=== PATIENT | female | born 1950 | race Caucasian/White ===

== ENCOUNTER 2020-06-13 13:20 | Observation (INO) | payer MEDICARE, SELFPAY ==
[2020-06-13] VITALS (7 sets, daily range): BP systolic 147–181; BP diastolic 61–82; PULSE 85–109; RESP 16–20; TEMP 36.7–37.5; O2SAT 94–98; BMI 29.5
--- NOTE | ~2020-06-13 | US_ITS ---
US right upper quadrant DATE: 06/14/2020 15:29 INDICATION: Cirrhosis TECHNIQUE: Real-time imaging of liver, pancreas and gallbladder fossa area COMPARISON: 09/13/2019 right upper quadrant ultrasound examination FINDINGS: The pancreatic tail is obscured by bowel gas. The pancreas otherwise appears unremarkable. No pancreatic duct dilatation. There is normal hepatopedal portal venous flow direction. There is hepatic surface nodularity and isabelle e coarsened echotexture of liver consistent with clinical diagnosis of cirrhosis. The gallbladder is reportedly surgically absent. The common bile duct measures 4.7 mm diameter, withi n normal limits. IMPRESSION: Cirrhosis; normal hepatopedal portal venous flow direction Pancreatic tail is obscured; otherwise unremarkable pancreas Status post cholecystectomy Reviewed, dictated and finalized at [facility]. Reviewed, dictated and finalized at [facility].
--- NOTE | ~2020-06-13 | XR_ITS ---
EXAMINATION: XR chest 2V DATE: 06/13/2020 14:11 INDICATION: Weakness. TECHNIQUE: Frontal and lateral views of the chest were obtained. COMPARISON: Chest 2 views 12/27/2011, chest CT 09/01/2009 FINDINGS: The chest demonstrates clear lungs without pneumonia, pleural effusion, or pneumothorax. Th e heart size is normal. Surgical clips in the right upper quadrant are likely from cholecystectomy. IMPRESSION: 1. No acute cardiopulmonary disease. Reviewed, dictated and finalized at location [facility].
--- NOTE | 2020-06-13 13:42 | ECG_ITS ---
Measurements Intervals [place] Rate: 97 P: 35 OK: 144 QRS: 20 QRSD: 78 T: -3 QT: 376 QTc: 478 Interpretive Statements SINUS RHYTHM POSSIBLE LEFT ATRIAL ENLARGEMENT VOLTAGE CRITERIA FOR LVH CANNOT RULE OUT SEPTAL INFARCT, AGE INDETERMINATE BORDERLINE ST-T WAVE ABNORMALITY- ANTEROLAT/INF LEADS ABNORMAL ECG Electronically Signed On 06-13-2020 14:26:45 CDT by Diomedes Goldman D.O.
[2020-06-13 14:00] LABS: Basophils Percent Auto 0.5 % (0.2-1.2); Eosinophils Percent Auto 0.8 % (0-4.4); Hematocrit 33.9 % (37.0-47.0); Hemoglobin 10.4 g/dL (12.0-15.0); Immature Granulocyte Absolute 0.02 K/mm3 (0.00-0.031); Immature Granulocyte Percent A 0.5 % (0-0.5); Immature Platelet Fraction Pct 4.8 % (0.9-11.2); Lymphocytes Absolute Auto 1.18 K/mm3 (0.9-3.2); Lymphocytes Percent Auto 32.2 % (18.3-44.2); Mean Corpuscular HGB Conc 30.7 g/dl (32-36); Mean Corpuscular Hemoglobin 25.3 pg (26-34); Mean Corpuscular Volume 82.5 fl (80-100); Mean Platelet Volume 12.1 fl (7.4-10.4); Monocytes Absolute Auto 0.4 K/mm3 (0.1-0.6); Monocytes Percent Auto 11.5 % (2.6-8.5); Neutrophils Percent Auto 54.5 % (45.5-73.1); Platelet Count Result 91 k/mm3 (150-375); Red Blood Count 4.11 M/mm3 (4.2-5.4); Red Cell Distribution Width 18.4 % (11.5-14.5); White Blood Count 3.7 K/mm3 (4.5-10.0)
[2020-06-13 14:12] LABS: Alanine Aminotransferase 29 U/L (4-35); Albumin Level 3.6 g/dL (3.5-5.1); Alkaline Phosphatase 113 U/L (38-126); Anion Gap 9 mmol/L (8-16); Aspartate Amino Transferase 61 U/L (14-36); Bilirubin,Total 2.4 mg/dL (0.2-1.3); Blood Urea Nitrogen 11 mg/dL (7-17); Calcium 8.7 mg/dL (8.4-10.2); Carbon Dioxide 22 mmol/L (22-30); Chloride 110 mmol/L (98-107); Estimated CRCL calculation 146 ml/min; Estimated Glomerular Filt Rate > 60; Glucose 163 mg/dL (65-105); Potassium 3.6 mmol/L (3.4-5.0); Sodium 141 mmol/L (137-145)
[2020-06-13 15:55] LABS: Add Urine Microscopic? YES; Appearance Urine Clear (Clear); Bacteria Urine Trace /hpf; Bilirubin Urine Negative (Negative); Blood Urine Negative (Negative); Color Urine Yellow (Yellow); Glucose Urine UA Negative (Negative); Ketones Urine Negative (Negative); Leukocyte Esterase Ur Negative LEU/UL (Negative); Mucus Urine Rare /lpf; Nitrate Urine Negative (Negative); Protein Urine 1+ mg/dL (Negative); RBC Urine 0-2 /hpf (0-2); Squamous Epithelial Cell Urine Moderate /hpf (Few); WBC Urine 0-3 /hpf
[2020-06-13 16:13] LABS: Ammonia 83 umol/L (9-30)
--- NOTE | 2020-06-13 16:35 | ED.GENADULT ---
HPI - General Adult General Chief complaint: Weakness Stated complaint: Dizzy, Needs Blood Work from PCP Time Seen by Provider: 06/13/20 15:34 History of Present Illness HPI narrative: Patient is a 70-year-old female who presents the ER with feeling slightly disoriented and dizzy. Reports been going on for 2 to 4 days. She had a COVID test yesterday which was negative. Now she is concerned she may be encephalopathic related to her cirrhosis. She reports compliance with rifaximin. No fevers or chills or sweats. No new abdominal pain. Related Data Home Medications Medication Instructions Recorded Confirmed lactulose [Generlac] 30 ml PO PRN PRN 09/12/19 06/13/20 Adult Low Dose Aspirin 81 mg PO DAILY 06/13/20 06/13/20 pantoprazole 40 mg PO DAILY 06/13/20 06/13/20 Allergies Allergy/AdvReac Type Severity Reaction Status Date / Time acetaminophen [From Vicodin] Allergy Unknown Unknown Verified 06/12/20 11:01 hydrocodone [From Vicodin] Allergy Unknown Unknown Verified 06/12/20 11:01 Review of Systems Review of Systems: All systems reviewed & are unremarkable except as noted in HPI and below Constitutional: Constitutional: Denies chills, Denies fever(s) and Denies weakness ENT: Denies nasal congestion and Denies sore throat Cardiovascular: Cardiovascular: Denies chest pain and Denies rapid heart rate Respiratory: Respiratory: Denies cough, Denies dyspnea and Denies wheezing Gastrointestinal: Gastrointestinal: Denies abdominal pain, Denies nausea and Denies vomiting Neurologic: Reports dizziness, Denies focal weakness, Denies numbness and Reports weakness PMFSH Social History Social History (Reviewed 06/12/20 @ 11:02 by Laurel Valenzuela [facility]) Smoking packs per day: 1 Smoking cigarettes per day: 20.0 Years smoked: 10 Smoking pack-years: 10.00 Smoking status: Former smoker Tobacco type: cigarettes Second hand tobacco smoke exposure: Yes Alcohol intake: never Substance use: never Substance use type: does not use Gender identity (if verbalized by the patient): Female Spiritual care concerns: No Agree to blood products: Yes Exam Narrative: Exam Narrative: GENERAL: Well-appearing, well-nourished, and in no acute distress. HEAD: Normocephalic, atraumatic. ENT: Mucous membranes moist. CHEST: Clear to auscultation. No respiratory distress. HEART: Regular rate and rhythm. Normal peripheral pulses. ABDOMEN: Soft, nontender, nondistended. EXTREMITIES: Normal range of motion. No edema. SKIN: Warm, dry, no rash. NEURO: No focal deficits. Alert and oriented x3 but with a foggy memory. Course Course Emergency Course: Patient informed of results. We will give lactulose. Observe. Vital Signs Vital signs: Vital Signs Temperature 99.5 F 06/13/20 13:44 Pulse Rate 107 H 06/13/20 13:44 Respiratory Rate 18 06/13/20 13:44 Blood Pressure 174/73 H 06/13/20 13:44 Pulse Oximetry 96 06/13/20 13:44 Temperature 98.3 F 06/13/20 22:00 Pulse Rate 85 06/13/20 22:00 Respiratory Rate 20 06/13/20 22:00 Blood Pressure 149/61 H 06/13/20 22:00 Pulse Oximetry 98 06/13/20 22:00 Medical Decision Making Vital Signs Vital Signs: Vital Signs Temperature 99.5 F 06/13/20 13:44 Pulse Rate 107 H 06/13/20 13:44 Respiratory Rate 18 06/13/20 13:44 Blood Pressure 174/73 H 06/13/20 13:44 Pulse Oximetry 96 06/13/20 13:44 Temperature 98.3 F 06/13/20 22:00 Pulse Rate 85 06/13/20 22:00 Respiratory Rate 20 06/13/20 22:00 Blood Pressure 149/61 H 06/13/20 22:00 Pulse Oximetry 98 06/13/20 22:00 Lab Data Result diagrams: 06/13/20 13:48 06/13/20 13:48 Labs: Lab Results 06/13/20 06/13/20 06/13/20 Range/Units 13:48 13:48 15:43 WBC 3.7 L (4.5-10.0) K/mm3 RBC 4.11 L (4.2-5.4) M/mm3 Hgb 10.4 L (12.0-15.0) g/dL Hct 33.9 L (37.0-47.0) % MCV 82.5 (80-100) fl MCH 25.3 L (26-34) pg MCHC 30.
[2020-06-13] MEDS: LACTULOSE 20 GM/30 ML UDC PO (18:43)
[2020-06-13] MEDS: ACETAMINOPHEN 325 MG TABLET 650 MG PO (21:08)
[2020-06-13] MEDS: rifAXIMin 550 MG TABLET PO (23:24)
[2020-06-14 02:00] VITALS: BP 132/53; PULSE 81; RESP 20; TEMP 36.1; O2SAT 98
[2020-06-14 06:00] VITALS: BP 128/55; PULSE 82; RESP 18; TEMP 36.2; O2SAT 96
[2020-06-14] MEDS: ASPIRIN 81 MG CHEWABLE TABLET PO (08:10)
[2020-06-14] MEDS: PANTOPRAZOLE 40 MG TABLET PO (08:10)
[2020-06-14] MEDS: rifAXIMin 550 MG TABLET PO ×2 (08:11→21:21)
[2020-06-14] MEDS: LOSARTAN POTASSIUM 100 MG TABLET PO (08:11)
[2020-06-14] MEDS: LACTULOSE 20 GM/30 ML UDC 10 GM PO (08:16)
[2020-06-14 09:24] LABS: Glucose Point of Care 163 (65-105)
[2020-06-14 10:00] VITALS: BP 136/81; PULSE 84; RESP 18; TEMP 36.6; O2SAT 97
[2020-06-14 10:54] LABS: Basophils Percent Auto 0.6 % (0.2-1.2); Eosinophils Absolute Auto 0.1 K/mm3 (0-0.3); Eosinophils Percent Auto 1.6 % (0-4.4); Hematocrit 31.5 % (37.0-47.0); Hemoglobin 9.7 g/dL (12.0-15.0); Immature Granulocyte Absolute 0.01 K/mm3 (0.00-0.031); Immature Granulocyte Percent A 0.3 % (0-0.5); Lymphocytes Absolute Auto 1.24 K/mm3 (0.9-3.2); Lymphocytes Percent Auto 39.1 % (18.3-44.2); Mean Corpuscular HGB Conc 30.8 g/dl (32-36); Mean Corpuscular Hemoglobin 25.4 pg (26-34); Mean Corpuscular Volume 82.5 fl (80-100); Mean Platelet Volume 11.5 fl (7.4-10.4); Monocytes Absolute Auto 0.4 K/mm3 (0.1-0.6); Monocytes Percent Auto 12.6 % (2.6-8.5); Neutrophils Absolute Auto 1.5 K/mm3 (1.3-6.7); Neutrophils Percent Auto 45.8 % (45.5-73.1); Platelet Count Result 87 k/mm3 (150-375); Red Blood Count 3.82 M/mm3 (4.2-5.4); Red Cell Distribution Width 18.3 % (11.5-14.5); White Blood Count 3.2 K/mm3 (4.5-10.0)
[2020-06-14 11:04] LABS: Ammonia 114 umol/L (9-30)
[2020-06-14 11:06] LABS: INR 1.6; Prothrombin Time 18.3 Seconds (11.1-14.7)
[2020-06-14 11:08] LABS: Alanine Aminotransferase 25 U/L (4-35); Albumin Level 3.1 g/dL (3.5-5.1); Alkaline Phosphatase 91 U/L (38-126); Anion Gap 7 mmol/L (8-16); Aspartate Amino Transferase 50 U/L (14-36); Bilirubin,Total 2.3 mg/dL (0.2-1.3); Blood Urea Nitrogen 13 mg/dL (7-17); Calcium 8.4 mg/dL (8.4-10.2); Carbon Dioxide 21 mmol/L (22-30); Chloride 110 mmol/L (98-107); Estimated CRCL calculation 151 ml/min; Estimated Glomerular Filt Rate > 60; Glucose 252 mg/dL (65-105); Potassium 3.8 mmol/L (3.4-5.0); Sodium 138 mmol/L (137-145)
--- NOTE | 2020-06-14 12:26 | PM.IMHP ---
H&P: HPI History of Present Illness Date/Time: 06/14/20 12:26 Chief complaint: hepatic encephalopathy Narrative: Date of admission: 06/13/2020 Date of service: 06/14/2020 Negar Berg is a 70 year old female with a history of hepatitis C, non-insulin dependent type 2 DM, HTN, and cirrhosis who presented to the emergency department on 06/13/2020 with complaints of feeling confused. She began having symptoms of feeling weird 2 days ago. When asked to elaborate on her symptoms, she said she had a dry cough and could not think of anything else. She called her PCP and went in for an appointment that day. She was then tested for COVID-19 and found to be negative. The next day, she felt more disoriented and confused. She said she was not able to recall the date. Her daughter then called her PCP on her behalf and apparently PCP told the patient's daughter that she was supposed to get blood work and that she may benefit from evaluation in the emergency department. The patient said her daughter insisted she be evaluated even though she did not really want to go. She tells me that she has had one similar episode to this back in August 2019, and she was hospitalized at that time. She has been established with Dr. Mena for about 1 year for cirrhosis and has been on Rifaximin since then. Her last appointment with Dr. Mena was about 2 months ago during which she was started on lactulose. She was instructed to take it 3-4 times per day but she says she only takes it once per day because she cannot tolerate having multiple bowel movements while she is at work. At this time, she denies any confusion. She is alert and oriented x4. She feels in her usual state of health. She had one formed bowel movement this morning. Her appetite has been good. She has been monitoring her blood sugars. She had a mild headache yesterday evening that has resolved. She does not have asterixis. Review of Systems Review of Systems: Narrative: A 12 point review of systems was reviewed with pertinent positives and negatives as per HPI. [facility] Past Medical History Medical History (Updated 06/14/20 @ 17:49 by Nela Ellison PA-C) Anemia Anxiety Diabetes mellitus Hepatitis C HTN (hypertension) Rectal bleed Transaminitis Surgical History Surgical History (Updated 06/14/20 @ 14:21 by Nela Ellison PA-C) H/O colonoscopy (~2008) History of tubal ligation Hx of cholecystectomy Hx of tonsillectomy Family History Family History Grandparent Acute myocardial infarction Hypertension Diabetes mellitus Family history of coronary artery disease Cerebrovascular accident Mother Diabetes mellitus Social History Social History (Updated 06/14/20 @ 14:25 by Nela Ellison PA-C) Social History: Ms. Berg lives alone in an apartment. 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 She has two adult children. She would like to designate her daughter, Maite, as her surrogate decision maker and would like to be a full code. Smoking packs per day: 1 Smoking cigarettes per day: 20.0 Years smoked: 10 Smoking pack-years: 10.00 Smoking status: Former smoker Tobacco type: cigarettes Second hand tobacco smoke exposure: Yes Alcohol intake: never Substance use: never Substance use type: does not use Living arrangements: alone Occupation/Education: occupation Gender identity (if verbalized by the patient): Female Spiritual care concerns: No Agree to blood products: Yes Meds Home Medications and Allergies Home Medications Medication Instructions Recorded Confirmed Type lactulose [Generlac] 30 ml PO PRN PRN 09/12/19 06/13/20 History rifaximin [Xifaxan] 550 mg PO Q12HR 30 Days #60 tablet 09/13/19 06/13/20 Rx losartan 100 mg tablet 100 mg PO DAILY #30 tablet 02/20/20 06/13/20 Rx metformin 1,000 mg tablet 1,000 mg PO BID #180 tablet 05/14/20 06/13/20 Rx Adult Low Dose Aspirin 81 mg PO DA
[2020-06-14] MEDS: INSULIN ASPART (*BKC) 100 UNITS/ML SUB-Q ×2 (12:48→16:45)
[2020-06-14 14:00] VITALS: BP 122/56; PULSE 85; RESP 16; TEMP 36.8; O2SAT 98
[2020-06-14 16:26] LABS: Glucose Point of Care 245 (65-105)
[2020-06-14 16:38] LABS: Glucose Point of Care 224 (65-105)
[2020-06-14 18:00] VITALS: BP 128/56; PULSE 80; RESP 18; TEMP 36.6; O2SAT 97
[2020-06-14] MEDS: metFORMIN HCL 500 MG TABLET 1000 MG PO (21:21)
[2020-06-14 21:35] LABS: Glucose Point of Care 170 (65-105)
[2020-06-14 22:00] VITALS: BP 139/55; PULSE 77; RESP 20; TEMP 36.8; O2SAT 98
[2020-06-15 02:00] VITALS: BP 122/55; PULSE 79; RESP 20; TEMP 36.8; O2SAT 98
[2020-06-15 05:47] LABS: Basophils Percent Auto 0.6 % (0.2-1.2); Eosinophils Absolute Auto 0.1 K/mm3 (0-0.3); Eosinophils Percent Auto 2.8 % (0-4.4); Hemoglobin 9.5 g/dL (12.0-15.0); Immature Granulocyte Absolute 0.01 K/mm3 (0.00-0.031); Immature Granulocyte Percent A 0.3 % (0-0.5); Immature Platelet Fraction Pct 6.1 % (0.9-11.2); Lymphocytes Absolute Auto 1.52 K/mm3 (0.9-3.2); Mean Corpuscular HGB Conc 30.6 g/dl (32-36); Mean Corpuscular Hemoglobin 25.6 pg (26-34); Mean Corpuscular Volume 83.6 fl (80-100); Mean Platelet Volume 11.4 fl (7.4-10.4); Monocytes Absolute Auto 0.5 K/mm3 (0.1-0.6); Monocytes Percent Auto 13.5 % (2.6-8.5); Neutrophils Absolute Auto 1.5 K/mm3 (1.3-6.7); Neutrophils Percent Auto 40.8 % (45.5-73.1); Platelet Count Result 89 k/mm3 (150-375); Red Blood Count 3.71 M/mm3 (4.2-5.4); Red Cell Distribution Width 18.3 % (11.5-14.5); White Blood Count 3.6 K/mm3 (4.5-10.0)
[2020-06-15 05:51] LABS: INR 1.5; Prothrombin Time 17.9 Seconds (11.1-14.7)
[2020-06-15 05:57] LABS: Alanine Aminotransferase 23 U/L (4-35); Albumin Level 2.9 g/dL (3.5-5.1); Alkaline Phosphatase 87 U/L (38-126); Anion Gap 5 mmol/L (8-16); Aspartate Amino Transferase 44 U/L (14-36); Bilirubin,Total 1.2 mg/dL (0.2-1.3); Blood Urea Nitrogen 14 mg/dL (7-17); Calcium 8.6 mg/dL (8.4-10.2); Carbon Dioxide 23 mmol/L (22-30); Chloride 111 mmol/L (98-107); Estimated CRCL calculation 151 ml/min; Estimated Glomerular Filt Rate > 60; Glucose 136 mg/dL (65-105); Potassium 3.8 mmol/L (3.4-5.0); Sodium 139 mmol/L (137-145)
[2020-06-15 06:00] VITALS: BP 126/50; PULSE 85; RESP 20; TEMP 36.4; O2SAT 98
[2020-06-15 07:06] LABS: Hemoglobin A1C 8.1 % (<5.7)
[2020-06-15] MEDS: metFORMIN HCL 500 MG TABLET 1000 MG PO (08:32)
[2020-06-15] MEDS: rifAXIMin 550 MG TABLET PO (08:32)
[2020-06-15] MEDS: ASPIRIN 81 MG CHEWABLE TABLET PO (08:33)
[2020-06-15] MEDS: LACTULOSE 20 GM/30 ML UDC 10 GM PO (08:33)
[2020-06-15] MEDS: PANTOPRAZOLE 40 MG TABLET PO (08:33)
[2020-06-15] MEDS: LOSARTAN POTASSIUM 100 MG TABLET PO (08:33)
[2020-06-15 08:46] LABS: Glucose Point of Care 142 (65-105)
[2020-06-15 10:00] VITALS: BP 131/66; PULSE 88; RESP 16; TEMP 37.1; O2SAT 98
--- NOTE | 2020-06-15 11:09 | PM.DS ---
DS: Admitting Diagnosis Admitting Diagnosis Admitting Diagnosis: hepatic encephalopathy DS: Discharge Diagnosis Discharge Diagnosis (1) Hepatic encephalopathy: Code(s): K72.90 - Hepatic failure, unspecified without coma Status: Acute Assessment and Plan: She was mildly confused prior to presentation (stating she could not recall the day of the week) but remained A&O x4 throughout admission. She did not have asterixis. Ammonia levels were mildly elevated. She reported she was only taking her lactulose at 1 time per day because she was worried about having diarrhea while at work. I recommended that she continue lactulose 3 times per day with a goal of having 2-3 bowel movements per day. She had been consistent with her rifaximin which she should continue. I spoke with Dr. Mena regarding her case as she is established with him. He recommends office follow-up in several weeks. (2) Cirrhosis: Qualifiers: Hepatic cirrhosis type: unspecified hepatic cirrhosis Ascites presence: without ascites Qualified Code(s): K74.60 - Unspecified cirrhosis of liver Code(s): K74.60 - Unspecified cirrhosis of liver Status: Acute Assessment and Plan: She has been established with Dr. Mena. AST was very mildly elevated and total bili was 2.3. She had mild thrombocytopenia. No ascites. She reports she recently had an EGD and did not have any evidence of esophageal varice Right upper quadrant ultrasound was performed which showed nodularity of hepatic surface consistent with cirrhosis. Previous ultrasound in August 2019 showed a normal liver surface so there is evidence of progression. Follow-up with Dr. Mena as above. Continue rifaximin and lactulose. 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 She did have an elevated fasting glucose of 252 but additional readings were reasonable. A1c was 8.1 (06/15/2020). Continue metformin. I recommended she monitor blood sugars at home and record. (4) Hypertension: Qualifiers: Hypertension type: unspecified Qualified Code(s): I10 - Essential (primary) hypertension Code(s): I10 - Essential (primary) hypertension Status: Chronic Assessment and Plan: Blood pressures were reviewed daily. Initially somewhat elevated at presentation improved to low-normal range. Continue losartan. (5) Anemia: Qualifiers: Anemia type: unspecified type Qualified Code(s): D64.9 - Anemia, unspecified Code(s): D64.9 - Anemia, unspecified Status: Acute Assessment and Plan: Normocytic. H&H remained stable, vitals were stable, with no evidence of bleeding. DS: Summary Hospital Course Reason for hospitalization: Confusion Hospital Course: Date of admission: 06/13/2020 Date of discharge: 06/15/2020 Negar Berg is a 70 year old female with a history of hepatitis C, non-insulin dependent type 2 DM, HTN, and cirrhosis who presented to the emergency department on 06/13/2020 with complaints of feeling confused. She began having symptoms of feeling weird 2 days prior to presentation. She called her PCP and was tested for COVID-19 and found to be negative. The next day, she felt more disoriented and confused. She said she was not able to recall the date and her PCP recommended evaluation in the emergency department. She is established with Dr. Mena and saw him for an appointment about 2 months ago. At presentation, she did not have confusion, vitals were stable with mild tachycardia, WBC 3.7, H&H
--- NOTE | 2020-06-15 14:08 | PC.NURSE ---
Pt called to request work release note from provider for one week. Nela called & asked to clarify work release for one week. Nela stated she would write a work release for one day, one week off work is not warranted. Explained to patient that she could come to the hospital to pick-up the work release today or tomorrow, but that if she will need additional time off & a work release for those days, she will need to speak with her PCP, Dr Barroso. Pt stated understanding.
== END 2020-06-15 12:10 | disposition home or self-care (01) ==
LOC: ANHED 18:44 → ANH2MED 18:46
PROVIDERS: Admitting Provider Family Medicine; Emergency Provider Emergency Medicine; PCP Family Medicine; Visit Provider Physician Assistant
DX: K72.90 Hepatic failure, unspecified without coma (principal); K74.60 Unspecified cirrhosis of liver; D69.6 Thrombocytopenia, unspecified; E11.9 Type 2 diabetes mellitus without complications; I10 Essential (primary) hypertension; D64.9 Anemia, unspecified; Z79.82 Long term (current) use of aspirin; Z79.899 Other long term (current) drug therapy; Z86.19 Personal history of other infectious and parasitic diseases; Z87.891 Personal history of nicotine dependence
CPT/HCPCS: 36415; 71046; 76705; 80053; 81001; 82140; 83036; 85025; 85055; 85610; 93005; 99285; A9270; G0378; J1815

== ENCOUNTER 2020-10-29 06:54 | Outpatient (NON) | payer MEDICARE, SELFPAY ==
[2020-10-29 22:09] LABS: SARS-CoV-2 RNA PCR Negative
== END 2020-10-29 06:55 ==
LOC: ANHCOVIDDT 07:07
PROVIDERS: PCP Family Medicine; Visit Provider Physician Assistant
DX: R05 Cough (principal); Z20.828 Contact with and (suspected) exposure to other viral communicable diseases
CPT/HCPCS: 87635; C9803; U0003

== ENCOUNTER 2020-11-07 10:54 | Outpatient (CLI) | payer MEDICARE, SELFPAY ==
[2020-11-07 12:08] LABS: Hematocrit 32.3 % (37.0-47.0); Hemoglobin 9.1 g/dL (12.0-15.0); Immature Platelet Fraction Pct 6.6 % (0.9-11.2); Mean Corpuscular HGB Conc 28.2 g/dl (32-36); Mean Corpuscular Hemoglobin 22.5 pg (26-34); Mean Corpuscular Volume 79.8 fl (80-100); Mean Platelet Volume 11.5 fl (7.4-10.4); Platelet Count Result 114 k/mm3 (150-375); Red Blood Count 4.05 M/mm3 (4.2-5.4); Red Cell Distribution Width 17.9 % (11.5-14.5); White Blood Count 3.1 K/mm3 (4.5-10.0)
[2020-11-07 12:21] LABS: Alanine Aminotransferase 32 U/L (4-35); Albumin Level 3.6 g/dL (3.5-5.1); Alkaline Phosphatase 75 U/L (38-126); Anion Gap 5 mmol/L (8-16); Aspartate Amino Transferase 57 U/L (14-36); Bilirubin,Total 1.4 mg/dL (0.2-1.3); Blood Urea Nitrogen 15 mg/dL (7-17); Calcium 9.2 mg/dL (8.4-10.2); Carbon Dioxide 30 mmol/L (22-30); Chloride 109 mmol/L (98-107); Estimated Glomerular Filt Rate > 60; Glucose 122 mg/dL (65-105); Lactic Acid 2.3 mmol/L (0.7-2.1); Potassium 3.6 mmol/L (3.4-5.0); Sodium 144 mmol/L (137-145)
[2020-11-07 12:27] LABS: Hemoglobin A1C 6.5 % (<5.7)
[2020-11-07 12:42] LABS: Iron 25 ug/dL (37-170)
[2020-11-07 12:51] LABS: Percent Iron Saturation 5 % (20-50)
[2020-11-07 13:14] LABS: Thyroid Stimulating Hormone Reflex 0.957 uIU/mL (0.465-4.68)
== END 2020-11-07 10:55 | disposition home or self-care (01) ==
PROVIDERS: PCP Family Medicine; Visit Provider Family Medicine
DX: R53.83 Other fatigue (principal); E11.9 Type 2 diabetes mellitus without complications; K74.60 Unspecified cirrhosis of liver; T38.3X5A Adverse effect of insulin and oral hypoglycemic [antidiabetic] drugs, initial encounter; E03.9 Hypothyroidism, unspecified
CPT/HCPCS: 36415; 80053; 83036; 83540; 83550; 83605; 84443; 85027; 85055

== ENCOUNTER → 2021-11-04 01:54 | Outpatient (CLI) | payer MEDICARE, SELFPAY ==
[2021-11-04 15:25] LABS: Influenza Control Positive
[2021-11-05 20:55] LABS: SARS-CoV-2 RNA PCR Negative
== END ==
PROVIDERS: PCP Family Medicine; Visit Provider Physician Assistant
DX: R50.9 Fever, unspecified (principal); Z20.822 Contact with and (suspected) exposure to COVID-19
CPT/HCPCS: 87804; C9803; U0003; U0005

== ENCOUNTER 2023-06-14 11:46 | Observation (INO) | payer MEDICARE, SELFPAY ==
[2023-06-14] VITALS (24 sets, daily range): BP systolic 128–163; BP diastolic 60–73; PULSE 84–96; RESP 10–18; TEMP 36.2–36.4; O2SAT 98–100; BMI 27.5
--- NOTE | ~2023-06-14 | CT_ITS ---
EXAMINATION: CT brain wo con DATE: 06/14/2023 13:15 INDICATION: Altered mental status. Confusion. TECHNIQUE: Computed tomography (CT) of the head was performed without intravenous contrast. The mA wa s adjusted according to patient size. Iterative reconstruction technique was employed. The dose-lengt h product was 681.00 mGy-cm. COMPARISON: Head CT 09/12/2019 FINDINGS: There is no intracranial hemorrhage, acute infarction, or abnormal intracranial mass lesion . The ventricles are normal in size. There are likely changes of ocular lens replacement surgeries. 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 There is mild mucosal thickening in the ethmoid sinuses. The m astoid air cells are normal. IMPRESSION: 1. Normal brain. Reviewed, dictated and finalized at location [facility]. IMPRESSION: 1. Normal brain.
--- NOTE | ~2023-06-14 | XR_ITS ---
EXAMINATION: XR chest 1V portable DATE: 06/14/2023 13:06 INDICATION: Altered mental status. TECHNIQUE: A single frontal view of the chest was obtained. COMPARISON: Chest 2 views 06/13/2020 FINDINGS: There is no pneumonia, pleural effusion, or pneumothorax. The heart size is normal. IMPRESSION: 1. No acute cardiopulmonary disease. Reviewed, dictated and finalized at location A.
--- NOTE | 2023-06-14 12:10 | ED.AMS ---
HPI - Altered Mental Status General Chief Complaint: Altered Mental Status Stated Complaint: I feel weird Time Seen by Provider: 06/14/23 12:07 History of Present Illness HPI narrative: Patient is a 73-year-old female with a history of diabetes, cirrhosis, GERD presenting with confusion. Patient's daughter is at bedside and assists with the history. States that her mother has been increasingly confused over the last several days. Patient states that she feels weird . Daughter states that the patient called her last night to ask for her own phone number and kept arguing that it sounded incorrect. Patient's daughter states that this sometimes happens when the patient does not take her medications appropriately. Patient does report medication compliance. She denies any pain. No headache, numbness or weakness, chest pain, shortness of breath, cough, abdominal pain, vomiting, diarrhea, dysuria, leg swelling. Related Data Home Medications Medication Instructions Recorded Confirmed aspirin 81 mg tablet,delayed 81 mg PO DAILY 04/26/22 06/14/23 release (Adult Aspirin Regimen) lactulose 10 gram/15 mL oral 30 ml PO QID 07/21/22 06/14/23 solution (Generlac) rifaximin 550 mg tablet (Xifaxan) 550 mg PO BID 11/11/22 06/14/23 Allergies Allergy/AdvReac Type Severity Reaction Status Date / Time acetaminophen [From Vicodin] Allergy Severe Redness of Verified 06/14/23 12:10 Skin hydrocodone [From Vicodin] Allergy Severe Redness of Verified 06/14/23 12:10 Skin Review of Systems Review of Systems: All systems reviewed & are unremarkable except as noted in HPI and below PMFSH Past Medical History Medical History (Updated 06/14/23 @ 22:35 by Indira Crawley MD) Anemia Anxiety Hepatitis C Hypertension Mitral regurgitation Noted on echocardiogram in April 2022. Pancytopenia Type 2 diabetes mellitus Surgical History Surgical History (Updated 06/14/23 @ 15:36 by Trudi Galvan PA-C) History of bilateral cataract extraction History of cholecystectomy History of colonoscopy History of tonsillectomy History of tubal ligation Family History Family History Grandparent Acute myocardial infarction Hypertension Diabetes mellitus Family history of coronary artery disease Cerebrovascular accident Mother Diabetes mellitus Social History Social History (Updated 06/14/23 @ 15:37 by MEENU Manjarrez Social History: Surrogate medical decision maker: Maite Berg, daughter. Code status: Full code. Smoking packs per day: 1 Smoking cigarettes per day: 20.0 Years smoked: 10 Smoking pack-years: 10.00 Smoking status: Former smoker Second hand tobacco smoke exposure: Yes Alcohol intake: unknown Substance use: never Substance use type: does not use Lack of Transportation: No Lack of Food: Never True Current Housing: I Have Housing Concerned About Future Housing: No Difficulty Paying Gas/Electric Bills: No Difficulty Paying for Meds: No Currently Unemployed: No Education: High School Diploma/GED Difficulty w/ Childcare or Family Care: No Living arrangements: alone Additional living arrangements comments: Lives alone. She has 2 children. Occupation/Education: occupation Additional occupation/education comments: Works part-time at [employer]. Spiritual care concerns: No Agree to blood products: Yes Exam Narrative: GENERAL: Well-appearing, well-nourished, and in no acute distress. HEAD: Normocephalic, atraumatic. EYES: PERRLA and EOMI. ENT: Nares clear, no rhinorrhea or epistaxis. Mucous membranes moist. NECK: Supple. CHEST: Clear to auscultation. No respiratory distress. HEART: Regular rate and rhythm. No murmur heard. Normal peripheral pulses. ABDOMEN: Soft, nontender, nondistended EXTREMITIES: Normal range of motion. No edema. SKIN: Warm, dry, no rash. NEURO: No focal deficits.
--- NOTE | 2023-06-14 12:24 | PC.NURSE ---
records requested from [facility] from yesterdays er visit
[2023-06-14 13:16] LABS: Basophils Percent Auto 0.7 % (0.2-1.2); Eosinophils Percent Auto 0.3 % (0-4.4); Hematocrit 34.6 % (37.0-47.0); Hemoglobin 10.6 g/dL (12.0-15.0); Immature Granulocyte Absolute 0.01 K/mm3 (0.00-0.031); Immature Granulocyte Percent A 0.3 % (0-0.5); Immature Platelet Fraction Pct 5.5 % (0.9-11.2); Lymphocytes Percent Auto 24.1 % (18.3-44.2); Mean Corpuscular HGB Conc 30.6 g/dl (32-36); Mean Corpuscular Volume 91.3 fl (80-100); Mean Platelet Volume 11.7 fl (7.4-10.4); Monocytes Absolute Auto 0.5 K/mm3 (0.1-0.6); Monocytes Percent Auto 17.9 % (2.6-8.5); Neutrophils Absolute Auto 1.7 K/mm3 (1.3-6.7); Neutrophils Percent Auto 56.7 % (45.5-73.1); Platelet Count Result 103 k/mm3 (150-375); Red Blood Count 3.79 M/mm3 (4.2-5.4); Red Cell Distribution Width 15.7 % (11.5-14.5); White Blood Count 2.9 K/mm3 (4.5-10.0)
[2023-06-14 13:18] LABS: Appearance Urine Clear (Clear); Bacteria Urine None Seen /hpf; Bilirubin Urine Negative (Negative); Blood Urine 1+ (Negative); Color Urine Yellow (Yellow); Glucose Urine UA Negative (Negative); Ketones Urine Trace mg/dL (Negative); Leukocyte Esterase Ur Trace LEU/UL (Negative); Nitrate Urine Negative (Negative); Protein Urine Negative (Negative); RBC Urine 0-2 /hpf (0-2); Specific Grav Ur 1.017 (1.001-1.035); Squamous Epithelial Cell Urine Few /hpf (Few); Urobilinogen Urine 0.2 mg/dL (<2.0); WBC Urine 0-5 /hpf
[2023-06-14 13:19] LABS: Ammonia 60 umol/L (9-30); Ethanol < 10 mg/dL (<10)
[2023-06-14 13:21] LABS: Albumin Level 3.7 g/dL (3.5-5.1); Alkaline Phosphatase 116 U/L (38-126); Anion Gap 7 mmol/L (8-16); Aspartate Amino Transferase 53 U/L (14-36); Bilirubin,Total 2.6 mg/dL (0.2-1.3); Blood Urea Nitrogen 14 mg/dL (7-17); Calcium 9.1 mg/dL (8.4-10.2); Carbon Dioxide 21 mmol/L (22-30); Chloride 107 mmol/L (98-107); Estimated CRCL calculation 94 ml/min; Estimated Glomerular Filt Rate > 60; Glucose 144 mg/dL (65-110); Magnesium 1.7 mg/dL (1.6-2.3); Potassium 3.8 mmol/L (3.4-5.0); Sodium 135 mmol/L (137-145)
[2023-06-14 13:25] LABS: Add Urine Microscopic? YES
[2023-06-14 13:26] LABS: Alanine Aminotransferase 48 U/L (6-35)
[2023-06-14] MEDS: SODIUM CHLORIDE 0.9% IV 1,000 ML 999 ML IV CONT (13:30)
[2023-06-14 13:33] LABS: Amphetamine Screen Urine Negative (Negative); Barbiturate Screen Urine Negative (Negative); Benzodiazepines Screen Urine Negative (Negative); Cannabinoid Screen Urine Negative (Negative); Cocaine Screen Urine Negative (Negative); Methadone Screen Urine Negative (Negative); Opiate Screen Urine Negative (Negative); Phencyclidine Screen Urine Negative (Negative)
--- NOTE | 2023-06-14 15:08 | PM.IMHP ---
H&P: HPI History of Present Illness Date/Time: 06/14/23 15:10 Chief Complaint: Confusion. Narrative: This is a 73-year-old female with history of hepatitis-C, cirrhosis, type 2 diabetes mellitus, and hypertension who presented to the emergency department via private vehicle from home for evaluation of confusion. The patient provides some of the following history however she has difficulties providing a coherent story. Her daughter gives additional information with the patient's permission. She has been confused the last several days, for example she called her daughter numerous times overnight to ask for her own phone number and kept arguing that it sounded incorrect. The patient herself reports that she feels ?weird? but she cannot provide any specifics. Daughter is concerned that she may not be taking her lactulose as prescribed, especially on days that she works to avoid going to the bathroom. She was previously evaluated for these symptoms yesterday at [facility] and had a workup that reportedly came back normal. 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 She denies fall, vertigo, headache, focal weakness, paresthesias, facial droop, difficulty speaking and swallowing, chest pain, shortness a breath, abdominal pain, bloating, weight changes, nausea, vomiting, diarrhea, and dysuria. She was afebrile on arrival to the emergency department with stable vital signs. Her labs were significant for a stable and chronic pancytopenia, sodium 135, carbon dioxide 21, BUN 14, creatinine 0.40, total bilirubin 2.6, AST 53, ALT 48, alkaline phosphatase 116, ammonia 60. Urine drug screen was negative in ethyl alcohol level was undetectable. Brain CT showed a normal brain. She was given a dose of lactulose 30 g p.o. x1 and she is being admitted in this setting for presumed hepatic encephalopathy. At the time my evaluation she has no active complaints. Review of Systems Review of Systems: Twelve systems were reviewed and are negative except for as per HPI. [facility] Past Medical History Medical History (Updated 06/14/23 @ 15:46 by Trudi Galvan PA-C) Anemia Anxiety Hepatitis C Hypertension Mitral regurgitation Noted on echocardiogram in April 2022. Pancytopenia Type 2 diabetes mellitus Surgical History Surgical History (Updated 06/14/23 @ 15:36 by Trudi Galvan PA-C) History of bilateral cataract extraction History of cholecystectomy History of colonoscopy History of tonsillectomy History of tubal ligation Family History Family History Grandparent Acute myocardial infarction Hypertension Diabetes mellitus Family history of coronary artery disease Cerebrovascular accident Mother Diabetes mellitus Social History Social History (Updated 06/14/23 @ 15:37 by Trudi Galvan PA-C) Social History: Surrogate medical decision maker: Maite Berg, daughter. Code status: Full code. Smoking packs per day: 1 Smoking cigarettes per day: 20.0 Years smoked: 10 Smoking pack-years: 10.00 Smoking status: Former smoker Tobacco type: cigarettes Second hand tobacco smoke exposure: Yes Alcohol intake: never Substance use: never Substance use type: does not use Lack of Transportation: No Lack of Food: Never True Current Housing: I Have Housing Concerned About Future Housing: No Difficulty Paying Gas/Electric Bills: No Difficulty Paying for Meds: No Currently Unemployed: No Education: High School Diploma/GED Difficulty w/ Childcare or Family Care: No Living arrangements: alone Additional living arrangements comments: Lives alone. She has 2 children. Occupation/Education: occupation Additional occupation/education comments: Works part-time at [employer]. Spiritual care concerns: No Agree to blood products: Yes Meds Home Medications and Allergies Home Medications M
[2023-06-14] MEDS: LACTULOSE 20 GM/30 ML UDC 30 GM PO ×2 (15:58→21:48)
--- NOTE | 2023-06-14 16:27 | ADMGEN ---
This patient, Negar Berg, was admitted to Medical Room 349-01. Patient/family oriented to hospital policies and general routines including ID bracelet, bed and alarms, visiting hours, pain management, procedures, bathroom and other care routines, personal items, smoking policy, room service/diet, and visiting hours. Information on how to activate the Rapid Response Team has been discussed. Patient/Family are encouraged to report perceived risks to care and to ask questions if they do not understand what they are told or what they should do.
[2023-06-14 17:22] LABS: Glucose Point of Care 128 mg/dl (65-105)
[2023-06-14 21:10] LABS: Glucose Point of Care 151 mg/dl (65-105)
[2023-06-14] MEDS: rifAXIMin 550 MG TABLET PO (21:49)
[2023-06-15 05:52] VITALS: BP 125/51; PULSE 80; RESP 16; TEMP 36.2; O2SAT 96
[2023-06-15 06:40] LABS: Basophils Percent Auto 0.4 % (0.2-1.2); Eosinophils Absolute Auto 0.1 K/mm3 (0-0.3); Eosinophils Percent Auto 2.2 % (0-4.4); Hematocrit 29.1 % (37.0-47.0); Immature Platelet Fraction Pct 4.7 % (0.9-11.2); Lymphocytes Absolute Auto 1.24 K/mm3 (0.9-3.2); Lymphocytes Percent Auto 46.3 % (18.3-44.2); Mean Corpuscular HGB Conc 30.9 g/dl (32-36); Mean Corpuscular Hemoglobin 27.8 pg (26-34); Mean Corpuscular Volume 89.8 fl (80-100); Mean Platelet Volume 11.2 fl (7.4-10.4); Monocytes Absolute Auto 0.6 K/mm3 (0.1-0.6); Monocytes Percent Auto 21.6 % (2.6-8.5); Neutrophils Absolute Auto 0.8 K/mm3 (1.3-6.7); Neutrophils Percent Auto 29.5 % (45.5-73.1); Platelet Count Result 82 k/mm3 (150-375); Red Blood Count 3.24 M/mm3 (4.2-5.4); Red Cell Distribution Width 15.8 % (11.5-14.5); White Blood Count 2.7 K/mm3 (4.5-10.0)
[2023-06-15 06:49] LABS: INR 1.5; Prothrombin Time 18.8 Seconds (11.1-14.7)
[2023-06-15 06:50] LABS: Partial Thromboplastin Time 35.7 SECONDS (22.3-36.8)
[2023-06-15 06:51] LABS: Alanine Aminotransferase 28 U/L (6-35); Albumin Level 2.8 g/dL (3.5-5.1); Alkaline Phosphatase 83 U/L (38-126); Anion Gap 2 mmol/L (8-16); Aspartate Amino Transferase 46 U/L (14-36); Bilirubin,Total 2.1 mg/dL (0.2-1.3); Blood Urea Nitrogen 12 mg/dL (7-17); Calcium 8.5 mg/dL (8.4-10.2); Carbon Dioxide 21 mmol/L (22-30); Chloride 112 mmol/L (98-107); Estimated CRCL calculation 111 ml/min; Estimated Glomerular Filt Rate > 60; Glucose 111 mg/dL (65-110); Magnesium 1.5 mg/dL (1.6-2.3); Potassium 3.6 mmol/L (3.4-5.0); Sodium 135 mmol/L (137-145)
[2023-06-15 06:54] LABS: Ammonia 56 umol/L (9-30)
[2023-06-15 07:59] LABS: Hemoglobin A1C 5.9 % (<5.7)
[2023-06-15 08:23] LABS: Glucose Point of Care 128 mg/dl (65-105)
[2023-06-15] MEDS: PANTOPRAZOLE 40 MG TABLET PO (09:39)
[2023-06-15] MEDS: ASPIRIN 81 MG ENTERIC TABLET PO (09:39)
[2023-06-15] MEDS: MAGNESIUM OXIDE 400 MG TABLET 800 MG PO ×3 (09:39→17:33)
[2023-06-15] MEDS: SPIRONOLACTONE 25 MG TABLET PO (09:39)
[2023-06-15] MEDS: LOSARTAN POTASSIUM 50 MG TABLET PO (09:39)
[2023-06-15] MEDS: LACTULOSE 20 GM/30 ML UDC 30 GM PO ×4 (09:40→20:40)
[2023-06-15] MEDS: MAGNESIUM SULFATE 3GM/D5W100ML 3 GM/100 ML BAG IVPB (09:47)
[2023-06-15] MEDS: rifAXIMin 550 MG TABLET PO ×2 (09:47→17:33)
[2023-06-15 09:50] VITALS: PULSE 80; RESP 16; O2SAT 96
[2023-06-15 11:52] LABS: Glucose Point of Care 185 mg/dl (65-105)
--- NOTE | 2023-06-15 13:10 | PM.IMPN ---
Progress Note: A&P Assessment and Plan (1) Hepatic encephalopathy: Code(s): K76.82 - Hepatic encephalopathy Status: Resolved Assessment and Plan: Her confusion is likely due to hepatic encephalopathy with an elevated ammonia level of 60. She has not had any recent falls or head trauma, she gives no history to suggest underlying infection and no physical findings concerning for stroke., Electrolytes are unremarkable, her renal function is normal, and urine drug screen is negative. Start lactulose q.i.d. until she is having 3 to 4 soft bowel movements a day. Continue rifaximin. Repeat ammonia level in the morning. B12 and TSH within normal limits. Continue neurologic checks q.4 hours. Ammonia level today 56, patient's encephalopathy resolved Patient has yet to have bowel movement. Suspect she will be able to discharge tomorrow once she is having regular bowel movements. (2) Pancytopenia: Code(s): D61.818 - Other pancytopenia Status: Chronic Assessment and Plan: Chronic pancytopenia is stable compared to previous labs and is likely due to her chronic liver disease. No evidence to suggest acutely decompensated liver failure. (3) Elevated LFTs: Code(s): R79.89 - Other specified abnormal findings of blood chemistry Status: Chronic Assessment and Plan: Total bilirubin, AST, and ALT are all slightly elevated but are near her baseline. (4) Cirrhosis: Qualifiers: Hepatic cirrhosis type: unspecified hepatic cirrhosis Ascites presence: without ascites Qualified Code(s): K74.60 - Unspecified cirrhosis of liver Code(s): K74.60 - Unspecified cirrhosis of liver Status: Chronic Assessment and Plan: secondary to hepatitis-C (5) Type 2 diabetes mellitus: Code(s): E11.9 - Type 2 diabetes mellitus without complications Status: Chronic Assessment and Plan: Initiate sliding scale insulin, Accu-Cheks, and hypoglycemic protocol. Hemoglobin A1c 5.9 (6) Hypertension: Code(s): I10 - Essential (primary) hypertension Status: Acute Assessment and Plan: Blood pressures were reviewed and they are stable. Continue antihypertensives. Subjective Date/time seen: 06/15/23 13:10 Interval history: Patient doing well today and is alert oriented x4 with daughter at bedside. Patient states that she has not had bowel movement since she has been admitted. Advised patient that we best for her to start have regular bowel movements prior to discharge. I suspect that she will be able to discharge tomorrow if able to bowel movement. Her symptoms have much improved. Patient states that she has been taking her medications as prescribed although she could have possibly missed a dose of her lactulose yesterday. Her daughter states that she does not believe her mom has been taking any of her medications as prescribed. Patient denies any dizziness, lightheadedness, visual changes, nausea, vomiting and abdominal pain. Continue with lactulose q.i.d. and will add MiraLax if patient cannot have BM. Exam Narrative: GENERAL: Comfortable, no acute distress HENMT: moist mucous membranes EYES: EOM intact b/l NECK: no lymphadenopathy RESPIRATORY: clear to auscultation CARDIO: RRR GI: Distended, soft, nontender, bowel sounds present SKIN: no rashes EXTREMITIES: no edema, redness or tenderness Objective Data Vital Signs Vital Signs: Vital Signs - 24 hr 06/14/23 13:17 06/14/23 13:18 06/14/23 13:30 Temperature Pulse Rate 89 90 93 Respiratory Rate 17 16 17 Blood Pressure 144/70 H Pulse Oximetry 100 100 98 06/14/23 13:31 06/14/23 13:50 06/14/23 14:00 Temperature Pulse Rate 87 84 87 Respiratory Rate 17 16 13 Blood Pressure 142/69 H Pulse Oximetry 99 99 100 06/14/23 14:01 06/14/23 14:30 06/14/23 14:45 Temperature Pulse Rate 90 85 87 Respirator
[2023-06-15 15:22] VITALS: BP 126/50; PULSE 92; RESP 18; TEMP 36.9; O2SAT 99
[2023-06-15 17:10] LABS: Glucose Point of Care 163 mg/dl (65-105)
[2023-06-15 19:31] VITALS: BP 115/56; PULSE 83; RESP 16; TEMP 36.9; O2SAT 98
[2023-06-15 20:00] VITALS: PULSE 83; RESP 16; O2SAT 98
[2023-06-15 20:41] LABS: Glucose Point of Care 157 mg/dl (65-105)
[2023-06-15 22:31] VITALS: O2SAT 98
[2023-06-16 05:23] VITALS: BP 110/56; PULSE 75; RESP 16; TEMP 36.6; O2SAT 97
[2023-06-16 06:03] LABS: Basophils Percent Auto 0.5 % (0.2-1.2); Eosinophils Absolute Auto 0.1 K/mm3 (0-0.3); Eosinophils Percent Auto 1.9 % (0-4.4); Hematocrit 30.1 % (37.0-47.0); Hemoglobin 9.4 g/dL (12.0-15.0); Immature Granulocyte Absolute 0.01 K/mm3 (0.00-0.031); Immature Granulocyte Percent A 0.3 % (0-0.5); Immature Platelet Fraction Pct 5.8 % (0.9-11.2); Lymphocytes Absolute Auto 1.51 K/mm3 (0.9-3.2); Lymphocytes Percent Auto 39.9 % (18.3-44.2); Mean Corpuscular HGB Conc 31.2 g/dl (32-36); Mean Corpuscular Hemoglobin 28.1 pg (26-34); Mean Corpuscular Volume 89.9 fl (80-100); Monocytes Absolute Auto 0.7 K/mm3 (0.1-0.6); Monocytes Percent Auto 19.3 % (2.6-8.5); Neutrophils Absolute Auto 1.4 K/mm3 (1.3-6.7); Neutrophils Percent Auto 38.1 % (45.5-73.1); Platelet Count Result 88 k/mm3 (150-375); Red Blood Count 3.35 M/mm3 (4.2-5.4); Red Cell Distribution Width 15.6 % (11.5-14.5); White Blood Count 3.8 K/mm3 (4.5-10.0)
[2023-06-16 06:10] LABS: Alanine Aminotransferase 32 U/L (6-35); Alkaline Phosphatase 124 U/L (38-126); Anion Gap 6 mmol/L (8-16); Aspartate Amino Transferase 55 U/L (14-36); Bilirubin,Total 1.5 mg/dL (0.2-1.3); Blood Urea Nitrogen 14 mg/dL (7-17); Calcium 8.8 mg/dL (8.4-10.2); Carbon Dioxide 24 mmol/L (22-30); Chloride 105 mmol/L (98-107); Estimated CRCL calculation 92 ml/min; Estimated Glomerular Filt Rate > 60; Glucose 144 mg/dL (65-110); Magnesium 1.6 mg/dL (1.6-2.3); Potassium 3.5 mmol/L (3.4-5.0); Sodium 135 mmol/L (137-145)
[2023-06-16 06:11] LABS: Ammonia 39 umol/L (9-30)
[2023-06-16 08:25] LABS: Glucose Point of Care 158 mg/dl (65-105)
[2023-06-16] MEDS: ASPIRIN 81 MG ENTERIC TABLET PO (09:27)
[2023-06-16] MEDS: rifAXIMin 550 MG TABLET PO (09:28)
[2023-06-16] MEDS: LOSARTAN POTASSIUM 50 MG TABLET PO (09:28)
[2023-06-16] MEDS: MAGNESIUM OXIDE 400 MG TABLET 800 MG PO (09:28)
[2023-06-16] MEDS: SPIRONOLACTONE 25 MG TABLET PO (09:28)
[2023-06-16] MEDS: LACTULOSE 20 GM/30 ML UDC 30 GM PO (09:28)
[2023-06-16] MEDS: PANTOPRAZOLE 40 MG TABLET PO (09:37)
--- NOTE | 2023-06-16 11:27 | PM.DS ---
DS: Admitting Diagnosis Discharge Date 06/16/23 Admitting Diagnosis Hepatic encephalopathy DS: Discharge Diagnosis Discharge Diagnosis (1) Hepatic encephalopathy: Code(s): K76.82 - Hepatic encephalopathy Status: Resolved (2) Pancytopenia: Code(s): D61.818 - Other pancytopenia Status: Chronic (3) Elevated LFTs: Code(s): R79.89 - Other specified abnormal findings of blood chemistry Status: Chronic (4) Cirrhosis: Qualifiers: Ascites presence: without ascites Hepatic cirrhosis type: unspecified hepatic cirrhosis Qualified Code(s): K74.60 - Unspecified cirrhosis of liver Code(s): K74.60 - Unspecified cirrhosis of liver Status: Chronic (5) Type 2 diabetes mellitus: Code(s): E11.9 - Type 2 diabetes mellitus without complications Status: Chronic (6) Hypertension: Code(s): I10 - Essential (primary) hypertension Status: Acute DS: Summary Hospital Course Hospital Course: This is a 73-year-old female with history of hepatitis-C, cirrhosis, type 2 diabetes, and hypertension that presented to the emergency department due to confusion. Patient's daughter was with her and explained that she believes patient had been missing some of her cirrhosis medications. Patient was calling her daughter numerous times asking the same questions. Patient has mold maker helper at [facility] in [place]. She was 1st taken to [facility] and they did a workup that came back normal and she was discharged home. Soon after they came home the decided to come to [facility] because patient was still not acting herself. She was found to have an ammonia level of 60, total bilirubin 2.6, AST 53, ALT 48 and alk-phos 116. Patient was given 1 dose of lactulose in the ED and admitted to the medical floor. Patient was given lactulose q.i.d. which is her home dose of lactulose. She has also restarted on her rifaximin. Patient did have bowel movement on the day of admission and her symptoms improved. The next day her ammonia level was 56 and she had not yet had bowel movement. Day of discharge patient's ammonia level was 39 and she is alert oriented x4 and feeling back to herself. Is advised with the patient that she discussed with her mold maker helper her medication regimen. Patient stated that she does not always have bowel movements daily and I stated that she needs to discuss this with her specialist and medications may need to be increased and or added to her daily regimen. Advised her to continue taking her medications as prescribed. I answered all of her questions to the some my ability. Labs and vital signs are stable and she is medically clear for discharge at this time. Time Spent with Patient Time attestation: Total time spent providing and/or coordinating discharge services: Exam Narrative: GENERAL: Comfortable, no acute distress HENMT: moist mucous membranes EYES: EOM intact b/l NECK: no lymphadenopathy RESPIRATORY: clear to auscultation CARDIO: RRR GI: Distended, soft, nontender, bowel sounds present SKIN: no rashes EXTREMITIES: no edema, redness or tenderness DS: Data Data Completed and Pending Labs on day of discharge: Labs from last 24 hours 06/16/23 06/16/23 06/15/23 08:22 05:49 19:35 WBC 3.8 L RBC 3.35 L Hgb 9.4 L Hct 30.1 L MCV 89.9 MCH 28.1 MCHC 31.2 L RDW 15.6 H Plt Count 88 L MPV 12.0 H Immature Gran % (Auto) 0.3 Neut % (Auto) 38.1 L Lymph % (Auto) 39.9 [place] % (Auto) 19.3 H Eos % (Auto) 1.9 Baso % (Auto) 0.5 Lymph # (Auto) 1.51 [place] # (Auto) 0.7 H Eos # (Auto) 0.1 Baso # (Auto) 0.0 Abs Immat Gran (auto) 0.01 Absolute Neuts (auto) 1.4 Absolute Nucleated RBC 0.0 Nucleated RBC % 0.0 % Immature Plt Fraction 5.8 Sodium 135 L Potassium 3.5 Chloride 105 Carbon Dioxide 24 Anion Gap 6 L BUN 14 Creatinine 0.50 L Estim Creat Edward
== END 2023-06-16 12:12 | disposition home or self-care (01) ==
LOC: ANHED 16:13 → ANH3MED 17:48
PROVIDERS: Internal Medicine Critical Care Medicine; Physician Assistant; Admitting Provider Student in an Organized Health Care Education/Training Program; Emergency Provider Emergency Medicine; PCP Family Medicine; Visit Provider Hospitalist
DX: K76.82 Hepatic encephalopathy (principal); D61.818 Other pancytopenia; R79.89 Other specified abnormal findings of blood chemistry; K74.60 Unspecified cirrhosis of liver; E11.65 Type 2 diabetes mellitus with hyperglycemia; I10 Essential (primary) hypertension; R41.0 Disorientation, unspecified; K21.9 Gastro-esophageal reflux disease without esophagitis; D64.9 Anemia, unspecified; F41.9 Anxiety disorder, unspecified; E87.1 Hypo-osmolality and hyponatremia; E87.8 Other disorders of electrolyte and fluid balance, not elsewhere classified; R79.81 Abnormal blood-gas level; E83.42 Hypomagnesemia; R74.01 Elevation of levels of liver transaminase levels; E80.7 Disorder of bilirubin metabolism, unspecified; Z86.19 Personal history of other infectious and parasitic diseases; Z87.891 Personal history of nicotine dependence; Z79.82 Long term (current) use of aspirin; Z79.84 Long term (current) use of oral hypoglycemic drugs; Z79.899 Other long term (current) drug therapy; Z82.49 Family history of ischemic heart disease and other diseases of the circulatory system; Z83.3 Family history of diabetes mellitus
CPT/HCPCS: 36415; 70450; 71045; 80053; 80307; 81001; 82140; 82607; 82948; 83036; 83735; 84443; 85025; 85055; 85610; 85730; 96361; 96374; 99285; A9270; G0378; J3475; J7030

== ENCOUNTER 2023-08-29 18:34 | Emergency (ER) | payer MEDICARE, SELFPAY ==
--- NOTE | ~2023-08-29 | CT_ITS ---
EXAMINATION: CT brain wo con DATE: 08/29/2023 19:39 INDICATION: Dizziness. Weakness. TECHNIQUE: Computed tomography (CT) of the head was performed without intravenous contrast. The dose- length product was 605.33 mGy-cm. Automated exposure control and iterative reconstruction technique w ere employed. COMPARISON: CT dated 06/14/2023 FINDINGS: Mild generalized atrophy. There are scattered mild periventricular and subcortical white ma tter changes, most likely related to small vessel ischemic disease (microangiopathy). No ventriculome asad or midline shift. Basilar cisterns are patent. There is intracranial atherosclerosis. Paranasal sinuses and mastoids are pneumatized. No depressed skull fractures. IMPRESSION: 1. No acute intracranial abnormality. Reviewed, dictated and finalized at location A.
--- NOTE | ~2023-08-29 | XR_ITS ---
XR chest 1V portable 08/29/2023 20:31 Indication: Nausea and lightheadedness Procedure: AP portable chest Comparison: Comparison to multiple prior studies sequentially, with oldest reviewed study dated 12/14. Findings: Heart size is normal. No focal air space disease, pulmonary edema, pleural effusion or susp ected pneumothorax. No acute osseous abnormality. No acute osseous abnormality. Impression: 1: No acute cardiopulmonary disease. Reviewed, dictated and finalized at location A. Impression: 1: No acute cardiopulmonary disease.
[2023-08-29 18:40] VITALS: BP 104/45; PULSE 92; RESP 20; TEMP 36.1; O2SAT 100
--- NOTE | 2023-08-29 18:46 | ECG_ITS ---
Measurements Intervals [place] Rate: 94 P: 42 IN: 160 QRS: 18 QRSD: 77 T: 12 QT: 383 QTc: 480 Interpretive Statements SINUS RHYTHM NONSPECIFIC T-WAVE ABNORMALITY COMPARED TO ECG 06/13/2020 13:48:27 NO SIGNIFICANT CHANGES Electronically Signed On 08-30-2023 11:25:21 CDT by Michoacano Bridges M.D.
--- NOTE | 2023-08-29 18:48 | ED.GENADULT ---
HPI - General Adult General Chief complaint: Dizziness Stated complaint: lightheaded, n/v, muscle cramps Time Seen by Provider: 08/29/23 19:49 History of Present Illness HPI narrative: Negar Berg is a 73 y/o female with reported hx of DM/ liver disease/ chronic muscle spasms related to low magnesium who presents today wtih reports of having muscle spasms in her upper arms and hands earlier today around 1630 while at work, she then felt light headed and went to the bathroom and had an episode of emesis and felt shivers. She now reports of feeling a little light headed/ not dizzy and starting to feel a little bit better. Denies any recent illnesses/ fever/ abdominal pain. Alert and oriented X 4 Related Data Home Medications Medication Instructions Recorded Confirmed aspirin 81 mg tablet,delayed 81 mg PO DAILY 04/26/22 06/14/23 release (Adult Aspirin Regimen) lactulose 10 gram/15 mL oral 30 ml PO QID 07/21/22 06/14/23 solution (Generlac) rifaximin 550 mg tablet (Xifaxan) 550 mg PO BID 11/11/22 06/14/23 Allergies Allergy/AdvReac Type Severity Reaction Status Date / Time acetaminophen [From Vicodin] Allergy Severe Redness of Verified 06/14/23 12:10 Skin hydrocodone [From Vicodin] Allergy Severe Redness of Verified 06/14/23 12:10 Skin PMFSH Past Medical History Medical History Anemia Anxiety Hepatitis C Hypertension Mitral regurgitation Noted on echocardiogram in April 2022. Pancytopenia Type 2 diabetes mellitus Surgical History Surgical History History of bilateral cataract extraction History of cholecystectomy History of colonoscopy History of tonsillectomy History of tubal ligation Family History Family History Grandparent Acute myocardial infarction Hypertension Diabetes mellitus Family history of coronary artery disease Cerebrovascular accident Mother Diabetes mellitus Social History Social History Social History: Surrogate medical decision maker: Maite Berg, daughter. Code status: Full code. Smoking packs per day: 1 Smoking cigarettes per day: 20.0 Years smoked: 10 Smoking pack-years: 10.00 Smoking status: Former smoker Second hand tobacco smoke exposure: Yes Alcohol intake: unknown Substance use: never Substance use type: does not use Lack of Transportation: No Lack of Food: Never True Current Housing: I Have Housing Concerned About Future Housing: No Difficulty Paying Gas/Electric Bills: No Difficulty Paying for Meds: No Currently Unemployed: No Education: High School Diploma/GED Difficulty w/ Childcare or Family Care: No Living arrangements: alone Additional living arrangements comments: Lives alone. She has 2 children. Occupation/Education: occupation Additional occupation/education comments: Works part-time at [employer]. Spiritual care concerns: No Agree to blood products: Yes Course Vital Signs Vital signs: Vital Signs Temperature 36.1 C L 08/29/23 18:40 Pulse Rate 92 08/29/23 18:40 Respiratory Rate 20 08/29/23 18:40 Blood Pressure 104/45 L 08/29/23 18:40 Pulse Oximetry 100 08/29/23 18:40 Oxygen Delivery Room Air 08/29/23 18:40 Temperature 36.1 C L 08/29/23 18:40 Pulse Rate 99 08/29/23 23:18 Respiratory Rate 16 08/29/23 23:18 Blood Pressure 122/89 08/29/23 23:18 Pulse Oximetry 98 08/29/23 23:18 Oxygen Delivery Room Air 08/29/23 18:40 Medical Decision Making Vital Signs Vital Signs: Vital Signs Temperature 36.1 C L 08/29/23 18:40 Pulse Rate 92 08/29/23 18:40 Respiratory Rate 20 08/29/23 18:40 Blood Pressure 104/45 L 08/29/23 18:40 Pulse Oximetry 100 08/29/23 18:40 Oxygen Delivery Room Air 08/29/23 18:40 Temperat
[2023-08-29 19:04] LABS: Hematocrit 31.1 % (37.0-47.0); Hemoglobin 8.6 g/dL (12.0-15.0); Mean Corpuscular HGB Conc 27.7 g/dl (32-36); Mean Corpuscular Hemoglobin 24.1 pg (26-34); Mean Corpuscular Volume 87.1 fl (80-100); Mean Platelet Volume 12.1 fl (7.4-10.4); Platelet Count Result 101 k/mm3 (150-375); Red Blood Count 3.57 M/mm3 (4.2-5.4); Red Cell Distribution Width 15.9 % (11.5-14.5); White Blood Count 4.2 K/mm3 (4.5-10.0)
[2023-08-29 19:16] LABS: Alanine Aminotransferase 23 U/L (6-35); Albumin Level 3.6 g/dL (3.5-5.1); Alkaline Phosphatase 92 U/L (38-126); Anion Gap 12 mmol/L (8-16); Aspartate Amino Transferase 47 U/L (14-36); Bilirubin,Total 1.9 mg/dL (0.2-1.3); Blood Urea Nitrogen 12 mg/dL (7-17); Calcium 9.4 mg/dL (8.4-10.2); Carbon Dioxide 20 mmol/L (22-30); Chloride 107 mmol/L (98-107); Estimated CRCL calculation 79 ml/min; Estimated Glomerular Filt Rate > 60; Glucose 139 mg/dL (65-110); Magnesium 1.8 mg/dL (1.6-2.3); Potassium 3.9 mmol/L (3.4-5.0); Sodium 139 mmol/L (137-145)
[2023-08-29 19:18] LABS: Lactic Acid Reflex 5.7 mmol/L (0.7-2.0)
[2023-08-29 19:27] LABS: Troponin I < 0.012 ng/mL (0.000-0.034)
[2023-08-29 19:33] LABS: Band Neutrophils Percent 3 % (0-6); Lymphocytes Absolute Manual 0.88 K/mm3 (1.1-4.5); Monocytes Absolute Manual 0.37 K/mm3 (0.1-0.90); Monocytes Percent Manual 9 % (3-9); Neutrophils Absolute Manual 2.94 K/mm3 (1.7-7.2); Neutrophils Percent Manual 67 % (46-73); Nucleated Red Blood Cells 1 %; Platelet Estimate Decreased (Adequate); Total Cells Counted 100
[2023-08-29 19:34] LABS: Anisocytosis 2+ (NORMAL); Hypochromasia 1+ (NORMAL); Schistocytes None Seen (NORMAL)
[2023-08-29 20:04] LABS: Glucose Point of Care 153 mg/dl (65-105)
--- NOTE | 2023-08-29 20:27 | ED.GENADULT ---
HPI - General Adult General Chief complaint: Dizziness Stated complaint: lightheaded, n/v, muscle cramps Time Seen by Provider: 08/29/23 19:49 History of Present Illness HPI narrative: this is a 73-year-old female with history of liver disease presenting ED for muscle cramps. Patient says she was at work when she started to get cramping of her shoulders and hands. She has had that symptoms like that in the past. She then started to get lightheaded and had an episode of vomiting. Her boss said that she looked pale and she called her daughter who brought her to the emergency room. This time the patient says that she feels significantly better. She will still has some nausea but denies fevers chest pain difficulty breathing abdominal pain or urinary symptoms. Patient notes that she does have multiple loose stools because she is on lactulose for her liver disease. Related Data Home Medications Medication Instructions Recorded Confirmed aspirin 81 mg tablet,delayed 81 mg PO DAILY 04/26/22 06/14/23 release (Adult Aspirin Regimen) lactulose 10 gram/15 mL oral 30 ml PO QID 07/21/22 06/14/23 solution (Generlac) rifaximin 550 mg tablet (Xifaxan) 550 mg PO BID 11/11/22 06/14/23 Allergies Allergy/AdvReac Type Severity Reaction Status Date / Time acetaminophen [From Vicodin] Allergy Severe Redness of Verified 06/14/23 12:10 Skin hydrocodone [From Vicodin] Allergy Severe Redness of Verified 06/14/23 12:10 Skin PMFSH Past Medical History Medical History Anemia Anxiety Hepatitis C Hypertension Mitral regurgitation Noted on echocardiogram in April 2022. Pancytopenia Type 2 diabetes mellitus Surgical History Surgical History History of bilateral cataract extraction History of cholecystectomy History of colonoscopy History of tonsillectomy History of tubal ligation Family History Family History Grandparent Acute myocardial infarction Hypertension Diabetes mellitus Family history of coronary artery disease Cerebrovascular accident Mother Diabetes mellitus Social History Social History Social History: Surrogate medical decision maker: Maite Berg, daughter. Code status: Full code. Smoking packs per day: 1 Smoking cigarettes per day: 20.0 Years smoked: 10 Smoking pack-years: 10.00 Smoking status: Former smoker Second hand tobacco smoke exposure: Yes Alcohol intake: unknown Substance use: never Substance use type: does not use Lack of Transportation: No Lack of Food: Never True Current Housing: I Have Housing Concerned About Future Housing: No Difficulty Paying Gas/Electric Bills: No Difficulty Paying for Meds: No Currently Unemployed: No Education: High School Diploma/GED Difficulty w/ Childcare or Family Care: No Living arrangements: alone Additional living arrangements comments: Lives alone. She has 2 children. Occupation/Education: occupation Additional occupation/education comments: Works part-time at [employer]. Spiritual care concerns: No Agree to blood products: Yes Exam Narrative: APPEARANCE: No apparent distress. Head: atraumatic. EYES: EOMI, NOSE: Atraumatic NECK: Trachea midline RESPIRATORY: No increased rate of breathing Clear to auscultation 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: RRR, no peripheral it ABDOMINAL: Non-distended, soft nontender no guarding or rebound, no CVA tenderness MUSCULOSKELETAl: No obvious deformities NEURO: Alert. Moving 4/4 extremities SKIN:: Warm, dry. Normal color PSYCHIATRIC: Normal affect Course Vital Signs Vital signs: Vital Signs Temperature 97 F L 08/29/23 18:40 Pulse Rate 92 08/29/23 18:40 Respiratory Rate 20 08/29/23 18:40 Blood Pressure 104/45 L 08/29/23 18:40 Pulse
[2023-08-29] MEDS: SODIUM CHLORIDE 0.9% IV 2,000 ML 999 ML IV CONT (20:53)
[2023-08-29 21:00] VITALS: BP 110/54; PULSE 94; RESP 18; O2SAT 97
[2023-08-29 21:53] LABS: Influenza A QL RT-PCR Negative (Negative); Influenza B QL RT-PCR Negative (Negative); RSV RNA, RT-PCR Negative (Negative); SARS-CoV-2 RNA PCR Negative (Negative)
[2023-08-29 22:01] LABS: Reflex Lactic Acid Yes or No Add Lactic
[2023-08-29 22:52] LABS: Lactic Acid 3.3 mmol/L (0.7-2.0)
[2023-08-29 23:08] LABS: Appearance Urine Clear (Clear); Bacteria Urine None Seen /hpf; Bilirubin Urine Negative (Negative); Blood Urine Negative (Negative); Color Urine Yellow (Yellow); Glucose Urine UA Negative (Negative); Ketones Urine Negative (Negative); Leukocyte Esterase Ur Trace LEU/UL (Negative); Nitrate Urine Negative (Negative); Non Pathogenic Casts 0-2; Protein Urine Negative (Negative); Specific Grav Ur 1.003 (1.001-1.035); Squamous Epithelial Cell Urine Occasional /hpf (Few); Urobilinogen Urine 0.2 mg/dL (<2.0); pH Urine 6.5 (5.0-9.0)
[2023-08-29 23:12] LABS: Add Urine Microscopic? YES
[2023-08-29 23:18] VITALS: BP 122/89; PULSE 99; RESP 16; O2SAT 98
== END 2023-08-29 23:45 | disposition home or self-care (01) ==
PROVIDERS: Nurse Practitioner Family; Emergency Provider Emergency Medicine; PCP Family Medicine
DX: E86.0 Dehydration (principal); K76.9 Liver disease, unspecified; E11.9 Type 2 diabetes mellitus without complications; I10 Essential (primary) hypertension; Z87.891 Personal history of nicotine dependence; Z20.822 Contact with and (suspected) exposure to COVID-19; Z79.899 Other long term (current) drug therapy
CPT/HCPCS: 36415; 70450; 71045; 80053; 81001; 82948; 83605; 83735; 84484; 85025; 87086; 87088; 87637; 93005; 96360; 96361; 99284; J7030

== ENCOUNTER 2023-09-30 16:02 | Emergency (ER) | payer MEDICARE, SELFPAY ==
[2023-09-30 16:09] VITALS: BP 113/50; PULSE 90; RESP 20; TEMP 37.1; O2SAT 98
--- NOTE | 2023-09-30 16:41 | ED.SKABFB ---
HPI - Skin/Abscess/Foreign Bdy General Chief complaint: Skin/Abscess/Foreign Body Stated complaint: Left Leg Skin Sore Time Seen by Provider: 09/30/23 16:15 Source: patient Mode of arrival: ambulatory Limitations: no limitations History of Present Illness HPI narrative: Negar is a 73-year-old female patient presenting to clinic today with complaints of a wound to the left inner thigh that she has had for approximately 1 year. She reports over the last few days there was a scab developed and become more sore and red. The scab is a yellowish green color. She reports that there was a sharp pain over the wound. She denies any fever chills. Patient reports his oozing yellow discharge. Related Data Home Medications Medication Instructions Recorded Confirmed aspirin 81 mg tablet,delayed 81 mg PO DAILY 04/26/22 09/30/23 release (Adult Aspirin Regimen) lactulose 10 gram/15 mL oral 30 ml PO QID 07/21/22 09/30/23 solution (Generlac) Allergies Allergy/AdvReac Type Severity Reaction Status Date / Time acetaminophen [From Vicodin] Allergy Severe Redness of Verified 09/30/23 16:23 Skin hydrocodone [From Vicodin] Allergy Severe Redness of Verified 09/30/23 16:23 Skin Review of Systems Review of Systems: Pertinent positives per HPI. Patient denies any fever, chills, rash, headache, visual changes, dizziness, cough, runny nose, sore throat, shortness of breath, chest pain, palpitations, nausea, vomiting, diarrhea, constipation, abdominal pain, or any urinary issues. [facility] Past Medical History Medical History Anemia Anxiety Hepatitis C Hypertension Mitral regurgitation Noted on echocardiogram in April 2022. Pancytopenia Type 2 diabetes mellitus Surgical History Surgical History History of bilateral cataract extraction History of cholecystectomy History of colonoscopy History of tonsillectomy History of tubal ligation Family History Family History Grandparent Acute myocardial infarction Hypertension Diabetes mellitus Family history of coronary artery disease Cerebrovascular accident Mother Diabetes mellitus Social History Social History (Reviewed 09/30/23 @ 17:55 by TIMI Babcock Social History: Surrogate medical decision maker: Maite Berg, daughter. Code status: Full code. Smoking packs per day: 1 Smoking cigarettes per day: 20.0 Years smoked: 10 Smoking pack-years: 10.00 Smoking status: Former smoker Second hand tobacco smoke exposure: Yes Alcohol intake: unknown Substance use: never Substance use type: does not use Lack of Transportation: No Lack of Food: Never True Current Housing: I Have Housing Concerned About Future Housing: No Difficulty Paying Gas/Electric Bills: No Difficulty Paying for Meds: No Currently Unemployed: No Education: High School Diploma/GED Difficulty w/ Childcare or Family Care: No Living arrangements: alone Additional living arrangements comments: Lives alone. She has 2 children. Occupation/Education: occupation Additional occupation/education comments: Works part-time at [employer]. Spiritual care concerns: No Agree to blood products: Yes Comments At the time of my signature, I reviewed and agree with the nursing past medical, surgical, social, and family history. There is no relevant family history pertinent to the patient complaint. Exam Narrative: General: Well-developed, well nourished, in no apparent distress Head: Normocephalic, atraumatic. Cardio: Regular rate and rhythm, s1 and s2 normal, no murmur appreciated. Resp: Clear to auscultation bilaterally, no rhonchi, rales, wheezing or rubs. Integumentary: [place], warm, and dry, quarter-size scabbed to the left inner thigh that is yellow and green in col
== END 2023-09-30 16:59 | disposition home or self-care (01) ==
PROVIDERS: Emergency Provider Nurse Practitioner Family; PCP Family Medicine
DX: S71.102A Unspecified open wound, left thigh, initial encounter (principal); L08.9 Local infection of the skin and subcutaneous tissue, unspecified; X58.XXXA Exposure to other specified factors, initial encounter; Z87.891 Personal history of nicotine dependence; I10 Essential (primary) hypertension; E11.9 Type 2 diabetes mellitus without complications; Z79.84 Long term (current) use of oral hypoglycemic drugs; Z86.19 Personal history of other infectious and parasitic diseases; Z98.42 Cataract extraction status, left eye; Z98.41 Cataract extraction status, right eye
CPT/HCPCS: 99213; G0463

== ENCOUNTER 2023-10-05 13:19 | Inpatient (IN) | payer MEDICARE, SELFPAY ==
[2023-10-05] VITALS (29 sets, daily range): BP systolic 100–151; BP diastolic 36–70; PULSE 73–98; RESP 11–20; TEMP 36.3–37; O2SAT 96–100; BMI 29.3
--- NOTE | 2023-10-05 13:32 | ECG_ITS ---
Measurements Intervals [place] Rate: 83 P: 47 MT: 157 QRS: 18 QRSD: 76 T: 8 QT: 398 QTc: 469 Interpretive Statements SINUS RHYTHM POSSIBLE LEFT ATRIAL ENLARGEMENT [-0.1mV P WAVE IN V1/V2] NONSPECIFIC T-WAVE ABNORMALITY COMPARED TO ECG 08/29/2023 19:55:52 NO SIGNIFICANT CHANGES Electronically Signed On 10-05-2023 15:07:52 [employer] by Michoacano Bridges M.D.
[2023-10-05 13:49] LABS: Basophils Percent Auto 0.7 % (0.2-1.2); Eosinophils Percent Auto 0.7 % (0-4.4); Hematocrit 25.5 % (37.0-47.0); Lymphocytes Absolute Auto 0.56 K/mm3 (0.9-3.2); Lymphocytes Percent Auto 20.1 % (18.3-44.2); Mean Corpuscular HGB Conc 27.5 g/dl (32-36); Mean Corpuscular Hemoglobin 22.4 pg (26-34); Mean Corpuscular Volume 81.7 fl (80-100); Mean Platelet Volume 12.8 fl (7.4-10.4); Monocytes Absolute Auto 0.5 K/mm3 (0.1-0.6); Monocytes Percent Auto 19.4 % (2.6-8.5); Neutrophils Absolute Auto 1.6 K/mm3 (1.3-6.7); Neutrophils Percent Auto 59.1 % (45.5-73.1); Platelet Count Result 63 k/mm3 (150-375); Red Blood Count 3.12 M/mm3 (4.2-5.4); Red Cell Distribution Width 17.3 % (11.5-14.5); White Blood Count 2.8 K/mm3 (4.5-10.0)
[2023-10-05 13:59] LABS: Alanine Aminotransferase 21 U/L (6-35); Albumin Level 3.2 g/dL (3.5-5.1); Alkaline Phosphatase 122 U/L (38-126); Anion Gap 11 mmol/L (8-16); Aspartate Amino Transferase 33 U/L (14-36); Bilirubin,Total 1.5 mg/dL (0.2-1.3); Blood Urea Nitrogen 16 mg/dL (7-17); Calcium 8.9 mg/dL (8.4-10.2); Carbon Dioxide 18 mmol/L (22-30); Chloride 104 mmol/L (98-107); Estimated CRCL calculation 77 ml/min; Estimated Glomerular Filt Rate > 60; Glucose 254 mg/dL (65-110); Potassium 4.5 mmol/L (3.4-5.0); Sodium 133 mmol/L (137-145)
[2023-10-05 14:18] LABS: Hypochromasia 1+ (NORMAL); Platelet Estimate Decreased (Adequate); Schistocytes None Seen (NORMAL)
[2023-10-05 14:19] LABS: Anisocytosis 2+ (NORMAL)
--- NOTE | 2023-10-05 16:23 | ED.DIZZY ---
HPI - Dizziness General Chief Complaint: Dizziness Stated Complaint: cramping to arms and hands Time Seen by Provider: 10/05/23 16:22 Source: patient Mode of arrival: ambulatory Limitations: no limitations History of Present Illness HPI Narrative: 73 year old white female brought herself to the emergency room complaining of lightheadedness, cramps of the arm and hands, starting a early today. Patient reported having similar symptoms in the past past and usually secondary to dehydration. History of liver cirrhosis secondary to hep C, currently on lactulose which causing diarrhea up to 4 episodes a day which sometimes causing her to be dehydrated. , she denies any fever, chills, nausea, vomiting, diarrhea, constipation or abdominal pain History of diabetes, hypertension, liver cirrhosis secondary to hepatitis C. was managed by Dr. bello, scheduled to see a train engineer at [facility] at the end of October 2023 Related Data Home Medications Medication Instructions Recorded Confirmed aspirin 81 mg tablet,delayed 81 mg PO DAILY 04/26/22 09/30/23 release (Adult Aspirin Regimen) lactulose 10 gram/15 mL oral 30 ml PO QID 07/21/22 09/30/23 solution (Generlac) Allergies Allergy/AdvReac Type Severity Reaction Status Date / Time acetaminophen [From Vicodin] Allergy Severe Redness of Verified 09/30/23 16:23 Skin hydrocodone [From Vicodin] Allergy Severe Redness of Verified 09/30/23 16:23 Skin Review of Systems Review of Systems: All systems reviewed & are unremarkable except as noted in HPI and below PMFSH Past Medical History Medical History Anemia Anxiety Hepatitis C Hypertension Mitral regurgitation Noted on echocardiogram in April 2022. Pancytopenia Type 2 diabetes mellitus Surgical History Surgical History History of bilateral cataract extraction History of cholecystectomy History of colonoscopy History of tonsillectomy History of tubal ligation Family History Family History Grandparent Acute myocardial infarction Hypertension Diabetes mellitus Family history of coronary artery disease Cerebrovascular accident Mother Diabetes mellitus Social History Social History Social History: Surrogate medical decision maker: Maite Berg, daughter. Code status: Full code. Smoking packs per day: 1 Smoking cigarettes per day: 20.0 Years smoked: 10 Smoking pack-years: 10.00 Smoking status: Former smoker Second hand tobacco smoke exposure: Yes Alcohol intake: unknown Substance use: never Substance use type: does not use Lack of Transportation: No Lack of Food: Never True Current Housing: I Have Housing Concerned About Future Housing: No Difficulty Paying Gas/Electric Bills: No Difficulty Paying for Meds: No Currently Unemployed: No Education: High School Diploma/GED Difficulty w/ Childcare or Family Care: No Living arrangements: alone Additional living arrangements comments: Lives alone. She has 2 children. Occupation/Education: occupation Additional occupation/education comments: Works part-time at [employer]. Spiritual care concerns: No Agree to blood products: Yes Exam Narrative: General appearance: Well-developed, well-nourished Skin: Normal color Head: Normocephalic, nontraumatic Eyes: Clear conjunctiva ENT: Oropharynx normal, ears normal, nose normal Neck: Supple, nontender Chest and respiratory: Airway patent, no respiratory distress, no accessory muscle use Heart: Regular rate/rhythm Abdomen: Soft, nontender, no organomegaly, quiet bowel sounds rectal exam showed yellow stool, guaiac positive Vascular: Normal peripheral pulses, normal capillary refill. Musculoskeletal: Normal range of motion, nontender sukumar
[2023-10-05] MEDS: SODIUM CHLORIDE 0.9% IV 1,000 ML 999 ML IV CONT (17:05)
[2023-10-05] MEDS: PANTOPRAZOLE SODIUM IV 40 MG VIAL IV PUSH (17:05)
[2023-10-05] MEDS: SODIUM CHLORIDE 0.9% IV 250 ML 30 ML IV CONT (18:22)
[2023-10-05] MEDS: TUBING, BLOOD SET 1 EACH XX (18:22)
--- NOTE | 2023-10-05 20:26 | ADMGEN ---
This patient, Negar Berg, was admitted to [facility] Surg Room 303-01. Patient/family oriented to hospital policies and general routines including ID bracelet, bed and alarms, visiting hours, pain management, procedures, bathroom and other care routines, personal items, smoking policy, room service/diet, and visiting hours. Information on how to activate the Rapid Response Team has been discussed. Patient/Family are encouraged to report perceived risks to care and to ask questions if they do not understand what they are told or what they should do.
--- NOTE | 2023-10-05 20:41 | PM.IMHP ---
H&P: HPI History of Present Illness Date/Time: 10/05/23 20:41 Chief Complaint: pre syncope Narrative: This is a 73-year-old female with past medical history significant for chronic hepatitis-C, hepatic cirrhosis, chronic anemia. Today patient presented to the emergency room after having presyncopal episode patient fell to lightheaded. Upon presentation to the emergency room she was found to have a hemoglobin of 6 also has chronic diarrhea. Review of Systems Review of Systems: Lightheadedness Constitutional: Constitutional: Denies chills, Denies fever(s), Denies night sweats and Denies weakness Eyes: Eyes: Denies change in vision ENT: Denies dysphagia, Reports dizziness and Denies odynophagia Cardiovascular: Cardiovascular: Denies chest pain, Reports lightheadedness, Denies radiating jaw, neck or arm pain and Denies palpitations Respiratory: Respiratory: Denies chest congestion, Denies cough and Denies dyspnea Gastrointestinal: Gastrointestinal: Denies abdominal pain, Denies dyspepsia, Denies heartburn, Reports diarrhea, Denies nausea and Denies vomiting Genitourinary: Genitourinary: Denies dysuria Musculoskeletal: Musculoskeletal: Denies back pain and Denies muscle weakness Integumentary/Breasts: Skin/Breast: Denies rash Neurologic: Denies focal weakness and Denies Sensory deficit (Neuro) Psychiatric: Psychiatric: Reports no additional psychiatric complaints and Reports as per HPI Endocrine: Endocrine: Denies cold intolerance, Denies flushing, Denies heat intolerance, Denies polyphagia, Denies polydipsia and Denies palpitations Hematologic/Lymphatic: Hematologic/Lymphatic: Reports no additional hematologic/lymphatic complaints and Reports as per HPI Allergic/Immunologic: Allergic/Immunologic: Reports no additional allergic/immunologic complaints and Reports as per HPI PMF Past Medical History Medical History Anemia Anxiety Hepatitis C Hypertension Mitral regurgitation Noted on echocardiogram in April 2022. Pancytopenia Type 2 diabetes mellitus Surgical History Surgical History History of bilateral cataract extraction History of cholecystectomy History of colonoscopy History of tonsillectomy History of tubal ligation Family History Family History Grandparent Acute myocardial infarction Hypertension Diabetes mellitus Family history of coronary artery disease Cerebrovascular accident Mother Diabetes mellitus Social History Social History Social History: Surrogate medical decision maker: Maite Berg, daughter. Code status: Full code. Smoking packs per day: 1 Smoking cigarettes per day: 20.0 Years smoked: 10 Smoking pack-years: 10.00 Smoking status: Never smoker Second hand tobacco smoke exposure: No Alcohol intake: never Substance use: never Substance use type: does not use Lack of Transportation: No Lack of Food: Never True Current Housing: I Have Housing Concerned About Future Housing: No Difficulty Paying Gas/Electric Bills: No Difficulty Paying for Meds: No Currently Unemployed: No Education: Trade/Vocational Certificate Difficulty w/ Childcare or Family Care: No Living arrangements: alone Additional living arrangements comments: Lives alone. She has 2 children. Occupation/Education: occupation Additional occupation/education comments: Works part-time at [employer]. Spiritual care concerns: No Agree to blood products: Yes Meds Home Medications and Allergies Home Medications Medication Instructions Recorded Confirmed Type aspirin 81 mg tablet,delayed 81 mg PO DAILY 04/26/22 10/05/23 History release (Adult Aspirin Regimen) lactulose 10 gram/15 mL oral 30 ml PO QID 07/21/22 10/05/23 History solution (Generlac
[2023-10-05 21:42] LABS: Hematocrit 24.8 % (37.0-47.0); Hemoglobin 7.2 g/dL (12.0-15.0)
[2023-10-05] MEDS: SODIUM CHLORIDE 0.9% IV 1,000 ML 125 ML IV CONT (22:41)
[2023-10-06] MEDS: ACETAMINOPHEN 500 MG TABLET 1000 MG PO (05:50)
[2023-10-06 06:00] VITALS: BP 121/52; PULSE 88; RESP 16; TEMP 37; O2SAT 99
[2023-10-06 07:17] LABS: Hematocrit 24.3 % (37.0-47.0); Hemoglobin 7.1 g/dL (12.0-15.0); Immature Platelet Fraction Pct 10.1 % (0.9-11.2); Mean Corpuscular HGB Conc 29.2 g/dl (32-36); Mean Corpuscular Hemoglobin 23.2 pg (26-34); Mean Corpuscular Volume 79.4 fl (80-100); Platelet Count Result 46 k/mm3 (150-375); Red Blood Count 3.06 M/mm3 (4.2-5.4); Red Cell Distribution Width 17.1 % (11.5-14.5)
--- NOTE | 2023-10-06 07:26 | WPDGICN ---
Assessment and Plan Assessment and plan (1) Anemia: Code(s): D64.9 - Anemia, unspecified Status: Acute Assessment and Plan: her hemoglobin has been gradually dropping. In May was 9. Now it is down to 7.0. She did receive 1 unit of blood last night. She denies seeing blood her stools. She had had an EGD 4 years ago. Last colonoscopy was about 6 years ago and apparently was unremarkable. (2) Hepatic encephalopathy: Code(s): K76.82 - Hepatic encephalopathy Status: Resolved Assessment and Plan: She has been taking lactulose for several years. She had been followed by a foster parent in [facility] and had last been seen there in May of this year. She is looking for a specialist in [place]. She takes lactulose syrup and also is on rifaximin. (3) Cirrhosis: Code(s): K74.60 - Unspecified cirrhosis of liver Status: Chronic Assessment and Plan: Her cirrhosis due to hepatitis C which in turn was apparently due to a needlestick. As far as I can tell she has never had esophageal varices. It seems her last EGD was about 4 years ago. (4) Pancytopenia: Code(s): D61.818 - Other pancytopenia Status: Acute Assessment and Plan: Her platelet count is only 46,000 today. Her white blood count is 3000. Apparently, reviewing records from other hospitals, she has had pancytopenia for a while. Plan Will schedule EGD and colonoscopy to be done tomorrow morning unless the platelet count has dropped more. It was 6 the 3000 on admission. GI Consult Note Consult date/time: 10/06/23 07:26 HPI: Negar Berg is a 73 year old female Who presented to emergency room yesterday with weakness and feeling lightheaded. She thought she might be dehydrated. She has a history of cirrhosis diagnosed several years ago. The etiology was hepatitis C. She has a history of hepatic encephalopathy for which she takes lactulose daily. Was noted however that she has a very low hemoglobin and in retrospect this has been dropping for while. Stool Hemoccult in the emergency room was positive. She has not seen blood her stools and denies black or tarry stools. She has never had hematemesis. She had an EGD a few years ago , 2019, and no varices were mentioned on that report. she recently has been followed by a foster parent in [place] but has referral to see a miniature train driver next month in [place]. Review of Systems Review of Systems: All systems reviewed & are unremarkable except as noted in HPI and below PMFSH Past Medical History Medical History Anemia Anxiety Hepatitis C Hypertension Mitral regurgitation Noted on echocardiogram in April 2022. Pancytopenia Type 2 diabetes mellitus Surgical History Surgical History History of bilateral cataract extraction History of cholecystectomy History of colonoscopy History of tonsillectomy History of tubal ligation Family History Family History Grandparent Acute myocardial infarction Hypertension Diabetes mellitus Family history of coronary artery disease Cerebrovascular accident Mother Diabetes mellitus Social History Social History Social History: Surrogate medical decision maker: Maite Berg, daughter. Code status: Full code. Smoking packs per day: 1 Smoking cigarettes per day: 20.0 Years smoked: 10 Smoking pack-years: 10.00 Smoking status: Never smoker Second hand tobacco smoke exposure: No Alcohol intake: never Substance use: never Substance use type: does not use Lack of Transportation: No Lack of Food: Never True Current Housing: I Have Housing Concerned About Future Housing: No Difficulty Paying Gas/Electric Bills: No Difficulty P
[2023-10-06] MEDS: PANTOPRAZOLE SODIUM IV 40 MG VIAL IV PUSH (09:49)
[2023-10-06] MEDS: SPIRONOLACTONE 25 MG TABLET PO (10:57)
[2023-10-06] MEDS: PANTOPRAZOLE 40 MG TABLET PO (10:57)
[2023-10-06] MEDS: LOSARTAN POTASSIUM 50 MG TABLET PO (10:57)
[2023-10-06] MEDS: ASPIRIN 81 MG ENTERIC TABLET PO (10:57)
[2023-10-06] MEDS: CLINDAMYCIN HCL 150 MG CAP 300 MG PO ×3 (11:04→21:45)
[2023-10-06] MEDS: rifAXIMin 550 MG TABLET PO ×2 (11:04→16:38)
[2023-10-06] MEDS: MAGNESIUM OXIDE 400 MG TABLET 800 MG PO ×2 (13:03→16:38)
[2023-10-06 14:00] VITALS: BP 97/48; PULSE 70; RESP 20; TEMP 36.8; O2SAT 98
[2023-10-06] MEDS: BISACODYL 5 MG TABLET EC 10 MG PO ×2 (14:25→21:45)
[2023-10-06] MEDS: MUPIROCIN 2% OINT 22 GM TUBE 1 APPLIC TOPICAL (16:38)
[2023-10-06] MEDS: polyethylene glycoL 3350 238 GM BOTTLE PO (16:42)
--- NOTE | 2023-10-06 17:23 | PM.IMPN ---
Progress Note: A&P Assessment and Plan (1) Pre-syncope: Code(s): R55 - Syncope and collapse Status: Acute (2) Orthostatic hypotension: Code(s): I95.1 - Orthostatic hypotension Status: Acute (3) Pancytopenia: Code(s): D61.818 - Other pancytopenia Status: Acute (4) Elevated LFTs: Code(s): R79.89 - Other specified abnormal findings of blood chemistry Status: Chronic (5) Hepatic encephalopathy: Code(s): K76.82 - Hepatic encephalopathy Status: Resolved (6) Type 2 diabetes mellitus: Code(s): E11.9 - Type 2 diabetes mellitus without complications Status: Chronic (7) Hypertension: Code(s): I10 - Essential (primary) hypertension Status: Acute (8) Cirrhosis: Code(s): K74.60 - Unspecified cirrhosis of liver Status: Chronic (9) Hepatitis C: Code(s): B19.20 - Unspecified viral hepatitis C without hepatic coma Status: Chronic (10) Hypertension: Qualifiers: Hypertension type: unspecified Qualified Code(s): I10 - Essential (primary) hypertension Code(s): I10 - Essential (primary) hypertension Status: Chronic (11) GI bleeding: Code(s): K92.2 - Gastrointestinal hemorrhage, unspecified Status: Acute Plan Patient received 1 unit packed RBCs overnight Her hemoglobin is still borderline at to 7.1 Monitor hemoglobin closely Transfuse another unit she has already been typed and crossed if the hemoglobin level is 6.9 or lower Keep patient NPO after midnight GI evaluated the patient and plan to take her for EGD/colonoscopy in a.m. Monitor hepatic functions closely Lactic acid level improved from 5.7-3.3 today Hold off on aspirin Patient has left lower leg erythema with ulceration for which she is on oral clindamycin which we continue on the floor ? Patient seen and examined at bedside during my morning rounds ? Collaborated with patient's nurse at the bedside in detail and addressed all concerns ? Labs, electrolytes, radiology, investigations and test results reviewed ? Consult/Nursing/Ancilliary notes on the chart reviewed and appreciated ? Spoke with patient/family at the bedside and answered all the questions that they had Repeat labs in a.m. Electrolyte replacement as per protocol. Patient will be monitored very closely on the floor. Further recommendations as per the hospital course. Subjective Date/time seen: 10/06/23 17:23 Interval history: Patient seen and evaluated at the bedside. She looks very tired and fatigued. She was seen by GI going to take her for EGD/colonoscopy in a.m. Review of Systems Review of Systems: Denies any chest pain, palpitations, fever rigor chills, loss of consciousness or falls All systems reviewed & are unremarkable except as noted in HPI and below Exam Narrative: PHYSICAL EXAMINATION: Vital signs: Please see the chart General physical exam: Patient lying in bed, appears to be tired and fatigued, alert awake oriented x3 Head/eyes: Atraumatic, EOMI, PERRLA ENT: Moist mucous membranes, nasal passages clear Neck: Supple, full range of motion, trachea midline CVS: S1 + S2, regular rate and rhythm, no murmurs Respiratory: Bilaterally fair air entry in both lung miramontes, mild B/L crackles, symmetric chest expansion, no distress Abdomen: Soft, non-tender, bowel sounds +ve, no organomegaly Extremities: No clubbing, no cyanosis, no edema, no calf tenderness Musculoskeletal: Moves all, adequate range of motion, no muscle spasms Skin: Warm, dry, no jaundice, no cyanosis, + skin erythema/ulcer over left lower leg Neurological: Awake, alert, oriented x 3, cranial nerves II-XII intact, no focal neurological deficits Psychiatric: Normal mood, non suicidal Objective Data Vital Signs Vital Signs: Vital Signs - 24 hr 10/05/23 18:26 10/05/23 18:43 10/05/23 17:30 Temperature 36.7 C 36.8 C Pulse Rate 89 97 89 Respiratory Rate 16 17 13 B
[2023-10-06 21:05] LABS: Glucose Point of Care 114 mg/dl (65-105)
[2023-10-06 21:47] VITALS: BP 115/45; PULSE 77; RESP 16; TEMP 36.8; O2SAT 98
[2023-10-06] MEDS: MAGNESIUM CITRATE 300 ML BTL 180 ML PO (22:23)
[2023-10-07] VITALS (7 sets, daily range): BP systolic 99–151; BP diastolic 42–60; PULSE 82–94; RESP 14–20; TEMP 36.5–36.9; O2SAT 95–100
[2023-10-07] MEDS: ACETAMINOPHEN 500 MG TABLET 1000 MG PO (00:09)
[2023-10-07] MEDS: CLINDAMYCIN HCL 150 MG CAP 300 MG PO ×2 (06:25→14:58)
[2023-10-07 06:45] LABS: Lactic Acid Reflex 1.6 mmol/L (0.7-2.0)
[2023-10-07 06:47] LABS: Alanine Aminotransferase 22 U/L (6-35); Albumin Level 3.2 g/dL (3.5-5.1); Alkaline Phosphatase 88 U/L (38-126); Anion Gap 7 mmol/L (8-16); Aspartate Amino Transferase 55 U/L (14-36); Bilirubin,Total 2.4 mg/dL (0.2-1.3); Blood Urea Nitrogen 8 mg/dL (7-17); Calcium 8.9 mg/dL (8.4-10.2); Carbon Dioxide 20 mmol/L (22-30); Chloride 109 mmol/L (98-107); Estimated CRCL calculation 113 ml/min; Estimated Glomerular Filt Rate > 60; Glucose 111 mg/dL (65-110); Magnesium 1.5 mg/dL (1.6-2.3); Phosphorus 5.3 mg/dL (2.5-4.5); Potassium 4.4 mmol/L (3.4-5.0); Sodium 136 mmol/L (137-145)
[2023-10-07 07:49] LABS: Glucose Point of Care 141 mg/dl (65-105)
[2023-10-07 08:34] LABS: Basophils Percent Auto 0.8 % (0.2-1.2); Eosinophils Absolute Auto 0.1 K/mm3 (0-0.3); Eosinophils Percent Auto 2.8 % (0-4.4); Hematocrit 27.1 % (37.0-47.0); Hemoglobin 7.7 g/dL (12.0-15.0); Immature Granulocyte Absolute 0.01 K/mm3 (0.00-0.031); Immature Granulocyte Percent A 0.4 % (0-0.5); Immature Platelet Fraction Pct 12.2 % (0.9-11.2); Lymphocytes Absolute Auto 0.85 K/mm3 (0.9-3.2); Lymphocytes Percent Auto 33.5 % (18.3-44.2); Mean Corpuscular HGB Conc 28.4 g/dl (32-36); Mean Corpuscular Hemoglobin 22.9 pg (26-34); Mean Corpuscular Volume 80.7 fl (80-100); Monocytes Absolute Auto 0.5 K/mm3 (0.1-0.6); Monocytes Percent Auto 17.7 % (2.6-8.5); Neutrophils Absolute Auto 1.1 K/mm3 (1.3-6.7); Neutrophils Percent Auto 44.8 % (45.5-73.1); Platelet Count Result 49 k/mm3 (150-375); Red Blood Count 3.36 M/mm3 (4.2-5.4); Red Cell Distribution Width 17.2 % (11.5-14.5); White Blood Count 2.5 K/mm3 (4.5-10.0)
[2023-10-07] MEDS: PANTOPRAZOLE SODIUM IV 40 MG VIAL IV PUSH (09:27)
[2023-10-07] MEDS: PANTOPRAZOLE 40 MG TABLET PO (09:27)
[2023-10-07] MEDS: SPIRONOLACTONE 25 MG TABLET PO (09:28)
[2023-10-07] MEDS: rifAXIMin 550 MG TABLET PO ×2 (09:28→17:17)
[2023-10-07] MEDS: LOSARTAN POTASSIUM 50 MG TABLET PO (09:28)
[2023-10-07] MEDS: MAGNESIUM OXIDE 400 MG TABLET 800 MG PO ×2 (09:28→17:17)
[2023-10-07] MEDS: MUPIROCIN 2% OINT 22 GM TUBE 1 APPLIC TOPICAL ×2 (09:29→17:17)
[2023-10-07] MEDS: SODIUM CHLORIDE 0.9% IV 1,000 ML 125 ML IV CONT (09:31)
[2023-10-07 09:51] LABS: Anisocytosis 1+ (NORMAL); Ovalocytes 1+ (NORMAL); Platelet Estimate Decreased (Adequate); Poikilocytosis 1+ (NORMAL); Schistocytes None Seen (NORMAL)
[2023-10-07 11:55] LABS: Glucose Point of Care 133 mg/dl (65-105)
--- NOTE | 2023-10-07 12:56 | PC.NURSE ---
To GI Lab per [stretcher], IV [locked ].
[2023-10-07] MEDS: LACTATED RINGERS 1,000 ML 150 ML IV CONT (13:17)
--- NOTE | 2023-10-07 13:20 | WPDANESEPPF ---
Anes - Initial Pre Proc Eval Procedure: Operation Date: 10/07/23 15:00 Proposed Procedures p Esophagogastroduodenoscopy & Colonoscopy - Chino Burnette MD Date/Time: 10/07/23 13:20 Surgeon: Andreas Smalls MD Pre Op Diagnosis: GI Bleed, Anemia, Pancytopenia, History of Liver C Patient Data Age: 73 Gender: F Height: 1.68 m Weight: 82.5 kg Last Vital Signs Temp 97.7 F 10/07/23 13:13 Pulse 85 10/07/23 13:13 Resp 18 10/07/23 13:13 BP 121/57 L 10/07/23 13:13 Pulse Ox 97 10/07/23 13:13 O2 Del Method Room Air 10/07/23 13:13 Allergies Allergy/AdvReac Type Severity Reaction Status Date / Time hydrocodone [From Vicodin] Allergy Severe Redness of Verified 10/07/23 13:11 Skin Home Medications Medication Instructions Recorded Confirmed Type aspirin 81 mg tablet,delayed 81 mg PO DAILY 04/26/22 10/05/23 History release (Adult Aspirin Regimen) lactulose 10 gram/15 mL oral 30 ml PO QID 07/21/22 10/05/23 History solution (Generlac) losartan 50 mg tablet 50 mg PO DAILY #90 tabs 05/09/23 10/05/23 Rx metformin 1,000 mg tablet 1,000 mg PO BID #60 tabs 05/09/23 10/05/23 Rx magnesium oxide 800 mg PO TID 30 days #180 tabs 06/15/23 10/05/23 Rx spironolactone 25 mg tablet 25 mg PO DAILY #30 tabs 08/12/23 10/05/23 Rx pantoprazole 40 mg tablet,delayed 40 mg PO DAILY #90 tabs 08/29/23 10/05/23 Rx release clindamycin HCl 300 mg capsule 300 mg PO Q8H 7 days #21 caps 09/30/23 10/05/23 Rx mupirocin 2 % topical ointment 1 applic topical BID 7 days #22 09/30/23 10/05/23 Rx grams rifaximin 550 mg tablet (Xifaxan) 550 mg PO BID 10/05/23 10/05/23 History Laboratory Tests 10/06/23 10/07/23 10/07/23 21:02 06:05 07:42 WBC RBC Hgb Hct MCV MCH MCHC RDW Plt Count MPV Immature Gran % (Auto) Neut % (Auto) Lymph % (Auto) Mckinley % (Auto) Eos % (Auto) Baso % (Auto) Lymph # (Auto) Mckinley # (Auto) Eos # (Auto) Baso # (Auto) Abs Immat Gran (auto) Absolute Neuts (auto) Absolute Nucleated RBC Nucleated RBC % Platelet Estimate % Immature Plt Fraction Poikilocytosis Anisocytosis Ovalocytes Schistocytes Sodium 136 L mmol/L (137-145) Potassium 4.4 mmol/L (3.4-5.0) Chloride 109 H mmol/L (98-107) Carbon Dioxide 20 L mmol/L (22-30) Anion Gap 7 L mmol/L (8-16) BUN 8 D mg/dL (7-17) Creatinine 0.40 L mg/dL (0.7-1.0) Estim Creat Clear Calc 113 ml/min Estimated GFR > 60 (59 - ) Glucose 111 H mg/dL (65-110) POC Capillary Glucose 114 H mg/dl 141 H mg/dl (65-105) (65-105) Lactic Acid 1.6 mmol/L (0.7-2.0) Calcium 8.9 mg/dL (8.4-10.2) Phosphorus 5.3 H mg/dL (2.5-4.5) Magnesium 1.5 L mg/dL (1.6-2.3) Total Bilirubin 2.4 H mg/dL (0.2-1.3) AST 55 H U/L (14-36) ALT 22 U/L (6-35) Alkaline Phosphatase 88 U/L (38-126) Total Protein 6.0 L g/dL (6.3-8.2) Albumin 3.2 L g/dL (3.5-5.1) 10/07/23 10/07/23 08:19 11:47 WBC 2.5 L K/mm3 (4.5-10.0) RBC 3.36 L M/mm3 (4.2-5.4) Hgb 7.7 L g/dL (12.0-15.0) Hct 27.1 L % (37.0-47.0) MCV 80.7 fl (80-100) MCH 22.9 L pg (26-34) MCHC 28.4 L g/dl (32-36) RDW 17.2 H % (11.5-14.5) Plt Count 49 L k/mm3 (150-375) MPV TNP Immature Gran % (Auto) 0.4 % (0-0.5) Neut % (Auto) 44.8 L % (45.5-73.1) Lymph % (Auto) 33.5 % (18.3-44.2) Mckinley % (Auto) 17.7 H % (2.6-8.5) Eos % (A
[2023-10-07 13:25] LABS: Glucose Point of Care 118 mg/dl (65-105)
[2023-10-07] MEDS: BENZOCAINE (*SP) 60 ML SPRAY CAN (HURRICAINE) 1 SPRAY MUCOUS MEM (13:32)
[2023-10-07] MEDS: SIMETHICONE ORAL SUSPENSION 20 MG/0.3 ML 30 ML BOTTLE 0.6 ML PO (13:34)
--- NOTE | 2023-10-07 14:02 | SUR.OPER ---
EGD START 1333, END 1341 COLONOSCOPY START 1348, END 1402
[2023-10-07] MEDS: ONDANSETRON INJ 4 MG/2 ML VIAL IV PUSH (14:58)
[2023-10-07] MEDS: MAGNESIUM SULF 1 GM/D5W 100 ML 1 GM/100 ML BAG IVPB (15:05)
--- NOTE | 2023-10-07 16:57 | PM.IMPN ---
Progress Note: A&P Assessment and Plan (1) GAVE (gastric antral vascular ectasia): Code(s): K31.819 - Angiodysplasia of stomach and duodenum without bleeding Status: Acute Plan EGD complete s/p APC for GAVE syndrome. recheck hb in am. continue diet and monitor for complications. home in the morning if stable. Subjective Date/time seen: 10/07/23 16:57 Interval history: pt laying in bed w/o complaints. she is ready for dinner. Review of Systems Review of Systems: All systems reviewed & are unremarkable except as noted in HPI and below Exam Const: General: comfortable and no acute distress Eyes: Pupils: Equal, round and reactive pupils present Resp: Effort & Inspection: normal respiratory effort Auscultation: clear to auscultation bilaterally Cardio: Rate: regular rate Rhythm: regular rhythm Heart sounds: Murmur heart sound present (systolic) GI: GI Palp: Yes Soft to palpation Extrem: General: no edema Objective Data Vital Signs Vital Signs: Vital Signs - 24 hr 10/06/23 21:47 10/07/23 06:00 10/07/23 09:30 Temperature 98.2 F 98.3 F Pulse Rate 77 82 Respiratory Rate 16 14 Blood Pressure 115/45 L 111/42 L Pulse Oximetry 98 95 Oxygen Delivery Room Air 10/07/23 13:13 10/07/23 14:05 10/07/23 14:15 Temperature 97.7 F Pulse Rate 85 89 89 Respiratory Rate 18 20 20 Blood Pressure 121/57 L 99/52 L 109/55 L Pulse Oximetry 97 96 99 Oxygen Delivery Room Air Room Air Room Air 10/07/23 14:25 10/07/23 15:11 Temperature 98.2 F Pulse Rate 92 94 Respiratory Rate 16 18 Blood Pressure 124/60 151/58 H Pulse Oximetry 100 98 Oxygen Delivery Room Air Intake/Output Intake/Output: Intake & Output 10/04/23 10/05/23 10/06/23 10/07/23 23:59 23:59 23:59 23:59 Intake Total 1350 1930 240 Balance 1350 1930 240 Meds/Results Medications: Active Medications Generic Name Dose Route Start Last Admin Trade Name Freq PRN Reason Stop Dose Admin Acetaminophen 1,000 mg 10/06/23 05:21 10/07/23 00:09 Acetaminophen 500 Mg Tablet PO 1,000 mg Q6H PRN Administration Mild Pain (1-3) or Fever Dextrose 12.5 gm 10/06/23 09:43 Dextrose 50% 25 Gm/50 Ml Syringe IV PUSH PRN PRN Hypoglycemia Protocol Glucagon 1 mg 10/06/23 09:43 Glucagon For Inj 1 Mg Vial IM PRN PRN Hypoglycemia Protocol Glucose 15 gm 10/06/23 09:43 Glucose Oral Gel 15 Gm Of Glucse In 37.5 Gm Tube PO PRN PRN Hypoglycemia Protocol Sodium Chloride 1,000 mls @ 125 mls/hr 10/05/23 17:10 10/07/23 09:31 Normal Saline Iv IV CONT 0 mls/hr .Q8H ZORAN Infusion Dextrose 1,000 mls @ 100 mls/hr 10/06/23 09:43 Dextrose 5% 1,000 Ml IVPB PRN PRN Hypoglycemia Protocol Insulin Aspart 2 - 5 units 10/06/23 12:00 10/07/23 11:59 Insulin Aspart (*Bkc) 100 Units/Ml SUB-Q Not Given TIDWM ZORAN Protocol Lactulose 20 gm 10/07/23 09:00 10/07/23 11:39 Lactulose 20 Gm/30 Ml Udc PO Not Given QID ZORAN Losartan Potassium 50 mg 10/06/23 10:00 10/07/23 09:28 Losartan Potassium 50 Mg Tablet PO 50 mg DAILY ZORAN Administration Magnesium Oxide 800 mg 10/06/23 13:00 10/07/23 11:39 Magnesium Oxide 400 Mg Tablet PO Not Given TID ZORAN Mupirocin 1 applic 10/06/23 17:00 10/07/23 09:29 Mupirocin 2% Oint 22 Gm Tube TOPICAL 1 applic BID ZORAN Administration Ondansetron HCl 4 mg 10/05/23 17:08 10/07/23 14:58 Ondansetron Inj 4 Mg/2 Ml Vial IV PUSH 4 mg Q4H PRN Administration Nausea Pantoprazole Sodium 40 mg 10/06/23 09:00 10/07/23 09:27 Pantoprazole Sodium Iv 40 Mg Vial IV PUSH 40 mg QAM ZORAN Administration Pantoprazole Sodium 40 mg 10/06/23 10:00 10/07/23 09:27 Pantoprazole 40 Mg Tablet PO 40 mg DAILY ZORAN Administration Rifaximin 550 mg 10/06/23 10:00 10/07/23 09:28 Rifaximin 550 Mg Tablet PO 550 mg BID ZORAN Administration Simethicone 0.6 ml 10/07/23 1
[2023-10-07] MEDS: LACTULOSE 20 GM/30 ML UDC PO ×2 (17:17→21:24)
[2023-10-07 17:18] LABS: Glucose Point of Care 160 mg/dl (65-105)
[2023-10-07 21:24] LABS: Glucose Point of Care 228 mg/dl (65-105)
[2023-10-08 06:00] VITALS: BP 143/61; PULSE 90; RESP 18; TEMP 36.7; O2SAT 99
[2023-10-08 07:41] LABS: Basophils Percent Auto 0.3 % (0.2-1.2); Eosinophils Absolute Auto 0.1 K/mm3 (0-0.3); Eosinophils Percent Auto 1.7 % (0-4.4); Hemoglobin 7.1 g/dL (12.0-15.0); Immature Granulocyte Absolute 0.01 K/mm3 (0.00-0.031); Immature Granulocyte Percent A 0.3 % (0-0.5); Lymphocytes Absolute Auto 0.96 K/mm3 (0.9-3.2); Mean Corpuscular HGB Conc 28.4 g/dl (32-36); Mean Corpuscular Hemoglobin 23.4 pg (26-34); Mean Corpuscular Volume 82.5 fl (80-100); Monocytes Absolute Auto 0.5 K/mm3 (0.1-0.6); Monocytes Percent Auto 17.7 % (2.6-8.5); Neutrophils Absolute Auto 1.4 K/mm3 (1.3-6.7); Platelet Count Result 43 k/mm3 (150-375); Red Blood Count 3.03 M/mm3 (4.2-5.4); Red Cell Distribution Width 17.4 % (11.5-14.5)
--- NOTE | 2023-10-08 07:50 | PM.DS ---
DS: Admitting Diagnosis Discharge Date 10/08/23 Admitting Diagnosis lightheadedness DS: Discharge Diagnosis Discharge Diagnosis (1) GAVE (gastric antral vascular ectasia): Code(s): K31.819 - Angiodysplasia of stomach and duodenum without bleeding Status: Acute (2) GI bleeding: Code(s): K92.2 - Gastrointestinal hemorrhage, unspecified Status: Acute (3) Pre-syncope: Code(s): R55 - Syncope and collapse Status: Acute DS: Summary Hospital Course Hospital Course: 73F w/ PMH hepatitis C, cirrhosis, chronic pancytopenia, NIDDM, HTN, mitral regurgitation, anxiety presents with an episode of lightheadedness. On arrival to [place] [facility] she was found to have HB of 7. She was admitted and EGD/colonoscopy were performed. EGD - mild gastritis, mild portal hypertensive change, multiple AVM consistent with GAVE syndrome w/ APC ablation and biopsy taken. colonoscopy - diverticulosis without bleeding, internal and external hemorrhoids She received 1 unit of PRBC, did not have any more lightheadedness. On day of discharge she is tolerating full diet and feeling back to her normal self, therefore dc'ed home in stable condition. HB came up to 7.7. She will follow up with her PCP on her chronic pancytopenia, resume her daily protonix, and aspirin was held as she has no indication for that. F/u in [address] Burnette for biopsy results. Pt was in understanding and agreement with this plan. She knows to return to ER if she has return or new constellation of symptoms. She was full code during her stay. More than 30 minutes spent on discharge planning and documentation. Time Spent with Patient Time attestation: Total time spent providing and/or coordinating discharge services: Exam Const: General: cooperative and no acute distress Resp: Effort & Inspection: normal respiratory effort Auscultation: clear to auscultation bilaterally Cardio: Rate: regular rate Rhythm: regular rhythm Heart sounds: S1 normal heart sound present and S2 normal heart sound present GI: GI Palp: No abdominal tenderness Auscultation: normal bowel sounds DS: Data Data Completed and Pending Labs on day of discharge: Labs from last 24 hours 10/08/23 10/07/23 10/07/23 06:03 21:03 17:11 WBC Pending RBC Pending Hgb Pending Hct Pending MCV Pending MCH Pending MCHC Pending RDW Pending Plt Count Pending MPV Pending Immature Gran % (Auto) Pending Neut % (Auto) Pending Lymph % (Auto) Pending [place] % (Auto) Pending Eos % (Auto) Pending Baso % (Auto) Pending Lymph # (Auto) Pending [place] # (Auto) Pending Eos # (Auto) Pending Baso # (Auto) Pending Abs Immat Gran (auto) Pending Absolute Neuts (auto) Pending Absolute Nucleated RBC Pending Nucleated RBC % Pending Platelet Estimate % Immature Plt Fraction Poikilocytosis Anisocytosis Ovalocytes Schistocytes Sodium Pending Potassium Pending Chloride Pending Carbon Dioxide Pending Anion Gap Pending BUN Pending Creatinine Pending Estim Creat Clear Calc Pending Estimated GFR Pending Glucose Pending POC Capillary Glucose 228 H 160 H Calcium Pending Total Bilirubin Pending AST Pending ALT Pending Alkaline Phosphatase Pending Total Protein Pending Albumin Pending 10/07/23 10/07/23 10/07/23 13:22 11:47 08:19 WBC 2.5 L RBC 3.36 L Hgb 7.7 L Hct 27.1 L MCV 80.7 MCH 22.9 L MCHC 28.4 L RDW 17.2 H Plt Count 49 L MPV TNP Immature Gran % (Auto) 0.4 Neut % (Auto) 44.8 L Lymph % (Auto) 33.5 [place] % (Auto) 17.7 H Eos % (Auto) 2.8 Baso % (Auto) 0.8 Lymph # (Auto) 0.85 L [place] # (Auto) 0.5 Eos # (Auto) 0.1 Baso # (Auto) 0.0 Abs Immat Gran (auto) 0.01 Absolute Neuts (auto) 1.1 L Absolute Nucleated RBC 0.0 Nucleated RBC % 0.0 Platelet Estimate Decreased % Imm
[2023-10-08 08:01] LABS: Alanine Aminotransferase 19 U/L (6-35); Albumin Level 2.7 g/dL (3.5-5.1); Alkaline Phosphatase 93 U/L (38-126); Anion Gap 5 mmol/L (8-16); Aspartate Amino Transferase 35 U/L (14-36); Bilirubin,Total 1.4 mg/dL (0.2-1.3); Blood Urea Nitrogen 10 mg/dL (7-17); Calcium 8.6 mg/dL (8.4-10.2); Carbon Dioxide 22 mmol/L (22-30); Chloride 110 mmol/L (98-107); Estimated CRCL calculation 113 ml/min; Estimated Glomerular Filt Rate > 60; Glucose 125 mg/dL (65-110); Potassium 3.8 mmol/L (3.4-5.0); Sodium 137 mmol/L (137-145)
[2023-10-08 08:03] LABS: Glucose Point of Care 119 mg/dl (65-105)
[2023-10-08 08:08] LABS: Hypochromasia 2+ (NORMAL); Platelet Estimate Decreased (Adequate); Schistocytes None Seen (NORMAL); Tear Drop Cells 1+ (NORMAL)
[2023-10-08 08:10] VITALS: O2SAT 96
[2023-10-08] MEDS: PANTOPRAZOLE 40 MG TABLET PO (08:41)
[2023-10-08] MEDS: rifAXIMin 550 MG TABLET PO (08:41)
[2023-10-08] MEDS: LACTULOSE 20 GM/30 ML UDC PO (08:41)
[2023-10-08] MEDS: MAGNESIUM OXIDE 400 MG TABLET 800 MG PO (08:41)
[2023-10-08] MEDS: PANTOPRAZOLE SODIUM IV 40 MG VIAL IV PUSH (08:41)
[2023-10-08] MEDS: SPIRONOLACTONE 25 MG TABLET PO (08:41)
[2023-10-08] MEDS: LOSARTAN POTASSIUM 50 MG TABLET PO (08:41)
--- NOTE | 2023-10-08 09:59 | PC.NURSE ---
Spoke with Dr. Burnette re pt discharging today. He said that she was fine to go home. Discharge processed.
== END 2023-10-08 11:38 | disposition home or self-care (01) | DRG 378 ==
LOC: ANHED 17:20 → ANH3MEDSUR 18:27
PROVIDERS: Family Medicine; Internal Medicine Gastroenterology; Student in an Organized Health Care Education/Training Program; Admitting Provider Internal Medicine; Emergency Provider Emergency Medicine; PCP Family Medicine; Visit Provider General Practice
PROC: 0DJ08ZZ Inspection of Upper Intestinal Tract, Via Natural or Artificial Opening Endoscopic (ICD-10-PCS; CPT 43235; principal; 2023-10-07 15:00)
DX: K31.811 Angiodysplasia of stomach and duodenum with bleeding (principal); D61.818 Other pancytopenia; K76.6 Portal hypertension; L97.929 Non-pressure chronic ulcer of unspecified part of left lower leg with unspecified severity; K74.69 Other cirrhosis of liver; B19.20 Unspecified viral hepatitis C without hepatic coma; W46.0XXS Contact with hypodermic needle, sequela; I95.1 Orthostatic hypotension; D50.0 Iron deficiency anemia secondary to blood loss (chronic); K57.30 Diverticulosis of large intestine without perforation or abscess without bleeding; K64.8 Other hemorrhoids; K64.4 Residual hemorrhoidal skin tags; K29.70 Gastritis, unspecified, without bleeding; K76.82 Hepatic encephalopathy; F41.9 Anxiety disorder, unspecified; I34.0 Nonrheumatic mitral (valve) insufficiency; E86.0 Dehydration; E11.9 Type 2 diabetes mellitus without complications; Z86.19 Personal history of other infectious and parasitic diseases; Z90.49 Acquired absence of other specified parts of digestive tract; Z98.42 Cataract extraction status, left eye; Z98.41 Cataract extraction status, right eye; Z87.891 Personal history of nicotine dependence; Z79.82 Long term (current) use of aspirin
CPT/HCPCS: 36415; 36430; 80053; 82948; 83605; 83735; 84100; 85014; 85018; 85025; 85027; 85055; 86850; 86900; 86901; 86920; 87081; 93005; 96374; 99285; A9270; C9113; J2001; J2405; J2704; J3475; J7030; J7050; J7120; P9016

== ENCOUNTER 2023-10-30 15:42 | Emergency (ER) | payer MEDICARE, SELFPAY ==
[2023-10-30 15:50] VITALS: BP 133/50; PULSE 88; RESP 18; TEMP 37.3; O2SAT 99
--- NOTE | 2023-10-30 15:53 | ED.GENADULT ---
HPI - General Adult General Chief complaint: Upper Respiratory Infection Stated complaint: throat/cough Source: patient, RN notes reviewed and old records reviewed Mode of arrival: ambulatory Limitations: no limitations History of Present Illness HPI narrative: 73-year-old female presents to [facility] with complaint of cough, congestion, low-grade fever, myalgia, fatigue, sore throat this started 2 days ago. Patient is not taking any medications for symptoms. Patient denies weakness, dizziness, chest pain, shortness of breath MD complaint: cough, congestion Onset (ago): day(s) (2) Related Data Home Medications Medication Instructions Recorded Confirmed aspirin 81 mg tablet,delayed 81 mg PO DAILY 04/26/22 10/30/23 release (Adult Aspirin Regimen) rifaximin 550 mg tablet (Xifaxan) 550 mg PO BID 10/05/23 10/30/23 Allergies Allergy/AdvReac Type Severity Reaction Status Date / Time hydrocodone [From Vicodin] Allergy Severe Redness of Verified 10/30/23 15:54 Skin Review of Systems Constitutional: Constitutional: Reports no additional constitutional complaints, Denies body ache(s), Denies chills, Denies fatigue, Denies fever(s) and Denies headache(s) Eyes: Eyes: Reports no additional eye complaints and Denies blurry vision ENT: Reports system reviewed and no additional complaints, except as documented, Denies vertigo, Denies dizziness, Denies ear discharge, Denies otalgia, Denies facial pain, Denies headache(s), Reports nasal congestion, Reports nasal discharge, Denies sinus pain, Denies sinus pressure and Reports sore throat Cardiovascular: Cardiovascular: Reports no additional cardiovascular complaints, Denies chest pain, Denies chest pain at rest, Denies rapid heart rate and Denies dyspnea Respiratory: Respiratory: Reports no additional respiratory complaints, Reports chest congestion, Reports cough, Denies pain on inspiration, Denies pain with cough and Denies dyspnea Gastrointestinal: Gastrointestinal: Denies abdominal pain, Denies diarrhea, Denies nausea and Denies vomiting Integumentary/Breasts: Skin/Breast: Denies rash Neurologic: Reports system reviewed and no additional complaints, except as documented, Denies vertigo, Denies dizziness and Denies headache(s) Endocrine: Endocrine: Denies fatigue PMFSH Past Medical History Medical History Anemia Anxiety GAVE (gastric antral vascular ectasia) Hepatitis C Hypertension Mitral regurgitation Noted on echocardiogram in April 2022. Pancytopenia Type 2 diabetes mellitus Surgical History Surgical History History of bilateral cataract extraction History of cholecystectomy History of colonoscopy History of tonsillectomy History of tubal ligation Family History Family History Grandparent Acute myocardial infarction Hypertension Diabetes mellitus Family history of coronary artery disease Cerebrovascular accident Mother Diabetes mellitus Social History Social History Social History: Surrogate medical decision maker: Maite Berg, daughter. Code status: Full code. Smoking packs per day: 1 Smoking cigarettes per day: 20.0 Years smoked: 10 Smoking pack-years: 10.00 Smoking status: Never smoker Second hand tobacco smoke exposure: No Alcohol intake: never Substance use: never Substance use type: does not use Do You Feel Safe in your Home?: Yes Lack of Transportation: No Lack of Food: Never True Current Housing: I Have Housing Concerned About Future Housing: No Difficulty Paying Gas/Electric Bills: No Difficulty Paying for Meds: No Currently Unemployed: No Education: Trade/Vocational Certificate Difficulty w/ Childcare or Family Care: No Living arrangements: alone Additional
== END 2023-10-30 16:25 | disposition home or self-care (01) ==
PROVIDERS: Emergency Provider Registered Nurse; PCP Family Medicine
DX: B34.9 Viral infection, unspecified (principal); I10 Essential (primary) hypertension; E11.9 Type 2 diabetes mellitus without complications; Z79.82 Long term (current) use of aspirin; Z20.822 Contact with and (suspected) exposure to COVID-19
CPT/HCPCS: 87081; 87426; 87804; 87880; 99213; C9803; G0463

== ENCOUNTER 2024-06-05 07:11 | Outpatient (RCR) | payer MEDICARE, SELFPAY ==
[2024-03-08 13:06] VITALS: BMI 27.3
== END 2024-06-06 23:59 | disposition home or self-care (01) ==
LOC: ANHWOC 07:11
PROVIDERS: PCP Family Medicine; Visit Provider Dermatology
DX: L97.829 Non-pressure chronic ulcer of other part of left lower leg with unspecified severity (principal)
CPT/HCPCS: 99213; 99214; A9270; G0463

== ENCOUNTER 2024-06-26 13:25 | Outpatient (RCR) | payer MEDICARE, SELFPAY ==
[2024-06-07 00:03] VITALS: BMI 27.3
== END 2024-08-13 14:49 | disposition home or self-care (01) ==
LOC: ANHWOC 13:25
PROVIDERS: PCP Family Medicine; Visit Provider Dermatology
DX: L97.829 Non-pressure chronic ulcer of other part of left lower leg with unspecified severity (principal)
CPT/HCPCS: 99212; G0463

== ENCOUNTER 2025-03-20 12:32 | Emergency (ER) | payer MEDICARE, SELFPAY ==
[2025-03-20] VITALS (32 sets, daily range): BP systolic 116–170; BP diastolic 55–68; PULSE 70–96; RESP 13–21; TEMP 36.8–37.3; O2SAT 97–100
--- NOTE | ~2025-03-20 | XR_ITS ---
XR chest 2V Ordering provider: Fletcher Byrd MD History: 75 years Female with . SOB . Comparison: August 12, 2023 FINDINGS: MEDIASTINUM: The cardiac silhouette is slightly enlarged. Congestive polo. LUNGS: No effusions or pneumothorax. Prominent markings in the lower lobes which may indicate early a telectasis versus pneumonia. OTHER: No free air under the diaphragm. IMPRESSION: Prominent markings in the lower lobes more on the right side which may indicate atelectasis pneumonia . Reviewed, dictated and finalized at location A. IMPRESSION: Prominent markings in the lower lobes more on the right side which may indicate atelectasis pneumonia.
--- OUTSIDE RECORDS SUMMARY | 2025-03-20 12:36 | XMS_ITS | Encounter Summary ---
Author Organization [facility] Address [address] [place] [address] Phone Care Team Providers Care Replenishment Specialist Name Role Phone Olive Lozano MD Primary Care Provider [phone] Svitlana De La Torre APRN, DRY CHAIN OFFBEARER Unavailable Swapnil Jhaveri MD Unavailable [phone] Reason for Visit * Reason Comments Medication Refill Encounter Details Date Type Department Care Team (Late st Contact Info) Description 11/10/2021 Refill [facility] - Gastroenterology - [place] [address] [place] [id number] Estella Epperson Ester, PAC [address] [place] [address] Medication Refill Social History Tobacco Use Types Packs/Day Years Used Date Smoking Tobacco: Former Cigarettes 1 15 0 06/26/1964 - 06/26/1979 Smokeless Tobacco: Never Alcohol Use Standard Drinks/Week Comments Not Currently 0 (1 standard drink = 0.6 oz pur e alcohol) AUDIT-C Answer Date Recorded Frequency of Alcohol Consumption Never 04/19/2019 Average Number of Drinks Not on file 019 Frequency of Binge Drinking Not on file 04/01 Sexually Active Control Partners Comments Not Currently Comments No Sex and Gender Information Value Date Recorded Sex Assigned at Female 06/13/2023 6:05 PM CDT Legal Sex Female 9:14 PM CDT Gender Identity Female 06/13/2023 6:05 PM CDT Sexual Orientation Straight 11/08/2023 4: 58 PM 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 No / Unsure 11/11/2021 7:58 AM FURNACE MECHANIC HELPER documented as of this encounter Miscellaneous Notes * Telephone Encounter - Laurel Krause RN - 11/11/2021 9:46 AM FURNACE MECHANIC HELPER Medication [facility] and [facility] standing order for pediatric and adult patients. ACE MECHANIC HELPER documented in this encounter Plan of Treatment Not on file documented as of this encounter Visit Diagnoses Diagnosis Hepatic encephalopathy (HCC) Hepatic encephalopathy documented in this encounter Care Teams Replenishment Specialist Relationship Specialty Start Date End Date Olive Lozano MD [address] [place] [address] PCP - General Family Medicine 04/19/19 Svitlana De La Torre APRN, DRY CHAIN OFFBEARER [address] [place] [address] Nurse Practitioner Advanced Practice Nurse 06/24/23 Swapnil Jhaveri MD [address] [place] [address] Consulting Physician Gastroenterology 02/10/23 documented as of this encounter
--- OUTSIDE RECORDS SUMMARY | 2025-03-20 12:36 | XMS_ITS | Encounter Summary ---
Author Organization [facility] Address [address] [place] [address] Care Team Providers Care Marketing Communications Manager Name Role Phone Olive Lozano MD Primary Care Provider [phone] Reason for Visit * Reason Onset Date Comments Critical Lab Results 03/19/2025 Encounter Details Date Type Department Care Team (Late st Contact Info) Description 03/19/2025 Telephone [facility] - [address] [phone] Edita Nino RN Critical Lab Results Social History Tobacco Use Types Packs/Day Years Used Date Smoking Tobacco: Former Cigarettes Alcohol Use Standard Drinks/Week Comments Not Currently 0 (1 standard drink = 0.6 oz pure alcohol) Hasn't had alcohol in 10+ years Comments No Sex and Gender Information Value Date Recorded Sex Assigned at Not on file Legal Sex Female 6:39 PM ELECTROLYSIST Gender Identity Not on file Sexual Orientation Not on file documented as of this encounter Functional Status * Is person deaf or have serious hearing difficulty? Answer Date of Assessment Author No 06/28/2024 2:20 PM ARIEST Saskia Abdi RN * Is person blind or have serious difficulty seeing? Answer Date of Assessment Author No 06/28/2024 2:20 PM Saskia Macedo RN * Does person have serious difficulty walking/climbing stairs? Answer Date of Assessment Author No 06/28/2024 2:20 PM Saskia Macedo RN * Does person have difficulty dressing/bathing? Answer Date of Assessment Author No 06/28/2024 2:20 PM CDT Saskia Abdi RN * Does person have difficulty doing errands alone? Answer Date of Assessment Author No 06/28/2024 2:20 PM CDT Saskia Abdi RN documented as of this encounter Mental Status * Does person have difficulty concentrating/remembering/making decisions? Answer Entry Date Author No 06/28/2024 2:20 PM CDT Saskia Abdi RN documented in this encounter Miscellaneous Notes * Telephone Encounter - David Reyes RN - 03/20/2025 8:40 AM CDT Calls triage to inform she will be going to [facility] for eval and treatment. * Telephone Encounter - Hien Villareal RN - 03/19/2025 10:31 AM CDT Patient has no symptoms of GI bleed, chest pain or dizziness She reports chronic, unchanged fatigue and new shortness of breath Patient advised ED per Dr Fong- she does not have transportation today She will try to call family to see if they can bring her here, at minimum she may go to [facility] She will call to updated us * Telephone Encounter - Edita Nino RN - 03/19/2025 10:13 AM CDT Leroy from [facility] lab calls with critical hgb level 7.0 drawn this morning. Results to faxed and in care everywhere. Will discuss result with Dr. Fong. Of note, previous hgb level 7.2 from 01/25/25 call back to lab if needed. documented in this encounter Plan of Treatment Upcoming Encounters Date Type Department Care Team (Latest Contact Info) Description 04/18/2025 2:30 PM CDT Hospital Encounter [facility] ENDOSCOPY [address] [place] [address] Ismael Fong MD [address] [place] [address] [address] [place] [address] Surgery General 04/18/2025 2:30 PM CDT - 04/18/2025 3:15 PM CDT Surgery [facility] [place] [address] Ismael Fong MD [address] [place] [address] [address] [place] [address] EGD 10/15/2025 12:30 PM ELECTROLYSIST Appointment [facility] [place] [address] Ismael Fong MD [address] [place] [address] [address] [place] [address] 10/15/2025 1:30 PM ELECTROLYSIST Office Visit [facility] - GI [address] [place] [address], [facility] [place] [phone] Ismael Fong MD [address] [place] [address] [address] [place] [address] Scheduled Procedures Name Priority Associated Diagnoses Date/Ti ks ESOPHAGOGASTRODUODENOSCOPY ( EGD) DIAGNOSTIC Chronic blood loss anemia Hepatic cirrhosis, unspecified hepatic cirrhosis type, unspecified whether ascites present (HCC) Hepatic encephalopathy (HCC) 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 Author Medication Management General On track( 025 11:45 AM CDT) David Barr, RN Note: Expected end date: Interventions: Take all medications as prescribed Let your doctor know right away about any changes in your medications Make sure to request a refill of your medication at least one week prior to your last dose documented as of this encounter Visit Diagnoses Not on filedocumented in this encounter Care Teams Marketing Communications Manager Relationship Specialty Start Date End Date Olive Lozano MD [address] [place] [address] PCP - General 07/10/13 documented as of this encounter
--- OUTSIDE RECORDS SUMMARY | 2025-03-20 12:36 | XMS_ITS | Encounter Summary ---
Author Organization [facility] Address [address] [place] [address] Phone Care Team Providers Care Destination Specialist Name Role Phone Olive Lozano MD Primary Care Provider [phone] Svitlana De La Torre APRN, FLAVOR MAKER Unavailable Swapnil Jhaveri MD Unavailable [phone] Reason for Visit * Reason Comments Medication Refill Encounter Details Date Type Department Care Team (Late st Contact Info) Description 03/18/2023 Refill [facility] - Gastroenterology - [place] [address] [place] [phone] Estella Epperson Ester, PAC [address] [place] [address] Medication Refill Social History Tobacco Use Types [...] Sexual Orientation Straight 11/08/2023 4: 58 PM VISUALLY 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 No / Unsure 02/23/2023 12:40 PM CDT documented as of this encounter Miscellaneous Notes * Telephone Encounter - Laurel Krause RN - 03/18/2023 12:46 PM CDT Medication passed protocol. Routing to provider for approval due to previous provider is no longer with office. Lactulose prescription pended, please review. documented in this encounter Plan of Treatment Not on file documented as of this encounter Visit Diagnoses Diagnosis Hepatic encephalopathy (HCC) Hepatic encephalopathy documented in this encounter Care Teams Destination Specialist Relationship Specialty Start Date End Date Olive Lozano MD [address] [place] [address] PCP - General Family Medicine 04/19/19 Svitlana De La Torre APRN, FLAVOR MAKER [address] [place] [address] Nurse Practitioner Advanced Practice Nurse 06/24/23 Swapnil Jhaveri MD [address] [place] [address] Consulting Physician Gastroenterology 02/10/23 documented as of this encounter
--- OUTSIDE RECORDS SUMMARY | 2025-03-20 12:36 | XMS_ITS | Encounter Summary ---
Author Organization [facility] Address [address] [place] [address] Phone Care Team Providers Care Steam Hand Name Role Phone Olive Lozano MD Primary Care Provider [phone] [facility] APRN, RECREATION PROGRAMMER Unavailable Swapnil Jhaveri MD Unavailable [phone] Encounter Details Date Type Department Care Team (Latest Contact Info) Description 01/22/2025 Transcribe Orders [facility] [address] [place] [address] Olive Lozano MD [address] [place] [address] Dry mouth (Primary Dx); Type 2 diabetes mellitus without complication, unspecified whether senior living insulin use (HCC); Mixed hyperlipidemia; Other fatigue; Vitamin D deficiency; Liver failure without hepatic coma, unspecified chronicity (HCC) Social History Tobacco Use Types Packs/Day Years [...] Sexual Orientation Straight 11/08/2023 4: 58 PM ETHANOL 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 Consider Clinical Correlation. CREATININE URINE 123.5 mg/dL 01/26/20 9:33 AM CDT [facility] Comment:No reference range h as been established. Consider Clinical Correlation. ALB/CREAT RATIO 14 0 - 30 mg/g CRE 01/25/2025 9:33 AM CDT [facility] Urine Non-Phlebotomy Collection / Unknown 01/25/2025 8:43 AM CDT 01/25/2025 9:01 AM CDT us Olive Lozano MD URINE ORDERABLES Final Result [facility] [address] [place] [address] * ERYTHROCYTE SEDIMENTATION RATE (ESR) (01/25/2025 8:43 AM CDT) Pathologist [facility] ESR (SED RATE, ERYTHROCYTE SEDIMENTATION RATE) 1 <30 mm/h 01/25/2025 9:10 AM CDT [facility] Comment: Patients presenting with increased level of fibrinogen, gamma globulins, or abnormally shaped RBCs could affect the results for the erythrocyte sedimentation rate (ESR). Results should be clinically correlated. Blood Venipuncture / Unknown 01/25/2025 8:43 AM CDT 01/25/2025 9:02 AM CDT us Olive Lozano MD HEMATOLOGY ORDERABLES Final Resu lt Performing Organization Address City/[facility]/ZIP Co de Phone Number [facility] [address] [place] [address] * VITAMIN B12 (01/25/2025 8:43 AM CDT) VITAMIN B12 421 213 - 816 pg/mL 01/25/2025 9:53 AM CDT [facility] Blood Venipuncture / Unknown 01/25/2025 8:43 AM CDT 01/25/2025 9:02 AM CDT us Olive Lozano MD CHEMISTRY ORDERABLES Final Resul t Performing Organization Address [facility] Co de Phone Number [facility] [address] [place] [address] * AMMONIA (01/25/2025 8:43 AM CDT) AMMONIA 68 18 - 72 umol/L 01/25/2025 9:19 AM CDT [facility] Blood Venipuncture / Unknown 01/25/2025 8:43 AM CDT 01/25/2025 9:01 AM CDT us Olive Lozano MD CHEMISTRY ORDERABLES Final Resul t Performing Organization Address City/[facility] Co de Phone Number [facility] [address] [place] [address] * VITAMIN D, 25 HYDROXY TOTAL (01/25/2025 8:43 AM CDT) VITAMIN D, 25 HYDROX 23.1 ng/mL 01/25/2025 9:53 AM CDT [facility] Blood Venipuncture / Unknown 01/25/2025 8:43 AM CDT 01/25/2025 9:02 AM CDT Narrative [facility] - 01/25/2025 9:53 AM CDT Published reference ranges for Vitamin D vary depending on time and place and method of testing, and on patient's age, sex, ethnicity and levels of other measured analytes such as parathormone, calcium and phosphorus. The result should be evaluated in conjunction with clinical findings and suspicions. [employer] and [employer] Clinical Practice Guidelines: Status Vitamin D levels (ng/mL) Deficient <=20 At risk of inadequacy 21-29 Sufficient 30-100 Centers of Disease Control and Prevention Guidelines: Status Vitamin D levels (ng/mL) Deficient <13 At risk of inadequacy 13-19 Sufficient 20-50 Possibly harmful >50 References: [employer], 2010 Dietary reference intakes for calcium and vitamin D. [place]: The National Academies Press. Adrian M, Todd N, Chuy BURNS, et al., Evaluation, treatment, and prevention of Vitamin D deficiency: an Endocrinology Clinical Practice Guideline. JCEM 2011 96: 7 5707-2499. Chace A, Anrdea C, Ronel D, et al., Vitamin D Status: [place], 0220-3260, COUNTS INCLUDE 234 BEDS AT THE [facility] data brief, no. 59, MD [place]: National Center for Health Statistics. 2011. us Olive Lozano MD CHEMISTRY ORDERABLES Final Resul t [facility] [address] [place] [address] * (ABNORMAL) COMPLETE BLOOD COUNT (CBC) WITHOUT DIFF (01/25/2025 8:43 AM CDT) WBC 2.20(L) 4.00 - 12.00 10(3)/mcL 01/25/2025 9:13 AM CDT [facility] RBC 3.72(L) 3.80 - 5.30 10(6)/mcL 01/25/2025 9:13 AM CDT [facility] HEMOGLOBIN (HGB) 7.2(L) 12.0 - 15.8 g/dL 01/25/2025 9:13 AM CDT [facility] HEMATOCRIT (HCT) 27.6(L) 36.0 - 47.0 % 01/25/2025 9:13 AM CDT [facility] MCV 74.2(L) 82.0 - 96.0 fL 01/25/2025 9:13 AM CDT [facility] MCH 19.4(L) 26.0 - 34.0 pg 01/25/2025 9:13 AM CDT [facility] MCHC 26.1(L) 31.0 - 36.0 g/dL 01/25/2025 9:13 AM CDT [facility] PLATELET COUNT 92(L) 140 - 440 10(3)/mcL 01/25/2025 9:13 AM CDT [facility] RDW 19.6(H) 11.8 - 15.5 % 01/25/2025 9:13 AM CDT [facility] MPV 01/25/2025 9:13 AM CDT [facility] Blood Venipuncture / Unknown 01/25/2025 8:43 AM CDT 01/25/2025 9:02 AM CDT us Olive Lozano MD HEMATOLOGY ORDERABLES Final Resu lt [facility] [address] [place] [address] * (ABNORMAL) LIPID PANEL (01/25/2025 8:43 AM CDT) CHOLESTEROL 102 <200 mg/dL 01/25/2025 9:32 AM CDT [facility] TRIGLYCERIDES 62 <150 mg/dL 01/25/2025 9:32 AM CDT [facility] HDL CHOLESTEROL 36(L) >40 mg/dL 9:32 AM CDT [facility] LDL 54 <130 mg/dL 01/25/2025 9:32 AM CDT [facility] VLDL 12 10 - 50 mg/dL 01/25/2025 9:32 AM CDT [facility] CHOL/HDL RATIO 2.8 0.0 - 4.4 01/25/2025 9:32 AM CDT [facility] NON-HDL CHOLESTEROL 66 <130 mg/dL 01/25/2025 9:32 AM CDT [facility] IS THE PATIENT REQUIRED TO BE FASTING? Yes 01/25/2025 9:32 AM CDT [facility] HAS THE PATIENT BEEN FASTING? Yes 01/25/2025 9:32 AM CDT [facility] Blood Venipuncture / Unknown 01/25/2025 8:43 AM CDT 01/25/2025 9:02 AM CDT us Olive Lozano MD CHEMISTRY ORDERABLES Final Resul t [facility] [address] [place] [address] * (ABNORMAL) CMP (COMPREHENSIVE METABOLIC PANEL) (01/25/2025 8:43 AM CDT) SODIUM 141 136 - 145 mmol/L 01/25/2025 9:32 AM CDT [facility] POTASSIUM 4.2 3.5 - 5.1 mmol/L 01/25/2025 9:32 AM CDT [facility] CHLORIDE 112(H) 98 - 107 mmol/L 01/25/2025 9:32 AM CDT [facility] CO2, VENOUS 23 22 - 30 mmol/L 01/25/2025 9:32 AM CDT [facility] ANION GAP 10.2 <18.0 mmol/L 01/25/2025 9:32 AM CDT [facility] GLUCOSE 139(H) 70 - 99 mg/dL 01/25/2025 9:32 AM [facility] BUN 11 10 - 20 mg/dL 01/25/2025 9:32 AM [facility] CREATININE, BLOOD 0.55(L) 0.60 - 1.00 mg/dL 01/25/2025 9:32 AM [facility] BUN/CREATININE RATIO 20 12 - 20 ratio 01/25/2025 9:32 AM [facility] TOTAL PROTEIN 6.5 6.0 - 8.0 g/dL 01/25/2025 9:32 AM [facility] ALBUMIN 3.3(L) 3.5 - 5.0 g/dL 01/25/2025 9:32 AM [facility] A/G RATIO 1.0 1.0 - 2.2 01/25/2025 9:32 AM [facility] CALCIUM 9.1 8.7 - 10.5 mg/dL 01/25/2025 9:32 AM [facility] T BILI 2.0(H) 0.2 - 1.2 mg/dL 01/25/2025 9:32 AM [facility] SGOT (AST) 31 <43 U/L 01/25/2025 9:32 AM [facility] SGPT (ALT) 18 <56 U/L 01/25/2025 9:32 AM [facility] ALKALINE PHOSPHATASE 112 40 - 150 U/L 01/25/2025 9:32 AM [facility] IS THE PATIENT REQUIRED TO BE FASTING? No 01/25/2025 9:32 AM [facility] GFR, ESTIMATED >60 >=60 01/25/2025 9:32 AM [facility] Comment: Creatinine Clearance is the preferred criteria for selecting drug dose adjustments in renally impaired patients. The GFR is provided as additional pertinent clinical information. GFR is reported in mL/min/1.73 sq m. Calculation based on the Chronic Kidney Disease Epidemiology Collaboration (CKD- EPI) equation refit without adjustment for race. GFR, EST. >60 >=60 025 9:32 AM CDT [facility] GFR, EST. NONAFRICAN >60 >=60 01/25/2025 9:32 AM CDT [facility] Blood Venipuncture / Unknown 01/25/2025 8:43 AM CDT 01/25/2025 9:02 AM CDT Olive Lozano MD CHEMISTRY ORDERABLES Final Resul t Performing Organization Address City/[facility]/ZIP Co de Phone Number [facility] [address] [place] [address] * (ABNORMAL) HEMOGLOBIN A1C W/ ESTIMATED GLUCOSE (01/25/2025 8:43 AM CDT) HGB-A1C 6.6(H) 4.0 - 6.0 % 01/25/2025 9:25 AM CDT [facility] Est Average Glucose 142.7 mg/dL 01/25/2025 9:25 AM CDT [facility] Blood Venipuncture / Unknown 01/25/2025 8:43 AM CDT 01/25/2025 9:02 AM CDT Narrative [facility] - 01/25/2025 9:25 AM CDT HEMOGLOBIN A1C: DIABETIC PATIENTS: WELL-CONTROLLED: 6.2 - 7.0 INTERMEDIATE WELL-CONTROLLED: 7.0 - 9.0 POORLY-CONTROLLED: >9.0 Specimens containing greater than 5% of Hemoglobin F may result in lower than expected % HbA1C results. Olive Lozano MD CHEMISTRY ORDERABLES Final Resul t Performing Organization Address City/[facility]/ZIP Co de Phone Number [facility] [address] [place] [address] documented in this encounter Visit Diagnoses Diagnosis Dry mouth- Primary Disturbance of salivary secretion Type 2 diabetes mellitus without complication, unspecified whether intermediate teacher insulin use Mixed hyperlipidemia Other fatigue Vitamin D deficiency Unspecified vitamin D deficiency Liver failure without hepatic coma, unspecified chronicity (HCC) documented in this encounter Care Teams Steam Hand Relationship Specialty Start Date End Date Olive Lozano MD [address] [place] [address] PCP - General Family Medicine 04/19/19 Svitlana De La Torre APRN, RECREATION PROGRAMMER [address] [place] [address] Nurse Practitioner Advanced Practice Nurse 06/24/23 Swapnil Jhaveri MD [address] [place] [address] Consulting Physician Gastroenterology 02/10/23 documented as of this encounter
--- OUTSIDE RECORDS SUMMARY | 2025-03-20 12:36 | XMS_ITS | Clinical Summary ---
Author Organization [facility] Address [address] [facility] [address], [address] [address] Phone Care Team Providers Care Infrastructure Developer Name Role Phone Olive Lozano MD Primary Care Provider Svitlana De La Torre APRN, MASTER CONTROL SUPERVISOR Unavailable Swapnil Jhaveri MD Unavailable [phone] Allergies Active Allergy Reactions Criticality Noted Date Comments Codeine Nausea Low 09/19/2013 Hydrocodone-Acetamin ophen Other (see Comments) 06/08/2019 Patient states turned red all over. Denied any itching. Medications losartan (COZAAR) 100 MG Tablet Take 100 mg by mouth every evening. Active Aspirin 81 MG Tablet Take 81 mg by mouth every morning. Active furosemide (LASIX) 20 MG Tablet Take 20 mg by mouth daily as needed. Active Probiotic Product (PROBIOTIC PO) Take by mouth every morning. Active pantoprazole (PROTONIX) 40 MG Tablet Delayed Response Take 40 mg by mouth daily as needed. Active OneTouch Ultra Strip USE TO TEST BLOOD SUGAR ONCE DAILY 0 Active OneTouch Delica Lancets 33G Misc USE TO TEST BLOOD SUGAR ONCE DAILY 0 Active Ascorbic Acid (Vitamin C) 250 MG Tablet Take 500 mg by mouth daily. Active Magnesium 400 MG TabletIndications: Magnesium deficiency Take 400 mg by mouth 4 times daily. 120 Tablet 3 1 Active Cholecalciferol (VITAMIN D3 PO) Take by mouth. Active BIOTIN FORTE PO Take by mouth. Active Ozempic, 0.25 or 0.5 MG/DOSE, 2 MG/1.5ML Solution Pen-injector 1 Active spironolactone (ALDACTONE) 25 MG Tablet 1 Active metFORMIN (GLUCOPHAGE) 1000 MG Tablet Take 1,000 mg by mouth 2 times daily. 2 Active magnesium oxide (MAG-OX) 400 (240 Mg) MG TabletIndications: Hypomagnesemia TAKE 1 TABLET BY MOUTH FOUR TIMES A DAY 120 Tablet 3 2 Active predniSONE (DELTASONE) 10 MG Tablet PLEASE SEE ATTACHED FOR DETAILED DIRECTIONS 3 Active lactulose (CHRONULAC) 10 GM/15ML SolutionIndication s:Hepatic encephalopathy (HCC) TAKE 15 ML BY MOUTH 4 TIMES DAILY. 3784 mL 2 3 Active rifAXIMin (XIFAXAN) 550 MG TabletIndications: Hyperammonemia (HCC),Hepatic encephalopathy (HCC),Hepatic cirrhosis, unspecified hepatic cirrhosis type, unspecified whether ascites present (HCC) Take 1 Tablet by mouth 2 times daily. 180 Tablet 3 4 Active Active Problems Problem Noted Date Diagnosed Date Hyperammonemia 02/10/2023 Hx of hepatitis C 08/20/2021 Hypomagnesemia 08/20/2021 Hepatic encephalopathy 04/25/2020 Abnormal levels of other serum enzymes 0 Cirrhosis of liver without ascites 04/25/2020 Encounters Date Type Department Care Team Description 03/19/2025 Travel 03/14/2025 Transcribe Orders [facility] [address] [place] [address] Ismael Fong MD Chronic blood loss anemia (Primary Dx); Hepatic cirrhosis, unspecified hepatic cirrhosis type, unspecified whether ascites present (HCC); Hepatic encephalopathy (HCC); GAVE (gastric antral vascular ectasia); 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); Portal hypertension (HCC) 01/25/2025 Travel 01/22/2025 Transcribe Orders [facility] [address] [place] [address] Olive Lozano MD Dry mouth (Primary Dx); Type 2 diabetes mellitus without complication, unspecified whether care home insulin use (HCC); Mixed hyperlipidemia; Other fatigue; Vitamin D deficiency; Liver failure without hepatic coma, unspecified chronicity (HCC) from Last 3 Months Immunizations Immunization Administration Dates Next Due Covid-19 Vaccine, Vector-nr, [id number], Pf, 0.5 Ml (ESTEFANÍA/J&J) 01/06/2021 Covid-19, Mrna, Lnp-s, Pf, 30 Mcg/0.3 Ml Dose (Donna bright) 10/01/2021 Hepatitis A Vaccine, Pediatr ic/adolescent, 2 Dose Schedule 08/14/2020 Influenza, Injectable, Mdck, quadrivalent,with Preservative 08/14/2019 Influenza, Quadrivalent, Adjuvanted 09/07/2021 Influenza, high-dose, trivalent, PF 07/30/2020 Zoster Vaccine, live 09/29/2012 Family History Medical History Relation Name Comments Cancer Father throat? 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 Not on file Not on file No t on file Last Filed Vital Signs Vital Sign Reading Time Taken Comments Blood Pressure 112/58 06/24/2023 10:17 AM CDT Pulse 82 06/24/2023 10:17 AM CDT Temperature 36.6 C (97.8 F) 06/24/2023 10:17 AM CDT Respiratory Rate 14 06/24/2023 10:1 7 AM CDT Oxygen Saturation 98% 06/24/2023 10: 17 AM CDT Inhaled Oxygen Concentration - - Weight 78.8 kg (173 lb 12.8 oz) 023 10:17 AM CDT Height 165.1 cm (5' 5 ) 06/24/2023 10:1 7 AM CDT Body Mass Index 28.92 06/24/2023 10:17 AM CDT Plan of Treatment Health Maintenance Due Date Last Done Comments DEXA Bone Density 1952 Mammogram 1950 TdaP Immunization 1952 Cologuard 2002 Immunochemical Fecal Occult Blood 2002 Hepatitis B Immunization (1 of 3 - Risk 3-dose series) 2012 Respiratory Syncytial Virus (RSV) Immunization (Adult) (1 - Risk 60-74 years 1-dose series) 2012 Zoster Immunization (2 of 3) 11/24/2012 09/29/2012 SARS-COV-2 Immunization (3 - season) 2024 10/01/2021, 01/06/2021 Colonoscopy 06/26/2027 06/26/2019 Colorectal Cancer Screening 06/26/2027 06/26/2019 Influenza Immunization Completed , 09/12/2023, 09/07/2021, Additional history exists Pneumococcal Immunization (50+ years) Completed 09/18/2024 Pneumococcal Immunization Combined Discontinued 09/18/2024 Human Papillomavirus (HPV) Immunization Aged Out No longer eligible based on patient's age to complete this topic Meningococcal Immunization (ACWY) Aged Out No longer eligible based on patient's age to complete this topic Rotavirus Immunization Aged Out No lo nger eligible based on patient's age to complete this topic Procedures Procedure Name Priority Date/Time Associated Diagnosis Comments CBC WITH AUTO DIFFERENTIAL Routine 03/19/2025 9:09 AM CDT Chronic blood loss anemia Hepatic cirrhosis, unspecified hepatic cirrhosis type, unspecified whether ascites present (HCC) Hepatic encephalopathy (HCC) 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) Portal hypertension (HCC) COMPLETE BLOOD COUNT (CBC) WITH DIFF Routine 03/19/2025 9:09 AM CDT Chronic blood loss anemia Hepatic cirrhosis, unspecified hepatic cirrhosis type, unspecified whether ascites present (HCC) Hepatic encephalopathy (HCC) 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) Portal hypertension (HCC) CMP (COMPREHENSIVE METABOLIC PANEL) Routine 03/19/2025 9:09 AM CDT Chronic blood loss anemia Hepatic cirrhosis, unspecified hepatic cirrhosis type, unspecified whether ascites present (HCC) Hepatic encephalopathy (HCC) 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) Portal hypertension (HCC) ALPHA FETOPROTEIN, TUMOR MARKER Routine 03/19/2025 9:09 AM CDT Chronic blood loss anemia Hepatic cirrhosis, unspecified hepatic cirrhosis type, unspecified whether ascites present (HCC) Hepatic encephalopathy (HCC) 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) Portal hypertension (HCC) THYROID SCREEN WITH REFLEX Routine 01/25/2025 8:43 AM CDT Dry mouth Type 2 diabetes mellitus without complication, unspecified whether dispatcher maintenance insulin use (HCC) Mixed hyperlipidemia Other fatigue Vitamin D deficiency Liver failure without hepatic coma, unspecified chronicity (HCC) UR MICROALBUMIN/CREATINI NE RATIO RANDOM Routine 01/25/2025 8:43 AM CDT Dry mouth Type 2 diabetes mellitus without complication, unspecified whether care home insulin use (HCC) Mixed hyperlipidemia Other fatigue Vitamin D deficiency Liver failure without hepatic coma, unspecified chronicity (HCC) ERYTHROCYTE SEDIMENTATION RATE (ESR) Routine 01/25/2025 8:43 AM CDT Dry mouth Type 2 diabetes mellitus without complication, unspecified whether care home insulin use (HCC) Mixed hyperlipidemia Other fatigue Vitamin D deficiency Liver failure without hepatic coma, unspecified chronicity (HCC) THYROID SCREEN WITH REFLEX Routine 01/25/2025 8:43 AM CDT Dry mouth Type 2 diabetes mellitus without complication, unspecified whether care home insulin use (HCC) Mixed hyperlipidemia Other fatigue Vitamin D deficiency Liver failure without hepatic coma, unspecified chronicity (HCC) VITAMIN B12 Routine 01/25/2025 8:43 AM CDT Dry mouth Type 2 diabetes mellitus without complication, unspecified whether care home insulin use (HCC) Mixed hyperlipidemia Other fatigue Vitamin D deficiency Liver failure without hepatic coma, unspecified chronicity (HCC) AMMONIA Routine 01/25/2025 8:43 AM CDT Dry mouth Type 2 diabetes mellitus without complication, unspecified whether care home insulin use (HCC) Mixed hyperlipidemia Other fatigue Vitamin D deficiency Liver failure without hepatic coma, unspecified chronicity (HCC) VITAMIN D, 25 HYDROXY TOTAL Routine 01/25/2025 8:43 AM CDT Dry mouth Type 2 diabetes mellitus without complication, unspecified whether care home insulin use (HCC) Mixed hyperlipidemia Other fatigue Vitamin D deficiency Liver failure without hepatic coma, unspecified chronicity (HCC) COMPLETE BLOOD COUNT (CBC) WITHOUT DIFF Routine 01/25/2025 8:43 AM CDT Dry mouth Type 2 diabetes mellitus without complication, unspecified whether care home insulin use (HCC) Mixed hyperlipidemia Other fatigue Vitamin D deficiency Liver failure without hepatic coma, unspecified chronicity (HCC) LIPID PANEL Routine 01/25/2025 8:43 AM CDT Dry mouth Type 2 diabetes mellitus without complication, unspecified whether care home insulin use (HCC) Mixed hyperlipidemia Other fatigue Vitamin D deficiency Liver failure without hepatic coma, unspecified chronicity (HCC) CMP (COMPREHENSIVE METABOLIC PANEL) Routine 01/25/2025 8:43 AM CDT Dry mouth Type 2 diabetes mellitus without complication, unspecified whether dispatcher maintenance insulin use (HCC) Mixed hyperlipidemia Other fatigue Vitamin D deficiency Liver failure without hepatic coma, unspecified chronicity (HCC) HEMOGLOBIN A1C W/ ESTIMATED GLUCOSE Routine 01/25/2025 8:43 AM CDT Dry mouth Type 2 diabetes mellitus without complication, unspecified whether care home insulin use (HCC) Mixed hyperlipidemia Other fatigue Vitamin D deficiency Liver failure without hepatic coma, unspecified chronicity (HCC) from Last 3 Months Results * (ABNORMAL) CBC WITH AUTO DIFFERENTIAL (03/19/2025 9:09 AM CDT) WBC 2.58(L) 4.00 - 12.00 10(3)/mcL 03/19/2025 10:54 AM CDT [facility] RBC 3.52(L) 3.80 - 5.30 10(6)/mcL 03/19/2025 10:54 AM CDT [facility] HEMOGLOBIN (HGB) 7.0(LL) 12.0 - 15.8 g/dL 03/19/2025 10:54 AM CDT [facility] HEMATOCRIT (HCT) 26.5(L) 36.0 - 47.0 % 03/19/2025 10:54 AM CDT [facility] MCV 75.3(L) 82.0 - 96.0 fL 03/19/2025 10:54 AM CDT [facility] MCH 19.9(L) 26.0 - 34.0 pg 03/19/2025 10:54 AM CDT [facility] MCHC 26.4(L) 31.0 - 36.0 g/dL 03/19/2025 10:54 AM CDT [facility] PLATELET COUNT 83(L) 140 - 440 10(3)/mcL 03/19/2025 10:[address] [facility] RDW 19.6(H) 11.8 - 15.5 % 03/19/2025 10:54 AM CDT [facility] MPV 03/19/2025 10:[address] [facility] NEUTROPHILS 43.4(L) 47.0 - 73.0 % 03/19/2025 10:[address] [facility] LYMPHOCYTES 34.9 18.0 - 42.0 % 03/19/2025 10:[address] [facility] MONOCYTES 18.6(H) 4.0 - 12.0 % 03/19/2025 10:[address] [facility] EOSINOPHILS 2.3 0.0 - 5.0 % 03/19/2025 10:54 AM CDT [facility] BASOPHILS 0.8 0.0 - 1.0 % 03/19/2025 10:[address] [facility] ABSOLUTE NEUTROPHILS 1.12(L) 1.60 - 7.70 10(3)/[facility] 03/19/2025 10:[address] [facility] ABSOLUTE LYMPHOCYTES 0.90(L) 1.30 - 3.20 10(3)/[facility] 03/19/2025 10:[address] [facility] ABSOLUTE MONOCYTES 0.48 0.20 - 1.00 10(3)/[facility] 03/19/2025 10:[address] [facility] ABSOLUTE EOSINOPHIL 0.06 0.00 - 0.40 10(3)/[facility] 03/19/2025 10:[address] [facility] ABSOLUTE BASOPHILS 0.02 0.00 - 0.10 10(3)/[facility] 03/19/2025 10:[address] [facility] NRBC PER 100 WBC 0 03/19/20 10:[address] [facility] RESULTS ARE CONSISTENT WITH PERIPHERAL SMEAR REVIEW Yes 03/19/2025 10:[address] [facility] RBC MORPHOLOGY CONSISTENT WITH INDICES Yes 03/19/2025 10:54 AM [facility] Blood Venipuncture / Unknown 03/19/2025 9:09 AM CDT 03/19/2025 9:[address] [facility] - 03/19/2025 10:54 AM CDT Anisocytosis Hypochromia Ismael Fong MD HEMATOLOGY ORDERABLES Final Result [facility] [address] [place] [address] * (ABNORMAL) CMP (COMPREHENSIVE METABOLIC PANEL) (03/19/2025 9:09 AM CDT) Only the most recent of2 resultswithin the time period is included. SODIUM 139 136 - 145 mmol/L 03/19/2025 10:[address] [facility] POTASSIUM 4.4 3.5 - 5.1 mmol/L 03/19/2025 10:[address] [facility] CHLORIDE 108(H) 98 - 107 mmol/L 03/19/2025 10:[address] [facility] CO2, VENOUS 23 22 - 30 mmol/L 03/19/2025 10:[address] [facility] ANION GAP 12.4 <18.0 mmol/L 03/19/2025 10:[address] [facility] GLUCOSE 147(H) 70 - 99 mg/dL 03/19/2025 10:[address] [facility] BUN 12 10 - 20 mg/dL 03/19/2025 10:[address] [facility] CREATININE, BLOOD 0.51(L) 0.60 - 1.00 mg/dL 03/19/2025 10:[address] [facility] BUN/CREATININE RATIO 24(H) 12 - 20 ratio 03/19/2025 10:[address] [facility] TOTAL PROTEIN 6.4 6.0 - 8.0 g/dL 03/19/2025 10:[address] [facility] ALBUMIN 3.4(L) 3.5 - 5.0 g/dL 03/19/2025 10:[address] [facility] A/G RATIO 1.1 1.0 - 2.2 03/19/2025 10:[address] [facility] CALCIUM 8.9 8.7 - 10.5 mg/dL 03/19/2025 10:21 AM CDT [facility] T BILI 2.2(H) 0.2 - 1.2 mg/dL 03/19/2025 10:21 AM CDT [facility] SGOT (AST) 25 <43 U/L 03/19/2025 10:21 AM CDT [facility] SGPT (ALT) 14 <56 U/L 03/19/2025 10:21 AM CDT [facility] ALKALINE PHOSPHATASE 140 40 - 150 U/L 03/19/2025 10:[address] [facility] IS THE PATIENT REQUIRED TO BE FASTING? No 03/19/2025 10:[address] [facility] GFR, ESTIMATED >60 >=60 03/19/2025 10:[address] [facility] Comment: Creatinine Clearance is the preferred criteria for selecting drug dose adjustments in renally impaired patients. The GFR is provided as additional pertinent clinical information. GFR is reported in mL/min/1.73 sq m. Calculation based on the Chronic Kidney Disease Epidemiology Collaboration (CKD- EPI) equation refit without adjustment for race. GFR, EST. >60 >=60 025 10:[address] [facility] GFR, EST. NONAFRICAN >60 >=60 03/19/2025 10:[address] [facility] Blood Venipuncture / Unknown 03/19/2025 9:09 AM CDT 03/19/2025 10:08 AM CDT us Ismael Fong MD CHEMISTRY ORDERABLES F inal Result [facility] [address] [place] [address] * ALPHA FETOPROTEIN, TUMOR MARKER (03/19/2025 9:09 AM CDT) ALPHA FETOPROTEIN 3.8 0.0 - 8.8 ng/mL 03/19/2025 2:38 PM CDT [facility] Blood Venipuncture / Unknown 03/19/2025 9:09 AM CDT 03/19/2025 9:39 AM CDT Ismael Fong MD CHEMISTRY ORDERABLES F inal Result [facility] [address] [place] [address], * VITAMIN D, 25 HYDROXY TOTAL (01/25/2025 8:43 AM CDT) VITAMIN D, 25 HYDROX 23.1 ng/mL 01/25/2025 9:[address] [facility] Blood Venipuncture / Unknown 01/25/2025 8:43 AM CDT 01/25/2025 9:[address] [facility] - 01/25/2025 9:53 AM CDT Published reference ranges for Vitamin D vary depending on time and place and method of testing, and on patient's age, sex, ethnicity and levels of other measured analytes such as parathormone, calcium and phosphorus. The result should be evaluated in conjunction with clinical findings and suspicions. [employer] and Endocrine Clinical Practice Guidelines: Status Vitamin D levels (ng/mL) Deficient <=20 At risk of inadequacy 21-29 Sufficient 30-100 Centers of Disease Control and Prevention Guidelines: Status Vitamin D levels (ng/mL) Deficient <13 At risk of inadequacy 13-19 Sufficient 20-50 Possibly harmful >50 References: [employer], 2010 Dietary reference intakes for calcium and vitamin D. [place]: The National Academies Press. Adrian M, Todd N, Chuy BURNS, et al., Evaluation, treatment, and prevention of Vitamin D deficiency: an Endocrinology Clinical Practice Guideline. JCEM 2011 96: 7 3222-2531. Chace A, Andrea C, Ronel D, et al., Vitamin D Status: [place], , [facility] data brief, no. 59, [place], MD: [facility] Statistics. 2011. us Olive Lozano MD CHEMISTRY ORDERABLES Final Resul t Performing Organization Address City/[facility] Co de Phone Number [facility] [address] [place] [address] * THYROID SCREEN WITH REFLEX (01/25/2025 8:43 AM CDT) TSH 1.788 0.300 - 5.000 mIU/L 01/25/2025 9:47 AM CDT [facility] Blood Venipuncture / Unknown 01/25/2025 8:43 AM CDT 01/25/2025 9:02 AM CDT us Olive Lozano MD CHEMISTRY ORDERABLES Final Resul t Performing Organization Address [facility] Co de Phone Number [facility] [address] [place] [address] * (ABNORMAL) HEMOGLOBIN A1C W/ ESTIMATED GLUCOSE (01/25/2025 8:43 AM CDT) HGB-A1C 6.6(H) 4.0 - 6.0 % 01/25/2025 9:25 AM CDT [facility] Est Average Glucose 142.7 mg/dL 01/25/2025 9:25 AM CDT [facility] Blood Venipuncture / Unknown 01/25/2025 8:43 AM CDT 01/25/2025 9:02 AM CDT Narrative [facility] - 01/25/2025 9:25 AM CDT HEMOGLOBIN A1C: DIABETIC PATIENTS: WELL-CONTROLLED: 6.2 - 7.0 INTERMEDIATE WELL-CONTROLLED: 7.0 - 9.0 POORLY-CONTROLLED: >9.0 Specimens containing greater than 5% of Hemoglobin F may result in lower than expected % HbA1C results. us Olive Lozano MD CHEMISTRY ORDERABLES Final Resul t Performing Organization Address City/[facility]/ZIP Co de Phone Number [facility] [address] [place] [address] * VITAMIN B12 (01/25/2025 8:43 AM CDT) VITAMIN B12 421 213 - 816 pg/mL 01/25/2025 9:53 AM CDT [facility] Blood Venipuncture / Unknown 01/25/2025 8:43 AM CDT 01/25/2025 9:02 AM CDT us Olive Lozano MD CHEMISTRY ORDERABLES Final Resul t Performing Organization Address [facility] Co de Phone Number [facility] [address] [place] [address] * UR MICROALBUMIN/CREATININE RATIO RANDOM (01/25/2025 8:43 AM CDT) RAN UR MICROALBUMIN 1.77 mg/dL 01/25/2025 9:33 AM CDT [facility] Comment:No reference range h as been established. Consider Clinical Correlation. CREATININE URINE 123.5 mg/dL 01/26/20 9:33 AM CDT [facility] Comment:No reference range h as been established. Consider Clinical Correlation. ALB/CREAT RATIO 14 0 - 30 mg/g CRE 01/25/2025 9:33 AM CDT [facility] Urine Non-Phlebotomy Collection / Unknown 01/25/2025 8:43 AM CDT 01/25/2025 9:01 AM CDT us Olive Lozano MD URINE ORDERABLES Final Result Performing Organization Address [facility] Co de Phone Number [facility] [address] [place] [address] * ERYTHROCYTE SEDIMENTATION RATE (ESR) (01/25/2025 8:43 AM CDT) ESR (SED RATE, ERYTHROCYTE SEDIMENTATION RATE) 1 <30 mm/h 01/25/2025 9:[address] [facility] Comment: Patients presenting with increased level of fibrinogen, gamma globulins, or abnormally shaped RBCs could affect the results for the erythrocyte sedimentation rate (ESR). Results should be clinically correlated. Blood Venipuncture / Unknown 01/25/2025 8:43 AM CDT 01/25/2025 9:02 AM CDT us Olive Lozano MD HEMATOLOGY ORDERABLES Final Resu lt [facility] [address] [place] [address] * (ABNORMAL) LIPID PANEL (01/25/2025 8:43 AM CDT) CHOLESTEROL 102 <200 mg/dL 01/25/2025 9:[address] [facility] TRIGLYCERIDES 62 <150 mg/dL 01/25/2025 9:[address] [facility] HDL CHOLESTEROL 36(L) >40 mg/dL 9:[address] [facility] LDL 54 <130 mg/dL 01/25/2025 9:[address] [facility] VLDL 12 10 - 50 mg/dL 01/25/2025 9:[address] [facility] CHOL/HDL RATIO 2.8 0.0 - 4.4 01/25/2025 9:[address] [facility] NON-HDL CHOLESTEROL 66 <130 mg/dL 01/25/2025 9:[address] [facility] IS THE PATIENT REQUIRED TO BE FASTING? Yes 01/25/2025 9:[address] [facility] HAS THE PATIENT BEEN FASTING? Yes 01/25/2025 9:[address] [facility] Blood Venipuncture / Unknown 01/25/2025 8:43 AM CDT 01/25/2025 9:02 AM CDT us Olive Lozano MD CHEMISTRY ORDERABLES Final Resul t [facility] [address] [place] [address] * (ABNORMAL) COMPLETE BLOOD COUNT (CBC) WITHOUT DIFF (01/25/2025 8:43 AM CDT) WBC 2.20(L) 4.00 - 12.00 10(3)/mcL 01/25/2025 9:13 AM CDT [facility] RBC 3.72(L) 3.80 - 5.30 10(6)/mcL 01/25/2025 9:13 AM CDT [facility] HEMOGLOBIN (HGB) 7.2(L) 12.0 - 15.8 g/dL 01/25/2025 9:13 AM CDT [facility] HEMATOCRIT (HCT) 27.6(L) 36.0 - 47.0 % 01/25/2025 9:13 AM CDT [facility] MCV 74.2(L) 82.0 - 96.0 fL 01/25/2025 9:13 AM CDT [facility] MCH 19.4(L) 26.0 - 34.0 pg 01/25/2025 9:[address] [facility] MCHC 26.1(L) 31.0 - 36.0 g/dL 01/25/2025 9:13 AM CDT [facility] PLATELET COUNT 92(L) 140 - 440 10(3)/mcL 01/25/2025 9:[address] [facility] RDW 19.6(H) 11.8 - 15.5 % 01/25/2025 9:[address] [facility] MPV 01/25/2025 9:[address] [facility] Blood Venipuncture / Unknown 01/25/2025 8:43 AM CDT 01/25/2025 9:02 AM CDT us Olive Lozano MD HEMATOLOGY ORDERABLES Final Resu lt [facility] [address] [place] [address] * AMMONIA (01/25/2025 8:43 AM CDT) AMMONIA 68 18 - 72 umol/L 01/25/2025 9:19 AM CDT [facility] Blood Venipuncture / Unknown 01/25/2025 8:43 AM CDT 01/25/2025 9:01 AM CDT us Olive Lozano MD CHEMISTRY ORDERABLES Final Resul t Performing Organization Address City/[facility]/ZIP Co de Phone Number [facility] [address] [place] [address] from Last 3 Months Insurance MEDICARE C [employer] Care Teams Infrastructure Developer Relationship Specialty Start Date End Date Olive Lozano MD [address] [place] [address] PCP - General Family Medicine 04/19/19 Svitlana De La Torre APRN, MASTER CONTROL SUPERVISOR [address] [place] [address] Nurse Practitioner Advanced Practice Nurse 06/24/23 Swapnil Jhaveri MD [address] [place] [address] Consulting Physician Gastroenterology 02/10/23
--- OUTSIDE RECORDS SUMMARY | 2025-03-20 12:36 | XMS_ITS | Encounter Summary ---
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
--- OUTSIDE RECORDS SUMMARY | 2025-03-20 12:36 | XMS_ITS | Encounter Summary ---
Author Organization [facility] Address [address] [facility] [place] [address] Phone Care Team Providers Care Knotter Hand Name Role Phone Olive Lozano MD Primary Care Provider [phone] Svitlana De La Torre APRN, WOOD FLOORING SPECIALIST Unavailable Swapnil Jhaveri MD Unavailable [phone] Reason for Visit * Reason Comments Medication Refill Encounter Details Date Type Department Care Team (Late st Contact Info) Description 05/06/2022 Refill [facility] - [place] [address] [place] [id number] Estella Epperson Ester, PAC [address] [place] [address] Medication Refill Social History Tobacco Use Types [...] Sexual Orientation Straight 11/08/2023 4: 58 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 No / Unsure 04/28/2022 9:13 AM CDT documented as of this encounter Miscellaneous Notes * Telephone Encounter - Laurel Krause RN - 05/10/2022 11:21 AM CDT Patient requesting refill too soon. Medication refused. documented in this encounter Plan of Treatment Not on file documented as of this encounter Visit Diagnoses Not on filedocumented in this encounter Care Teams Knotter Hand Relationship Specialty Start Date End Date Olive Lozano MD [address] [place] [address] PCP - General Family Medicine 04/19/19 Svitlana De La Torre APRN, WOOD FLOORING SPECIALIST [address] [place] [address] Nurse Practitioner Advanced Practice Nurse 06/24/23 Swapnil Jhaveri MD [address] [place] [address] Consulting Physician Gastroenterology 02/10/23 documented as of this encounter
--- OUTSIDE RECORDS SUMMARY | 2025-03-20 12:36 | XMS_ITS | Clinical Summary ---
Author Organization [facility] Facility Address [address] [place] [address] Care Team Providers Care Bed Rubber Name Role Phone Olive Lozano MD Primary Care Provider [phone] Allergies Active Allergy Reactions Criticality Noted Date Comments Codeine Nausea Low 09/19/2013 Hydrocodone-Acetamin ophen Other (see comments) Low 09/19/2013 Turns very red Patient states turned red all over. Denied any itching. Medications Semaglutide,0.2 5 or 0.5MG/DOS, (Ozempic, 0.25 or 0.5 MG/DOSE,) 2 MG/1.5ML solution pen-injector 08/19/2021 Active spironolactone (ALDACTONE) 25 MG tablet 1 tablet 1 (one) time each day 07/31/2021 Active metFORMIN (GLUCOPHAGE) 1000 MG tablet Take 1,000 mg by mouth in the morning and 1,000 mg in the evening. 06/17/2022 Active lactulose (CHRONULAC) 10 GM/15ML solution Take 15 g by mouth in the morning and 15 g at noon and 15 g in the evening and 15 g before bedtime. 09/03/2022 Active magnesium oxide (MAG-OX) 400 MG tablet Take 2 tablets by mouth in the morning and 2 tablets at noon and 2 tablets in the evening. 09/20/2022 Active pantoprazole (PROTONIX) 40 MG EC tablet Take 40 mg by mouth 1 (one) time each day Active rifAXIMin (XIFAXAN) 550 MG tablet Take 550 mg by mouth in the morning and 550 mg in the evening. 12/03/2022 Active aspirin (ST DIANA) 81 MG EC tablet Take 81 mg by mouth every morning Active losartan (COZAAR) 100 MG tablet Take 100 mg by mouth 1 (one) time each day in the evening Active Active Problems Problem Noted Date Diagnosed Date Hyperammonemia 02/10/2023 History of hepatitis C 08/20/2021 Hypomagnesemia 08/20/2021 Cirrhosis of liver 04/25/2020 Enzyme level - finding 04/25/2020 Hepatic encephalopathy 04/25/2020 Family History Medical History Relation Comments Cancer Father Diabetes Maternal Grandmother Stroke Maternal Grandmother Diabetes Mother Relation Status Comments Father Maternal Grandmother Mother Social History Tobacco Use Types Packs/Day Years Used Date Smoking Tobacco: Former Cigarettes 0 06/26/1964 - 06/26/1979 Tobacco Cessation:Counseling Given: Not Answered Alcohol Use Standard Drinks/Week Comments Not Currently 0 (1 standard drink = 0.6 oz pur e alcohol) Comments Unknown Sex and Gender Information Value Date Recorded Sex Assigned at Not on file Legal Sex Female 10:44 AM EDT Gender Identity Not on file Sexual Orientation Not on file Last Filed Vital Signs Vital Sign Reading Time Taken Comments Blood Pressure 110/58 03/23/2023 2:08 PM CDT Pulse 81 03/23/2023 2:08 PM CDT Temperature - - Respiratory Rate - - Oxygen Saturation 96% 03/23/2023 2:08 PM CDT Inhaled Oxygen Concentration - - Weight 80.3 kg (177 lb) 03/23/2023 2:08 PM CDT Height 167.6 cm (5' 6 ) 03/23/2023 2:08 PM CDT Body Mass Index 28.57 03/23/2023 2:08 PM CDT Plan of Treatment Health Maintenance Due Date Last Done Comments Breast Cancer Screening 1950 Pneumococcal Vaccine: 50+ Years (1 of 2 - PCV) 1971 Colorectal Cancer Screening: Annual FOBT 2001 Colorectal Cancer Screening: Colonoscopy 2001 Colorectal Cancer Screening: Sigmoidoscopy 2001 Influenza Vaccine (Season Ended) 2025 09/07/2021, 07/30/2020, 08/14/2019 Hepatitis B Vaccine Aged Out No longe r eligible based on patient's age to complete this topic Insurance [employer] [id number] Care Teams Bed Rubber Relationship Specialty Start Date End Date Olive Lozano MD [address] [place] [address] PCP - General Family Medicine 03/23/23
--- OUTSIDE RECORDS SUMMARY | 2025-03-20 12:36 | XMS_ITS | Encounter Summary ---
Author Organization [facility] Address [address] [facility] [place] [address] Phone Care Team Providers Care Relationship Manager Name Role Phone Olive Loznao MD Primary Care Provider [phone] Svitlana De La Torre APRN, ELEMENTARY MATH TUTOR Unavailable Swapnil Jhaveri MD Unavailable [phone] Reason for Visit * Reason Comments Medication Refill Encounter Details Date Type Department Care Team (Late st Contact Info) Description 06/03/2022 Refill [facility] - [place] [address] [place] [id number] Estella Epperson Ester, PAC [address] [place] [address] Medication Refill Social History Tobacco Use Types [...] Sexual Orientation Straight 11/08/2023 4: 58 PM 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 No / Unsure 05/26/2022 8:25 AM CDT documented as of this encounter Miscellaneous Notes * Telephone Encounter - Laurel Krause RN - 06/04/2022 10:15 AM CDT Patient requesting refill too soon. Medication refused. * Telephone Encounter - Laurel Krause RN - 06/04/2022 9:57 AM CDT Patient called. Reviewed message below. Patient states that she [facility] [place] [facility] [facility]ha with [facility]. Per Subha, patient has 90 tablets with 3 refills on file with [facility]. Patient can re-enroll as soon as August 31, 2022. Reviewed information with patient. Patient is awareand verbalizes understanding. Per Richard Mascorro does use [facility] pharmacy. * Telephone Encounter - Laurel Krause RN - 06/04/2022 8:59 AM CDT Refill request for xifaxan. Last refill noted to be 12/17/2021 for 60 tabs and 11 refills. Refill request noted to be for [facility] in [place], [place]. Called patient to verify requested pharmacy. Left message for patient to call back. documented in this encounter Plan of Treatment Not on file documented as of this encounter Visit Diagnoses Not on filedocumented in this encounter Care Teams Relationship Manager Relationship Specialty Start Date End Date Olive Lozano MD [address] [place] [address] PCP - General Family Medicine 04/19/19 Svitlana De La Torre APRN, ELEMENTARY MATH TUTOR [address] [place] [address] Nurse Practitioner Advanced Practice Nurse 06/24/23 Swapnil Jhaveri MD [address] [place] [address] Consulting Physician Gastroenterology 02/10/23 documented as of this encounter
--- OUTSIDE RECORDS SUMMARY | 2025-03-20 12:36 | XMS_ITS | Encounter Summary ---
Author Organization [facility] Address [address] [facility] [place] [address] Phone Care Team Providers Care Office Assistant Receptionist Name Role Phone Olive Lozano MD Primary Care Provider [phone] Svitlana De La Torre APRN, SUBSTATION DESIGN DRAFTSPERSON Unavailable Swapnil Jhaveri MD Unavailable [phone] Encounter Details Date Type Department Care Team (Latest Contact Info) Description 03/14/2025 Transcribe Orders [facility] [address] [place] [address] Ismael Fong MD [address] [place] [address] Chronic blood loss anemia (Primary Dx); Hepatic cirrhosis, unspecified hepatic cirrhosis type, unspecified whether ascites present (HCC); Hepatic encephalopathy (HCC); GAVE (gastric antral vascular ectasia); 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); Portal hypertension (HCC) Social History Tobacco Use Types Packs/Day [...] Sexual Orientation Straight 11/08/2023 4: 58 PM 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 Not on file Not on file No t on file documented as of this encounter Plan of Treatment Scheduled Orders Name Type Priority Associated Diagnoses Orde r Schedule PROTIME (PT) (PROTHROMBIN TIME) Lab Routine Chronic blood loss anemia Hepatic cirrhosis, unspecified hepatic cirrhosis type, unspecified whether ascites present (HCC) Hepatic encephalopathy (HCC) 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) Portal hypertension (HCC) Expected: 03/14/2025, Expires: 03/14/2026 documented as of this encounter Results * (ABNORMAL) CMP (COMPREHENSIVE METABOLIC PANEL) (03/19/2025 9:09 AM CDT) SODIUM 139 136 - 145 mmol/L 03/19/2025 10:21 AM CDT [facility] POTASSIUM 4.4 3.5 - 5.1 mmol/L 03/19/2025 10:21 AM CDT [facility] CHLORIDE 108(H) 98 - 107 mmol/L 03/19/2025 10:21 AM CDT [facility] CO2, VENOUS 23 22 - 30 mmol/L 03/19/2025 10:21 AM CDT [facility] ANION GAP 12.4 <18.0 mmol/L 03/19/2025 10:21 AM CDT [facility] GLUCOSE 147(H) 70 - 99 mg/dL 03/19/2025 10:21 AM CDT [facility] BUN 12 10 - 20 mg/dL 03/19/2025 10:21 AM [facility] CREATININE, BLOOD 0.51(L) 0.60 - 1.00 mg/dL 03/19/2025 10:21 AM [facility] BUN/CREATININE RATIO 24(H) 12 - 20 ratio 03/19/2025 10:21 AM [facility] TOTAL PROTEIN 6.4 6.0 - 8.0 g/dL 03/19/2025 10:21 AM [facility] ALBUMIN 3.4(L) 3.5 - 5.0 g/dL 03/19/2025 10:21 AM [facility] A/G RATIO 1.1 1.0 - 2.2 03/19/2025 10:21 AM [facility] CALCIUM 8.9 8.7 - 10.5 mg/dL 03/19/2025 10:21 AM [facility] T BILI 2.2(H) 0.2 - 1.2 mg/dL 03/19/2025 10:21 AM [facility] SGOT (AST) 25 <43 U/L 03/19/2025 10:21 AM [facility] SGPT (ALT) 14 <56 U/L 03/19/2025 10:21 AM [facility] ALKALINE PHOSPHATASE 140 40 - 150 U/L 03/19/2025 10:21 AM [facility] IS THE PATIENT REQUIRED TO BE FASTING? No 03/19/2025 10:21 AM [facility] GFR, ESTIMATED >60 >=60 03/19/2025 10:21 AM [facility] Comment: Creatinine Clearance is the preferred criteria for selecting drug dose adjustments in renally impaired patients. The GFR is provided as additional pertinent clinical information. GFR is reported in mL/min/1.73 sq m. Calculation based on the Chronic Kidney Disease Epidemiology Collaboration (CKD- EPI) equation refit without adjustment for race. GFR, EST. >60 >=60 025 10:21 AM [facility] GFR, EST. NONAFRICAN >60 >=60 03/19/2025 10:21 AM CDT [facility] Blood Venipuncture / Unknown 03/19/2025 9:09 AM CDT 03/19/2025 10:08 AM CDT us Ismael Fong MD CHEMISTRY ORDERABLES F inal Result Performing Organization Address City/[facility]/ZIP Co de Phone Number [facility] [address] [place] [address] * ALPHA FETOPROTEIN, TUMOR MARKER (03/19/2025 9:09 AM CDT) ALPHA FETOPROTEIN 3.8 0.0 - 8.8 ng/mL 03/19/2025 2:38 PM CDT [facility] Blood Venipuncture / Unknown 03/19/2025 9:09 AM CDT 03/19/2025 9:39 AM CDT us Ismael Fong MD CHEMISTRY ORDERABLES F inal Result Performing Organization Address City/[facility] Co de Phone Number [facility] [address] [place] [address], documented in this encounter Visit Diagnoses Diagnosis 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) Hepatic cirrhosis, unspecified hepatic cirrhosis type, unspecified whether ascites present (HCC) Hepatic encephalopathy (HCC) Hepatic encephalopathy 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
--- OUTSIDE RECORDS SUMMARY | 2025-03-20 12:36 | XMS_ITS | Encounter Summary ---
Author Organization [facility] Address [address] [facility] [address] Phone Care Team Providers Care Matrix Plater Name Role Phone Olive Lozano MD Primary Care Provider [phone] Svitlana De La Torre APRN, APICULTURIST Unavailable Swapnil Jhaveri MD Unavailable [phone] Encounter Details Date Type Department Care Team (Latest Contact Info) Description 06/12/2024 Transcribe Orders [facility] [address] [place] [address] Ismael Fong MD [address] [place] [address] Hepatic cirrhosis, unspecified hepatic cirrhosis type (HCC) (Primary Dx); Hepatic encephalopathy (HCC); GAVE (gastric antral vascular [...] Sexual Orientation Straight 11/08/2023 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 on file Not on file No t on file documented as of this encounter Plan of Treatment Not on file documented as of this encounter Results * (ABNORMAL) CMP (COMPREHENSIVE METABOLIC PANEL) (06/14/2024 11:54 AM CDT) SODIUM 142 136 - 145 mmol/L 06/14/2024 12:39 PM CDT [facility] POTASSIUM 3.8 3.5 - 5.1 mmol/L 06/14/2024 12:39 PM CDT [facility] CHLORIDE 110(H) 98 - 107 mmol/L 06/14/2024 12:39 PM CDT [facility] CO2, VENOUS 23 22 - 30 mmol/L 06/14/2024 12:39 PM CDT [facility] ANION GAP 12.8 <18.0 mmol/L 06/14/2024 12:39 PM CDT [facility] GLUCOSE 119(H) 70 - 99 mg/dL 06/14/2024 12:39 PM CDT [facility] BUN 18 10 - 20 mg/dL 06/14/2024 12:39 PM CDT [facility] CREATININE, BLOOD 0.55(L) 0.60 - 1.00 mg/dL 06/14/2024 12:39 PM CDT [facility] BUN/CREATININE RATIO 33(H) 12 - 20 ratio 06/14/2024 12:39 PM CDT [facility] TOTAL PROTEIN 6.3 6.3 - 8.2 g/dL 06/14/2024 12:39 PM CDT [facility] ALBUMIN 3.4(L) 3.5 - 5.0 g/dL 06/14/2024 12:39 PM CDT [facility] A/G RATIO 1.2 1.0 - 2.2 06/14/2024 12:39 PM CDT [facility] CALCIUM 9.4 8.7 - 10.5 mg/dL 06/14/2024 12:39 PM CDT [facility] T BILI 2.0(H) 0.2 - 1.2 mg/dL 06/14/2024 12:39 PM CDT [facility] SGOT (AST) 25 5 - 34 U/L 06/14/2024 12:39 PM T [facility] SGPT (ALT) 18 0 - 55 U/L 06/14/2024 12:39 PM T [facility] ALKALINE PHOSPHATASE 87 40 - 150 U/L 06/14/2024 12:39 PM CDT [facility] IS THE PATIENT REQUIRED TO BE FASTING? No 06/14/2024 12:39 PM CDT [facility] GFR, ESTIMATED >60 >=60 06/14/2024 12:39 PM CDT [facility] Comment: Creatinine Clearance is the preferred criteria for selecting drug dose adjustments in renally impaired patients. The GFR is provided as additional pertinent clinical information. GFR is reported in mL/min/1.73 sq m. Calculation based on the Chronic Kidney Disease Epidemiology Collaboration (CKD- EPI) equation refit without adjustment for race. GFR, EST. >60 >=60 024 12:39 PM CDT [facility] GFR, EST. NONAFRICAN >60 >=60 06/14/2024 12:39 PM [facility] Blood Venipuncture / Unknown 06/14/2024 11:54 AM CDT 06/14/2024 12:10 PM CDT Ismael Fong MD CHEMISTRY ORDERABLES F inal Result [facility] [address] [place] [address] * (ABNORMAL) PROTIME (PT) (PROTHROMBIN TIME) (06/14/2024 11:54 AM CDT) PROTIME-PATIENT 17.3(H) 11.6 - 14.8 sec 06/14/2024 12:33 PM CDT [facility] INR 1.4(H) 0.9 - 1.2 06/14/2024 12:33 PM CDT [facility] Comment: Therapeutic Ranges INR = 2.0-3.0: Venous thromb, atrial fib, pul embolism, tissue heart valve, ami. INR = 2.5-3.5: Mechanical heart valve Critical value for INR is >/= 4.5 Blood Venipuncture / Unknown 06/14/2024 11:54 AM CDT 06/14/2024 12:15 PM CDT us Ismael Fong MD HEMATOLOGY ORDERABLES Final Result Performing Organization Address [facility] Co de Phone Number [facility] [address] [place] [address] * ALPHA FETOPROTEIN, TUMOR MARKER (06/14/2024 11:54 AM CDT) ALPHA FETOPROTEIN 4.6 0.0 - 8.8 ng/mL 06/14/2024 10:14 PM CDT [facility] Blood Venipuncture / Unknown 06/14/2024 11:54 AM CDT 06/14/2024 12:10 PM CDT us Ismael Fong MD CHEMISTRY ORDERABLES F inal Result [facility] [address] [place] [address], [place] documented in this encounter Visit Diagnoses Diagnosis Hepatic cirrhosis, unspecified hepatic cirrhosis type (HCC)- Primary Hepatic encephalopathy (HCC) Hepatic encephalopathy 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
--- OUTSIDE RECORDS SUMMARY | 2025-03-20 12:36 | XMS_ITS | Encounter Summary ---
Author Organization [facility] Address [address] [facility] [place] [address] Phone Care Team Providers Care Locomotive Engineer Name Role Phone Olive Lozano MD Primary Care Provider [phone] Svitlana De La Torre APRN, TRIM CARPENTER Unavailable Swapnil Jhaveri MD Unavailable [phone] Reason for Visit * Reason Comments Medication Refill Encounter Details Date Type Department Care Team (Late st Contact Info) Description 08/23/2023 Refill [facility] - [place] [address] [place] [address] Svitlana De La Torre APRN, TRIM CARPENTER [address] [place] [address] Medication Refill Social History Tobacco Use Types [...] Sexual Orientation Straight 11/08/2023 4: 58 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 Medication refused. documented in this encounter Plan of Treatment Not on file documented as of this encounter Visit Diagnoses Diagnosis Hepatic encephalopathy (HCC) Hepatic encephalopathy documented in this encounter Care Teams Locomotive Engineer Relationship Specialty Start Date End Date Olive Lozano MD [address] [place] [address] PCP - General Family Medicine 04/19/19 Svitlana De La Torre APRN, TRIM CARPENTER [address] [place] [address] Nurse Practitioner Advanced Practice Nurse 06/24/23 Swapnil Jhaveri MD [address] [place] [address] Consulting Physician Gastroenterology 02/10/23 documented as of this encounter
--- OUTSIDE RECORDS SUMMARY | 2025-03-20 12:36 | XMS_ITS | Encounter Summary ---
Author Organization [facility] Address [address] [facility] [address] Phone Care Team Providers Care Operations Welder Name Role Phone Olive Lozano MD Primary Care Provider [phone] Svitlana De La Torre APRN, REHABILITATION WORKER Unavailable Swapnil Jhaveri MD Unavailable [phone] Reason for Visit * Reason Comments Medication Refill Encounter Details Date Type Department Care Team (Late st Contact Info) Description 08/29/2023 Refill [facility] - [place] [address] [place] [address] Svitlana De La Torre APRN, REHABILITATION WORKER [address] [place] [address] Medication Refill Social History Tobacco Use Types [...] Sexual Orientation Straight 11/08/2023 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 Medication refused. documented in this encounter Plan of Treatment Not on file documented as of this encounter Visit Diagnoses Diagnosis Hepatic encephalopathy (HCC) Hepatic encephalopathy documented in this encounter Care Teams Operations Welder Relationship Specialty Start Date End Date Olive Lozano MD [address] [place] [address] PCP - General Family Medicine 04/19/19 Svitlana De La Torre APRN, REHABILITATION WORKER [address] [place] [address] Nurse Practitioner Advanced Practice Nurse 06/24/23 Swapnil Jhaveri MD [address] [place] [address] Consulting Physician Gastroenterology 02/10/23 documented as of this encounter
--- OUTSIDE RECORDS SUMMARY | 2025-03-20 12:36 | XMS_ITS | Clinical Summary ---
Author Organization [facility] Address [address] [place] [address] Care Team Providers Care Bench Shear Operator Name Role Phone Olive Lozano MD Primary Care Provider [phone] Source Comments [facility],non-owned Affiliates and Associated Physician Practices is amultiple site organization consisting of ambulatory clinics and hospital sitesin [place], [place], [place] and [place]. This disclosure is being madepursuant to the Care Everywhere program and may not contain all information available regarding this patient. Last updated 18.[facility] Allergies Active Allergy Reactions Criticality Noted Date Comments Codeine Nausea Low 09/19/2013 Hydrocodone-Acetaminophen Other Low 09/19/2013 Turns very red Medications * Be aware that medications may not be up to date on this document. Alwaysverify current medications with the patient. metFORMIN (Glucophage) 1000 MG tablet Take 1 (one) tablet by mouth 2 times daily 3 Active pantoprazole EC (Protonix) 40 MG tablet Take 1 (one) tablet by mouth once daily 3 Active Semaglutide(0.2 5 or 0.5MG/DOS) 2 MG/1.5ML Solution Pen-injector INJECT 0.5MG UNDER THE SKIN ONCE WEEKLY Active ONE TOUCH ULTRASOFT LANCETS MISC USE DIRECTED TO CHECK GLUCOSE DAILY 3 Active lactulose (Chronulac) 10 GM/15ML solution Take 30 mL by mouth 2 times daily 5400 mL 3 4 Active hydrOXYzine HCl (Atarax) 10 MG tabletIndicatio ns:Pruritus TAKE 1 (ONE) TABLET BY MOUTH ONCE DAILY NEEDED FOR ITCHING REASONS: ITCHING 90 tablet 1 4 Active furosemide (Lasix) 40 MG tabletIndicatio ns:Edema TAKE 1 (ONE) TABLET BY MOUTH DAILY BEFORE BREAKFAST REASONS: EDEMA 90 tablet 3 5 Active spironolactone (Aldactone) 100 MG tabletIndicatio ns:Hepatic Cirrhosis TAKE 1 (ONE) TABLET BY MOUTH ONCE DAILY REASONS: HARDENING OF THE LIVER 90 tablet 3 5 Active rifAXIMin (Xifaxan) 550 MG tablet Take 1 (one) tablet by mouth 2 times daily for 30 days 60 tablet 5 Active Active Problems Problem Noted Date Diagnosed Date Liver disease 06/28/2024 Chronic hepatitis C virus infection 06/28/2024 Basal cell carcinoma 11/08/2023 Hyperammonemia 02/10/2023 11/08/2023 History of hepatitis C virus infection 11/08/2023 Hypomagnesemia 08/20/2021 11/08/2023 Encounters Date Type Department Care Team Description 03/19/2025 Telephone [facility] - [address] [phone] Edita Nino RN Critical Lab Results 03/13/2025 Orders Only [facility] - [address] [phone] Chasidy Ryder RN Liver disease ; Hepatic cirrhosis, unspecified hepatic cirrhosis type, unspecified whether ascites present (HCC) 03/12/2025 11:30 AM CDT Office Visit [facility] - [address] [phone] Ismael Fong MD Chronic blood loss anemia (Primary Dx); Hepatic cirrhosis, unspecified hepatic cirrhosis type, unspecified whether ascites present (HCC); Hepatic encephalopathy (HCC); GAVE (gastric antral vascular ectasia); 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); Portal hypertension (HCC); Acute on chronic blood loss anemia 03/12/2025 10:15 AM CDT - 03/12/2025 11:59 PM CDT Hospital Encounter [facility] US [address] [place] [phone] Ismael Fong MD Discharge Disposition: Home or Self Care 03/12/2025 Patient Outreach [facility] [address] [place] [phone] Alejandra Alex RN 03/12/2025 Travel 01/31/2025 Telephone [facility] - Nephrology [address] [facility] [place] [phone] Tisha Gregory, OLU Appointment from Last 3 Months Immunizations Immunization Administration Dates Next Due Covid Matcha primary monovalent 12+ yr 0.3mL Pur ple cap 10/01/2021 HEP A PEDS 2 DOSE 08/14/2020 INFLUENZA VACCINE, ADJUVANTE D, QUADR. (FLUAD QUADRIVALENT; 65Y+) (AIIV4) 09/07/2021 INFLUENZA VACCINE, CELL CULT URE, QUADR. (FLUCELVAX QUADRIVALENT; 6MO+), 0.5 ML (CCIIV4) 08/14/2019 INFLUENZA VACCINE, HIGH-DOSE , QUADR. (FLUZONE HIGH-DOSE QUADRIVALENT; 65Y+), 0.7 ML (HD-IIV4) 07/30/2020 ZOSTER VACCINE, LIVE 09/29/2012 Family History Medical History Relation Name Comments Allergy (Severe) Neg Hx CVA Neg Hx Cancer Neg Hx Cancer - Breast Neg Hx Cancer - Skin, Melanoma Neg Hx Cancer - Skin, Non Melanoma Neg Hx Eczema Neg Hx Hemophilia Neg Hx Psoriasis Neg Hx Rashes/Skin Problems Neg Hx Social History Tobacco Use Types Packs/Day Years Used Date Smoking Tobacco: Former Cigarettes Tobacco Cessation:Counseling Given: Not Answered Alcohol Use Standard Drinks/Week Comments Not Currently 0 (1 standard drink = 0.6 oz pure alcohol) Hasn't had alcohol in 10+ years Comments No Sex and Gender Information Value Date Recorded Sex Assigned at Not on file Legal Sex 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 Gender Identity Not on file Sexual Orientation Not on file Last Filed Vital Signs Vital Sign Reading Time Taken Comments Blood Pressure 140/62 03/12/2025 11:39 AM CDT Pulse 89 03/12/2025 11:39 AM CDT Temperature 36.5 C (97.7 F) 03/12/2025 11:39 AM CDT Respiratory Rate 14 03/12/2025 11:39 AM CDT Oxygen Saturation 100% 03/12/2025 11:39 AM CDT Inhaled Oxygen Concentration - - Weight 79.4 kg (175 lb) 03/12/2025 11:39 AM CDT Height 167.6 cm (5' 5.98 ) 03/12/2025 11:39 AM C DT Body Mass Index 28.26 03/12/2025 11:39 AM CDT Plan of Treatment Upcoming Encounters Date Type Department Care Team (Latest Contact Info) Description 04/18/2025 2:30 PM CDT Hospital Encounter [facility] [address] [place] [phone] Ismael Fong MD [address] [place] [address] [address] [place] [address] Surgery General 04/18/2025 2:30 PM CDT - 04/18/2025 3:15 PM CDT Surgery [facility] [address] [place] [phone] Ismael Fong MD [address] [place] [address] [address] [place] [address] EGD 10/15/2025 12:30 PM OIL WELL CABLE TOOL OPERATOR Appointment [facility] US [address] [place] [phone] Ismael Fong MD [address] [place] [address] [address] [place] [address] 10/15/2025 1:30 PM OIL WELL CABLE TOOL OPERATOR [facility] GI [address] [place] [address], [facility] [place] [phone] Ismael Fong MD [address] [place] [address] [address] [place] [address] Scheduled Procedures Name Priority Associated Diagnoses Date/Ti me ESOPHAGOGASTRODUODENOSCOPY ( EGD) DIAGNOSTIC Chronic blood loss [...] Portal hypertension (HCC) 04/18/2025 2:30 PM CDT Health Maintenance Due Date Last Done Comments BONE DENSITY TESTING 1950 COLOGUARD (AGES 45-75) - COLON CA SCREENING 1952 COLON MONITORING 1952 COLONOSCOPY - COLON CA SCREENING 1952 CT COLONOGRAPHY - COLON CA SCREENING 1950 Colorectal Cancer Screening 1950 FIT - COLON CA SCREENING 1952 FLEX SIG - COLON CA SCREENING 1950 MAMMOGRAM 1952 DTAP/TDAP/TD VACCINES (1 - Tdap) 1971 PNEUMOCOCCAL VACCINE 50+ (1 of 2 - PCV) 1971 HEPATITIS B VACCINE (1 of 3 - Risk 3-dose series) 2012 Respiratory Syncytial Virus (RSV) Vaccine Pt: or over 60 yrs (1 - Risk 60-74 years 1-dose series) 2012 ZOSTER VACCINE (2 of 3) 11/24/2012 09/29/2012 COVID-19 VACCINE (3 - season) 2024 10/01/2021, 01/06/2021 DEPRESSION SCREENING 10/31/2024 MEDICARE AWV CALENDAR YEAR 2024 INFLUENZA VACCINE (Season Ended) 2025 09/07/2021, 07/30/2020, 08/14/2019 LIPID TESTING 01/25/2030 01/25/2025, 06/07/2024 HEPATITIS C SCREENING Completed 06/28/2024 , 11/08/2023, 11/08/2023, Additional history exists HIB VACCINE Aged Out No longer eligi ble based on patient's age to complete this topic HPV VACCINE Aged Out No longer eligi ble based on patient's age to complete this topic MENINGOCOCCAL (Group B) VACCINE SHARED DECISION-MAKING Aged Out No longer eligible based on patient's age to complete this topic MENINGOCOCCAL GROUPS A/C/Y/W VACCINE Aged Out No longer eligible based on patient's age to complete this topic Goals Goal Patient Goal Type Associated Problems Recent Progress Patient-Stated? 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) Portal hypertension (HCC) HEPATITIS C RNA QUANTITATIVE Routine 11/08/2023 10:24 AM OIL WELL CABLE TOOL OPERATOR Hepatic cirrhosis, unspecified hepatic cirrhosis type, unspecified whether ascites present Hepatic encephalopathy 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 US-1 Negative. Repeat surveillance US in 6 months. 1.Cirrhotic liver morphology without discrete hepatic observation Report drafted by Aubrie Rivas MD (resident). I, Jose Guadalupe Faulkner MD have personally reviewed and interpreted this examination/study. 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 Liver Observations: None. Main Portal Vein: Color Doppler evaluation demonstrates patency of the main portal vein. Hepatic Veins: Color Doppler evaluation demonstrates patency of the hepatic veins. Bile Ducts: The common bile duct is nondilated, measuring 3.2 mm. No intrahepatic or extrahepatic biliary dilation. Gallbladder: The gallbladder is absent. . Sonographic Blanchard's sign is negative. Ascites: No ascites is present. Spleen: The spleen measures 10.4 cm in length. Pancreas: The visible pancreas is normal in echogenicity. Right Kidney: The right kidney measures 12.6 x 5.4 x 5.5 cm in length, right renal volume 197.4 mL. Limited views of the right kidney reveal no evidence of nephrolithiasis or hydronephrosis. No discrete mass identified. 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 Liver Observations: None. Main Portal Vein: Color Doppler evaluation demonstrates patency of the main portal vein. Hepatic Veins: Color Doppler evaluation demonstrates patency of the hepatic veins. Bile Ducts: The common bile duct is nondilated, measuring 3.2 mm. No intrahepatic or extrahepatic biliary dilation. Gallbladder: The gallbladder is absent. . Sonographic Blanchard's sign is negative. Ascites: No ascites is present. Spleen: The spleen measures 10.4 cm in length. Pancreas: The visible pancreas is normal in echogenicity. Right Kidney: The right kidney measures 12.6 x 5.4 x 5.5 cm in length, right renalvolume 197.4 mL. Limited views of the right kidney reveal no evidence of nephrolithiasis or hydronephrosis. No discrete mass identified. Impression: Liver Visualization Score B: Moderate limitations. US-1 Negative. Repeat surveillance US in 6 months. 1.Cirrhotic liver morphology without discrete hepatic observation Report drafted by Aubrie Rivas MD (resident). I, Jose Guadalupe Faulkner MD have personally reviewed and interpreted this examination/study. > Interpreting Provider: Jose Guadalupe Faulkner MD on 52:12 PM Ismael Fong MD ORDERABLES Final Result * HEPATITIS C RNA QUANTITATIVE (11/08/2023 10:24 AM OIL WELL CABLE TOOL OPERATOR) Hepatitis C RNA PCR, Interp Not detected Not detected 11/10/2023 9:18 AM [facility]CRO[facility]OLOG[facility] Blood BLOOD SPECIMEN / Unknown Lab Venipuncture / Unknown 11/08/2023 10:24 AM OIL WELL CABLE TOOL OPERATOR 11/08/2023 10:42 AM OIL WELL CABLE TOOL OPERATOR Narrative [facility]CRO[facility] - 11/10/2023 9:18 AM OIL WELL CABLE TOOL OPERATOR The Hepatitis C viral (HCV) RNA analysis utilized a serum sample, real-time reverse time motion analyst PCR, and is reported as Not Detected, Detected (<12 IU/mL), Quantity (IU/mL) or >30,000,000 IU/mL. The limit of quantitation of the assay is 12 IU/mL (100% of samples with this HCV RNA level were detected). The linear range is from 12 IU/mL to 30,000,000 IU/mL. Values less than 12 IU/mL are reported as Detected (<12 IU/mL). Values greater than 30,000,000 IU/mL are reported as >30,000,000 IU/mL. The detection/quantitation of HCV RNA in serum is based on the isolation of HCV RNA with reverse time motion analyst of genomic HCV RNA followed by real-time PCR in the presence of an unrelated RNA internal control. The internal control ensures that RNA is isolated, and that no general significant inhibitors of the RT-PCR process are present. The analysis was performed using a U.S. FDA approved test methodology. Ismael Fong MD LAB - CHEMISTRY ORDERA BLES Final Result [facility] [address] [place], [place] [address], [facility] [phone] from Last 3 Months or Most Recently Relevant to Health Maintenance [place] [address] [place] [address] [employer] MEDICARE ADV Care Teams Bench Shear Operator Relationship Specialty Start Date End Date Olive Lozano MD [address] [place] [address] PCP - General 07/10/13
--- NOTE | 2025-03-20 13:18 | ECG_ITS ---
Test Date: 2025-03-20 13:42:13 Measurements Intervals Chandler Rate: 74 P: 32 RI: 146 QRS: 16 QRSD: 72 T: 1 QT: 427 QTc: 474 Interpretive Statements SINUS RHYTHM NONSPECIFICST AND T-WAVE ABNORMALITY ABNORMAL ECG No previous ECG available for comparison Electronically Signed On 03-20-2025 15:15:01 CDT by Carmine Mccallum M.D.
[2025-03-20 13:28] LABS: Basophils Percent Auto 0.7 % (0.2-1.2); Eosinophils Absolute Auto 0.1 K/mm3 (0-0.3); Eosinophils Percent Auto 1.7 % (0-4.4); Hematocrit 27.4 % (37.0-47.0); Immature Granulocyte Absolute 0.01 K/mm3 (0.00-0.031); Immature Granulocyte Percent A 0.3 % (0-0.5); Lymphocytes Absolute Auto 1.21 K/mm3 (0.9-3.2); Lymphocytes Percent Auto 41.4 % (18.3-44.2); Mean Corpuscular HGB Conc 24.8 g/dl (32-36); Mean Corpuscular Hemoglobin 19.5 pg (26-34); Mean Corpuscular Volume 78.7 fl (80-100); Mean Platelet Volume 11.4 fl (7.4-10.4); Monocytes Absolute Auto 0.6 K/mm3 (0.1-0.6); Monocytes Percent Auto 19.2 % (2.6-8.5); Neutrophils Absolute Auto 1.1 K/mm3 (1.3-6.7); Neutrophils Percent Auto 36.7 % (45.5-73.1); Platelet Count Result 84 k/mm3 (150-375); Red Blood Count 3.48 M/mm3 (4.2-5.4); Red Cell Distribution Width 20.1 % (11.5-14.5); White Blood Count 2.9 K/mm3 (4.5-10.0)
[2025-03-20 13:42] LABS: Alanine Aminotransferase 22 U/L (6-35); Albumin Level 3.5 g/dL (3.5-5.1); Alkaline Phosphatase 128 U/L (38-126); Anion Gap 8 mmol/L (4-12); Aspartate Amino Transferase 30 U/L (14-36); Bilirubin,Total 2.4 mg/dL (0.2-1.3); Blood Urea Nitrogen 11 mg/dL (7-17); Calcium 9.1 mg/dL (8.4-10.2); Carbon Dioxide 22 mmol/L (22-30); Chloride 109 mmol/L (98-107); Estimated CRCL calculation 113 ml/min; Estimated Glomerular Filt Rate > 60; Glucose 229 mg/dL (65-110); Potassium 3.9 mmol/L (3.4-5.0); Sodium 139 mmol/L (137-145)
[2025-03-20 13:48] LABS: Hemoglobin 6.8 g/dL (12.0-15.0)
[2025-03-20 13:50] LABS: Anisocytosis 2+; Hypochromasia 1+; Platelet Estimate Decreased (Adequate)
--- NOTE | 2025-03-20 13:50 | ED.GENADULT ---
HPI - General Adult General Chief complaint: Recheck/Abnormal Lab/Rx Stated complaint: LOW BLOOD COUNT Time Seen by Provider: 03/20/25 13:31 History of Present Illness HPI narrative: Patient is a 75-year-old female with history of cirrhosis and hepatitis C who presents ER for blood transfusion. Her GI specialist at [facility] told her that she required 1 because outpatient blood work was abnormal. Patient has known pancytopenia in her history. She also has history of gastritis as well as gastric AVM in the past. She has not been having dark black stools. She does not take iron supplementation because it might constipated her which she does take lactulose daily. No syncope. Related Data Home Medications ?Medication ?Instructions ?Recorded ?Confirmed ?Last Taken ?Type aspirin 81 mg tablet,delayed 81 mg PO DAILY 04/26/22 12/04/24 10/05/23 08:00 History release (Adult Aspirin Regimen) rifaximin 550 mg tablet (Xifaxan) 550 mg PO BID 10/05/23 12/04/24 10/05/23 08:00 History Allergies Allergy/AdvReac Type Severity Reaction Status Date / Time hydrocodone (From Vicodin) Allergy Severe Redness of Verified 03/20/25 12:34 Skin Review of Systems Review of Systems: All systems reviewed & are unremarkable except as noted in HPI and below Constitutional: Constitutional: Reports no additional constitutional complaints Cardiovascular: Cardiovascular: Reports no additional cardiovascular complaints Respiratory: Respiratory: Reports no additional respiratory complaints Gastrointestinal: Gastrointestinal: Reports no additional gastrointestinal complaints Musculoskeletal: Musculoskeletal: Reports no additional musculoskeletal complaints [facility] Past Medical History Medical History Anemia Anxiety GAVE (gastric antral vascular ectasia) Hepatitis C Hypertension Mitral regurgitation Noted on echocardiogram in April 2022. Pancytopenia Type 2 diabetes mellitus Surgical History Surgical History History of bilateral cataract extraction History of cholecystectomy History of colonoscopy History of tonsillectomy History of tubal ligation Family History Family History Grandparent Acute myocardial infarction Hypertension Diabetes mellitus Family history of coronary artery disease Cerebrovascular accident Mother Diabetes mellitus Social History Social History Social History: Surrogate medical decision maker: Maite Berg, daughter. Code status: Full code. Smoking packs per day: 1 Smoking cigarettes per day: 20.0 Years smoked: 10 Smoking pack-years: 10.00 Smoking status: Never smoker Second hand tobacco smoke exposure: No Alcohol intake: never Substance use: never Substance use type: does not use Do You Feel Safe in your Home?: Yes Lack of Transportation: No Lack of Food: Never True Current Housing: I Have Housing Concerned About Future Housing: No Difficulty Paying Gas/Electric Bills: No Difficulty Paying for Meds: No Currently Unemployed: No Education: Trade/Vocational Certificate Difficulty w/ Childcare or Family Care: No Living arrangements: alone Additional living arrangements comments: Lives alone. She has 2 children. Occupation/Education: occupation Additional occupation/education comments: Works part-time at [employer]. Spiritual care concerns: No Agree to blood products: Yes Exam Narrative: GENERAL: Well-appearing, well-nourished, and in no acute distress. HEAD: Normocephalic, atraumatic. EYES: PERRL and EOMI. ENT: Mucous membranes moist. CHEST: Clear to auscultation. No respiratory distress. HEART: Regular rate and rhythm. Normal peripheral pulses. ABDOMEN: Soft, nontender, nondistended. It is non thrombosed hemorrhoids circumferentially around the rectum, yellow stool that is guaiac negative. EXTREMITIES: Normal range of motion. No edema. SKIN: Warm, dry, no rash. NEURO: Alert and oriented x3. PSYCH: Normal mood and affect. Course Course Emergency Course: Patient received 2 units of blood. Anemia panel sent. Recommend she follow-up with her specialist. No evidence of bleeding. Vital Signs Vital signs: Vital Signs Temperature 98.2 F 03/20/25 12:39 Pulse Rate 96 03/20/25 12:39 Respiratory Rate 17 03/20/25 12:39 Blood Pressure 170/62 H 03/20/25 12:39 Pulse Oximetry 97 03/20/25 12:39 Oxygen Delivery Room Air 03/20/25 12:39 Temperature 99 F 03/20/25 16:02 Pulse Rate 78 03/20/25 16:02 Respiratory Rate 18 03/20/25 16:02 Blood Pressure 122/59 L 03/20/25 16:02 Pulse Oximetry 100 03/20/25 16:02 Oxygen Delivery Room Air 03/20/25 12:39 Medical Decision Making Vital Signs Vital Signs: Vital Signs Temperature 98.2 F 03/20/25 12:39 Pulse Rate 96 03/20/25 12:39 Respiratory Rate 17 03/20/25 12:39 Blood Pressure 170/62 H 03/20/25 12:39 Pulse Oximetry 97 03/20/25 12:39 Oxygen Delivery Room Air 03/20/25 12:39 Temperature 99 F 03/20/25 16:02 Pulse Rate 78 03/20/25 16:02 Respiratory Rate 18 03/20/25 16:02 Blood Pressure 122/59 L 03/20/25 16:02 Pulse Oximetry 100 03/20/25 16:02 Oxygen Delivery Room Air 03/20/25 12:39 Lab Data 03/20/25 13:20 03/20/25 13:20 Labs: Lab Results 03/20/25 Range/Units 13:20 WBC 2.9 L (4.5-10.0) K/mm3 RBC 3.48 L (4.2-5.4) M/mm3 Hgb 6.8 L* (12.0-15.0) g/dL Hct 27.4 L (37.0-47.0) % MCV 78.7 L (80-100) fl MCH 19.5 L (26-34) pg MCHC 24.8 L (32-36) g/dl RDW 20.1 H (11.5-14.5) % Plt Count 84 L D (150-375) k/mm3 MPV 11.4 H (7.4-10.4) fl Immature Gran % (Auto) 0.3 (0-0.5) % Neut % (Auto) 36.7 L (45.5-73.1) % Lymph % (Auto) 41.4 (18.3-44.2) % Custer % (Auto) 19.2 H (2.6-8.5) % Eos % (Auto) 1.7 (0-4.4) % Baso % (Auto) 0.7 (0.2-1.2) % Lymph # (Auto) 1.21 (0.9-3.2) K/mm3 Custer # (Auto) 0.6 (0.1-0.6) K/mm3 Eos # (Auto) 0.1 (0-0.3) K/mm3 Baso # (Auto) 0.0 (0.0-0.1) K/mm3 Abs Immat Gran (auto) 0.01 (0.00-0.031) K/mm3 Absolute Neuts (auto) 1.1 L (1.3-6.7) K/mm3 Absolute Nucleated RBC 0.000 (0.0-0.012) K/mm3 Band Neutrophils % Not Reportable Nucleated RBC % 0.0 (0.0-0.2) % Platelet Estimate Decreased (Adequate) % Immature Plt Fraction 9.0 (0.9-11.2) % Hypochromasia 1+ Poikilocytosis 1+ Anisocytosis 2+ Schistocytes Not Reportable Absolute Retic 0.07 (0.02-0.10) 10^6/uL Percent Retic 2.04 (0.7-4.3) % Immature Retic Fraction 19.6 H (3.0-15.9) % Retic Hgb Content 16.9 L (28.2-36.6) pg Sodium 139 (137-145) mmol/L Potassium 3.9 (3.4-5.0) mmol/L Chloride 109 H (98-107) mmol/L Carbon Dioxide 22 (22-30) mmol/L Anion Gap 8 (4-12) mmol/L BUN 11 (7-17) mg/dL Creatinine 0.38 L (0.7-1.0) mg/dL Estim Creat Clear Calc 113 ml/min Estimated GFR > 60 (59 - ) Glucose 229 H (65-110) mg/dL Calcium 9.1 (8.4-10.2) mg/dL Iron 30 L (37-170) ug/dL TIBC 492 H (261-462) ug/dL % Saturation Pending Ferritin Pending Total Bilirubin 2.4 H (0.2-1.3) mg/dL AST 30 (14-36) U/L ALT 22 (6-35) U/L Alkaline Phosphatase 128 H (38-126) U/L Total Protein 7.0 (6.3-8.2) g/dL Albumin 3.5 (3.5-5.1) g/dL Vitamin B12 Pending Folate Pending Blood Type AB Positive Antibody Screen Negative Crossmatch See Detail Discharge Plan Discharge Clinical Impression: Anemia, Pancytopenia Patient Disposition: Home Condition: Stable Instructions: Anemia (ED) Additional Instructions: Follow-up with your GI doctor for further treatment evaluation. You received 2 units of blood in the ER. It is recommended you speak with your doctor about getting an iron infusion. Patient Language: Cook Islander Prescriptions: No Action aspirin [Adult Aspirin Regimen] 81 mg tablet,delayed release (DR/EC) 81 mg PO DAILY (DME) blood-glucose meter [Blood Glucose Monitoring] Kit See Rx Instructions .Route Qty: 1 0RF Rx Instructions: As directed daily (DME) Blood Glucose Test Strip See Rx Instructions .Route Qty: 50 12RF Rx Instructions: As directed daily (DME) lancing device [lancing device with lancets] Misc See Rx Instructions .Route Qty: 1 0RF Rx Instructions: As directed daily (DME) lancets 32 gauge misc See Rx Instructions .Route Qty: 100 12RF Rx Instructions: As directed daily Ozempic 0.25 mg or 0.5 mg(2 mg/1.5 mL) pen injector 0.5 mg subcut WEEKLY Qty: 1.5 3RF Rx Instructions: Tuesday Xifaxan 550 mg Tablet 550 mg PO BID lactulose 20 gram/30 mL Solution 20 g PO QID Qty: 180 2RF spironolactone 25 mg tablet 25 mg PO DAILY Qty: 30 4RF magnesium oxide 400 mg magnesium tablet 800 mg PO TID 30 Days Qty: 180 3RF trazodone 50 mg tablet 25 mg PO QHS PRN (Reason: insomnia) Qty: 30 3RF metformin 1,000 mg tablet 1,000 mg PO BID Qty: 180 3RF pantoprazole 40 mg tablet,delayed release (DR/EC) 40 mg PO DAILY Qty: 90 3RF Follow-up/Referrals: Olive Lozano MD [Primary Care Provider] - 1 Week
[2025-03-20 13:52] LABS: Poikilocytosis 1+
--- OUTSIDE RECORDS SUMMARY | 2025-03-20 14:07 | XMS_ITS | Encounter Summary ---
Author Organization [facility] Address [address] [facility] [place] [address] Care Team Providers Care Consulting Technical Manager Name Role Phone Olive Lozano MD Primary Care Provider [phone] Reason for Visit * Reason Onset Date Comments Critical Lab Results 03/19/2025 Encounter Details Date Type Department Care Team (Late st Contact Info) Description 03/19/2025 Telephone [facility] - [address] [phone] Edita Nino RN Critical Lab Results Social History Tobacco Use Types Packs/Day Years Used Date Smoking Tobacco: Former Cigarettes Alcohol Use Standard Drinks/Week Comments Not Currently 0 (1 standard drink = 0.6 oz pure alcohol) Hasn't had alcohol in 10+ years Comments No Sex and Gender Information Value Date Recorded Sex Assigned at Not on file Legal Sex Female 6:39 PM EXTENSION SERVICE SPECIALIST IN 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 * [...] here, at minimum she may go to [facility] She will call to updated us * Telephone Encounter - Edita Nino RN - 03/19/2025 10:13 AM CDT Leroy from [place] lab calls with critical hgb level 7.0 drawn this morning. Results to faxed and in care everywhere. Will discuss result with Dr. Fong. Of note, previous hgb level 7.2 from 01/25/25 call back to lab if needed. documented in this encounter Plan of Treatment Upcoming Encounters Date Type Department Care Team (Latest Contact Info) Description 04/18/2025 2:30 PM CDT Hospital Encounter [facility] ENDOSCOPY [address] [place] [address] Ismael Fong MD [address] [place] [address] [address] [place] [address] Surgery General 04/18/2025 2:30 PM CDT - 04/18/2025 3:15 PM CDT Surgery [facility] ENDOSCOPY [facility] [place] [address] Ismael Fong MD [address] [place] [address] [address] [place] [address] EGD 10/15/2025 12:30 PM EXTENSION SERVICE SPECIALIST IN CHARGE Appointment [facility] [place] [address] Ismael Fong MD [address] [place] [address] [address] [place] [address] 10/15/2025 1:30 PM EXTENSION SERVICE SPECIALIST IN CHARGE Office Visit [facility] - GI [address] [place] [address], [facility] [place] [phone] Ismael Fong MD [address] [place] [address] [address] [place] [address] Scheduled Procedures Name Priority Associated Diagnoses Date/Ti hi ESOPHAGOGASTRODUODENOSCOPY ( EGD) DIAGNOSTIC Chronic blood loss [...] on filedocumented in this encounter Care Teams Consulting Technical Manager Relationship Specialty Start Date End Date Olive Lozano MD [address] [place] [address] PCP - General 07/10/13 documented as of this encounter
--- OUTSIDE RECORDS SUMMARY | 2025-03-20 14:07 | XMS_ITS | Clinical Summary ---
Author Organization [facility] [employer] Address [address] [place] [address] Care Team Providers Care Machine Biller Name Role Phone Olive Lozano MD Primary Care Provider [phone] Source Comments [facility] [employer],non-owned Affiliates and Associated Physician Practices is amultiple site organization consisting of ambulatory clinics and hospital sitesin [place], [place], [place] and [place]. This disclosure is being madepursuant to the Care Everywhere program and may not contain all information available regarding this patient. Last updated [email or web address] Allergies Active Allergy Reactions Criticality Noted Date [...] Type Department Care Team Description 03/19/2025 Telephone [facility] - [address] [phone] Edita Nino RN Critical Lab Results 03/13/2025 Orders Only [facility] Physician [facility] - [address] [phone] Chasidy Ryder RN Liver disease ; Hepatic cirrhosis, unspecified hepatic cirrhosis type, unspecified whether ascites present (HCC) 03/12/2025 11:30 AM CDT Office Visit [facility] - [address] [phone] Ismael Fong MD Chronic blood loss anemia (Primary Dx); Hepatic cirrhosis, unspecified hepatic cirrhosis type, unspecified whether ascites present (HCC); Hepatic encephalopathy (HCC); GAVE (gastric antral vascular ectasia); 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); Portal hypertension (HCC); Acute on chronic blood loss anemia 03/12/2025 10:15 AM CDT - 03/12/2025 11:59 PM CDT Hospital Encounter [facility] [address] [place] [phone] Ismael Fong MD Discharge Disposition: Home or Self Care 03/12/2025 Patient Outreach [facility] ENDOSCOPY [address] [place] [phone] Alejandra Alex RN 03/12/2025 Travel 01/31/2025 Telephone [facility] - Nephrology [address] [facility], [place] [phone] Tisha Gregory, OLU Appointment from Last 3 Months Immunizations Immunization Administration Dates Next Due Covid Project Fixup primary monovalent 12+ yr 0.3mL Pur ple [...] on file Legal Sex Female 6:39 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 Gender Identity Not on file Sexual Orientation [...] Description 04/18/2025 2:30 PM CDT Hospital Encounter [facility] ENDOSCOPY [address] [place] [phone] Ismael Fong MD [address] [place] [address] [address] [place] [address] Surgery General 04/18/2025 2:30 PM CDT - 04/18/2025 3:15 PM CDT Surgery [facility] ENDOSCOPY [address] [place] [phone] Ismael Fong MD [address] [place] [address] [address] [place] [address] EGD 10/15/2025 12:30 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 Appointment [facility] [address] [place] [phone] Ismael Fong MD [address] [place] [address] [address] [place] [address] 10/15/2025 1:30 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 Office [facility] - GI [address] [place] [address], [facility] [place] [address] Ismael Fong MD [address] [place] [address] [address] [place] [address] Scheduled Procedures Name Priority Associated Diagnoses Date/Ti [...] C RNA QUANTITATIVE Routine 11/08/2023 10:24 AM 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 Hepatic cirrhosis, unspecified hepatic cirrhosis type, unspecified [...] DATE/TIME OF EXAM: 03/12/2025 11:04 AM, LOCATION [facility] INDICATION: K74.60: Hepatic cirrhosis, unspecified hepatic cirrhosis [...] DATE/TIME OF EXAM: 03/12/2025 11:04 AM, LOCATION [facility] INDICATION: K74.60: Hepatic cirrhosis, unspecified hepatic cirrhosis [...] HEPATITIS C RNA QUANTITATIVE (11/08/2023 10:24 AM 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) Hepatitis C RNA PCR, Interp Not detected Not detected 11/10/2023 9:18 AM [facility] Blood BLOOD SPECIMEN / Unknown Lab Venipuncture / Unknown 11/08/2023 10:24 AM 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 11/08/2023 10:42 AM 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 Narrative [facility]CRO[facility] - 11/10/2023 9:18 AM 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 The Hepatitis C viral (HCV) RNA analysis utilized a serum sample, real-time reverse precision lens polisher PCR, and is reported as Not Detected, [...] the isolation of HCV RNA with reverse precision lens polisher of genomic HCV RNA followed by real-time PCR in the presence of an unrelated RNA internal control. The internal control ensures that RNA is isolated, and that no general significant inhibitors of the RT-PCR process are present. The analysis was performed using a U.S. FDA approved test methodology. Ismael Fong MD LAB - CHEMISTRY ORDERA BLES Final Result [facility] [address] [place], [place] [address], [facility] [phone] from Last 3 Months or Most Recently Relevant to Health Maintenance [place] [address] [place] [address] A[employer] MEDICARE ADV Care Teams Machine Biller Relationship Specialty Start Date End Date Olive Lozano MD [address] [place] [address] PCP - General 07/10/13
--- OUTSIDE RECORDS SUMMARY | 2025-03-20 14:07 | XMS_ITS | Clinical Summary ---
Author Organization [facility] Address [address] [place] [address] Care Team Providers Care Group Exercise Instructor Name Role Phone Olive Lozano MD Primary Care Provider [phone] Allergies Active Allergy Reactions Criticality Noted Date [...] to complete this topic Insurance [employer] [id number] Care Teams Group Exercise Instructor Relationship Specialty Start Date End Date Olive Lozano MD [address] [place] [address] PCP - General Family Medicine 03/23/23
--- NOTE | 2025-03-20 14:20 | PC.NURSE ---
Lab called to add on new lab orders
[2025-03-20 14:30] LABS: Immature Reticulocyte Fraction 19.6 % (3.0-15.9); Reticulocyte Hemoglobin Conten 16.9 pg (28.2-36.6); Reticulocyte Percent 2.04 % (0.7-4.3); Reticulocytes Absolute 0.07 10^6/uL (0.02-0.10)
[2025-03-20] MEDS: SODIUM CHLORIDE 0.9% IV 250 ML 30 ML IV CONT (14:45)
[2025-03-20] MEDS: TUBING, BLOOD PLUM PUMP TUBING 1 EACH XX (14:45)
[2025-03-20 15:51] LABS: Iron 30 ug/dL (37-170)
[2025-03-20 16:00] LABS: Percent Iron Saturation 6 % (20-50)
[2025-03-20 16:58] LABS: Folic Acid 17.1 ng/mL (2.76->20)
== END 2025-03-20 18:30 | disposition home or self-care (01) ==
PROVIDERS: Emergency Medicine; Emergency Provider Emergency Medicine; PCP Family Medicine
DX: D64.9 Anemia, unspecified (principal); D61.818 Other pancytopenia; K74.60 Unspecified cirrhosis of liver; I10 Essential (primary) hypertension; E11.9 Type 2 diabetes mellitus without complications; F41.9 Anxiety disorder, unspecified; Z86.19 Personal history of other infectious and parasitic diseases; Z98.42 Cataract extraction status, left eye; Z98.41 Cataract extraction status, right eye; Z90.49 Acquired absence of other specified parts of digestive tract; Z79.82 Long term (current) use of aspirin; Z79.85 Long-term (current) use of injectable non-insulin antidiabetic drugs; Z79.84 Long term (current) use of oral hypoglycemic drugs; Z79.899 Other long term (current) drug therapy; R94.31 Abnormal electrocardiogram [ECG] [EKG]; R91.8 Other nonspecific abnormal finding of lung field
CPT/HCPCS: 36415; 36430; 71046; 80053; 82607; 82728; 82746; 83540; 83550; 85025; 85046; 85055; 86850; 86900; 86901; 86923; 93005; 96360; 96361; 99285; J7050; P9016

== ENCOUNTER 2025-07-20 22:54 | Emergency (ER) | payer MEDICARE, SELFPAY ==
--- NOTE | ~2025-07-20 | XR_ITS ---
Examination: XR chest 1V Clinical History: dizziness Comparison: 03/20/2025 Technique: Portable AP Findings: Heart size normal. Lungs clear. No acute bony abnormality. IMPRESSION: 1. No acute cardiopulmonary findings given portable technique. Reviewed, dictated and finalized at location R.
--- OUTSIDE RECORDS SUMMARY | 2025-07-20 22:57 | XMS_ITS | Encounter Summary ---
Author Organization [facility] Address [address] [facility] [address] [place] [address] Phone Care Team Providers Care Ecdis N Navigation Operator Name Role Phone Olive Lozano MD Primary Care Provider [phone] Svitlana De La Torre APRN, JEWEL INSPECTOR Unavailable Swapnil Jhaveri MD Unavailable [phone] Reason for Visit * Reason Comments Medication Refill Encounter Details Date Type Department Care Team (Late st Contact Info) Description 08/29/2023 Refill [facility] - G[facility]enterology - [place] [address] [place] [address] Svitlana De La Torre APRN, JEWEL INSPECTOR [address] [place] [address] Medication Refill Social History Tobacco Use Types [...] Sexual Orientation Straight 11/08/2023 4: 58 PM DISTILLING DEPARTMENT 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
--- OUTSIDE RECORDS SUMMARY | 2025-07-20 22:57 | XMS_ITS | Encounter Summary ---
Author Organization [facility] Address [address] [facility] [place] [address] Phone Care Team Providers Care Economic Development Specialist Name Role Phone Olive Lozano MD Primary Care Provider [phone] Svitlana De La Torre APRN, EXPERIMENTAL WELDER Unavailable Swapnil Jhaveri MD Unavailable [phone] Reason for Visit * Reason Comments Medication Refill Encounter Details Date Type Department Care Team (Late st Contact Info) Description 11/10/2021 Refill [facility] - [facility]ology - [place] [address] [place] [phone] Estella Epperson Ester, PAC [address] [place] [address] Medication Refill Social History Tobacco Use Types [...] Sexual Orientation Straight 11/08/2023 4: 58 PM 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 No / Unsure 11/11/2021 7:58 AM TAPE CUTTING MACHINE OPERATOR documented as of this encounter Miscellaneous Notes * Telephone Encounter - Laurel Krause RN - 11/11/2021 9:46 AM TAPE CUTTING MACHINE OPERATOR Medication refilled and signed per [facility] chronic medication standing order for pediatric and adult patients. CUTTING MACHINE OPERATOR documented in this encounter Plan of Treatment Not on file documented as of this encounter Visit Diagnoses Diagnosis Hepatic encephalopathy documented in this encounter Care Teams Economic Development Specialist Relationship Specialty Start Date End Date Olive Lozano MD [address] [place] [address] PCP - General Family Medicine 04/19/19 Svitlana De La Torre APRN, EXPERIMENTAL WELDER [address] [place] [address] Nurse Practitioner Advanced Practice Nurse 06/24/23 Swapnil Jhaveri MD [address] [place] [address] Consulting Physician Gastroenterology 02/10/23 documented as of this encounter
--- OUTSIDE RECORDS SUMMARY | 2025-07-20 22:57 | XMS_ITS | Encounter Summary ---
Author Organization [facility] Address [address] [facility] [place] [address] Phone Care Team Providers Care Aviation Safety Officer Name Role Phone Olive Lozano MD Primary Care Provider [phone] Svitlana De La Torre APRN, BEHAVIORAL HEALTH RN Unavailable Swapnil Jhaveri MD Unavailable [phone] Encounter Details Date Type Department Care Team (Latest Contact Info) Description 03/14/2025 Transcribe Orders [facility] Services [address] [place] [address] Ismael Fong MD [address] [place] [address] Chronic blood loss anemia (Primary Dx); Hepatic [...] Sexual Orientation Straight 11/08/2023 4: 58 PM SLIP BRIDGE OPERATOR Occupation Industry Job Start Date Job [...] - 145 mmol/L 03/19/2025 10:21 AM CDT [facility] POTASSIUM 4.4 3.5 - 5.1 mmol/L 03/19/2025 10:21 AM CDT [facility] CHLORIDE 108(H) 98 - 107 mmol/L 03/19/2025 10:21 AM CDT [facility] CO2, VENOUS 23 22 - 30 mmol/L 03/19/2025 10:21 AM CDT [facility] ANION GAP 12.4 <18.0 mmol/L 03/19/2025 10:21 AM CDT [facility] GLUCOSE 147(H) 70 - 99 mg/dL 03/19/2025 10:21 AM CDT [facility] BUN 12 10 - 20 mg/dL 03/19/2025 10:21 AM [facility] CREATININE, BLOOD 0.51(L) 0.60 - 1.00 mg/dL 03/19/2025 10:21 AM [facility] BUN/CREATININE RATIO 24(H) 12 - 20 ratio 03/19/2025 10:21 AM [facility] TOTAL PROTEIN 6.4 6.0 - 8.0 g/dL 03/19/2025 10:21 AM [facility] ALBUMIN 3.4(L) 3.5 - 5.0 g/dL 03/19/2025 10:21 AM [facility] A/G RATIO 1.1 1.0 - 2.2 03/19/2025 10:21 AM [facility] CALCIUM 8.9 8.7 - 10.5 mg/dL 03/19/2025 10:21 AM [facility] T BILI 2.2(H) 0.2 - 1.2 mg/dL 03/19/2025 10:21 AM [facility] SGOT (AST) 25 <43 U/L 03/19/2025 10:21 AM [facility] SGPT (ALT) 14 <56 U/L 03/19/2025 10:21 AM [facility] ALKALINE PHOSPHATASE 140 40 - 150 U/L 03/19/2025 10:21 AM [facility] IS THE PATIENT REQUIRED TO BE FASTING? No 03/19/2025 10:21 AM [facility] GFR, ESTIMATED >60 >=60 03/19/2025 10:21 AM [facility] Comment: Creatinine Clearance is the preferred criteria for selecting drug dose adjustments in renally impaired patients. The GFR is provided as additional pertinent clinical information. GFR is reported in mL/min/1.73 sq m. Calculation based on the Chronic Kidney Disease Epidemiology Collaboration (CKD- EPI) equation refit without adjustment for race. GFR, EST. >60 >=60 025 10:21 AM [facility] GFR, EST. NONAFRICAN >60 >=60 03/19/2025 10:21 AM CDT [facility] Blood Venipuncture / Unknown 03/19/2025 9:09 AM CDT 03/19/2025 10:08 AM CDT us Ismael Fong MD CHEMISTRY ORDERABLES F inal Result Performing Organization Address City/[facility]/ZIP Co de Phone Number [facility] [address] [place] [address] * ALPHA FETOPROTEIN, TUMOR MARKER (03/19/2025 9:09 AM CDT) ALPHA FETOPROTEIN 3.8 0.0 - 8.8 ng/mL 03/19/2025 2:38 PM CDT [facility] Blood Venipuncture / Unknown 03/19/2025 9:09 AM CDT 03/19/2025 9:39 AM CDT us Ismael Fong MD CHEMISTRY ORDERABLES F inal Result Performing Organization Address City/[facility] Co de Phone Number [facility] [address] [place] [address], documented in this encounter Visit Diagnoses Diagnosis 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) Hepatic cirrhosis, unspecified hepatic cirrhosis type, unspecified whether ascites present Hepatic encephalopathy 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
--- OUTSIDE RECORDS SUMMARY | 2025-07-20 22:57 | XMS_ITS | Clinical Summary ---
Author Organization [facility] Cross Current Address [address] [place] [address] Care Team Providers Care Contract Manager Name Role Phone Olive Lozano MD Primary Care Provider [phone] Source Comments [facility],non-owned Affiliates and Associated Physician Practices is amultiple site organization consisting of ambulatory clinics and hospital sitesin [place], [place], [place] and [place]. This disclosure is being madepursuant to the Care Everywhere program and may not contain all information available regarding this patient. Last updated 18.[facility] Allergies Active Allergy Reactions Criticality Noted Date Comments Codeine Nausea Low 09/19/2013 Hydrocodone-Acetaminophen Other Low 09/19/2013 Turns very red Medications * Be aware that medications may not be up to date on this document. Alwaysverify current medications with the patient. metFORMIN (Glucophage) 1000 MG tablet Take 1 (one) tablet by mouth 2 times daily 10/16/20 23 Active pantoprazole EC (Protonix) 40 MG tablet Take 1 (one) tablet by mouth once daily 08/22/20 23 Active Semaglutide(0. 25 or 0.5MG/DOS) 2 MG/1.5ML Solution Pen-injector INJECT 0.5MG UNDER THE SKIN ONCE WEEKLY Active ONE TOUCH ULTRASOFT LANCETS MISC USE DIRECTED TO CHECK GLUCOSE DAILY 08/24/20 23 Active hydrOXYzine HCl (Atarax) 10 MG tabletIndicati ons:Pruritus TAKE 1 (ONE) TABLET BY MOUTH ONCE DAILY NEEDED FOR ITCHING REASONS: ITCHING 90 tablet 1 10/12/20 24 Active furosemide (Lasix) 40 MG tabletIndicati ons:Edema TAKE 1 (ONE) TABLET BY MOUTH DAILY BEFORE BREAKFAST REASONS: EDEMA 90 tablet 3 11/06/19 25 Active spironolactone (Aldactone) 100 MG tabletIndicati ons:Hepatic Cirrhosis TAKE 1 (ONE) TABLET BY MOUTH ONCE DAILY REASONS: HARDENING OF THE LIVER 90 tablet 3 11/06/19 25 Active rifAXIMin (Xifaxan) 550 MG tablet Take 1 (one) tablet by mouth 2 times daily for 30 days 60 tablet 12/13/19 25 Active polyethylene glycol (Gavilyte-C) 240 g solution Drink half of prep solution at 5pm the night before colonoscopy. Finish the prep at 4am the day of test. 4000 mL 04/01/20 25 Active lactulose (Chronulac) 10 GM/15ML solution TAKE 30 ML BY MOUTH 2 TIMES DAILY 5400 mL 3 07/05/20 25 Active lactulose (Chronulac) 10 GM/15ML solution Take 30 mL by mouth 2 times daily 5400 mL 3 03/28/20 24 025 Discontinued Active Problems Problem Noted Date Diagnosed Date Liver disease 06/28/2024 Chronic hepatitis C virus infection 06/28/2024 Basal cell carcinoma 11/08/2023 Hyperammonemia 02/10/2023 11/08/2023 History of hepatitis C virus infection 11/08/2023 Hypomagnesemia 08/20/2021 11/08/2023 Encounters Date Type Department Care Team Description 07/04/2025 Refill [facility] [address] [facility] [place] [id number] Ismael Fong MD Refill Request from Last 3 Months Immunizations Immunization Administration Dates Next Due [employer] primary monovalent 12+ yr 0.3mL Pur ple [...] on file Legal Sex Female 6:39 PM ENVIRONMENTAL PROGRAM MANAGER Gender Identity Not on file Sexual Orientation Not on file Last Filed Vital Signs Vital Sign Reading Time Taken Comments Blood Pressure 126/52 04/18/2025 4:15 PM CDT Pulse 78 04/18/2025 4:15 PM CDT Temperature 36.4 C (97.6 F) 04/18/2025 3:57 PM CDT Respiratory Rate 16 04/18/2025 4:15 PM CDT Oxygen Saturation 100% 04/18/2025 4:15 PM CDT Inhaled Oxygen Concentration - - Weight 77.9 kg (171 lb 12.8 oz) 04/18/2025 1:54 PM CDT Height 167.6 cm (5' 6) 04/18/2025 1:54 PM CDT Body Mass Index 27.73 04/18/2025 1:54 PM CDT Plan of Treatment Upcoming Encounters Date Type Department Care Team (Late st Contact Info) Description 10/15/2025 12:30 PM ENVIRONMENTAL PROGRAM MANAGER Appointment [facility] [address] [place] [phone] Ismael Fong MD [address] [place] [address] [place] [address] 10/15/2025 1:30 PM ENVIRONMENTAL PROGRAM MANAGER Office Visit [facility] - GI [address] [place] [address], [place] [address] Ismael Fong MD [address] [place] [address] Health Maintenance Due Date Last Done Comments BONE DENSITY TESTING 1950 COLOGUARD (AGES 45-75) - COLON CA SCREENING 1950 CT COLONOGRAPHY - COLON CA SCREENING 1950 FIT - COLON CA SCREENING 1950 [...] ZOSTER VACCINE (2 of 3) 11/24/2012 09/29/2012 DEPRESSION SCREENING 10/31/2024 MEDICARE AWV CALENDAR YEAR 2024 COVID-19 VACCINE (3 - season) 2025 10/01/2021, 01/06/2021 INFLUENZA VACCINE (#1) 2025 , 07/30/2020, 08/14/2019 LIPID TESTING 01/25/2030 01/25/2025, 06/07/2024 COLON MONITORING 04/18/2035 04/18/2025, 04/18/2025 COLONOSCOPY - COLON CA SCREENING 04/18/2035 04/18/2025, 04/18/2025 Colorectal Cancer Screening 04/18/2035 HEPATITIS C SCREENING Completed 06/28/2024 , 11/08/2023, [...] Procedure Name Priority Date/Time Associated Diagnosis Comments ENDOSCOPY, COLON, SCREENING Routine 04/18/2025 2:59 PM CDT HEPATITIS C RNA QUANTITATIVE Routine 11/08/2023 10:24 AM ENVIRONMENTAL PROGRAM MANAGER Hepatic cirrhosis, unspecified hepatic cirrhosis type, unspecified whether ascites present Hepatic encephalopathy 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 Throughout the procedure, the patient's blood pressure, pulse, and oxygen saturations were monitored continuously. The Endoscope was introduced through the mouth, and advanced to the second part of duodenum. The upper GI endoscopy was accomplished without difficulty. The patient tolerated the procedure well. Findings: The Z-line was regular and was found 37 cm from the incisors. Mild portal hypertensive gastropathy was found in the gastric body. Mild gastric antral vascular ectasia without bleeding was present in the gastric antrum. The examined duodenum was normal. Estimated Blood Loss: Estimated blood loss: none. Complications: No immediate complications. Impression: - Z-line regular, 37 cm from the incisors. - Portal hypertensive gastropathy. - Gastric antral vascular ectasia without bleeding. - Normal examined duodenum. - No specimens collected. Recommendation: - Repeat upper endoscopy in 2 years for surveillance. Attending Participation: I personally performed the entire procedure. Procedure Code(s): --- Professional --- 38617, Esophagogastroduod enoscopy, flexible, transoral; diagnostic, including collection of specimen(s) by brushing or washing, when performed (separate procedure) Diagnosis Code(s): --- Professional --- K76.6, Portal hypertension K31.89, Other diseases of stomach and duodenum K31.819, Angiodysplasia of stomach and duodenum without bleeding K74.60, Unspecified cirrhosis of liver CPT copyright 2021 [employer]. All rights reserved. The codes documented in this report are preliminary and upon needle loom operator review may be revised to meet current compliance requirements. Ismael Fong, 04/18/2025 3:55:43 PM Note Initiated On: 04/18/2025 2:59 PM Number of Addenda: [address] [id number] [facility] 04/18/2025 2:59 PM CDT us Ismael Fong MD GI PROCEDURE ORDERABLE S Edited Result - Final LON CARLOS * HEPATITIS C RNA QUANTITATIVE (11/08/2023 10:24 AM ENVIRONMENTAL PROGRAM MANAGER) Hepatitis C RNA PCR, Interp Not detected Not detected 11/10/2023 9:18 AM ENVIRONMENTAL PROGRAM MANAGER [facility] Blood BLOOD SPECIMEN / Unknown Lab Venipuncture / Unknown 11/08/2023 10:24 AM ENVIRONMENTAL PROGRAM MANAGER 11/08/2023 10:42 AM ENVIRONMENTAL PROGRAM MANAGER Narrative [facility] - 11/10/2023 9:18 AM ENVIRONMENTAL PROGRAM MANAGER The Hepatitis C viral (HCV) RNA analysis utilized a serum sample, real-time reverse torch operator PCR, and is reported as Not Detected, [...] the isolation of HCV RNA with reverse torch operator of genomic HCV RNA followed by real-time PCR in the presence of an unrelated RNA internal control. The internal control ensures that RNA is isolated, and that no general significant inhibitors of the RT-PCR process are present. The analysis was performed using a U.S. FDA approved test methodology. Ismael Fong MD LAB - CHEMISTRY ORDERA BLES Final Result [facility] [address] [place], [place] [address], [facility] [phone] from Last 3 Months or Most Recently Relevant to Health Maintenance [place] [address] [address] [place] [id number] A[employer] MEDICARE ADV Care Teams Contract Manager Relationship Specialty Start Date End Date Olive Lozano MD [address] [place] [address] PCP - General 07/10/13
--- OUTSIDE RECORDS SUMMARY | 2025-07-20 22:57 | XMS_ITS | Encounter Summary ---
Author Organization [facility] Address [address] [place] [address] Phone Care Team Providers Care Proposal Engineer Name Role Phone Olive Lozano MD Primary Care Provider [phone] [facility] APRN, STUDENT RECORDS SPECIALIST Unavailable Swapnil Jhaveri MD Unavailable [phone] Encounter Details Date Type Department Care Team (Latest Contact Info) Description 01/22/2025 Transcribe Orders [facility] [address] [place] [address] Olive Lozano MD [address] [place] [address] Dry mouth (Primary Dx); Type 2 diabetes mellitus without complication, unspecified whether terminal computer operator insulin use (HCC); Mixed hyperlipidemia; Other fatigue; [...] Sexual Orientation Straight 11/08/2023 4: 58 PM OPERATING SYSTEMS SPECIALIST 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 Consider Clinical Correlation. CREATININE URINE 123.5 mg/dL 01/26/20 9:33 AM CDT [facility] Comment:No reference range h as been established. Consider Clinical Correlation. ALB/CREAT RATIO 14 0 - 30 mg/g CRE 01/25/2025 9:33 AM CDT [facility] Urine Non-Phlebotomy Collection / Unknown 01/25/2025 8:43 AM CDT 01/25/2025 9:01 AM CDT us Olive Lozano MD URINE ORDERABLES Final Result [facility] [address] [place] [address] * ERYTHROCYTE SEDIMENTATION RATE (ESR) (01/25/2025 8:43 AM CDT) Pathologist [facility] ESR (SED RATE, ERYTHROCYTE SEDIMENTATION RATE) 1 <30 mm/h 01/25/2025 9:10 AM CDT [facility] Comment: Patients presenting with increased level of fibrinogen, gamma globulins, or abnormally shaped RBCs could affect the results for the erythrocyte sedimentation rate (ESR). Results should be clinically correlated. Blood Venipuncture / Unknown 01/25/2025 8:43 AM CDT 01/25/2025 9:02 AM CDT us Olive Lozano MD HEMATOLOGY ORDERABLES Final Resu lt Performing Organization Address City/[facility]/ZIP Co de Phone Number [facility] [address] [place] [address] * VITAMIN B12 (01/25/2025 8:43 AM CDT) VITAMIN B12 421 213 - 816 pg/mL 01/25/2025 9:53 AM CDT [facility] Blood Venipuncture / Unknown 01/25/2025 8:43 AM CDT 01/25/2025 9:02 AM CDT us Olive Lozano MD CHEMISTRY ORDERABLES Final Resul t Performing Organization Address [facility] Co de Phone Number [facility] [address] [place] [address] * AMMONIA (01/25/2025 8:43 AM CDT) AMMONIA 68 18 - 72 umol/L 01/25/2025 9:19 AM CDT [facility] Blood Venipuncture / Unknown 01/25/2025 8:43 AM CDT 01/25/2025 9:01 AM CDT us Olive Lozano MD CHEMISTRY ORDERABLES Final Resul t Performing Organization Address City/[facility] Co de Phone Number [facility] [address] [place] [address] * VITAMIN D, 25 HYDROXY TOTAL (01/25/2025 8:43 AM CDT) VITAMIN D, 25 HYDROX 23.1 ng/mL 01/25/2025 9:53 AM CDT [facility] Blood Venipuncture / Unknown 01/25/2025 8:43 AM CDT 01/25/2025 9:02 AM CDT Narrative [facility] - 01/25/2025 9:53 AM CDT Published reference ranges for Vitamin D vary depending on time and place and method of testing, and on patient's age, sex, ethnicity and levels of other measured analytes such as parathormone, calcium and phosphorus. The result should be evaluated in conjunction with clinical findings and suspicions. [place] [facility] Clinical Practice Guidelines: Status Vitamin D levels (ng/mL) Deficient <=20 At risk of inadequacy 21-29 Sufficient 30-100 Centers of Disease Control and Prevention Guidelines: Status Vitamin D levels (ng/mL) Deficient <13 At risk of inadequacy 13-19 Sufficient 20-50 Possibly harmful >50 References: [place] [facility], 2010 Dietary reference intakes for calcium and vitamin D. [place]: The National Academies Press. Adrian M, Todd N, Chuy BURNS, et al., Evaluation, treatment, and prevention of Vitamin D deficiency: an Endocrinology Clinical Practice Guideline. JCEM 2011 96: 7 9628-5191. Chace A, Andrea C, Ronel D, et al., Vitamin D Status: [place], 0566-5996, [facility] data brief, no. 59, MD Ian: National Center for Health Statistics. 2011. us Olive Lozano MD CHEMISTRY ORDERABLES Final Resul t [facility] [address] [place] [address] * (ABNORMAL) COMPLETE BLOOD COUNT (CBC) WITHOUT DIFF (01/25/2025 8:43 AM CDT) WBC 2.20(L) 4.00 - 12.00 10(3)/mcL 01/25/2025 9:13 AM CDT [facility] RBC 3.72(L) 3.80 - 5.30 10(6)/mcL 01/25/2025 9:13 AM CDT [facility] HEMOGLOBIN (HGB) 7.2(L) 12.0 - 15.8 g/dL 01/25/2025 9:13 AM CDT [facility] HEMATOCRIT (HCT) 27.6(L) 36.0 - 47.0 % 01/25/2025 9:13 AM CDT [facility] MCV 74.2(L) 82.0 - 96.0 fL 01/25/2025 9:13 AM CDT [facility] MCH 19.4(L) 26.0 - 34.0 pg 01/25/2025 9:13 AM CDT [facility] MCHC 26.1(L) 31.0 - 36.0 g/dL 01/25/2025 9:13 AM CDT [facility] PLATELET COUNT 92(L) 140 - 440 10(3)/mcL 01/25/2025 9:13 AM CDT [facility] RDW 19.6(H) 11.8 - 15.5 % 01/25/2025 9:13 AM CDT [facility] MPV 01/25/2025 9:13 AM CDT [facility] Blood Venipuncture / Unknown 01/25/2025 8:43 AM CDT 01/25/2025 9:02 AM CDT us Olive Lozano MD HEMATOLOGY ORDERABLES Final Resu lt [facility] [address] [place] [address] * (ABNORMAL) LIPID PANEL (01/25/2025 8:43 AM CDT) CHOLESTEROL 102 <200 mg/dL 01/25/2025 9:32 AM CDT [facility] TRIGLYCERIDES 62 <150 mg/dL 01/25/2025 9:32 AM CDT [facility] HDL CHOLESTEROL 36(L) >40 mg/dL 9:32 AM CDT [facility] LDL 54 <130 mg/dL 01/25/2025 9:32 AM CDT [facility] VLDL 12 10 - 50 mg/dL 01/25/2025 9:32 AM CDT [facility] CHOL/HDL RATIO 2.8 0.0 - 4.4 01/25/2025 9:32 AM CDT [facility] NON-HDL CHOLESTEROL 66 <130 mg/dL 01/25/2025 9:32 AM CDT [facility] IS THE PATIENT REQUIRED TO BE FASTING? Yes 01/25/2025 9:32 AM CDT [facility] HAS THE PATIENT BEEN FASTING? Yes 01/25/2025 9:32 AM CDT [facility] Blood Venipuncture / Unknown 01/25/2025 8:43 AM CDT 01/25/2025 9:02 AM CDT us Olive Lozano MD CHEMISTRY ORDERABLES Final Resul t [facility] [address] [place] [address] * (ABNORMAL) CMP (COMPREHENSIVE METABOLIC PANEL) (01/25/2025 8:43 AM CDT) SODIUM 141 136 - 145 mmol/L 01/25/2025 9:32 AM CDT [facility] POTASSIUM 4.2 3.5 - 5.1 mmol/L 01/25/2025 9:32 AM CDT [facility] CHLORIDE 112(H) 98 - 107 mmol/L 01/25/2025 9:32 AM CDT [facility] CO2, VENOUS 23 22 - 30 mmol/L 01/25/2025 9:32 AM CDT [facility] ANION GAP 10.2 <18.0 mmol/L 01/25/2025 9:32 AM CDT [facility] GLUCOSE 139(H) 70 - 99 mg/dL 01/25/2025 9:32 AM [facility] BUN 11 10 - 20 mg/dL 01/25/2025 9:32 AM [facility] CREATININE, BLOOD 0.55(L) 0.60 - 1.00 mg/dL 01/25/2025 9:32 AM [facility] BUN/CREATININE RATIO 20 12 - 20 ratio 01/25/2025 9:32 AM [facility] TOTAL PROTEIN 6.5 6.0 - 8.0 g/dL 01/25/2025 9:32 AM [facility] ALBUMIN 3.3(L) 3.5 - 5.0 g/dL 01/25/2025 9:32 AM [facility] A/G RATIO 1.0 1.0 - 2.2 01/25/2025 9:32 AM [facility] CALCIUM 9.1 8.7 - 10.5 mg/dL 01/25/2025 9:32 AM [facility] T BILI 2.0(H) 0.2 - 1.2 mg/dL 01/25/2025 9:32 AM [facility] SGOT (AST) 31 <43 U/L 01/25/2025 9:32 AM [facility] SGPT (ALT) 18 <56 U/L 01/25/2025 9:32 AM [facility] ALKALINE PHOSPHATASE 112 40 - 150 U/L 01/25/2025 9:32 AM [facility] IS THE PATIENT REQUIRED TO BE FASTING? No 01/25/2025 9:32 AM [facility] GFR, ESTIMATED >60 >=60 01/25/2025 9:32 AM [facility] Comment: Creatinine Clearance is the preferred criteria for selecting drug dose adjustments in renally impaired patients. The GFR is provided as additional pertinent clinical information. GFR is reported in mL/min/1.73 sq m. Calculation based on the Chronic Kidney Disease Epidemiology Collaboration (CKD- EPI) equation refit without adjustment for race. GFR, EST. >60 >=60 025 9:32 AM CDT [facility] GFR, EST. NONAFRICAN >60 >=60 01/25/2025 9:32 AM CDT [facility] Blood Venipuncture / Unknown 01/25/2025 8:43 AM CDT 01/25/2025 9:02 AM CDT Olive Lozano MD CHEMISTRY ORDERABLES Final Resul t Performing Organization Address City/[facility]/ZIP Co de Phone Number [facility] [address] [place] [address] * (ABNORMAL) HEMOGLOBIN A1C W/ ESTIMATED GLUCOSE (01/25/2025 8:43 AM CDT) HGB-A1C 6.6(H) 4.0 - 6.0 % 01/25/2025 9:25 AM CDT [facility] Est Average Glucose 142.7 mg/dL 01/25/2025 9:25 AM CDT [facility] Blood Venipuncture / Unknown 01/25/2025 8:43 AM CDT 01/25/2025 9:02 AM CDT Narrative [facility] - 01/25/2025 9:25 AM CDT HEMOGLOBIN A1C: DIABETIC PATIENTS: WELL-CONTROLLED: 6.2 - 7.0 INTERMEDIATE WELL-CONTROLLED: 7.0 - 9.0 POORLY-CONTROLLED: >9.0 Specimens containing greater than 5% of Hemoglobin F may result in lower than expected % HbA1C results. Olive Lozano MD CHEMISTRY ORDERABLES Final Resul t Performing Organization Address City/[facility]/ZIP Co de Phone Number [facility] [address] [place] [address] documented in this encounter Visit Diagnoses Diagnosis Dry mouth- Primary Disturbance of salivary secretion Type 2 diabetes mellitus without complication, unspecified whether terminal computer operator insulin use Mixed hyperlipidemia Other fatigue Vitamin D deficiency Unspecified vitamin D deficiency Liver failure without hepatic coma, unspecified chronicity documented in this encounter Care Teams Proposal Engineer Relationship Specialty Start Date End Date Olive Lozano MD [address] [place] [address] PCP - General Family Medicine 04/19/19 Svitlana De La Torre APRN, STUDENT RECORDS SPECIALIST [address] [place] [address] Nurse Practitioner Advanced Practice Nurse 06/24/23 Swapnil Jhaveri MD [address] [place] [address] Consulting Physician Gastroenterology 02/10/23 documented as of this encounter
--- OUTSIDE RECORDS SUMMARY | 2025-07-20 22:57 | XMS_ITS | Encounter Summary ---
Author Organization [facility] Address [address] [place] [place] [address] Phone Care Team Providers Care E Business Consultant Name Role Phone Olive Lozano MD Primary Care Provider [phone] Svitlana De La Torre APRN, LEVEL GLASS FORMING MACHINE OPERATOR Unavailable Swapnil Jhaveri MD Unavailable [phone] Reason for Visit * Reason Comments Medication Refill Encounter Details Date Type Department Care Team (Late st Contact Info) Description 08/23/2023 Refill [facility] - [facility]ology - [place] [address] [place] [address] Svitlana De La Torre APRN, LEVEL GLASS FORMING MACHINE OPERATOR [address] [place] [address] Medication Refill Social History Tobacco Use Types [...] Sexual Orientation Straight 11/08/2023 4: 58 PM GUSSET EDGER Occupation Industry Job Start Date Job End [...] encephalopathy documented in this encounter Care Teams E Business Consultant Relationship Specialty Start Date End Date Olive Lozano MD [address] [place] [address] PCP - General Family Medicine 04/19/19 Svitlana De La Torre APRN, LEVEL GLASS FORMING MACHINE OPERATOR [address] [place] [address] Nurse Practitioner Advanced Practice Nurse 06/24/23 Swapnil Jhaveri MD [address] [place] [address] Consulting Physician Gastroenterology 02/10/23 documented as of this encounter
--- OUTSIDE RECORDS SUMMARY | 2025-07-20 22:57 | XMS_ITS | Encounter Summary ---
Author Organization [facility] Address [address] [facility] [place] [address] Phone Care Team Providers Care Therapist Phys Name Role Phone Olive Lozano MD Primary Care Provider [phone] Svitlana De La Torre APRN, SWINE EXTENSION FIELD SPECIALIST Unavailable Swapnil Jhaveri MD Unavailable [phone] Reason for Visit * Reason Comments Medication Refill Encounter Details Date Type Department Care Team (Late st Contact Info) Description 06/03/2022 Refill [facility] - [place] [address] [place] [id number] Estella Epperson Ester, PAC [address] [place] [address] Medication Refill Social History Tobacco Use Types [...] Sexual Orientation Straight 11/08/2023 4: 58 PM BEATER ENGINEER 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 Spokewith Subha with [facility]. Per Subha, patient has 90 tablets with 3 refills on file with [facility]. Patient can re-enroll as soon as August 31, 2022. Reviewed information with patient. Patient is awareand verbalizes understanding. Per Richard Masocrro does use [facility] pharmacy. * Telephone Encounter - Laurel Krause RN - 06/04/2022 8:59 AM CDT Refill request for xifaxan. Last refill noted to be 12/17/2021 for 60 tabs and 11 refills. Refill request noted to be for [facility] in [place], [place]. Called patient to verify requested pharmacy. Left message for patient to call back. documented in this encounter Plan of Treatment Not on file documented as of this encounter Visit Diagnoses Not on filedocumented in this encounter Care Teams Therapist Phys Relationship Specialty Start Date End Date Olive Lozano MD [address] [place] [address] PCP - General Family Medicine 04/19/19 Svitlana De La Torre APRN, SWINE EXTENSION FIELD SPECIALIST [address] [place] [address] Nurse Practitioner Advanced Practice Nurse 06/24/23 Swapnil Jhaveri MD [address] [place] [address] Consulting Physician Gastroenterology 02/10/23 documented as of this encounter
--- OUTSIDE RECORDS SUMMARY | 2025-07-20 22:57 | XMS_ITS | Clinical Summary ---
Author Organization [facility] Address [address] [facility], [address] [address] Phone Care Team Providers Care Restorer Paper And Prints Name Role Phone Olive Lozano MD Primary Care Provider Svitlana De La Torre APRN, POLE CLIMBER Unavailable Swapnil Jhaveri MD Unavailable [phone] Allergies Active Allergy Reactions Criticality Noted Date [...] lactulose (CHRONULAC) 10 GM/15ML SolutionIndication s:Hepatic encephalopathy TAKE 15 ML BY MOUTH 4 TIMES DAILY. 3784 mL 2 3 Active rifAXIMin (XIFAXAN) 550 MG TabletIndications: Hyperammonemia,Hep atic encephalopathy,Hep atic cirrhosis, unspecified hepatic cirrhosis type, unspecified whether ascites present Take 1 Tablet by mouth 2 times daily. 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 Industry Job Start Date Job End [...] 10:17 AM CDT Height 165.1 cm (5' 5) 06/24/2023 10:1 7 AM CDT Body Mass Index 28.92 06/24/2023 10:17 AM CDT Plan of Treatment Health Maintenance Due Date Last Done Comments DEXA Bone Density 1950 Mammogram 1950 TdaP Immunization 1952 Cologuard 1997 Immunochemical Fecal Occult Blood 1997 Hepatitis B Immunization (1 of 3 - Risk 3-dose series) 2012 Respiratory Syncytial Virus (RSV) Immunization (Adult) (1 - Risk 60-74 years 1-dose series) 2012 Zoster Immunization (2 of 3) 11/24/2012 09/29/2012 Influenza Immunization (#1) 07/01/202508/31, 09/12/2023, 09/07/2021, Additional history exists SARS-COV-2 Immunization (3 - 2024- season) 2025 10/01/2021, 01/06/2021 Colonoscopy 06/26/2027 06/26/2019 Colorectal Cancer Screening 06/26/2027 Pneumococcal Immunization (50+ years) Completed 09/18/2024 Pneumococcal Immunization Combined Discontinued 09/18/2024 Human Papillomavirus (HPV) Immunization Aged Out No longer eligible based on patient's age to complete this topic Meningococcal Immunization (ACWY) Aged Out No longer eligible based on patient's age to complete this topic Rotavirus Immunization Aged Out No lo nger eligible based on patient's age to complete this topic Insurance MEDICARE C AETNA Care Teams Restorer Paper And Prints Relationship Specialty Start Date End Date Olive Lozano MD [address] [place] [address] PCP - General Family Medicine 04/19/19 Svitlana De La Torre APRN, POLE CLIMBER [address] [place] [address] Nurse Practitioner Advanced Practice Nurse 06/24/23 Swapnil Jhaveri MD [address] [place] [address] Consulting Physician Gastroenterology 02/10/23
--- OUTSIDE RECORDS SUMMARY | 2025-07-20 22:57 | XMS_ITS | Clinical Summary ---
Author Organization [facility] Address [address] [place] [address] Care Team Providers Care Supervisor Slitting And Shipping Name Role Phone Olive Lozano MD Primary Care Provider [phone] Allergies Active Allergy Reactions Criticality Noted Date [...] 2:08 PM CDT Height 167.6 cm (5' 6) 03/23/2023 2:08 PM CDT Body Mass Index 28.57 03/23/2023 2:08 PM CDT Plan of Treatment Health Maintenance Due Date Last Done Comments Breast Cancer Screening 1950 Pneumococcal Vaccine: 50+ Years (1 of 2 - PCV) 1971 Colorectal Cancer Screening: Annual FOBT 2001 Colorectal Cancer Screening: Colonoscopy 2001 Colorectal Cancer Screening: Sigmoidoscopy 2001 Influenza Vaccine (#1) 2025 , 07/30/2020, 08/14/2019 Hepatitis B Vaccine Aged Out No longe r eligible based on patient's age to complete this topic Insurance [employer] [id number]) Care Teams Supervisor Slitting And Shipping Relationship Specialty Start Date End Date Olive Lozano MD [address] [place] [address] PCP - General Family Medicine 03/23/23
--- OUTSIDE RECORDS SUMMARY | 2025-07-20 22:57 | XMS_ITS | Encounter Summary ---
Author Organization [facility] Address [address] [place] [address] Phone Care Team Providers Care Director Of Neurology Name Role Phone Olive Lozano MD Primary Care Provider [phone] Svitlana De La Torre APRN, TWISTER DOFFER Unavailable Swapnil Jhaveri MD Unavailable [phone] Reason for Visit * Reason Comments Medication Refill Encounter Details Date Type Department Care Team (Late st Contact Info) Description 05/06/2022 Refill [facility] - [place] [address] [place] [id number] Estella Epperson Ester, PAC [address] [place] [address] Medication Refill Social History Tobacco Use Types [...] Sexual Orientation Straight 11/08/2023 4: 58 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
--- OUTSIDE RECORDS SUMMARY | 2025-07-20 22:57 | XMS_ITS | Encounter Summary ---
Author Organization [facility] Address [address] [facility] [place] [address] Phone Care Team Providers Care Lead Clinical Research Coordinator Name Role Phone Olive Lozano MD Primary Care Provider [phone] Svitlana De La Torre APRN, FISHER TRAMMEL NET Unavailable Swapnil Jhaveri MD Unavailable [phone] Encounter Details Date Type Department Care Team (Latest Contact Info) Description 06/12/2024 Transcribe Orders [facility] [address] [place] [address] Ismael Fong MD [address] [place] [address] Hepatic cirrhosis, unspecified hepatic cirrhosis type (HCC) [...] Sexual Orientation Straight 11/08/2023 4: 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 Not on file Not on file No t on file documented as of this encounter Plan of Treatment Not on file documented as of this encounter Results * (ABNORMAL) CMP (COMPREHENSIVE METABOLIC PANEL) (06/14/2024 11:54 AM CDT) SODIUM 142 136 - 145 mmol/L 06/14/2024 12:39 PM CDT [facility] POTASSIUM 3.8 3.5 - 5.1 mmol/L 06/14/2024 12:39 PM CDT [facility] CHLORIDE 110(H) 98 - 107 mmol/L 06/14/2024 12:39 PM CDT [facility] CO2, VENOUS 23 22 - 30 mmol/L 06/14/2024 12:39 PM CDT [facility] ANION GAP 12.8 <18.0 mmol/L 06/14/2024 12:39 PM CDT [facility] GLUCOSE 119(H) 70 - 99 mg/dL 06/14/2024 12:39 PM CDT [facility] BUN 18 10 - 20 mg/dL 06/14/2024 12:39 PM CDT [facility] CREATININE, BLOOD 0.55(L) 0.60 - 1.00 mg/dL 06/14/2024 12:39 PM CDT [facility] BUN/CREATININE RATIO 33(H) 12 - 20 ratio 06/14/2024 12:39 PM CDT [facility] TOTAL PROTEIN 6.3 6.3 - 8.2 g/dL 06/14/2024 12:39 PM CDT [facility] ALBUMIN 3.4(L) 3.5 - 5.0 g/dL 06/14/2024 12:39 PM CDT [facility] A/G RATIO 1.2 1.0 - 2.2 06/14/2024 12:39 PM CDT [facility] CALCIUM 9.4 8.7 - 10.5 mg/dL 06/14/2024 12:39 PM CDT [facility] T BILI 2.0(H) 0.2 - 1.2 mg/dL 06/14/2024 12:39 PM CDT [facility] SGOT (AST) 25 5 - 34 U/L 06/14/2024 12:39 PM T [facility] SGPT (ALT) 18 0 - 55 U/L 06/14/2024 12:39 PM T [facility] ALKALINE PHOSPHATASE 87 40 - 150 U/L 06/14/2024 12:39 PM CDT [facility] IS THE PATIENT REQUIRED TO BE FASTING? No 06/14/2024 12:39 PM CDT [facility] GFR, ESTIMATED >60 >=60 06/14/2024 12:39 PM CDT [facility] Comment: Creatinine Clearance is the preferred criteria for selecting drug dose adjustments in renally impaired patients. The GFR is provided as additional pertinent clinical information. GFR is reported in mL/min/1.73 sq m. Calculation based on the Chronic Kidney Disease Epidemiology Collaboration (CKD- EPI) equation refit without adjustment for race. GFR, EST. >60 >=60 024 12:39 PM CDT [facility] GFR, EST. NONAFRICAN >60 >=60 06/14/2024 12:39 PM [facility] Blood Venipuncture / Unknown 06/14/2024 11:54 AM CDT 06/14/2024 12:10 PM CDT Ismael Fong MD CHEMISTRY ORDERABLES F inal Result [facility] [address] [place] [address] * (ABNORMAL) PROTIME (PT) (PROTHROMBIN TIME) (06/14/2024 11:54 AM CDT) PROTIME-PATIENT 17.3(H) 11.6 - 14.8 sec 06/14/2024 12:33 PM CDT [facility] INR 1.4(H) 0.9 - 1.2 06/14/2024 12:33 PM CDT [facility] Comment: Therapeutic Ranges INR = 2.0-3.0: Venous thromb, atrial fib, pul embolism, tissue heart valve, ami. INR = 2.5-3.5: Mechanical heart valve Critical value for INR is >/= 4.5 Blood Venipuncture / Unknown 06/14/2024 11:54 AM CDT 06/14/2024 12:15 PM CDT us Ismael Fong MD HEMATOLOGY ORDERABLES Final Result Performing Organization Address [facility] Co de Phone Number [facility] [address] [place] [address] * ALPHA FETOPROTEIN, TUMOR MARKER (06/14/2024 11:54 AM CDT) ALPHA FETOPROTEIN 4.6 0.0 - 8.8 ng/mL 06/14/2024 10:14 PM CDT [facility] Blood Venipuncture / Unknown 06/14/2024 11:54 AM CDT 06/14/2024 12:10 PM CDT us Ismael Fong MD CHEMISTRY ORDERABLES F inal Result [facility] [address] [place] [address], [place] documented in this encounter Visit Diagnoses Diagnosis Hepatic cirrhosis, unspecified hepatic cirrhosis type- Primary Hepatic encephalopathy 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
[2025-07-20 23:02] VITALS: BP 135/51; PULSE 81; RESP 18; TEMP 36.4; O2SAT 99
--- NOTE | 2025-07-20 23:27 | ECG_ITS ---
Test Date: 2025-07-21 00:46:41 Measurements Intervals [place] Rate: 77 P: 53 [place]: 150 QRS: 8 QRSD: 86 T: -13 QT: 388 QTc: 440 Interpretive Statements SINUS RHYTHM NONSPECIFIC T-WAVE ABNORMALITY ABNORMAL ECG Compared to ECG 03/20/2025 13:42:13 No significant changes Electronically Signed On 07-21-2025 08:26:57 CDT by Atilio Montemayor M.D.
[2025-07-21 00:35] LABS: Hematocrit 37.2 % (37.0-47.0); Hemoglobin 11.4 g/dL (12.0-15.0); Immature Platelet Fraction Pct 6.0 % (0.9-11.2); Mean Corpuscular HGB Conc 30.6 g/dl (32-36); Mean Corpuscular Hemoglobin 26.3 pg (26-34); Mean Corpuscular Volume 85.7 fl (80-100); Red Blood Count 4.34 M/mm3 (4.2-5.4); White Blood Count 2.9 K/mm3 (4.5-10.0)
[2025-07-21 00:45] LABS: Alanine Aminotransferase 29 U/L (6-35); Albumin Level 3.7 g/dL (3.5-5.1); Alkaline Phosphatase 109 U/L (38-126); Anion Gap 11 mmol/L (4-12); Aspartate Amino Transferase 42 U/L (14-36); Bilirubin,Total 2.8 mg/dL (0.2-1.3); Blood Urea Nitrogen 18 mg/dL (7-17); Calcium 9.3 mg/dL (8.4-10.2); Carbon Dioxide 22 mmol/L (22-30); Chloride 106 mmol/L (98-107); Estimated CRCL calculation 110 ml/min; Estimated Glomerular Filt Rate > 60; Glucose 204 mg/dL (65-110); Potassium 3.6 mmol/L (3.4-5.0); Sodium 139 mmol/L (137-145); Total Protein 7.1 g/dL (6.3-8.2)
[2025-07-21 01:16] LABS: Platelet Count Result 87 k/mm3 (150-375)
[2025-07-21 01:23] LABS: Anisocytosis 2+; Lymphocytes Absolute Manual 0.58 K/mm3 (1.1-4.5); Lymphocytes Percent Manual 20.0 % (18-44); Monocytes Absolute Manual 0.11 K/mm3 (0.1-0.90); Monocytes Percent Manual 4 % (3-9); Neutrophils Percent Manual 76 % (46-73); Ovalocytes 1+; Schistocytes None Seen; Target Cells Occasional; Total Cells Counted 25
[2025-07-21 01:24] LABS: Hypochromasia 1+
[2025-07-21] MEDS: MECLIZINE HCL 25 MG TABLET PO (02:34)
--- OUTSIDE RECORDS SUMMARY | 2025-07-21 02:39 | XMS_ITS | Clinical Summary ---
Author Organization [facility] Address [address] [place] [address] Care Team Providers Care Heavy Coil Winder Name Role Phone Olive Lozano MD Primary Care Provider [phone] Source Comments [facility],non-owned Affiliates and Associated Physician Practices is amultiple site organization consisting of ambulatory clinics and hospital sitesin [place], [place], [place] and [place]. This disclosure is being madepursuant to the Care Everywhere program and may not contain all information available regarding this patient. Last updated 18.[employer] [facility] Allergies Active Allergy Reactions Criticality Noted Date [...] Type Department Care Team Description 07/04/2025 Refill [facility] - [place] [address] [facility], [place] [phone] Ismael Fong MD Refill Request from Last 3 Months Immunizations Immunization Administration Dates Next Due Covid [employer] primary monovalent 12+ yr 0.3mL Pur ple [...] on file Legal Sex Female 6:39 PM SECURITY REP Gender Identity Not on file Sexual Orientation [...] st Contact Info) Description 10/15/2025 12:30 PM SECURITY RE[address] [facility] [address] [place] [phone] Ismael Fong MD [address] [place] [address] [place] [address] 10/15/2025 1:30 PM SECURITY REP Office Visit [facility] - [facility] [address] [place] [address], [place] [address] Ismael Fong MD [address] [place] [address] Health Maintenance Due Date Last Done Comments [...] C RNA QUANTITATIVE Routine 11/08/2023 10:24 AM SECURITY REP Hepatic cirrhosis, unspecified hepatic cirrhosis type, unspecified [...] entire procedure. Procedure Code(s): --- Professional --- 48558, Esophagogastroduod enoscopy, flexible, transoral; diagnostic, including collection of specimen(s) by brushing or washing, when performed (separate procedure) Diagnosis Code(s): --- Professional --- K76.6, Portal hypertension K31.89, Other diseases of stomach and duodenum K31.819, Angiodysplasia of stomach and duodenum without bleeding K74.60, Unspecified cirrhosis of liver CPT copyright 2021 [employer]. All rights reserved. The codes documented in this report are preliminary and upon billiard table assembler review may be revised to meet current compliance requirements. Ismael Fong, 04/18/2025 3:55:43 PM Note Initiated On: 04/18/2025 2:59 PM Number of Addenda: [address] [address] [facility] [employer] 04/18/2025 2:59 PM CDT us Ismael Fong MD GI PROCEDURE ORDERABLE S Edited Result - Final LON CARLOS * HEPATITIS C RNA QUANTITATIVE (11/08/2023 10:24 AM SECURITY REP) Hepatitis C RNA PCR, Interp Not detected Not detected 11/10/2023 9:18 AM SECURITY REP [facility] Blood BLOOD SPECIMEN / Unknown Lab Venipuncture / Unknown 11/08/2023 10:24 AM SECURITY REP 11/08/2023 10:42 AM SECURITY REP Narrative [facility] - 11/10/2023 9:18 AM SECURITY REP The Hepatitis C viral (HCV) RNA analysis utilized a serum sample, real-time reverse log rafter PCR, and is reported as Not Detected, [...] the isolation of HCV RNA with reverse log rafter of genomic HCV RNA followed by real-time PCR in the presence of an unrelated RNA internal control. The internal control ensures that RNA is isolated, and that no general significant inhibitors of the RT-PCR process are present. The analysis was performed using a U.S. FDA approved test methodology. Ismael Fong MD LAB - CHEMISTRY ORDERA BLES Final Result [facility] [address] [place], [place] [address], [facility] [phone] from Last 3 Months or Most Recently Relevant to Health Maintenance [place] [address] [address] [place] [id number] AETNA MEDICARE ADV Care Teams Heavy Coil Winder Relationship Specialty Start Date End Date Olive Lozano MD [address] [place] [address] PCP - General 07/10/13
--- OUTSIDE RECORDS SUMMARY | 2025-07-21 02:39 | XMS_ITS | Encounter Summary ---
Author Organization [facility] Address [address] [facility] [address] Phone Care Team Providers Care Business Systems Architect Name Role Phone Olive Lozano MD Primary Care Provider [phone] Svitlana De La Torre APRN, EVENT ATTENDANT Unavailable Swapnil Jhaveri MD Unavailable [phone] Reason for Visit * Reason Comments Medication Refill Encounter Details Date Type Department Care Team (Late st Contact Info) Description 08/23/2023 Refill [facility] - [place] [address] [place] [address] Svitlana De La Torre APRN, EVENT ATTENDANT [address] [place] [address] Medication Refill Social History Tobacco Use Types [...] Sexual Orientation Straight 11/08/2023 4: 58 PM REFLEXOLOGIST Occupation Industry Job Start Date Job End [...] encephalopathy documented in this encounter Care Teams Business Systems Architect Relationship Specialty Start Date End Date Olive Lozano MD [address] [place] [address] PCP - General Family Medicine 04/19/19 Svitlana De La Torre APRN, EVENT ATTENDANT [address] [place] [address] Nurse Practitioner Advanced Practice Nurse 06/24/23 Swapnil Jhaveri MD [address] [place] [address] Consulting Physician Gastroenterology 02/10/23 documented as of this encounter
--- OUTSIDE RECORDS SUMMARY | 2025-07-21 02:39 | XMS_ITS | Encounter Summary ---
Author Organization [facility] Address [address] [facility] [place] [address] Phone Care Team Providers Care Machine Puller Name Role Phone Olive Lozano MD Primary Care Provider [phone] Svitlana De La Torre APRN, SODA WORKER Unavailable Swapnil Jhaveri MD Unavailable [phone] Reason for Visit * Reason Comments Medication Refill Encounter Details Date Type Department Care Team (Late st Contact Info) Description 05/06/2022 Refill [facility] - [place] [address] [place] [id number] Estella Epperson Ester, PAC [address] [place] [address] Medication Refill Social History Tobacco Use Types [...] Sexual Orientation Straight 11/08/2023 4: 58 PM DIRECTOR INTERNATIONAL Occupation Industry Job Start Date Job End [...] on filedocumented in this encounter Care Teams Machine Puller Relationship Specialty Start Date End Date Olive Lozano MD [address] [place] [address] PCP - General Family Medicine 04/19/19 Svitlana De La Torre APRN, SODA WORKER [address] [place] [address] Nurse Practitioner Advanced Practice Nurse 06/24/23 Swapnil Jhaveri MD [address] [place] [address] Consulting Physician Gastroenterology 02/10/23 documented as of this encounter
--- OUTSIDE RECORDS SUMMARY | 2025-07-21 02:39 | XMS_ITS | Encounter Summary ---
Author Organization [facility] Address [address] [facility] [place] [address] Phone Care Team Providers Care Risk Compliance Analyst Name Role Phone Olive Lozano MD Primary Care Provider [phone] Svitlana De La Torre APRN, EAR NOSE THROAT SURGEON Unavailable Swapnil Jhaveri MD Unavailable [phone] Encounter Details Date Type Department Care Team (Latest Contact Info) Description 06/12/2024 Transcribe Orders [facility] Services [address] [place] [address] Ismael Fong MD [address] [place] [address] Hepatic cirrhosis, unspecified hepatic cirrhosis type (HCC) [...] Sexual Orientation Straight 11/08/2023 4: 58 PM SUSTAINABILITY 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 file Not on file No t on file documented as of this encounter Plan of Treatment Not on file documented as of this encounter Results * (ABNORMAL) CMP (COMPREHENSIVE METABOLIC PANEL) (06/14/2024 11:54 AM CDT) SODIUM 142 136 - 145 mmol/L 06/14/2024 12:39 PM CDT [facility] POTASSIUM 3.8 3.5 - 5.1 mmol/L 06/14/2024 12:39 PM CDT [facility] CHLORIDE 110(H) 98 - 107 mmol/L 06/14/2024 12:39 PM CDT [facility] CO2, VENOUS 23 22 - 30 mmol/L 06/14/2024 12:39 PM CDT [facility] ANION GAP 12.8 <18.0 mmol/L 06/14/2024 12:39 PM CDT [facility] GLUCOSE 119(H) 70 - 99 mg/dL 06/14/2024 12:39 PM CDT [facility] BUN 18 10 - 20 mg/dL 06/14/2024 12:39 PM CDT [facility] CREATININE, BLOOD 0.55(L) 0.60 - 1.00 mg/dL 06/14/2024 12:39 PM CDT [facility] BUN/CREATININE RATIO 33(H) 12 - 20 ratio 06/14/2024 12:39 PM CDT [facility] TOTAL PROTEIN 6.3 6.3 - 8.2 g/dL 06/14/2024 12:39 PM CDT [facility] ALBUMIN 3.4(L) 3.5 - 5.0 g/dL 06/14/2024 12:39 PM CDT [facility] A/G RATIO 1.2 1.0 - 2.2 06/14/2024 12:39 PM CDT [facility] CALCIUM 9.4 8.7 - 10.5 mg/dL 06/14/2024 12:39 PM CDT [facility] T BILI 2.0(H) 0.2 - 1.2 mg/dL 06/14/2024 12:39 PM CDT [facility] SGOT (AST) 25 5 - 34 U/L 06/14/2024 12:39 PM T [facility] SGPT (ALT) 18 0 - 55 U/L 06/14/2024 12:39 PM T [facility] ALKALINE PHOSPHATASE 87 40 - 150 U/L 06/14/2024 12:39 PM CDT [facility] IS THE PATIENT REQUIRED TO BE FASTING? No 06/14/2024 12:39 PM CDT [facility] GFR, ESTIMATED >60 >=60 06/14/2024 12:39 PM CDT [facility] Comment: Creatinine Clearance is the preferred criteria for selecting drug dose adjustments in renally impaired patients. The GFR is provided as additional pertinent clinical information. GFR is reported in mL/min/1.73 sq m. Calculation based on the Chronic Kidney Disease Epidemiology Collaboration (CKD- EPI) equation refit without adjustment for race. GFR, EST. >60 >=60 024 12:39 PM CDT [facility] GFR, EST. NONAFRICAN >60 >=60 06/14/2024 12:39 PM [facility] Blood Venipuncture / Unknown 06/14/2024 11:54 AM CDT 06/14/2024 12:10 PM CDT Ismael Fong MD CHEMISTRY ORDERABLES F inal Result [facility] [address] [place] [address] * (ABNORMAL) PROTIME (PT) (PROTHROMBIN TIME) (06/14/2024 11:54 AM CDT) PROTIME-PATIENT 17.3(H) 11.6 - 14.8 sec 06/14/2024 12:33 PM CDT [facility] INR 1.4(H) 0.9 - 1.2 06/14/2024 12:33 PM CDT [facility] Comment: Therapeutic Ranges INR = 2.0-3.0: Venous thromb, atrial fib, pul embolism, tissue heart valve, ami. INR = 2.5-3.5: Mechanical heart valve Critical value for INR is >/= 4.5 Blood Venipuncture / Unknown 06/14/2024 11:54 AM CDT 06/14/2024 12:15 PM CDT us Ismael Fong MD HEMATOLOGY ORDERABLES Final Result Performing Organization Address [facility] Co de Phone Number [facility] [address] [place] [address] * ALPHA FETOPROTEIN, TUMOR MARKER (06/14/2024 11:54 AM CDT) ALPHA FETOPROTEIN 4.6 0.0 - 8.8 ng/mL 06/14/2024 10:14 PM CDT [facility] Blood Venipuncture / Unknown 06/14/2024 11:54 AM CDT 06/14/2024 12:10 PM CDT us Ismael Fong MD CHEMISTRY ORDERABLES F inal Result [facility] [address] [place] [address], [place] documented in this encounter Visit Diagnoses Diagnosis Hepatic cirrhosis, unspecified hepatic cirrhosis type- Primary Hepatic encephalopathy 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
--- OUTSIDE RECORDS SUMMARY | 2025-07-21 02:39 | XMS_ITS | Clinical Summary ---
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
--- OUTSIDE RECORDS SUMMARY | 2025-07-21 02:39 | XMS_ITS | Clinical Summary ---
Author Organization [facility] Address [address] [place] [address] Care Team Providers Care Teacher Asst Name Role Phone Olive Lozano MD Primary Care Provider [phone] Allergies Active Allergy Reactions Criticality Noted Date [...] to complete this topic Insurance [employer] MCR [id number] Care Teams Teacher Asst Relationship Specialty Start Date End Date Olive Lozano MD [address] [place] [address] PCP - General Family Medicine 03/23/23
--- OUTSIDE RECORDS SUMMARY | 2025-07-21 02:39 | XMS_ITS | Encounter Summary ---
Author Organization [facility] Address [address] [facility] [place] [address] Phone Care Team Providers Care Associate Engineer Name Role Phone Olive Lozano MD Primary Care Provider [phone] Svitlana De La Torre APRN, CLINICAL APPLICATION CONSULTANT Unavailable Swapnil Jhaveri MD Unavailable [phone] Reason for Visit * Reason Comments Medication Refill Encounter Details Date Type Department Care Team (Late st Contact Info) Description 08/29/2023 Refill [facility] - [place] [address] [place] [address] Svitlana De La Torre APRN, CLINICAL APPLICATION CONSULTANT [address] [place] [address] Medication Refill Social History Tobacco Use Types [...] Sexual Orientation Straight 11/08/2023 4: 58 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
--- OUTSIDE RECORDS SUMMARY | 2025-07-21 02:39 | XMS_ITS | Encounter Summary ---
Author Organization [facility] Address [address] [facility] [place] [address] Phone Care Team Providers Care Plate Glass Polisher Name Role Phone Olive Lozano MD Primary Care Provider [phone] Svitlana De La Torre APRN, METAL FURNITURE PANEL COVERER Unavailable Swapnil Jhaveri MD Unavailable [phone] Reason for Visit * Reason Comments Medication Refill Encounter Details Date Type Department Care Team (Late st Contact Info) Description 06/03/2022 Refill [facility] - [place] [address] [place] [id number] Estella Epperson Ester, PAC [address] [place] [address] Medication Refill Social History Tobacco Use Types [...] Sexual Orientation Straight 11/08/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 Medication refused. * Telephone Encounter - aLurel Krause RN - 06/04/2022 9:57 AM CDT Patient called. Reviewed message below. Patient [facility] that [facility]ha with [facility]. Per Subha, patient has 90 tablets with 3 ref[facility]. Patient can re-enroll as soon as August 31, 2022. Reviewed information with patient. Patient is awareand verbalizes understanding. Per Richard Mascorro does use [facility] pharmacy. * Telephone Encounter - Laurel Krause RN - 06/04/2022 8:59 AM CDT Refill request for xifaxan. Last refill noted to be 12/17/2021 for 60 tabs and 11 refills. Refill request noted to be for [facility] in [place], [place]. Called patient to verify requested pharmacy. Left message for patient to call back. documented in this encounter Plan of Treatment Not on file documented as of this encounter Visit Diagnoses Not on filedocumented in this encounter Care Teams Plate Glass Polisher Relationship Specialty Start Date End Date Olive Lozano MD [address] [place] [address] PCP - General Family Medicine 04/19/19 Svitlana De La Torre APRN, METAL FURNITURE PANEL COVERER [address] [place] [address] Nurse Practitioner Advanced Practice Nurse 06/24/23 Swapnil Jhaveri MD [address] [place] [address] Consulting Physician Gastroenterology 02/10/23 documented as of this encounter
--- OUTSIDE RECORDS SUMMARY | 2025-07-21 02:39 | XMS_ITS | Encounter Summary ---
Author Organization [facility] Address [address] [facility] [place] [address] Phone Care Team Providers Care Hadoop Application Developer Name Role Phone Olive Lozano MD Primary Care Provider [phone] [facility] APRN, DIRECTOR MERIT SYSTEM Unavailable Swapnil Jhaveri MD Unavailable [phone] Encounter Details Date Type Department Care Team (Latest Contact Info) Description 01/22/2025 Transcribe Orders [facility] Laboratory Services 1 [place] [address] Olive Lozano MD [address] [place] [address] Dry mouth (Primary Dx); Type 2 diabetes mellitus without complication, unspecified whether buttermilk drier operator insulin use (HCC); Mixed hyperlipidemia; Other [...] Sexual Orientation Straight 11/08/2023 4: 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 Occupation Industry Job Start Date Job [...] Olive Lozano MD URINE ORDERABLES Final Result [facility] [address] [place] [address] * ERYTHROCYTE SEDIMENTATION RATE (ESR) (01/25/2025 8:43 [...] ORDERABLES Final Resu lt Performing Organization Address City/[facility]/ZIP Co de Phone Number [facility] [address] [place] [address] * VITAMIN B12 (01/25/2025 8:43 AM CDT) VITAMIN B12 421 213 - 816 pg/mL 01/25/2025 9:53 AM CDT [facility] Blood Venipuncture / Unknown 01/25/2025 8:43 AM CDT 01/25/2025 9:02 AM CDT us Olive Lozano MD CHEMISTRY ORDERABLES Final Resul t Performing Organization Address [facility] Co de Phone Number [facility] [address] [place] [address] * AMMONIA (01/25/2025 8:43 AM CDT) AMMONIA 68 18 - 72 umol/L 01/25/2025 9:19 AM CDT [facility] Blood Venipuncture / Unknown 01/25/2025 8:43 AM CDT 01/25/2025 9:01 AM CDT us Olive Lozano MD CHEMISTRY ORDERABLES Final Resul t Performing Organization Address City/[facility] Co de Phone Number [facility] [address] [place] [address] * VITAMIN D, 25 HYDROXY TOTAL (01/25/2025 8:43 AM CDT) VITAMIN D, 25 HYDROX 23.1 ng/mL 01/25/2025 9:53 AM CDT [facility] Blood Venipuncture / Unknown 01/25/2025 8:43 AM CDT 01/25/2025 9:02 AM CDT Narrative [facility] - 01/25/2025 9:53 AM CDT Published reference ranges for Vitamin D vary depending on time and place and method of testing, and on patient's age, sex, ethnicity and levels of other measured analytes such as parathormone, calcium and phosphorus. The result should be evaluated in conjunction with clinical findings and suspicions. [place] of [employer] and Endocrine Clinical Practice Guidelines: Status Vitamin D levels (ng/mL) Deficient <=20 At risk of inadequacy 21-29 Sufficient 30-100 Centers of Disease Control and Prevention Guidelines: Status Vitamin D levels (ng/mL) Deficient <13 At risk of inadequacy 13-19 Sufficient 20-50 Possibly harmful >50 References: [employer] [employer], 2010 Dietary reference intakes for calcium and vitamin D. [place]: The National Academies Press. Adrian M, Todd N, Chuy BURNS, et al., Evaluation, treatment, and prevention of Vitamin D deficiency: an Endocrinology Clinical Practice Guideline. JCEM 2011 96: 7 6470-4750. Chace A, Andrea C, Ronel D, et al., Vitamin D Status: [place], 0857-2502, [facility] data brief, no. 59, MD [place]: National Center for Health Statistics. 2011. us Olive Lozano MD CHEMISTRY ORDERABLES Final Resul t [facility] [address] [place] [address] * (ABNORMAL) COMPLETE BLOOD COUNT (CBC) WITHOUT [...] - 36.0 g/dL 01/25/2025 9:13 AM CDT [facility] PLATELET COUNT 92(L) 140 - 440 10(3)/mcL 01/25/2025 9:13 AM CDT [facility] RDW 19.6(H) 11.8 - 15.5 % 01/25/2025 9:13 AM CDT [facility] MPV 01/25/2025 9:13 AM CDT [facility] Blood Venipuncture / Unknown 01/25/2025 8:43 AM CDT 01/25/2025 9:02 AM CDT us Olive Lozano MD HEMATOLOGY ORDERABLES Final Resu lt [facility] [address] [place] [address] * (ABNORMAL) LIPID PANEL (01/25/2025 8:43 AM CDT) CHOLESTEROL 102 <200 mg/dL 01/25/2025 9:32 AM CDT [facility] TRIGLYCERIDES 62 <150 mg/dL 01/25/2025 9:32 AM CDT [facility] HDL CHOLESTEROL 36(L) >40 mg/dL 9:32 AM CDT [facility] LDL 54 <130 mg/dL 01/25/2025 9:32 AM CDT [facility] VLDL 12 10 - 50 mg/dL 01/25/2025 9:32 AM CDT [facility] CHOL/HDL RATIO 2.8 0.0 - 4.4 01/25/2025 9:32 AM CDT [facility] NON-HDL CHOLESTEROL 66 <130 mg/dL 01/25/2025 9:32 AM CDT [facility] IS THE PATIENT REQUIRED TO BE FASTING? Yes 01/25/2025 9:32 AM CDT [facility] HAS THE PATIENT BEEN FASTING? Yes 01/25/2025 9:32 AM CDT [facility] Blood Venipuncture / Unknown 01/25/2025 8:43 AM CDT 01/25/2025 9:02 AM CDT us Olive Lozano MD CHEMISTRY ORDERABLES Final Resul t [facility] [address] [place] [address] * (ABNORMAL) CMP (COMPREHENSIVE METABOLIC PANEL) (01/25/2025 8:43 AM CDT) SODIUM 141 136 - 145 mmol/L 01/25/2025 9:32 AM CDT [facility] POTASSIUM 4.2 3.5 - 5.1 mmol/L 01/25/2025 9:32 AM CDT [facility] CHLORIDE 112(H) 98 - 107 mmol/L 01/25/2025 9:32 AM CDT [facility] CO2, VENOUS 23 22 - 30 mmol/L 01/25/2025 9:32 AM CDT [facility] ANION GAP 10.2 <18.0 mmol/L 01/25/2025 9:32 AM CDT [facility] GLUCOSE 139(H) 70 - 99 mg/dL 01/25/2025 9:32 AM [facility] BUN 11 10 - 20 mg/dL 01/25/2025 9:32 AM [facility] CREATININE, BLOOD 0.55(L) 0.60 - 1.00 mg/dL 01/25/2025 9:32 AM [facility] BUN/CREATININE RATIO 20 12 - 20 ratio 01/25/2025 9:32 AM [facility] TOTAL PROTEIN 6.5 6.0 - 8.0 g/dL 01/25/2025 9:32 AM [facility] ALBUMIN 3.3(L) 3.5 - 5.0 g/dL 01/25/2025 9:32 AM [facility] A/G RATIO 1.0 1.0 - 2.2 01/25/2025 9:32 AM [facility] CALCIUM 9.1 8.7 - 10.5 mg/dL 01/25/2025 9:32 AM [facility] T BILI 2.0(H) 0.2 - 1.2 mg/dL 01/25/2025 9:32 AM [facility] SGOT (AST) 31 <43 U/L 01/25/2025 9:32 AM [facility] SGPT (ALT) 18 <56 U/L 01/25/2025 9:32 AM [facility] ALKALINE PHOSPHATASE 112 40 - 150 U/L 01/25/2025 9:32 AM [facility] IS THE PATIENT REQUIRED TO BE FASTING? No 01/25/2025 9:32 AM [facility] GFR, ESTIMATED >60 >=60 01/25/2025 9:32 AM [facility] Comment: Creatinine Clearance is the preferred [...] ORDERABLES Final Resul t Performing Organization Address City/[facility]/ZIP Co de Phone Number [facility] [address] [place] [address] * (ABNORMAL) HEMOGLOBIN A1C W/ ESTIMATED GLUCOSE [...] ORDERABLES Final Resul t Performing Organization Address City/[facility]/ZIP Co de Phone Number [facility] [address] [place] [address] documented in this encounter Visit Diagnoses Diagnosis Dry mouth- Primary Disturbance of salivary secretion Type 2 diabetes mellitus without complication, unspecified whether buttermilk drier operator insulin use Mixed hyperlipidemia Other fatigue Vitamin D deficiency Unspecified vitamin D deficiency Liver failure without hepatic coma, unspecified chronicity documented in this encounter Care Teams Hadoop Application Developer Relationship Specialty Start Date End Date Olive Lozano MD [address] [place] [address] PCP - General Family Medicine 04/19/19 Svitlana De La Torre APRN, DIRECTOR MERIT SYSTEM [address] [place] [address] Nurse Practitioner Advanced Practice Nurse 06/24/23 Swapnil Jhaveri MD [address] [place] [address] Consulting Physician Gastroenterology 02/10/23 documented as of this encounter
--- OUTSIDE RECORDS SUMMARY | 2025-07-21 02:39 | XMS_ITS | Encounter Summary ---
Author Organization [facility] Address [address] [facility] 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 Industry Job Start Date Job End [...] 145 mmol/L 03/19/2025 10:21 AM CDT [facility] POTASSIUM 4.4 3.5 - 5.1 mmol/L 03/19/2025 10:21 AM CDT [facility] CHLORIDE 108(H) 98 - 107 mmol/L 03/19/2025 10:21 AM CDT [facility] CO2, VENOUS 23 22 - 30 mmol/L 03/19/2025 10:21 AM CDT [facility] ANION GAP 12.4 <18.0 mmol/L 03/19/2025 10:21 AM CDT [facility] GLUCOSE 147(H) 70 - 99 mg/dL 03/19/2025 10:21 AM CDT [facility] BUN 12 10 - 20 mg/dL 03/19/2025 10:21 AM [facility] CREATININE, BLOOD 0.51(L) 0.60 - 1.00 mg/dL 03/19/2025 10:21 AM [facility] BUN/CREATININE RATIO 24(H) 12 - 20 ratio 03/19/2025 10:21 AM [facility] TOTAL PROTEIN 6.4 6.0 - 8.0 g/dL 03/19/2025 10:21 AM [facility] ALBUMIN 3.4(L) 3.5 - 5.0 g/dL 03/19/2025 10:21 AM [facility] A/G RATIO 1.1 1.0 - 2.2 03/19/2025 10:21 AM [facility] CALCIUM 8.9 8.7 - 10.5 mg/dL 03/19/2025 10:21 AM [facility] T BILI 2.2(H) 0.2 - 1.2 mg/dL 03/19/2025 10:21 AM [facility] SGOT (AST) 25 <43 U/L 03/19/2025 10:21 AM [facility] SGPT (ALT) 14 <56 U/L 03/19/2025 10:21 AM [facility] ALKALINE PHOSPHATASE 140 40 - 150 U/L 03/19/2025 10:21 AM [facility] IS THE PATIENT REQUIRED TO BE FASTING? No 03/19/2025 10:21 AM [facility] GFR, ESTIMATED >60 >=60 03/19/2025 10:21 AM [facility] Comment: Creatinine Clearance is the preferred criteria for selecting drug dose adjustments in renally impaired patients. The GFR is provided as additional pertinent clinical information. GFR is reported in mL/min/1.73 sq m. Calculation based on the Chronic Kidney Disease Epidemiology Collaboration (CKD- EPI) equation refit without adjustment for race. GFR, EST. >60 >=60 025 10:21 AM [facility] GFR, EST. NONAFRICAN >60 >=60 03/19/2025 10:21 AM CDT [facility] Blood Venipuncture / Unknown 03/19/2025 9:09 AM CDT 03/19/2025 10:08 AM CDT us Ismael Fong MD CHEMISTRY ORDERABLES F inal Result Performing Organization Address City/[facility]/ZIP Co de Phone Number [facility] [address] [place] [address] * ALPHA FETOPROTEIN, TUMOR MARKER (03/19/2025 9:09 AM CDT) ALPHA FETOPROTEIN 3.8 0.0 - 8.8 ng/mL 03/19/2025 2:38 PM CDT [facility] Blood Venipuncture / Unknown 03/19/2025 9:09 AM CDT 03/19/2025 9:39 AM CDT us Ismael Fong MD CHEMISTRY ORDERABLES F inal Result Performing Organization Address City/[facility] Co de Phone Number [facility] [address] [place] [address], documented in this encounter Visit Diagnoses Diagnosis 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) Hepatic cirrhosis, unspecified hepatic cirrhosis type, unspecified whether ascites present Hepatic encephalopathy 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
--- OUTSIDE RECORDS SUMMARY | 2025-07-21 02:39 | XMS_ITS | Encounter Summary ---
Author Organization [facility] Address [address] [place] [address] Phone Care Team Providers Care Senior Design Engineering Specialist Name Role Phone Olive Lozano MD Primary Care Provider [phone] Svitlana De La Torre APRN, SECURITY MANAGER Unavailable Swapnil Jhaveri MD Unavailable [phone] Reason for Visit * Reason Comments Medication Refill Encounter Details Date Type Department Care Team (Late st Contact Info) Description 11/10/2021 Refill [facility] - Gastroenterology - [place] [address] [place] [id number] Estella Epperson Ester, PAC [address] [place] [address] Medication Refill Social History Tobacco Use Types [...] Sexual Orientation Straight 11/08/2023 4: 58 PM 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 No / Unsure 11/11/2021 7:58 AM TAPING MACHINE OPERATOR documented as of this encounter Miscellaneous Notes * Telephone Encounter - Laurel Krause RN - 11/11/2021 9:46 AM TAPING MACHINE OPERATOR Medication refilled and signed per [facility] chronic medication standing order for pediatric and adult patients. NG MACHINE OPERATOR documented in this encounter Plan of Treatment Not on file documented as of this encounter Visit Diagnoses Diagnosis Hepatic encephalopathy documented in this encounter Care Teams Senior Design Engineering Specialist Relationship Specialty Start Date End Date Olive Lozano MD [address] [place] [address] PCP - General Family Medicine 04/19/19 Svitlana De La Torre APRN, SECURITY MANAGER [address] [place] [address] Nurse Practitioner Advanced Practice Nurse 06/24/23 Swapnil Jhaveri MD [address] [place] [address] Consulting Physician Gastroenterology 02/10/23 documented as of this encounter
[2025-07-21] MEDS: diazePAM INJ (*CRX) 10 MG/2 ML SYRINGE 3 MG IM (03:24)
--- NOTE | 2025-07-21 04:51 | ED_ITS ---
HPI - Dizziness General Chief Complaint: Dizziness Stated Complaint: vertigo, dizziness with position change Time Seen by Provider: 07/21/25 02:21 History of Present Illness HPI Narrative: He for last few days patient has had vague vertigo, but today her vertigo got much worse, to the point where she can not move her head. When she is lying completely still she feels fine and has no symptoms. She gets very nauseous and threw up however she thinks it may be because she actually drank vinegar. Related Data Home Medications ?Medication ?Instructions ?Recorded ?Confirmed ?Last Taken ?Type aspirin 81 mg tablet,delayed 81 mg PO DAILY 04/26/22 0 06/11/25 10/05/23 08:00 History release (Adult Aspirin Regimen) Held on 10/08/23. Instructions: discuss resumption with PCP rifaximin 550 mg tablet (Xifaxan) 550 mg PO BID 06/11/25 10/05/23 08:00 History Allergies Allergy/AdvReac Type Severity Reaction Status Date / Time hydrocodone (From Vicodin) Allergy Severe Redness of Verified 07/20/25 23:06 Skin Review of Systems 2 Review of Systems: All systems reviewed & are unremarkable except as noted in HPI and below PMFSH Past Medical History Medical History GAVE (gastric antral vascular ectasia) Pancytopenia Type 2 diabetes mellitus Hypertension Mitral regurgitation Noted on echocardiogram in April 2022. Hepatitis C Anemia Anxiety Surgical History Surgical History History of colonoscopy History of bilateral cataract extraction History of tonsillectomy History of cholecystectomy History of tubal ligation Family History Family History Grandparent Acute myocardial infarction Hypertension Diabetes mellitus Family history of coronary artery disease Cerebrovascular accident Mother Diabetes mellitus Social History Social History Social History: Surrogate medical decision maker: Maite Berg, daughter. Code status: Full code. Smoking packs per day: 1 Smoking cigarettes per day: 20.0 Years smoked: 10 Smoking pack-years: 10.00 Smoking status: Never smoker Second hand tobacco smoke exposure: No Alcohol intake: never Substance use: never Substance use type: does not use Do You Feel Safe in your Home?: Yes Lack of Transportation: No Lack of Food: Never True Current Housing: I Have Housing Concerned About Future Housing: No Difficulty Paying Gas/Electric Bills: No Difficulty Paying for Meds: No Currently Unemployed: No Education: Trade/Vocational Certificate Difficulty w/ Childcare or Family Care: No Living arrangements: alone Additional living arrangements comments: Lives alone. She has 2 children. Occupation/Education: occupation Additional occupation/education comments: Works part-time at [employer]. Spiritual care concerns: No Agree to blood products: Yes Exam 2 Narrative: EXAMINATION OF ORGAN SYSTEMS/BODY AREAS: Constitutional: Vital signs per nursing GENERAL: Appears uncomfortable, holding head very still HEAD: Normal with no signs of head trauma. EYES: Nystagmus ENT: Normal TMs bilaterally LUNGS: Nonlabored breathing. HEART: [Regular rate and rhythm] ABD: [Soft], [nontender to palpation] EXT: Normal range of motion SKIN: [No rashes or lesions.] NEURO: [Alert and oriented x 3. No gross focal sensory or strength deficits.] PSYCH: Normal affect Course Vital Signs Vital signs: Vital Signs Temperature 97.6 F 07/20/25 23:02 Pulse Rate 81 07/20/25 23:02 Respiratory Rate 18 07/20/25 23:02 Blood Pressure 135/51 L 07/20/25 23:02 Pulse Oximetry 99 07/20/25 23:02 Oxygen Delivery Room Air 07/20/25 23:02 Temperature 97.6 F 07/20/25 23:02 Pulse Rate 81 07/20/25 23:02 Respiratory Rate 18 07/20/25 23:02 Blood Pressure 135/51 L 07/20/25 23:02 Pulse Oximetry 99 07/20/25 23:02 Oxygen Delivery Room Air 07/20/25 23:02 MDM - Dizziness MDM Narrative Medical decision making narrative: Patient presents with vertigo, only present with head movements, on exam she is quite uncomfortable appearing holding her head very still, she does have nystagmus. I did consider stroke or central cause however this seems much less likely since her symptoms are entirely positional. After meclizine and Zofran she still has some vertigo, given a dose of Valium and on re-evaluation her vertigo has completely resolved. . She feels great and she wants to go home. Prescriptions provided and follow-up to urologist provided. Return precautions discussed, family member at bedside Lab Data 07/21/25 00:12 07/21/25 00:12 Labs: Lab Results 07/21/25 Range/Units 00:12 WBC 2.9 L (4.5-10.0) K/mm3 RBC 4.34 (4.2-5.4) M/mm3 Hgb 11.4 L D (12.0-15.0) g/dL Hct 37.2 (37.0-47.0) % MCV 85.7 (80-100) fl MCH 26.3 (26-34) pg MCHC 30.6 L (32-36) g/dl RDW 17.6 H (11.5-14.5) % Plt Count 87 L (150-375) k/mm3 MPV 11.5 H (7.4-10.4) fl Immature Gran % (Auto) Not Reportable Neut % (Auto) Not Reportable Lymph % (Auto) Not Reportable [place] % (Auto) Not Reportable Eos % (Auto) Not Reportable Baso % (Auto) Not Reportable Lymph # (Auto) Not Reportable [place] # (Auto) Not Reportable Eos # (Auto) Not Reportable Baso # (Auto) Not Reportable Abs Immat Gran (auto) Not Reportable Absolute Neuts (auto) Not Reportable Absolute Nucleated RBC Not Reportable Total Counted 25 Neutrophils % (Manual) 76 H (46-73) % Band Neutrophils % Not Reportable Lymphocytes % (Manual) 20.0 (18-44) % Monocytes % (Manual) 4 (3-9) % Nucleated RBC % Not Reportable Abs Lymphs (Manual) 0.58 L (1.1-4.5) K/mm3 Abs Monocytes (Manual) 0.11 (0.1-0.90) K/mm3 Atypical Lymphocytes Present Platelet Estimate Decreased (Adequate) Large Platelets Present % Immature Plt Fraction 6.0 (0.9-11.2) % Hypochromasia 1+ Anisocytosis 2+ Target Cells Occasional Ovalocytes 1+ Schistocytes None seen Sodium 139 (137-145) mmol/L Potassium 3.6 (3.4-5.0) mmol/L Chloride 106 (98-107) mmol/L Carbon Dioxide 22 (22-30) mmol/L Anion Gap 11 (4-12) mmol/L BUN 18 H (7-17) mg/dL Creatinine 0.39 L (0.7-1.0) mg/dL Estim Creat Clear Calc 110 ml/min Estimated GFR > 60 (59 - ) Glucose 204 H (65-110) mg/dL Calcium 9.3 (8.4-10.2) mg/dL Total Bilirubin 2.8 H (0.2-1.3) mg/dL AST 42 H (14-36) U/L ALT 29 (6-35) U/L Alkaline Phosphatase 109 (38-126) U/L Total Protein 7.1 (6.3-8.2) g/dL Albumin 3.7 (3.5-5.1) g/dL Discharge Plan Discharge Clinical Impression: Vertigo Patient Disposition: Home Condition: Stable Instructions: Benign Paroxysmal Positional Vertigo (ED) Additional Instructions: Please follow up with your doctor; you can always return for any further issues, especially for symptoms return, if you start having new numbness or weakness or trouble speaking walking or anything else concerning. Patient Language: Guamanian Prescriptions: New meclizine 25 mg tablet 25 mg PO TID PRN (Reason: dizziness) Qty: 20 0RF diazepam [Valium] 2 mg tablet 2 mg PO BID PRN (Reason: dizziness or vertigo) Qty: 10 0RF No Action aspirin [Adult Aspirin Regimen] 81 mg tablet,delayed release (DR/EC) 81 mg PO DAILY (DME) blood-glucose meter [Blood Glucose Monitoring] Kit See Rx Instructions .Route Qty: 1 0RF Rx Instructions: As directed daily (DME) Blood Glucose Test Strip See Rx Instructions .Route Qty: 50 12RF Rx Instructions: As directed daily (DME) lancing device [lancing device with lancets] Misc See Rx Instructions .Route Qty: 1 0RF Rx Instructions: As directed daily (DME) lancets 32 gauge misc See Rx Instructions .Route Qty: 100 12RF Rx Instructions: As directed daily ferrous sulfate 325 mg (65 mg iron) tablet 325 mg PO DAILY Qty: 100 0RF Xifaxan 550 mg Tablet 550 mg PO BID lactulose 20 gram/30 mL Solution 20 g PO QID Qty: 180 2RF spironolactone 25 mg tablet 25 mg PO DAILY Qty: 30 4RF magnesium oxide 400 mg magnesium tablet 800 mg PO TID 30 Days Qty: 180 3RF trazodone 50 mg tablet 25 mg PO QHS PRN (Reason: insomnia) Qty: 30 3RF metformin 1,000 mg tablet 1,000 mg PO BID Qty: 180 3RF pantoprazole 40 mg tablet,delayed release (DR/EC) 40 mg PO DAILY Qty: 90 3RF Follow-up/Referrals: Olive Lozano MD [Primary Care Provider, Family Practice] - 2 Days Rick Sorensen MD [Physician, Neurology] - 2 Days
== END 2025-07-21 05:00 | disposition home or self-care (01) ==
PROVIDERS: Emergency Provider Emergency Medicine; PCP Family Medicine
DX: R42 Dizziness and giddiness (principal); E11.9 Type 2 diabetes mellitus without complications; I10 Essential (primary) hypertension; D64.9 Anemia, unspecified; F41.9 Anxiety disorder, unspecified; F17.210 Nicotine dependence, cigarettes, uncomplicated; Z98.42 Cataract extraction status, left eye; Z98.41 Cataract extraction status, right eye; Z86.19 Personal history of other infectious and parasitic diseases; Z90.49 Acquired absence of other specified parts of digestive tract; R94.31 Abnormal electrocardiogram [ECG] [EKG]; Z79.82 Long term (current) use of aspirin; Z79.84 Long term (current) use of oral hypoglycemic drugs
CPT/HCPCS: 36415; 71045; 80053; 85025; 85055; 93005; 96372; 99284; A9270; J3360

== ENCOUNTER 2025-07-29 14:37 | Outpatient (CLI) | payer MEDICARE, SELFPAY ==
--- NOTE | ~2025-07-29 | XR_ITS ---
EXAMINATION: [id number], 07/29/2025 14:50 CDT HISTORY: M25.562 - Pain in left knee COMPARISON: No comparisons available. Findings: No acute fracture or malalignment. Moderate tricompartmental degenerative changes Soft tissues unremarkable. Impression: No acute fracture or malalignment. Reviewed, dictated and finalized at location P. Impression: No acute fracture or malalignment.
--- OUTSIDE RECORDS SUMMARY | 2025-07-29 15:28 | XMS_ITS | Encounter Summary ---
Author Organization [facility] Address [address] [place] [address] Phone Care Team Providers Care Oil And Gas Lease Pumper Name Role Phone Olive Lozano MD Primary Care Provider [phone] Svitlana De La Torre APRN, TESTING TECH Unavailable Swapnil Jhaveri MD Unavailable [phone] Reason for Visit * Reason Comments Medication Refill Encounter Details Date Type Department Care Team (Late st Contact Info) Description 05/06/2022 Refill [facility] - Gastroenterology - [place] [address] [place] [id number] Estella Epperson Ester, PAC [address] [place] [address] Medication Refill Social History Tobacco Use Types [...] Sexual Orientation Straight 11/08/2023 4: 58 PM IUSS 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
--- OUTSIDE RECORDS SUMMARY | 2025-07-29 15:28 | XMS_ITS | Encounter Summary ---
Author Organization [facility] Address [address] [place] [address] Phone Care Team Providers Care Cardiovascular Invasive Specialist Name Role Phone Olive Lozano MD Primary Care Provider [phone] Svitlana De La Torre APRN, TRACE EVIDENCE TECHNICIAN Unavailable Swapnil Jhaveri MD Unavailable [phone] Reason for Visit * Reason Comments Medication Refill Encounter Details Date Type Department Care Team (Late st Contact Info) Description 08/23/2023 Refill [facility] - Gastroenterology - [place] [address] [place] [address] Svitlana De La Torre APRN, TRACE EVIDENCE TECHNICIAN [address] [place] [address] Medication Refill Social History Tobacco Use Types [...] Sexual Orientation Straight 11/08/2023 4: 58 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
--- OUTSIDE RECORDS SUMMARY | 2025-07-29 15:28 | XMS_ITS | Encounter Summary ---
Author Organization [facility] Address [address] [place] [address] Phone Care Team Providers Care Enterprise Integration Developer Name Role Phone Olive Lozano MD Primary Care Provider [phone] Svitlana De La Torre APRN, SECURITY AND COMPLIANCE ANALYST Unavailable Swapnil Jhaveri MD Unavailable [phone] Reason for Visit * Reason Comments Medication Refill Encounter Details Date Type Department Care Team (Late st Contact Info) Description 11/10/2021 Refill [facility] - Gastroenterology - [place] [address] [place] [phone] Estella Epperson Ester, PAC [address] [place] [address] Medication Refill Social History Tobacco Use Types [...] Sexual Orientation Straight 11/08/2023 4: 58 PM BRYOLOGIST 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 No / Unsure 11/11/2021 7:58 AM BRYOLOGIST documented as of this encounter Miscellaneous Notes * Telephone Encounter - Laurel Krause RN - 11/11/2021 9:46 AM BRYOLOGIST Medication refilled and signed per [facility] chronic medication standing order for pediatric and adult patients. LOGIST documented in this encounter Plan of Treatment Not on file documented as of this encounter Visit Diagnoses Diagnosis Hepatic encephalopathy documented in this encounter Care Teams Enterprise Integration Developer Relationship Specialty Start Date End Date Olive Lozano MD [address] [place] [address] PCP - General Family Medicine 04/19/19 Svitlana De La Torre APRN, SECURITY AND COMPLIANCE ANALYST [address] [place] [address] Nurse Practitioner Advanced Practice Nurse 06/24/23 Swapnil Jhaveri MD [address] [place] [address] Consulting Physician Gastroenterology 02/10/23 documented as of this encounter
--- OUTSIDE RECORDS SUMMARY | 2025-07-29 15:28 | XMS_ITS | Encounter Summary ---
Author Organization [facility] Address [address] [place] [address] Phone Care Team Providers Care Printing Supervisor Name Role Phone Olive Lozano MD Primary Care Provider [phone] [facility] chance APRN, WEIGHT REDUCTION SPECIALIST Unavailable Swapnil Jhaveri MD Unavailable [phone] Encounter Details Date Type Department Care Team (Latest Contact Info) Description 01/22/2025 Transcribe Orders [facility] Laboratory Services [address] [place] [address] Olive Lozano MD [address] [place] [address] Dry mouth (Primary Dx); Type 2 diabetes mellitus without complication, unspecified whether exterminator helper insulin use (HCC); Mixed hyperlipidemia; Other fatigue; [...] Sexual Orientation Straight 11/08/2023 4: 58 PM 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 Consider Clinical Correlation. CREATININE URINE 123.5 mg/dL 01/26/20 9:33 AM CDT [facility] Comment:No reference range h as been established. Consider Clinical Correlation. ALB/CREAT RATIO 14 0 - 30 mg/g CRE 01/25/2025 9:33 AM CDT [facility] Urine Non-Phlebotomy Collection / Unknown 01/25/2025 8:43 AM CDT 01/25/2025 9:01 AM CDT us Olive Lozano MD URINE ORDERABLES Final Result [facility] [address] [place] [address] * ERYTHROCYTE SEDIMENTATION RATE (ESR) (01/25/2025 8:43 AM CDT) Pathologist [facility] ESR (SED RATE, ERYTHROCYTE SEDIMENTATION RATE) 1 <30 mm/h 01/25/2025 9:10 AM CDT [facility] Comment: Patients presenting with increased level of fibrinogen, gamma globulins, or abnormally shaped RBCs could affect the results for the erythrocyte sedimentation rate (ESR). Results should be clinically correlated. Blood Venipuncture / Unknown 01/25/2025 8:43 AM CDT 01/25/2025 9:02 AM CDT us Olive Lozano MD HEMATOLOGY ORDERABLES Final Resu lt Performing Organization Address City/[facility]/ZIP Co de Phone Number [facility] [address] [place] [address] * VITAMIN B12 (01/25/2025 8:43 AM CDT) VITAMIN B12 421 213 - 816 pg/mL 01/25/2025 9:53 AM CDT [facility] Blood Venipuncture / Unknown 01/25/2025 8:43 AM CDT 01/25/2025 9:02 AM CDT us Olive Lozano MD CHEMISTRY ORDERABLES Final Resul t Performing Organization Address [facility] Co de Phone Number [facility] [address] [place] [address] * AMMONIA (01/25/2025 8:43 AM CDT) AMMONIA 68 18 - 72 umol/L 01/25/2025 9:19 AM CDT [facility] Blood Venipuncture / Unknown 01/25/2025 8:43 AM CDT 01/25/2025 9:01 AM CDT us Olive Lozano MD CHEMISTRY ORDERABLES Final Resul t Performing Organization Address City/[facility] Co de Phone Number [facility] [address] [place] [address] * VITAMIN D, 25 HYDROXY TOTAL (01/25/2025 8:43 AM CDT) VITAMIN D, 25 HYDROX 23.1 ng/mL 01/25/2025 9:53 AM CDT [facility] Blood Venipuncture / Unknown 01/25/2025 8:43 AM CDT 01/25/2025 9:02 AM CDT Narrative [facility] - 01/25/2025 9:53 AM CDT Published reference ranges for Vitamin D vary depending on time and place and method of testing, and on patient's age, sex, ethnicity and levels of other measured analytes such as parathormone, calcium and phosphorus. The result should be evaluated in conjunction with clinical findings and suspicions. [place] [employer] and Endocrine Clinical Practice Guidelines: Status Vitamin D levels (ng/mL) Deficient <=20 At risk of inadequacy 21-29 Sufficient 30-100 Centers of Disease Control and Prevention Guidelines: Status Vitamin D levels (ng/mL) Deficient <13 At risk of inadequacy 13-19 Sufficient 20-50 Possibly harmful >50 References: [place] [employer], 2010 Dietary reference intakes for calcium and vitamin D. [place]: The National Academies Press. Adrian M, Todd N, Chuy BURNS, et al., Evaluation, treatment, and prevention of Vitamin D deficiency: an Endocrinology Clinical Practice Guideline. JCEM 2011 96: 7 8253-1916. Chace A, Andrea C, Ronel D, et al., Vitamin D Status: [place], 2015-1982, [facility] data brief, no. 59, MD [place]: National Center for Health Statistics. 2011. us Olive Lozano MD CHEMISTRY ORDERABLES Final Resul t [facility] [address] [place] [address] * (ABNORMAL) COMPLETE BLOOD COUNT (CBC) WITHOUT DIFF (01/25/2025 8:43 AM CDT) WBC 2.20(L) 4.00 - 12.00 10(3)/mcL 01/25/2025 9:13 AM CDT [facility] RBC 3.72(L) 3.80 - 5.30 10(6)/mcL 01/25/2025 9:13 AM CDT [facility] HEMOGLOBIN (HGB) 7.2(L) 12.0 - 15.8 g/dL 01/25/2025 9:13 AM CDT [facility] HEMATOCRIT (HCT) 27.6(L) 36.0 - 47.0 % 01/25/2025 9:13 AM CDT [facility] MCV 74.2(L) 82.0 - 96.0 fL 01/25/2025 9:13 AM CDT [facility] MCH 19.4(L) 26.0 - 34.0 pg 01/25/2025 9:13 AM CDT [facility] MCHC 26.1(L) 31.0 - 36.0 g/dL 01/25/2025 9:13 AM CDT [facility] PLATELET COUNT 92(L) 140 - 440 10(3)/mcL 01/25/2025 9:13 AM CDT [facility] RDW 19.6(H) 11.8 - 15.5 % 01/25/2025 9:13 AM CDT [facility] MPV 01/25/2025 9:13 AM CDT [facility] Blood Venipuncture / Unknown 01/25/2025 8:43 AM CDT 01/25/2025 9:02 AM CDT us Olive Lozano MD HEMATOLOGY ORDERABLES Final Resu lt [facility] [address] [place] [address] * (ABNORMAL) LIPID PANEL (01/25/2025 8:43 AM CDT) CHOLESTEROL 102 <200 mg/dL 01/25/2025 9:32 AM CDT [facility] TRIGLYCERIDES 62 <150 mg/dL 01/25/2025 9:32 AM CDT [facility] HDL CHOLESTEROL 36(L) >40 mg/dL 9:32 AM CDT [facility] LDL 54 <130 mg/dL 01/25/2025 9:32 AM CDT [facility] VLDL 12 10 - 50 mg/dL 01/25/2025 9:32 AM CDT [facility] CHOL/HDL RATIO 2.8 0.0 - 4.4 01/25/2025 9:32 AM CDT [facility] NON-HDL CHOLESTEROL 66 <130 mg/dL 01/25/2025 9:32 AM CDT [facility] IS THE PATIENT REQUIRED TO BE FASTING? Yes 01/25/2025 9:32 AM CDT [facility] HAS THE PATIENT BEEN FASTING? Yes 01/25/2025 9:32 AM CDT [facility] Blood Venipuncture / Unknown 01/25/2025 8:43 AM CDT 01/25/2025 9:02 AM CDT us Olive Lozano MD CHEMISTRY ORDERABLES Final Resul t [facility] [address] [place] [address] * (ABNORMAL) CMP (COMPREHENSIVE METABOLIC PANEL) (01/25/2025 8:43 AM CDT) SODIUM 141 136 - 145 mmol/L 01/25/2025 9:32 AM CDT [facility] POTASSIUM 4.2 3.5 - 5.1 mmol/L 01/25/2025 9:32 AM CDT [facility] CHLORIDE 112(H) 98 - 107 mmol/L 01/25/2025 9:32 AM CDT [facility] CO2, VENOUS 23 22 - 30 mmol/L 01/25/2025 9:32 AM CDT [facility] ANION GAP 10.2 <18.0 mmol/L 01/25/2025 9:32 AM CDT [facility] GLUCOSE 139(H) 70 - 99 mg/dL 01/25/2025 9:32 AM [facility] BUN 11 10 - 20 mg/dL 01/25/2025 9:32 AM [facility] CREATININE, BLOOD 0.55(L) 0.60 - 1.00 mg/dL 01/25/2025 9:32 AM [facility] BUN/CREATININE RATIO 20 12 - 20 ratio 01/25/2025 9:32 AM [facility] TOTAL PROTEIN 6.5 6.0 - 8.0 g/dL 01/25/2025 9:32 AM [facility] ALBUMIN 3.3(L) 3.5 - 5.0 g/dL 01/25/2025 9:32 AM [facility] A/G RATIO 1.0 1.0 - 2.2 01/25/2025 9:32 AM [facility] CALCIUM 9.1 8.7 - 10.5 mg/dL 01/25/2025 9:32 AM [facility] T BILI 2.0(H) 0.2 - 1.2 mg/dL 01/25/2025 9:32 AM [facility] SGOT (AST) 31 <43 U/L 01/25/2025 9:32 AM [facility] SGPT (ALT) 18 <56 U/L 01/25/2025 9:32 AM [facility] ALKALINE PHOSPHATASE 112 40 - 150 U/L 01/25/2025 9:32 AM [facility] IS THE PATIENT REQUIRED TO BE FASTING? No 01/25/2025 9:32 AM [facility] GFR, ESTIMATED >60 >=60 01/25/2025 9:32 AM [facility] Comment: Creatinine Clearance is the preferred criteria for selecting drug dose adjustments in renally impaired patients. The GFR is provided as additional pertinent clinical information. GFR is reported in mL/min/1.73 sq m. Calculation based on the Chronic Kidney Disease Epidemiology Collaboration (CKD- EPI) equation refit without adjustment for race. GFR, EST. >60 >=60 025 9:32 AM CDT [facility] GFR, EST. NONAFRICAN >60 >=60 01/25/2025 9:32 AM CDT [facility] Blood Venipuncture / Unknown 01/25/2025 8:43 AM CDT 01/25/2025 9:02 AM CDT Olive Lozano MD CHEMISTRY ORDERABLES Final Resul t Performing Organization Address City/[facility]/ZIP Co de Phone Number [facility] [address] [place] [address] * (ABNORMAL) HEMOGLOBIN A1C W/ ESTIMATED GLUCOSE (01/25/2025 8:43 AM CDT) HGB-A1C 6.6(H) 4.0 - 6.0 % 01/25/2025 9:25 AM CDT [facility] Est Average Glucose 142.7 mg/dL 01/25/2025 9:25 AM CDT [facility] Blood Venipuncture / Unknown 01/25/2025 8:43 AM CDT 01/25/2025 9:02 AM CDT Narrative [facility] - 01/25/2025 9:25 AM CDT HEMOGLOBIN A1C: DIABETIC PATIENTS: WELL-CONTROLLED: 6.2 - 7.0 INTERMEDIATE WELL-CONTROLLED: 7.0 - 9.0 POORLY-CONTROLLED: >9.0 Specimens containing greater than 5% of Hemoglobin F may result in lower than expected % HbA1C results. Olive Lozano MD CHEMISTRY ORDERABLES Final Resul t Performing Organization Address City/[facility]/ZIP Co de Phone Number [facility] [address] [place] [address] documented in this encounter Visit Diagnoses Diagnosis Dry mouth- Primary Disturbance of salivary secretion Type 2 diabetes mellitus without complication, unspecified whether exterminator helper insulin use Mixed hyperlipidemia Other fatigue Vitamin D deficiency Unspecified vitamin D deficiency Liver failure without hepatic coma, unspecified chronicity documented in this encounter Care Teams Printing Supervisor Relationship Specialty Start Date End Date Olive Lozano MD [address] [place] [address] PCP - General Family Medicine 04/19/19 Svitlana De La Torre APRN, WEIGHT REDUCTION SPECIALIST [address] [place] [address] Nurse Practitioner Advanced Practice Nurse 06/24/23 Swapnil Jhaveri MD [address] [place] [address] Consulting Physician Gastroenterology 02/10/23 documented as of this encounter
--- OUTSIDE RECORDS SUMMARY | 2025-07-29 15:28 | XMS_ITS | Encounter Summary ---
Author Organization [facility] Address [address] 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 Industry Job Start Date Job [...] - 145 mmol/L 03/19/2025 10:21 AM CDT [facility] POTASSIUM 4.4 3.5 - 5.1 mmol/L 03/19/2025 10:21 AM CDT [facility] CHLORIDE 108(H) 98 - 107 mmol/L 03/19/2025 10:21 AM CDT [facility] CO2, VENOUS 23 22 - 30 mmol/L 03/19/2025 10:21 AM CDT [facility] ANION GAP 12.4 <18.0 mmol/L 03/19/2025 10:21 AM CDT [facility] GLUCOSE 147(H) 70 - 99 mg/dL 03/19/2025 10:21 AM CDT [facility] BUN 12 10 - 20 mg/dL 03/19/2025 10:21 AM [facility] CREATININE, BLOOD 0.51(L) 0.60 - 1.00 mg/dL 03/19/2025 10:21 AM [facility] BUN/CREATININE RATIO 24(H) 12 - 20 ratio 03/19/2025 10:21 AM [facility] TOTAL PROTEIN 6.4 6.0 - 8.0 g/dL 03/19/2025 10:21 AM [facility] ALBUMIN 3.4(L) 3.5 - 5.0 g/dL 03/19/2025 10:21 AM [facility] A/G RATIO 1.1 1.0 - 2.2 03/19/2025 10:21 AM [facility] CALCIUM 8.9 8.7 - 10.5 mg/dL 03/19/2025 10:21 AM [facility] T BILI 2.2(H) 0.2 - 1.2 mg/dL 03/19/2025 10:21 AM [facility] SGOT (AST) 25 <43 U/L 03/19/2025 10:21 AM [facility] SGPT (ALT) 14 <56 U/L 03/19/2025 10:21 AM [facility] ALKALINE PHOSPHATASE 140 40 - 150 U/L 03/19/2025 10:21 AM [facility] IS THE PATIENT REQUIRED TO BE FASTING? No 03/19/2025 10:21 AM [facility] GFR, ESTIMATED >60 >=60 03/19/2025 10:21 AM [facility] Comment: Creatinine Clearance is the preferred criteria for selecting drug dose adjustments in renally impaired patients. The GFR is provided as additional pertinent clinical information. GFR is reported in mL/min/1.73 sq m. Calculation based on the Chronic Kidney Disease Epidemiology Collaboration (CKD- EPI) equation refit without adjustment for race. GFR, EST. >60 >=60 025 10:21 AM [facility] GFR, EST. NONAFRICAN >60 >=60 03/19/2025 10:21 AM CDT [facility] Blood Venipuncture / Unknown 03/19/2025 9:09 AM CDT 03/19/2025 10:08 AM CDT us Ismael Fong MD CHEMISTRY ORDERABLES F inal Result Performing Organization Address City/[facility]/ZIP Co de Phone Number [facility] [address] [place] [address] * ALPHA FETOPROTEIN, TUMOR MARKER (03/19/2025 9:09 AM CDT) ALPHA FETOPROTEIN 3.8 0.0 - 8.8 ng/mL 03/19/2025 2:38 PM CDT [facility] Venipuncture / Unknown 03/19/2025 9:09 AM CDT 03/19/2025 9:39 AM CDT us Ismael Fong MD CHEMISTRY ORDERABLES F inal Result Performing Organization Address City/[facility] Co de Phone Number [facility] [address] [place] [address], documented in this encounter Visit Diagnoses Diagnosis 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) Hepatic cirrhosis, unspecified hepatic cirrhosis type, unspecified whether ascites present Hepatic encephalopathy 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
--- OUTSIDE RECORDS SUMMARY | 2025-07-29 15:28 | XMS_ITS | Clinical Summary ---
Author Organization [facility] Address [address] [place] [address] Care Team Providers Care Shuttle Repairer Name Role Phone Olive Lozano MD Primary Care Provider [phone] Source Comments [facility],non-owned Affiliates and Associated Physician Practices is amultiple site organization consisting of ambulatory clinics and hospital sitesin [place], [place] and [place]. This disclosure is being madepursuant to the Care Everywhere program and may not contain all information available regarding this patient. Last updated 07/21/18.50 [facility] Allergies Active Allergy Reactions Criticality Noted Date [...] Type Department Care Team Description 07/04/2025 Refill [facility] 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 Gender Identity Not on file Sexual Orientation [...] st Contact Info) Description 10/15/2025 12:30 PM SENIOR DATA WAREHOUSE ARCHITECT Appointment [facility] [address] [place] [phone] Ismael Fong MD [address] [place] [address] [place] [address] 10/15/2025 1:30 PM SENIOR DATA WAREHOUSE ARCHITECT Office Visit [facility] [address] [place] [address], [place] [address] Ismael Fong MD [address] [place] [address] Health Maintenance Due Date Last Done Comments [...] C RNA QUANTITATIVE Routine 11/08/2023 10:24 AM SENIOR DATA WAREHOUSE ARCHITECT Hepatic cirrhosis, unspecified hepatic cirrhosis type, unspecified [...] entire procedure. Procedure Code(s): --- Professional --- 81535, Esophagogastroduod enoscopy, flexible, transoral; diagnostic, including collection of specimen(s) by brushing or washing, when performed (separate procedure) Diagnosis Code(s): --- Professional --- K76.6, Portal hypertension K31.89, Other diseases of stomach and duodenum K31.819, Angiodysplasia of stomach and duodenum without bleeding K74.60, Unspecified cirrhosis of liver CPT copyright 2021 [employer]. All rights reserved. The codes documented in this report are preliminary and upon mba intern review may be revised to meet current compliance requirements. Ismael Fong, 04/18/2025 3:55:43 PM Note Initiated On: 04/18/2025 2:59 PM Number of Addenda: [address] [address] [facility] 04/18/2025 2:59 PM CDT us Ismael Fong MD GI PROCEDURE ORDERABLE S Edited Result - Final LON CARLOS * HEPATITIS C RNA QUANTITATIVE (11/08/2023 10:24 AM SENIOR DATA WAREHOUSE ARCHITECT) Hepatitis C RNA PCR, Interp Not detected Not detected 11/10/2023 9:18 AM SENIOR DATA WAREHOUSE ARCHITECT [facility] Blood BLOOD SPECIMEN / Unknown Lab Venipuncture / Unknown 11/08/2023 10:24 AM SENIOR DATA WAREHOUSE ARCHITECT 11/08/2023 10:42 AM SENIOR DATA WAREHOUSE ARCHITECT Narrative [facility] - 11/10/2023 9:18 AM SENIOR DATA WAREHOUSE ARCHITECT The Hepatitis C viral (HCV) RNA analysis utilized a serum sample, real-time reverse sales account director PCR, and is reported as Not Detected, [...] the isolation of HCV RNA with reverse sales account director of genomic HCV RNA followed by real-time PCR in the presence of an unrelated RNA internal control. The internal control ensures that RNA is isolated, and that no general significant inhibitors of the RT-PCR process are present. The analysis was performed using a U.S. FDA approved test methodology. Ismael Fong MD LAB - CHEMISTRY ORDERA BLES Final Result [facility] [address] [place], [place] [address], [facility] [phone] from Last 3 Months or Most Recently Relevant to Health Maintenance [place] [address] [address] [place] [id number] AETNA MEDICARE ADV Care Teams Shuttle Repairer Relationship Specialty Start Date End Date Olive Lozano MD [address] [place] [address] PCP - General 07/10/13
--- OUTSIDE RECORDS SUMMARY | 2025-07-29 15:28 | XMS_ITS | Encounter Summary ---
Author Organization [facility] Address [address] [facility] [address] Phone Care Team Providers Care Insurance Investigator Name Role Phone Olive Lozano MD Primary Care Provider [phone] Svitlana De La Torre APRN, QUARRY PLANT CRUSHER OPERATOR Unavailable Swapnil Jhaveri MD Unavailable [phone] Reason for Visit * Reason Comments Medication Refill Encounter Details Date Type Department Care Team (Late st Contact Info) Description 03/18/2023 Refill [facility] [place] [address] [place] [phone] Estella Epperson [place], PAC [address] [place] [address] Medication Refill Social History Tobacco Use Types [...] Sexual Orientation Straight 11/08/2023 4: 58 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
--- OUTSIDE RECORDS SUMMARY | 2025-07-29 15:28 | XMS_ITS | Clinical Summary ---
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 Occupation Industry Job Start Date Job End [...] Zoster Immunization (2 of 3) 11/24/2012 09/29/2012 Medicare Initial AWV [id number] 10/31/2019 Influenza Immunization (#1) 07/01/202508/31, 09/12/2023, 09/07/2021, Additional history exists SARS-COV-2 Immunization ( - season) 2025 10/01/2021, 01/06/2021 Colonoscopy 06/26/2027 06/26/2019 [...] topic Insurance MEDICARE C [employer] Care Teams Stereo Operator Relationship Specialty Start Date End Date Olive Lozano MD [address] [place] [address] PCP - General Family Medicine 04/19/19 Svitlana De La Torre APRN, TOOL AND MACHINE MAINTAINER [address] [place] [address] Nurse Practitioner Advanced Practice Nurse 06/24/23 Swapnil Jhaveri MD [address] [place] [address] Consulting Physician Gastroenterology 02/10/23
--- OUTSIDE RECORDS SUMMARY | 2025-07-29 15:28 | XMS_ITS | Encounter Summary ---
Author Organization [facility] Address [address] [facility] [place] [address] Phone Care Team Providers Care Otologist Name Role Phone Olive Lozano MD Primary Care Provider [phone] Svitlana De La Torre APRN, DOUGH MIXER HELPER Unavailable Swapnil Jhaveri MD Unavailable [phone] Reason for Visit * Reason Comments Medication Refill Encounter Details Date Type Department Care Team (Late st Contact Info) Description 06/03/2022 Refill [facility] - [facility] - [place] [address] [place] [id number] Estella Epperson Ester, PAC [address] [place] [address] Medication Refill Social History Tobacco Use Types [...] Sexual Orientation Straight 11/08/2023 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 Sp[facility]with Subha with [facility]. Per Subha, patient has 90 tablets with 3 refills on file with [facility]. Patient can re-enroll as soon as August 31, 2022. Reviewed information with patient. Patient is awareand verbalizes understanding. Per Richard Mascorro does use [facility] pharmacy. * Telephone Encounter - Laurel Krause RN - 06/04/2022 8:59 AM CDT Refill request for xifaxan. Last refill noted to be 12/17/2021 for 60 tabs and 11 refills. Refill request noted to be for [facility] in [place], [place]. Called patient to verify requested pharmacy. Left message for patient to call back. documented in this encounter Plan of Treatment Not on file documented as of this encounter Visit Diagnoses Not on filedocumented in this encounter Care Teams Otologist Relationship Specialty Start Date End Date Olive Lozano MD [address] [place] [address] PCP - General Family Medicine 04/19/19 Svitlana De La Torre APRN, DOUGH MIXER HELPER [address] [place] [address] Nurse Practitioner Advanced Practice Nurse 06/24/23 Swapnil Jhaveri MD [address] [place] [address] Consulting Physician Gastroenterology 02/10/23 documented as of this encounter
--- OUTSIDE RECORDS SUMMARY | 2025-07-29 15:28 | XMS_ITS | Encounter Summary ---
Author Organization [facility] Address [address] [facility] [place] [address] Phone Care Team Providers Care Spray Booth Operator Name Role Phone Olive Lozano MD Primary Care Provider [phone] Svitlana De La Torre APRN, VIDEO EFFECTS EDITOR Unavailable Swapnil Jhaveri MD Unavailable [phone] Reason for Visit * Reason Comments Medication Refill Encounter Details Date Type Department Care Team (Late st Contact Info) Description 08/29/2023 Refill [facility] - G[facility]enterology - [place] [address] [place] [address] Svitlana De La Torre APRN, VIDEO EFFECTS EDITOR [address] [place] [address] Medication Refill Social History Tobacco Use Types [...] Sexual Orientation Straight 11/08/2023 4: 58 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
--- OUTSIDE RECORDS SUMMARY | 2025-07-29 15:28 | XMS_ITS | Encounter Summary ---
Author Organization [facility] Address [address] [facility] [place] [address] Phone Care Team Providers Care Eyeglass Frame Truer Name Role Phone Olive Lozano MD Primary Care Provider [phone] Svitlana De La Torre APRN, MAT MAKING MACHINE TENDER Unavailable Swapnil Jhaveri MD Unavailable [phone] Encounter Details Date Type Department Care Team (Latest Contact Info) Description 06/12/2024 Transcribe Orders [facility] Services [address] [place] [address] Ismael Fong MD [address] [place] [address] Hepatic cirrhosis, unspecified hepatic cirrhosis type (HCC) [...] Sexual Orientation Straight 11/08/2023 4: 58 PM LAY OUT FORMER 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 Not on file Not on file No t on file documented as of this encounter Plan of Treatment Not on file documented as of this encounter Results * (ABNORMAL) CMP (COMPREHENSIVE METABOLIC PANEL) (06/14/2024 11:54 AM CDT) SODIUM 142 136 - 145 mmol/L 06/14/2024 12:39 PM CDT [facility] POTASSIUM 3.8 3.5 - 5.1 mmol/L 06/14/2024 12:39 PM CDT [facility] CHLORIDE 110(H) 98 - 107 mmol/L 06/14/2024 12:39 PM CDT [facility] CO2, VENOUS 23 22 - 30 mmol/L 06/14/2024 12:39 PM CDT [facility] ANION GAP 12.8 <18.0 mmol/L 06/14/2024 12:39 PM CDT [facility] GLUCOSE 119(H) 70 - 99 mg/dL 06/14/2024 12:39 PM CDT [facility] BUN 18 10 - 20 mg/dL 06/14/2024 12:39 PM CDT [facility] CREATININE, BLOOD 0.55(L) 0.60 - 1.00 mg/dL 06/14/2024 12:39 PM CDT [facility] BUN/CREATININE RATIO 33(H) 12 - 20 ratio 06/14/2024 12:39 PM CDT [facility] TOTAL PROTEIN 6.3 6.3 - 8.2 g/dL 06/14/2024 12:39 PM CDT [facility] ALBUMIN 3.4(L) 3.5 - 5.0 g/dL 06/14/2024 12:39 PM CDT [facility] A/G RATIO 1.2 1.0 - 2.2 06/14/2024 12:39 PM CDT [facility] CALCIUM 9.4 8.7 - 10.5 mg/dL 06/14/2024 12:39 PM CDT [facility] T BILI 2.0(H) 0.2 - 1.2 mg/dL 06/14/2024 12:39 PM CDT [facility] SGOT (AST) 25 5 - 34 U/L 06/14/2024 12:39 PM T [facility] SGPT (ALT) 18 0 - 55 U/L 06/14/2024 12:39 PM T [facility] ALKALINE PHOSPHATASE 87 40 - 150 U/L 06/14/2024 12:39 PM CDT [facility] IS THE PATIENT REQUIRED TO BE FASTING? No 06/14/2024 12:39 PM CDT [facility] GFR, ESTIMATED >60 >=60 06/14/2024 12:39 PM CDT [facility] Comment: Creatinine Clearance is the preferred criteria for selecting drug dose adjustments in renally impaired patients. The GFR is provided as additional pertinent clinical information. GFR is reported in mL/min/1.73 sq m. Calculation based on the Chronic Kidney Disease Epidemiology Collaboration (CKD- EPI) equation refit without adjustment for race. GFR, EST. >60 >=60 024 12:39 PM CDT [facility] GFR, EST. NONAFRICAN >60 >=60 06/14/2024 12:39 PM [facility] Blood Venipuncture / Unknown 06/14/2024 11:54 AM CDT 06/14/2024 12:10 PM CDT Ismael Fong MD CHEMISTRY ORDERABLES F inal Result [facility] [address] [place] [address] * (ABNORMAL) PROTIME (PT) (PROTHROMBIN TIME) (06/14/2024 11:54 AM CDT) PROTIME-PATIENT 17.3(H) 11.6 - 14.8 sec 06/14/2024 12:33 PM CDT [facility] INR 1.4(H) 0.9 - 1.2 06/14/2024 12:33 PM CDT [facility] Comment: Therapeutic Ranges INR = 2.0-3.0: Venous thromb, atrial fib, pul embolism, tissue heart valve, ami. INR = 2.5-3.5: Mechanical heart valve Critical value for INR is >/= 4.5 Blood Venipuncture / Unknown 06/14/2024 11:54 AM CDT 06/14/2024 12:15 PM CDT us Ismael Fong MD HEMATOLOGY ORDERABLES Final Result Performing Organization Address [facility] Co de Phone Number [facility] [address] [place] [address] * ALPHA FETOPROTEIN, TUMOR MARKER (06/14/2024 11:54 AM CDT) ALPHA FETOPROTEIN 4.6 0.0 - 8.8 ng/mL 06/14/2024 10:14 PM CDT [facility] Blood Venipuncture / Unknown 06/14/2024 11:54 AM CDT 06/14/2024 12:10 PM CDT us Ismael Fong MD CHEMISTRY ORDERABLES F inal Result [facility] [address] [place] [address], [place] documented in this encounter Visit Diagnoses Diagnosis Hepatic cirrhosis, unspecified hepatic cirrhosis type- Primary Hepatic encephalopathy 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
--- OUTSIDE RECORDS SUMMARY | 2025-07-29 15:28 | XMS_ITS | Clinical Summary ---
Author Organization [facility] Address [address] [place] [address] Care Team Providers Care Top Carrier Name Role Phone Olive Lozano MD Primary Care Provider [phone] Allergies Active Allergy Reactions Criticality Noted Date [...] to complete this topic Insurance [employer] MCR [facility] ([id number]) Care Teams Top Carrier Relationship Specialty Start Date End Date Olive Lozano MD [address] [place] [address] PCP - General Family Medicine 03/23/23
== END 2025-07-29 14:38 | disposition home or self-care (01) ==
PROVIDERS: PCP Family Medicine; Visit Provider Student in an Organized Health Care Education/Training Program
DX: M25.562 Pain in left knee (principal)
CPT/HCPCS: 73560

== ENCOUNTER 2025-08-12 10:29 | Emergency (ER) | payer MEDICARE, SELFPAY ==
--- NOTE | ~2025-08-12 | CT_ITS ---
CT HEAD NON-CONTRAST Clinical History: head injury Comparison: 08/29/2023 Technique: Unenhanced axial images skull base to vertex Coronal, sagittal reformats CT images acquired with automatic exposure control for dose reduction DLP: 605 mGy-cm Findings: Sulci, ventricles: Unremarkable. No intracerebral hemorrhage. No evidence acute territorial infarct. No mass effect, midline shift. Chronic biparietal calvarial outer table concavity. Visualized paranasal sinuses: Clear. Mastoid air cells: Clear. IMPRESSION: 1. No acute intracranial findings. Reviewed, dictated and finalized at location R.
--- NOTE | ~2025-08-12 | XR_ITS ---
EXAMINATION: XR shoulder LT min 2V DATE: 08/12/2025 12:10 INDICATION: Left shoulder pain post fall TECHNIQUE: AP internally and externally rotated, AP oblique externally rotated and transscapular Y views of the left shoulder were obtained. COMPARISON: None FINDINGS: Normal alignment. No fracture.Mild right glenohumeral osteoarthritis. Moderate acromioclavicular osteoarthritis. Moderate sized anterior subacromial spur. Small amount of amorphous dystrophic calcific lesion along the middle facet of the greater tuberosity consistent with likely infraspinatus calcific tendinitis. Visualized portion of the left mid to upper lung are clear. Soft tissues are unremarkable. IMPRESSION: 1. Osteoarthritis the right shoulder, moderate at the acromioclavicular joint and mild at the glenohumeral joint. 2. Right infraspinatus calcific tendinitis. Reviewed, dictated and finalized at location A. IMPRESSION: 1. Osteoarthritis the right shoulder, moderate at the acromioclavicular joint a nd mild at the glenohumeral joint. 2. Right infraspinatus calcific tendinitis.
[2025-08-12 10:33] VITALS: BP 127/44; PULSE 78; RESP 16; TEMP 36.6; O2SAT 99
[2025-08-12 11:05] VITALS: BP 118/58; PULSE 78; RESP 15; TEMP 36.8; O2SAT 97
[2025-08-12 11:09] VITALS: BP 118/58; PULSE 80; RESP 17; TEMP 36.8; O2SAT 96
--- OUTSIDE RECORDS SUMMARY | 2025-08-12 11:32 | XMS_ITS | Clinical Summary ---
Author Organization [facility] Address [address] [facility], [address] [address] Phone Care Team Providers Care Feather Trimmer Name Role Phone Olive Lozano MD Primary Care Provider [phone] Svitlana De La Torre APRN, BOOSTER PLANT OPERATOR Unavailable Swapnil Jhaveri MD Unavailable [phone] Allergies Active Allergy Reactions Criticality Noted [...] Sexual Orientation Straight 11/08/2023 4: 58 PM EXTRUSION FORMER Occupation Industry Job Start Date Job [...] topic Insurance MEDICARE C [employer] Care Teams Feather Trimmer Relationship Specialty Start Date End Date Olive Lozano MD [address] [place] [address] PCP - General Family Medicine 04/19/19 Svitlana De La Torre APRN, BOOSTER PLANT OPERATOR [address] [place] [address] Nurse Practitioner Advanced Practice Nurse 06/24/23 Swapnil Jhaveri MD [address] [place] [address] Consulting Physician Gastroenterology 02/10/23
--- OUTSIDE RECORDS SUMMARY | 2025-08-12 11:32 | XMS_ITS | Encounter Summary ---
Author Organization [facility] Address [address] [facility] [place] [address] Phone Care Team Providers Care College Advisor Name Role Phone Olive Lozano MD Primary Care Provider [phone] Svitlana De La Torre APRN, CARBOY FILLER Unavailable Swapnil Jhaveri MD Unavailable [phone] Reason for Visit * Reason Comments Medication Refill Encounter Details Date Type Department Care Team (Late st Contact Info) Description 08/29/2023 Refill [facility] - Gastroenterology - [place] [address] [place] [address] Svitlana De La Torre APRN, CARBOY FILLER [address] [place] [address] Medication Refill Social History Tobacco Use Types [...] Sexual Orientation Straight 11/08/2023 4: 58 PM [employer] Occupation Industry Job Start Date Job End [...] encephalopathy documented in this encounter Care Teams College Advisor Relationship Specialty Start Date End Date Olive Lozano MD [address] [place] [address] PCP - General Family Medicine 04/19/19 Svitlana De La Torre APRN, CARBOY FILLER [address] [place] [address] Nurse Practitioner Advanced Practice Nurse 06/24/23 Swapnil Jhaveri MD [address] [place] [address] Consulting Physician Gastroenterology 02/10/23 documented as of this encounter
--- OUTSIDE RECORDS SUMMARY | 2025-08-12 11:32 | XMS_ITS | Encounter Summary ---
Author Organization [facility] Address [address] [place] [address] Phone Care Team Providers Care Head Mixer Name Role Phone Olive Lozano MD Primary Care Provider [phone] [facility] APRN, DENIAL MANAGEMENT REPRESENTATIVE Unavailable Swapnil Jhaveri MD Unavailable [phone] Encounter Details Date Type Department Care Team (Latest Contact Info) Description 01/22/2025 Transcribe Orders [facility] Laboratory Services [address] [place] [address] Olive Lozano MD [address] [place] [address] Dry mouth (Primary Dx); Type 2 diabetes mellitus without complication, unspecified whether school crossing guard insulin use (HCC); Mixed hyperlipidemia; Other fatigue; [...] Sexual Orientation Straight 11/08/2023 4: 58 PM 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 Results should be clinically correlated. Blood Venipuncture / Unknown 01/25/2025 8:43 AM CDT 01/25/2025 9:02 AM CDT us Olive Lozano MD HEMATOLOGY ORDERABLES Final Resu lt Performing Organization Address City[facility]/ZIP Co de Phone Number [facility] [address] [place] [address] * VITAMIN B12 (01/25/2025 8:43 AM CDT) VITAMIN B12 421 213 - 816 pg/mL 01/25/2025 9:53 AM CDT [facility] Blood Venipuncture / Unknown 01/25/2025 8:43 AM CDT 01/25/2025 9:02 AM CDT us Olive Lozano MD CHEMISTRY ORDERABLES Final Resul t Performing Organization Address [facility] Co de Phone Number [facility] [address] [place] [address] * AMMONIA (01/25/2025 8:43 AM CDT) AMMONIA 68 18 - 72 umol/L 01/25/2025 9:19 AM CDT [facility] Blood Venipuncture / Unknown 01/25/2025 8:43 AM CDT 01/25/2025 9:01 AM CDT us Olive Lozano MD CHEMISTRY ORDERABLES Final Resul t Performing Organization Address [facility] Co de Phone Number [facility] [address] [place] [address] * VITAMIN D, 25 HYDROXY TOTAL (01/25/2025 8:43 AM CDT) VITAMIN D, 25 HYDROX 23.1 ng/mL 01/25/2025 9:53 AM CDT [facility] Blood Venipuncture / Unknown 01/25/2025 8:43 AM CDT 01/25/2025 9:02 AM CDT Narrative [facility] - 01/25/2025 9:53 AM CDT Published reference ranges for Vitamin D vary depending on time and place and method of testing, and on patient's age, sex, ethnicity and levels of other measured analytes such as parathormone, calcium and phosphorus. The result should be evaluated in conjunction with clinical findings and suspicions. [place] [employer] and Endocrine Clinical Practice Guidelines: Status Vitamin D levels (ng/mL) Deficient <=20 At risk of inadequacy 21-29 Sufficient 30-100 Centers of Disease Control and Prevention Guidelines: Status Vitamin D levels (ng/mL) Deficient <13 At risk of inadequacy 13-19 Sufficient 20-50 Possibly harmful >50 References: [place] [employer], 2010 Dietary reference intakes for calcium and vitamin D. [place]: The National Academies Press. Adrian M, Todd N, Chuy BURNS, et al., Evaluation, treatment, and prevention of Vitamin D deficiency: an Endocrinology Clinical Practice Guideline. JCEM 2011 96: 7 9930-2600. Chace A, Andrea C, Ronel D, et al., Vitamin D Status: [place], 9825-3200, [facility] data brief, no. 59, MD [place]: National Center for Health Statistics. 2011. us Olive Lozano MD CHEMISTRY ORDERABLES Final Resul t [facility] [address] [place] [address] * (ABNORMAL) COMPLETE BLOOD COUNT (CBC) WITHOUT [...] - 34.0 pg 01/25/2025 9:13 AM CDT [facility] MCHC 26.1(L) 31.0 - 36.0 g/dL 01/25/2025 9:13 AM CDT [facility] PLATELET COUNT 92(L) 140 - 440 10(3)/mcL 01/25/2025 9:13 AM CDT [facility] RDW 19.6(H) 11.8 - 15.5 % 01/25/2025 9:13 AM CDT [facility] MPV 01/25/2025 9:13 AM CDT [facility] Blood Venipuncture / Unknown 01/25/2025 8:43 AM CDT 01/25/2025 9:02 AM CDT us Olive Lozano MD HEMATOLOGY ORDERABLES Final Resu lt [facility] [address] [place] [address] * (ABNORMAL) LIPID PANEL (01/25/2025 8:43 AM CDT) CHOLESTEROL 102 <200 mg/dL 01/25/2025 9:32 AM CDT [facility] TRIGLYCERIDES 62 <150 mg/dL 01/25/2025 9:32 AM CDT [facility] HDL CHOLESTEROL 36(L) >40 mg/dL 9:32 AM CDT [facility] LDL 54 <130 mg/dL 01/25/2025 9:32 AM CDT [facility] VLDL 12 10 - 50 mg/dL 01/25/2025 9:32 AM CDT [facility] CHOL/HDL RATIO 2.8 0.0 - 4.4 01/25/2025 9:32 AM CDT [facility] NON-HDL CHOLESTEROL 66 <130 mg/dL 01/25/2025 9:32 AM CDT [facility] IS THE PATIENT REQUIRED TO BE FASTING? Yes 01/25/2025 9:32 AM CDT [facility] HAS THE PATIENT BEEN FASTING? Yes 01/25/2025 9:32 AM CDT [facility] Blood Venipuncture / Unknown 01/25/2025 8:43 AM CDT 01/25/2025 9:02 AM CDT us Olive Lozano MD CHEMISTRY ORDERABLES Final Resul t [facility] [address] [place] [address] * (ABNORMAL) CMP (COMPREHENSIVE METABOLIC PANEL) (01/25/2025 8:43 AM CDT) SODIUM 141 136 - 145 mmol/L 01/25/2025 9:32 AM CDT [facility] POTASSIUM 4.2 3.5 - 5.1 mmol/L 01/25/2025 9:32 AM CDT [facility] CHLORIDE 112(H) 98 - 107 mmol/L 01/25/2025 9:32 AM CDT [facility] CO2, VENOUS 23 22 - 30 mmol/L 01/25/2025 9:32 AM CDT [facility] ANION GAP 10.2 <18.0 mmol/L 01/25/2025 9:32 AM CDT [facility] GLUCOSE 139(H) 70 - 99 mg/dL 01/25/2025 9:32 AM [facility] BUN 11 10 - 20 mg/dL 01/25/2025 9:32 AM [facility] CREATININE, BLOOD 0.55(L) 0.60 - 1.00 mg/dL 01/25/2025 9:32 AM [facility] BUN/CREATININE RATIO 20 12 - 20 ratio 01/25/2025 9:32 AM [facility] TOTAL PROTEIN 6.5 6.0 - 8.0 g/dL 01/25/2025 9:32 AM [facility] ALBUMIN 3.3(L) 3.5 - 5.0 g/dL 01/25/2025 9:32 AM [facility] A/G RATIO 1.0 1.0 - 2.2 01/25/2025 9:32 AM [facility] CALCIUM 9.1 8.7 - 10.5 mg/dL 01/25/2025 9:32 AM [facility] T BILI 2.0(H) 0.2 - 1.2 mg/dL 01/25/2025 9:32 AM [facility] SGOT (AST) 31 <43 U/L 01/25/2025 9:32 AM [facility] SGPT (ALT) 18 <56 U/L 01/25/2025 9:32 AM [facility] ALKALINE PHOSPHATASE 112 40 - 150 U/L 01/25/2025 9:32 AM [facility] IS THE PATIENT REQUIRED TO BE FASTING? No 01/25/2025 9:32 AM [facility] GFR, ESTIMATED >60 >=60 01/25/2025 9:32 AM [facility] Comment: Creatinine Clearance is the preferred criteria for selecting drug dose adjustments in renally impaired patients. The GFR is provided as additional pertinent clinical information. GFR is reported in mL/min/1.73 sq m. Calculation based on the Chronic Kidney Disease Epidemiology Collaboration (CKD- EPI) equation refit without adjustment for race. GFR, EST. >60 >=60 025 9:32 AM CDT [facility] GFR, EST. NONAFRICAN >60 >=60 01/25/2025 9:32 AM CDT [facility] Blood Venipuncture / Unknown 01/25/2025 8:43 AM CDT 01/25/2025 9:02 AM CDT Olive Lozano MD CHEMISTRY ORDERABLES Final Resul t Performing Organization Address [facility]/ZIP Co de Phone Number [facility] [address] [place] [address] * (ABNORMAL) HEMOGLOBIN A1C W/ ESTIMATED GLUCOSE [...] ORDERABLES Final Resul t Performing Organization Address [facility]/ZIP Co de Phone Number [facility] [address] [place] [address] documented in this encounter Visit Diagnoses Diagnosis Dry mouth- Primary Disturbance of salivary secretion Type 2 diabetes mellitus without complication, unspecified whether school crossing guard insulin use Mixed hyperlipidemia Other fatigue Vitamin D deficiency Unspecified vitamin D deficiency Liver failure without hepatic coma, unspecified chronicity documented in this encounter Care Teams Head Mixer Relationship Specialty Start Date End Date Olive Lozano MD [address] [place] [address] PCP - General Family Medicine 04/19/19 Svitlana De La Torre APRN, DENIAL MANAGEMENT REPRESENTATIVE [address] [place] [address] Nurse Practitioner Advanced Practice Nurse 06/24/23 Swapnil Jhaveri MD [address] [place] [address] Consulting Physician Gastroenterology 02/10/23 documented as of this encounter
--- OUTSIDE RECORDS SUMMARY | 2025-08-12 11:32 | XMS_ITS | Encounter Summary ---
Author Organization [facility] Address [address] [facility] 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 Occupation Industry Job Start Date Job End [...] - 145 mmol/L 03/19/2025 10:21 AM CDT [facility] POTASSIUM 4.4 3.5 - 5.1 mmol/L 03/19/2025 10:21 AM CDT [facility] CHLORIDE 108(H) 98 - 107 mmol/L 03/19/2025 10:21 AM CDT [facility] CO2, VENOUS 23 22 - 30 mmol/L 03/19/2025 10:21 AM CDT [facility] ANION GAP 12.4 <18.0 mmol/L 03/19/2025 10:21 AM CDT [facility] GLUCOSE 147(H) 70 - 99 mg/dL 03/19/2025 10:21 AM CDT [facility] BUN 12 10 - 20 mg/dL 03/19/2025 10:21 AM [facility] CREATININE, BLOOD 0.51(L) 0.60 - 1.00 mg/dL 03/19/2025 10:21 AM [facility] BUN/CREATININE RATIO 24(H) 12 - 20 ratio 03/19/2025 10:21 AM [facility] TOTAL PROTEIN 6.4 6.0 - 8.0 g/dL 03/19/2025 10:21 AM [facility] ALBUMIN 3.4(L) 3.5 - 5.0 g/dL 03/19/2025 10:21 AM [facility] A/G RATIO 1.1 1.0 - 2.2 03/19/2025 10:21 AM [facility] CALCIUM 8.9 8.7 - 10.5 mg/dL 03/19/2025 10:21 AM [facility] T BILI 2.2(H) 0.2 - 1.2 mg/dL 03/19/2025 10:21 AM [facility] SGOT (AST) 25 <43 U/L 03/19/2025 10:21 AM [facility] SGPT (ALT) 14 <56 U/L 03/19/2025 10:21 AM [facility] ALKALINE PHOSPHATASE 140 40 - 150 U/L 03/19/2025 10:21 AM [facility] IS THE PATIENT REQUIRED TO BE FASTING? No 03/19/2025 10:21 AM [facility] GFR, ESTIMATED >60 >=60 03/19/2025 10:21 AM [facility] Comment: Creatinine Clearance is the preferred criteria for selecting drug dose adjustments in renally impaired patients. The GFR is provided as additional pertinent clinical information. GFR is reported in mL/min/1.73 sq m. Calculation based on the Chronic Kidney Disease Epidemiology Collaboration (CKD- EPI) equation refit without adjustment for race. GFR, EST. >60 >=60 025 10:21 AM [facility] GFR, EST. NONAFRICAN >60 >=60 03/19/2025 10:21 AM CDT [facility] Blood Venipuncture / Unknown 03/19/2025 9:09 AM CDT 03/19/2025 10:08 AM CDT us Ismael Fong MD CHEMISTRY ORDERABLES F inal Result Performing Organization Address City/[facility]/ZIP Co de Phone Number [facility] [address] [place] [address] * ALPHA FETOPROTEIN, TUMOR MARKER (03/19/2025 9:09 AM CDT) ALPHA FETOPROTEIN 3.8 0.0 - 8.8 ng/mL 03/19/2025 2:38 PM CDT [facility] Blood Venipuncture / Unknown 03/19/2025 9:09 AM CDT 03/19/2025 9:39 AM CDT us Ismael Fong MD CHEMISTRY ORDERABLES F inal Result Performing Organization Address City/[facility] Co de Phone Number [facility] [address] [place] [address], documented in this encounter Visit Diagnoses Diagnosis 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) Hepatic cirrhosis, unspecified hepatic cirrhosis type, unspecified whether ascites present Hepatic encephalopathy 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
--- OUTSIDE RECORDS SUMMARY | 2025-08-12 11:32 | XMS_ITS | Encounter Summary ---
Author Organization [facility] Address [address] [facility] [address] Phone Care Team Providers Care Senior Cytotechnologist Name Role Phone Olive Lozano MD Primary Care Provider [phone] Svitlana De La Torre APRN, INNOVATION ANALYST Unavailable Swapnil Jhaveri MD Unavailable [phone] Reason for Visit * Reason Comments Medication Refill Encounter Details Date Type Department Care Team (Late st Contact Info) Description 06/03/2022 Refill [facility] - Gastroenterology - [place] [address] [place] [id number] Estella Epperson Ester, PAC [address] [place] [address] Medication Refill Social History Tobacco Use Types [...] Sexual Orientation Straight 11/08/2023 4: 58 PM BENEFITS 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 Medication refused. * Telephone Encounter - Laurel Krause RN - 06/04/2022 9:57 AM CDT Patient called. Reviewed message below. Patient states that she gets her xifaxin from [facility]. Spokewith Subha with [facility]. Per Subha, patient has 90 tablets with 3 refills on file with [facility]. Patient can re-enroll as soon as August 31, 2022. Reviewed information with patient. Patient is awareand verbalizes understanding. Per Richard Mascorro does use [facility] pharmacy. * Telephone Encounter - Laurel Krause RN - 06/04/2022 8:59 AM CDT Refill request for xifaxan. Last refill noted to be 12/17/2021 for 60 tabs and 11 refills. Refill request noted to be for [facility] in [place], [place]. Called patient to verify requested pharmacy. Left message for patient to call back. documented in this encounter Plan of Treatment Not on file documented as of this encounter Visit Diagnoses Not on filedocumented in this encounter Care Teams Senior Cytotechnologist Relationship Specialty Start Date End Date Olive Lozano MD [address] [place] [address] PCP - General Family Medicine 04/19/19 Svitlana De La Torre APRN, INNOVATION ANALYST [address] [place] [address] Nurse Practitioner Advanced Practice Nurse 06/24/23 Swapnil Jhaveri MD [address] [place] [address] Consulting Physician Gastroenterology 02/10/23 documented as of this encounter
--- OUTSIDE RECORDS SUMMARY | 2025-08-12 11:32 | XMS_ITS | Encounter Summary ---
Author Organization [facility] Address [address] [facility] [place] [address] Phone Care Team Providers Care Pe Teacher Name Role Phone Olive Lozano MD Primary Care Provider [phone] Svitlana De La Torre APRN, CANE FLUME WATCHER Unavailable Swapnil Jhaveri MD Unavailable [phone] Reason for Visit * Reason Comments Medication Refill Encounter Details Date Type Department Care Team (Late st Contact Info) Description 08/23/2023 Refill [facility] - Gastroenterology - [place] [address] [place] [address] Svitlana De La Torre APRN, CANE FLUME WATCHER [address] [place] [address] Medication Refill Social History Tobacco Use Types [...] Sexual Orientation Straight 11/08/2023 4: 58 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
--- OUTSIDE RECORDS SUMMARY | 2025-08-12 11:32 | XMS_ITS | Clinical Summary ---
Author Organization [facility] Address [address] [place] [address] Care Team Providers Care Concrete Mixing Plant Superintendent Name Role Phone Olive Lozano MD Primary Care Provider [phone] Allergies Active Allergy Reactions Criticality Noted Date [...] to complete this topic [facility] [id number] Care Teams Concrete Mixing Plant Superintendent Relationship Specialty Start Date End Date Olive Lozano MD [address] [place] [address] PCP - General Family Medicine 03/23/23
--- OUTSIDE RECORDS SUMMARY | 2025-08-12 11:32 | XMS_ITS | Encounter Summary ---
Author Organization [facility] Address [address] [place] [address] Phone Care Team Providers Care Brown Stock Washer Name Role Phone Olive Lozano MD Primary Care Provider [phone] Svitlana De La Torre APRN, MISSION SUPPORT SPECIALIST Unavailable Swapnil Jhaveri MD Unavailable [phone] Reason for Visit * Reason Comments Medication Refill Encounter Details Date Type Department Care Team (Late st Contact Info) Description 11/10/2021 Refill [facility] - Gastroenterology - [place] [address] [place] [id number] Estella Epperson Ester, PAC [address] [place] [address] Medication Refill Social History Tobacco Use Types [...] Sexual Orientation Straight 11/08/2023 4: 58 PM FAMILY ENGAGEMENT SPECIALIST 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 No / Unsure 11/11/2021 7:58 AM FAMILY ENGAGEMENT SPECIALIST documented as of this encounter Miscellaneous Notes * Telephone Encounter - Laurel Krause RN - 11/11/2021 9:46 AM FAMILY ENGAGEMENT SPECIALIST Medication refilled and signed per [facility] chronic medication standing order for pediatric and adult patients. LY ENGAGEMENT SPECIALIST documented in this encounter Plan of Treatment Not on file documented as of this encounter Visit Diagnoses Diagnosis Hepatic encephalopathy documented in this encounter Care Teams Brown Stock Washer Relationship Specialty Start Date End Date Olive Lozano MD [address] [place] [address] PCP - General Family Medicine 04/19/19 Svitlana De La Torre APRN, MISSION SUPPORT SPECIALIST [address] [place] [address] Nurse Practitioner Advanced Practice Nurse 06/24/23 Swapnil Jhaveri MD [address] [place] [address] Consulting Physician Gastroenterology 02/10/23 documented as of this encounter
--- OUTSIDE RECORDS SUMMARY | 2025-08-12 11:32 | XMS_ITS | Encounter Summary ---
Author Organization [facility] Address [address] [facility] [place] [address] Phone Care Team Providers Care Physical Therapy Teacher Name Role Phone Olive Lozano MD Primary Care Provider [phone] Svitlana De La Torre APRN, HEAD MIXER Unavailable Swapnil Jhaveri MD Unavailable [phone] Reason for Visit * Reason Comments Medication Refill Encounter Details Date Type Department Care Team (Late st Contact Info) Description 05/06/2022 Refill [facility] - Gastroenterology - [place] [address] [place] [address] Estella Epperson Ester, PAC [address] [place] [address] Medication Refill Social History Tobacco Use Types [...] Sexual Orientation Straight 11/08/2023 4: 58 PM OXYACETYLENE TORCH OPERATOR Occupation Industry Job Start Date Job [...] on filedocumented in this encounter Care Teams Physical Therapy Teacher Relationship Specialty Start Date End Date Olive Lozano MD [address] [place] [address] PCP - General Family Medicine 04/19/19 Svitlana De La Torre APRN, HEAD MIXER [address] [place] [address] Nurse Practitioner Advanced Practice Nurse 06/24/23 Swapnil Jhaveri MD [address] [place] [address] Consulting Physician Gastroenterology 02/10/23 documented as of this encounter
--- OUTSIDE RECORDS SUMMARY | 2025-08-12 11:32 | XMS_ITS | Encounter Summary ---
Author Organization [facility] Address [address] [facility] [place] [address] Phone Care Team Providers Care Director Medical Affairs Name Role Phone Olive Lozano MD Primary Care Provider [phone] Svitlana De La Torre APRN, MANUFACTURING MAINTENANCE MANAGER Unavailable Swapnil Jhaveri MD Unavailable [phone] Reason for Visit * Reason Comments Medication Refill Encounter Details Date Type Department Care Team (Late st Contact Info) Description 03/18/2023 Refill [facility] - Gastroenterology - [place] [address] [place] [phone] Estella Epperson Ester, PAC [address] [place] [address] Medication Refill Social History Tobacco Use Types [...] Sexual Orientation Straight 11/08/2023 4: 58 PM TOOL ENGINEER Occupation Industry Job Start Date Job [...] encephalopathy documented in this encounter Care Teams Director Medical Affairs Relationship Specialty Start Date End Date Olive Lozano MD [address] [place] [address] PCP - General Family Medicine 04/19/19 Svitlana De La Torre APRN, MANUFACTURING MAINTENANCE MANAGER [address] [place] [address] Nurse Practitioner Advanced Practice Nurse 06/24/23 Swapnil Jhaveri MD [address] [place] [address] Consulting Physician Gastroenterology 02/10/23 documented as of this encounter
--- OUTSIDE RECORDS SUMMARY | 2025-08-12 11:32 | XMS_ITS | Clinical Summary ---
Author Organization [facility] Address [address] [place] [address] Care Team Providers Care Electrophysiology Technologist Name Role Phone Olive Lozano MD Primary Care Provider [phone] Source Comments [facility],non-owned Affiliates and Associated Physician Practices is amultiple site organization consisting of ambulatory clinics and hospital sitesin [place], [place], [place] and [place]. This disclosure is being madepursuant to the Care Everywhere program and may not contain all information available regarding this patient. Last updated 18.[employer] [facility] Allergies Active Allergy Reactions Criticality Noted Date [...] DIRECTED TO CHECK GLUCOSE DAILY 3 Active hydrOXYzine HCl (Atarax) 10 MG tabletIndicatio [...] for 30 days 60 tablet 5 Active polyethylene glycol (Gavilyte-C) 240 g solution Drink half of prep solution at 5pm the night before colonoscopy. Finish the prep at 4am the day of test. 4000 mL 5 Active lactulose (Chronulac) 10 GM/15ML solution TAKE 30 ML BY MOUTH 2 TIMES DAILY 5400 mL 3 5 Active Active Problems Problem Noted Date Diagnosed Date Liver disease 06/28/2024 Chronic hepatitis C virus infection 06/28/2024 Basal cell carcinoma 11/08/2023 Hyperammonemia 02/10/2023 11/08/2023 History of hepatitis C virus infection 1 11/08/2023 Hypomagnesemia 08/20/2021 11/08/2023 Encounters Date Type Department Care Team Description 07/04/2025 Refill [facility] - [place] [address] [facility], [place] [address] Ismael Fong MD Refill Request from Last 3 Months Immunizations Immunization Administration Dates Next Due Covid [email or web address] primary monovalent 12+ yr 0.3mL Pur ple [...] on file Legal Sex Female 6:39 PM MUSEUM LIBRARIAN Gender Identity Not on file Sexual Orientation [...] st Contact Info) Description 10/15/2025 12:30 PM MUSEUM LIBRARIAN Appointment [facility] [address] [place] [address] Ismael Fong MD [address] [place] [address] [address] [place] [address] 10/15/2025 1:30 PM MUSEUM LIBRARIAN Office Visit [facility] - GI [address] [place] [address], [place] [address] Ismael Fong MD [address] [place] [address] [address] [place] [address] Health Maintenance Due Date Last Done Comments [...] C RNA QUANTITATIVE Routine 11/08/2023 10:24 AM MUSEUM LIBRARIAN Hepatic cirrhosis, unspecified hepatic cirrhosis type, unspecified [...] entire procedure. Procedure Code(s): --- Professional --- 66284, Esophagogastroduod enoscopy, flexible, transoral; diagnostic, including collection of specimen(s) by brushing or washing, when performed (separate procedure) Diagnosis Code(s): --- Professional --- K76.6, Portal hypertension K31.89, Other diseases of stomach and duodenum K31.819, Angiodysplasia of stomach and duodenum without bleeding K74.60, Unspecified cirrhosis of liver CPT copyright 2021 [employer]. All rights reserved. The codes documented in this report are preliminary and upon hide sorter review may be revised to meet current compliance requirements. Ismael Fong, 04/18/2025 3:55:43 PM Note Initiated On: 04/18/2025 2:59 PM Number of Addenda: [address] [id number] [facility] 04/18/2025 2:59 PM CDT us Ismael Fong MD GI PROCEDURE ORDERABLE S Edited Result - Final [facility] * HEPATITIS C RNA QUANTITATIVE (11/08/2023 10:24 AM MUSEUM LIBRARIAN) Hepatitis C RNA PCR, Interp Not detected Not detected 11/10/2023 9:18 AM [facility] Blood BLOOD SPECIMEN / Unknown Lab Venipuncture / Unknown 11/08/2023 10:24 AM MUSEUM LIBRARIAN 11/08/2023 10:42 AM MUSEUM LIBRARIAN Narrative [facility] - 11/10/2023 9:18 AM [facility] The Hepatitis C viral (HCV) RNA analysis utilized a serum sample, real-time reverse continuous dryout operator helper PCR, and is reported as Not Detected, [...] the isolation of HCV RNA with reverse continuous dryout operator helper of genomic HCV RNA followed by real-time PCR in the presence of an unrelated RNA internal control. The internal control ensures that RNA is isolated, and that no general significant inhibitors of the RT-PCR process are present. The analysis was performed using a U.S. FDA approved test methodology. Ismael Fogn MD LAB - CHEMISTRY ORDERA BLES Final Result [facility] [address] [place] [address], [facility] [phone] from Last 3 Months or Most Recently Relevant to Health Maintenance Insurance AETNA [facility] MEDICARE ADV Care Teams Electrophysiology Technologist Relationship Specialty Start Date End Date Olive Lozano MD [address] [place] [address] PCP - General 07/10/13
--- OUTSIDE RECORDS SUMMARY | 2025-08-12 11:32 | XMS_ITS | Encounter Summary ---
Author Organization [facility] Address [address] [facility] [place] [address] Phone Care Team Providers Care Weaving Instructor Name Role Phone Olive Lozano MD Primary Care Provider [phone] Svitlana De La Torre APRN, HOPS FARMWORKER Unavailable Swapnil Jhaveri MD Unavailable [phone] Encounter Details Date Type Department Care Team (Latest Contact Info) Description 06/12/2024 Transcribe Orders [facility] Laboratory Services [address] [place] [address] Ismael Fong MD [address] [place] [address] Hepatic cirrhosis, unspecified hepatic cirrhosis type (HCC) [...] Sexual Orientation Straight 11/08/2023 4: 58 PM LAUNDERETTE ATTENDANT 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 Not on file Not on file No t on file documented as of this encounter Plan of Treatment Not on file documented as of this encounter Results * (ABNORMAL) CMP (COMPREHENSIVE METABOLIC PANEL) (06/14/2024 11:54 AM CDT) SODIUM 142 136 - 145 mmol/L 06/14/2024 12:39 PM CDT [facility] POTASSIUM 3.8 3.5 - 5.1 mmol/L 06/14/2024 12:39 PM CDT [facility] CHLORIDE 110(H) 98 - 107 mmol/L 06/14/2024 12:39 PM CDT [facility] CO2, VENOUS 23 22 - 30 mmol/L 06/14/2024 12:39 PM CDT [facility] ANION GAP 12.8 <18.0 mmol/L 06/14/2024 12:39 PM CDT [facility] GLUCOSE 119(H) 70 - 99 mg/dL 06/14/2024 12:39 PM CDT [facility] BUN 18 10 - 20 mg/dL 06/14/2024 12:39 PM CDT [facility] CREATININE, BLOOD 0.55(L) 0.60 - 1.00 mg/dL 06/14/2024 12:39 PM CDT [facility] BUN/CREATININE RATIO 33(H) 12 - 20 ratio 06/14/2024 12:39 PM CDT [facility] TOTAL PROTEIN 6.3 6.3 - 8.2 g/dL 06/14/2024 12:39 PM CDT [facility] ALBUMIN 3.4(L) 3.5 - 5.0 g/dL 06/14/2024 12:39 PM CDT [facility] A/G RATIO 1.2 1.0 - 2.2 06/14/2024 12:39 PM CDT [facility] CALCIUM 9.4 8.7 - 10.5 mg/dL 06/14/2024 12:39 PM CDT [facility] T BILI 2.0(H) 0.2 - 1.2 mg/dL 06/14/2024 12:39 PM CDT [facility] SGOT (AST) 25 5 - 34 U/L 06/14/2024 12:39 PM T [facility] SGPT (ALT) 18 0 - 55 U/L 06/14/2024 12:39 PM T [facility] ALKALINE PHOSPHATASE 87 40 - 150 U/L 06/14/2024 12:39 PM CDT [facility] IS THE PATIENT REQUIRED TO BE FASTING? No 06/14/2024 12:39 PM CDT [facility] GFR, ESTIMATED >60 >=60 06/14/2024 12:39 PM CDT [facility] Comment: Creatinine Clearance is the preferred criteria for selecting drug dose adjustments in renally impaired patients. The GFR is provided as additional pertinent clinical information. GFR is reported in mL/min/1.73 sq m. Calculation based on the Chronic Kidney Disease Epidemiology Collaboration (CKD- EPI) equation refit without adjustment for race. GFR, EST. >60 >=60 024 12:39 PM CDT [facility] GFR, EST. NONAFRICAN >60 >=60 06/14/2024 12:[address] [facility] Blood Venipuncture / Unknown 06/14/2024 11:54 AM CDT 06/14/2024 12:10 PM CDT Ismael Fong MD CHEMISTRY ORDERABLES F inal Result [facility] [address] [place] [address] * (ABNORMAL) PROTIME (PT) (PROTHROMBIN TIME) (06/14/2024 11:54 AM CDT) PROTIME-PATIENT 17.3(H) 11.6 - 14.8 sec 06/14/2024 12:33 PM CDT [facility] INR 1.4(H) 0.9 - 1.2 06/14/2024 12:33 PM CDT [facility] Comment: Therapeutic Ranges INR = 2.0-3.0: Venous thromb, atrial fib, pul embolism, tissue heart valve, ami. INR = 2.5-3.5: Mechanical heart valve Critical value for INR is >/= 4.5 Blood Venipuncture / Unknown 06/14/2024 11:54 AM CDT 06/14/2024 12:15 PM CDT us Ismael Fong MD HEMATOLOGY ORDERABLES Final Result Performing Organization Address [facility] Co de Phone Number [facility] [address] [place] [address] * ALPHA FETOPROTEIN, TUMOR MARKER (06/14/2024 11:54 AM CDT) ALPHA FETOPROTEIN 4.6 0.0 - 8.8 ng/mL 06/14/2024 10:14 PM CDT [facility] Blood Venipuncture / Unknown 06/14/2024 11:54 AM CDT 06/14/2024 12:10 PM CDT us Ismael Fong MD CHEMISTRY ORDERABLES F inal Result [facility] [address] [place] [address], [place] documented in this encounter Visit Diagnoses Diagnosis Hepatic cirrhosis, unspecified hepatic cirrhosis type- Primary Hepatic encephalopathy 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
[2025-08-12] MEDS: KETOROLAC (*BKC) 60 MG/2 ML VIAL IM (12:38)
--- OUTSIDE RECORDS SUMMARY | 2025-08-12 13:15 | XMS_ITS | Clinical Summary ---
Author Organization [facility] Address [address] [place] [address] Care Team Providers Care Financial Investment Adviser Name Role Phone Olive Lozano MD Primary Care Provider [phone] Source Comments [facility],non-owned Affiliates and Associated Physician Practices is amultiple site organization consisting of ambulatory clinics and hospital sitesin [place], [place], [place] and [place]. This disclosure is being madepursuant to the Care Everywhere program and may not contain all information available regarding this patient. Last updated 18.[employer] Allergies Active Allergy Reactions Criticality Noted Date [...] Type Department Care Team Description 07/04/2025 Refill [facility] - GI [address] [facility], [place] [address] Ismael Fong MD Refill Request from Last 3 Months Immunizations Immunization Administration Dates Next Due Covid OrderDynamics primary monovalent 12+ yr 0.3mL Pur ple [...] on file Legal Sex Female 6:39 PM SHELLFISH PROCESSING MACHINE TENDER Gender Identity Not on file Sexual Orientation [...] st Contact Info) Description 10/15/2025 12:30 PM SHELLFISH PROCESSING MACHINE TENDER Appointment [facility] [address] [place] [address] Ismael Fong MD [address] [place] [address] [address] [place] [address] 10/15/2025 1:30 PM SHELLFISH PROCESSING MACHINE TENDER Office Visit [facility] - GI [address] [place] [address], [place] [address] Ismael Fong MD [address] [place] [address] [address] [place] [address] Health Maintenance Due Date Last Done Comments [...] C RNA QUANTITATIVE Routine 11/08/2023 10:24 AM SHELLFISH PROCESSING MACHINE TENDER Hepatic cirrhosis, unspecified hepatic cirrhosis type, unspecified [...] entire procedure. Procedure Code(s): --- Professional --- 40097, Esophagogastroduod enoscopy, flexible, transoral; diagnostic, including collection [...] in this report are preliminary and upon information coder review may be revised to meet current compliance requirements. Ismael Fong, 04/18/2025 3:55:43 PM Note Initiated On: 04/18/2025 2:59 PM Number of Addenda: [address] [address] [facility] [employer]ATION 04/18/2025 2:59 PM CDT us Ismael Fong MD GI PROCEDURE ORDERABLE S Edited Result - Final [facility] [employer] * HEPATITIS C RNA QUANTITATIVE (11/08/2023 10:24 AM SHELLFISH PROCESSING MACHINE TENDER) Hepatitis C RNA PCR, Interp Not detected Not detected 11/10/2023 9:18 AM [facility] Blood BLOOD SPECIMEN / Unknown Lab Venipuncture / Unknown 11/08/2023 10:24 AM SHELLFISH PROCESSING MACHINE TENDER 11/08/2023 10:42 AM SHELLFISH PROCESSING MACHINE TENDER Narrative [facility] - 11/10/2023 9:18 AM [facility] The Hepatitis C viral (HCV) RNA analysis utilized a serum sample, real-time reverse magistrate assistant PCR, and is reported as Not Detected, [...] the isolation of HCV RNA with reverse magistrate assistant of genomic HCV RNA followed by real-time PCR in the presence of an unrelated RNA internal control. The internal control ensures that RNA is isolated, and that no general significant inhibitors of the RT-PCR process are present. The analysis was performed using a U.S. FDA approved test methodology. Ismael Fong MD LAB - CHEMISTRY ORDERA BLES Final Result [facility] [address] [place] [address], [facility] [phone] from Last 3 Months or Most Recently Relevant to Health Maintenance Insurance [employer] [facility] MEDICARE ADV Care Teams Financial Investment Adviser Relationship Specialty Start Date End Date Olive Lozano MD [address] [place] [address] PCP - General 07/10/13
--- OUTSIDE RECORDS SUMMARY | 2025-08-12 13:16 | XMS_ITS | Clinical Summary ---
Author Organization [facility] Address [address] [place] [address] Care Team Providers Care Picker/Puller Name Role Phone Olive Lozano MD Primary Care Provider [phone] Allergies Active Allergy Reactions Criticality Noted Date [...] complete this topic [facility] [id number] Care Teams Picker/Puller Relationship Specialty Start Date End Date Olive Lozano MD [address] [place] [address] PCP - General Family Medicine 03/23/23
--- NOTE | 2025-08-12 13:54 | ED.FALL ---
HPI - Fall General Chief Complaint: Fall Stated Complaint: fell yesterday, left shoulder pain Time Seen by Provider: 08/12/25 12:01 History of Present Illness HPI Narrative: The patient is a 75-year-old female who presents ER with left shoulder pain. She was walking a dog with the leash wrapped around her wrist when it pulled her forward causing her fall directly on her left shoulder. She did strike her head but did not lose consciousness. She is on no blood thinners. She has pain at the left shoulder and it hurts with any sort of range of motion. No tenderness or deformity to the wrist or ankle. Related Data Home Medications ?Medication ?Instructions ?Recorded ?Confirmed ?Last Taken ?Type rifaximin 550 mg tablet (Xifaxan) 550 mg PO BID 10/05/23 07/29/25 10/05/23 08:00 History Allergies Allergy/AdvReac Type Severity Reaction Status Date / Time hydrocodone (From Vicodin) Allergy Severe Redness of Verified 08/12/25 10:35 Skin Review of Systems Review of Systems: All systems reviewed & are unremarkable except as noted in HPI and below Constitutional: Constitutional: Reports no additional constitutional complaints Cardiovascular: Cardiovascular: Reports no additional cardiovascular complaints Respiratory: Respiratory: Reports no additional respiratory complaints Musculoskeletal: Musculoskeletal: Reports no additional musculoskeletal complaints Neurologic: Reports system reviewed and no additional complaints, except as documented [facility] Past Medical History Medical History GAVE (gastric antral vascular ectasia) Pancytopenia Type 2 diabetes mellitus Hypertension Mitral regurgitation Noted on echocardiogram in April 2022. Hepatitis C Anemia Anxiety Surgical History Surgical History History of colonoscopy History of bilateral cataract extraction History of tonsillectomy History of cholecystectomy History of tubal ligation Family History Family History Grandparent Acute myocardial infarction Hypertension Diabetes mellitus Family history of coronary artery disease Cerebrovascular accident Mother Diabetes mellitus Social History Social History Social History: Surrogate medical decision maker: Maite Berg, daughter. Code status: Full code. Smoking packs per day: 1 Smoking cigarettes per day: 20.0 Years smoked: 10 Smoking pack-years: 10.00 Smoking status: Never smoker Second hand tobacco smoke exposure: No Alcohol intake: never Substance use: never Substance use type: does not use Do You Feel Safe in your Home?: Yes Lack of Transportation: No Lack of Food: Never True Current Housing: I Have Housing Concerned About Future Housing: No Difficulty Paying Gas/Electric Bills: No Difficulty Paying for Meds: No Currently Unemployed: No Education: Trade/Vocational Certificate Difficulty w/ Childcare or Family Care: No Living arrangements: alone Additional living arrangements comments: Lives alone. She has 2 children. Occupation/Education: occupation Additional occupation/education comments: Works part-time at [employer]. Spiritual care concerns: No Agree to blood products: Yes Exam Narrative: GENERAL: Well-appearing, well-nourished, and in no acute distress. HEAD: Normocephalic, atraumatic. ENT: Mucous membranes moist. CHEST: Clear to auscultation. No respiratory distress. HEART: Regular rate and rhythm. Normal peripheral pulses. EXTREMITIES: Left upper extremity with pain and tenderness over the anterior joint line without bruising or swelling. No clavicular tenderness. Normal range of motion at the left wrist and elbow. SKIN: Warm, dry, no rash. NEURO: Alert and oriented x3. PSYCH: Normal mood and affect. Course Course Emergency Course: Patient placed in a sling for comfort. Toradol for pain. Imaging reviewed with patient and family. Appropriate for discharge home. Follow-up with PCP or orthopedic surgery. Vital Signs Vital signs: Vital Signs Temperature 97.9 F 08/12/25 10:33 Pulse Rate 78 08/12/25 10:33 Respiratory Rate 16 08/12/25 10:33 Blood Pressure 127/44 L 08/12/25 10:33 Pulse Oximetry 99 08/12/25 10:33 Oxygen Delivery Room Air 08/12/25 10:33 Temperature 98.3 F 08/12/25 11:09 Pulse Rate 80 08/12/25 11:09 Respiratory Rate 17 08/12/25 11:09 Blood Pressure 118/58 L 08/12/25 11:09 Pulse Oximetry 96 08/12/25 11:09 Oxygen Delivery Room Air 08/12/25 11:05 MDM - Fall Imaging Data Radiologist's impression: ITS Impressions Shoulder X-Ray 08/12/25 12:22 IMPRESSION: 1. Osteoarthritis the right shoulder, moderate at the acromioclavicular joint and mild at the glenohumeral joint. 2. Right infraspinatus calcific tendinitis. Head CT 08/12/25 13:40 IMPRESSION: 1. No acute intracranial findings. Discharge Plan Discharge Clinical Impression: Injury of shoulder, left Patient Disposition: Home Condition: Stable Instructions: Exercises for Shoulder Flexion and Extension (ED), Exercises for Internal and External Shoulder Rotation (ED), Exercises for Shoulder Abduction and Adduction (ED) Additional Instructions: Your fall may have caused you do develop a simple inflammatory flare of arthritis in the shoulder however you could have something is complex as a rotator cuff injury. Wear the sling for comfort. Practice range of motion exercises. Follow up with Orthopedic surgery or your primary care physician for further evaluation. Patient Language: Scottish Prescriptions: New naproxen 375 mg tablet 375 mg PO BID Qty: 14 0RF No Action (DME) blood-glucose meter [Blood Glucose Monitoring] Kit See Rx Instructions .Route Qty: 1 0RF Rx Instructions: As directed daily (DME) Blood Glucose Test Strip See Rx Instructions .Route Qty: 50 12RF Rx Instructions: As directed daily (DME) lancing device [lancing device with lancets] Misc See Rx Instructions .Route Qty: 1 0RF Rx Instructions: As directed daily (DME) lancets 32 gauge misc See Rx Instructions .Route Qty: 100 12RF Rx Instructions: As directed daily lidocaine [Aspercreme (lidocaine)] 4 % adhesive patch,medicated 1 patch topical DAILY PRN (Reason: pain) Qty: 5 0RF Xifaxan 550 mg Tablet 550 mg PO BID lactulose 20 gram/30 mL Solution 20 g PO QID Qty: 180 2RF meclizine 25 mg tablet 25 mg PO TID PRN (Reason: dizziness) Qty: 20 0RF diazepam [Valium] 2 mg tablet 2 mg PO BID PRN (Reason: dizziness or vertigo) Qty: 10 0RF spironolactone 25 mg tablet 25 mg PO DAILY Qty: 30 4RF trazodone 50 mg tablet 25 mg PO QHS PRN (Reason: insomnia) Qty: 30 3RF metformin 1,000 mg tablet 1,000 mg PO BID Qty: 180 3RF pantoprazole 40 mg tablet,delayed release (DR/EC) 40 mg PO DAILY Qty: 90 3RF tramadol 50 mg tablet 50 mg PO Q6H PRN (Reason: pain) Qty: 20 0RF Follow-up/Referrals: Olive Lozano MD [Primary Care Provider, Family Practice] - 1 Week Valdez Pa MD [Physician, Orthopedics] - 1 Week
[2025-08-12 14:40] VITALS: BP 140/89; PULSE 91; RESP 15; O2SAT 97
== END 2025-08-12 14:41 | disposition home or self-care (01) ==
PROVIDERS: Emergency Provider Emergency Medicine; PCP Family Medicine
DX: S49.92XA Unspecified injury of left shoulder and upper arm, initial encounter (principal); E11.9 Type 2 diabetes mellitus without complications; I10 Essential (primary) hypertension; D64.9 Anemia, unspecified; F41.9 Anxiety disorder, unspecified; I34.0 Nonrheumatic mitral (valve) insufficiency; W01.0XXA Fall on same level from slipping, tripping and stumbling without subsequent striking against object, initial encounter
CPT/HCPCS: 70450; 73030; 96372; 99284; A4565; J1885

== ENCOUNTER 2025-09-09 06:14 | Observation (INO) | payer MEDICARE, SELFPAY ==
[2025-09-09] VITALS (9 sets, daily range): BP systolic 127–139; BP diastolic 58–91; PULSE 78–108; RESP 12–20; TEMP 36.5–36.6; O2SAT 94–100; BMI 28.1
--- NOTE | ~2025-09-09 | CT_ITS ---
CHEST ABDOMEN PELVIS WITHOUT CONTRAST CLINICAL HISTORY: left sided chest pain, back pain . COMPARISON: None TECHNIQUE: Helical CT performed from thoracic inlet to symphysis pubis Coronal, sagittal reformats CT images acquired with automatic exposure control for dose reduction DLP: 1200 mGy-cm FINDINGS: CHEST- Lungs/Pleura: Mild scattered atelectasis. Otherwise clear. Thoracic Aorta: No aneurysm. Pulmonary arteries: Normal caliber. Heart: Coronary artery calcification. Tracheobronchial tree: Patent. Nodes: No enlarged nodes. Bones: Nondisplaced comminuted scapular fracture. Subacute or chronic fracture left rib 3 laterally. Soft tissues: Unremarkable. ABDOMEN/PELVIS- Liver: Cirrhosis. Gallbladder: Removed. Spleen: Unremarkable. Pancreas: Unremarkable. Adrenal glands: Unremarkable. Kidneys: Right kidney- No hydronephrosis. No renal stones. Left kidney- No hydronephrosis. A few tiny stones. Distal esophagus/stomach: Unremarkable. Small bowel loops: Normal caliber and wall thickness. Colon: Normal caliber and wall thickness. Appendix not seen. Nodes: No enlarged nodes. Peritoneum: No ascites. No free air. Right hemiabdomen variceal shunt. Urinary bladder: Unremarkable. Uterus: Unremarkable. Adnexa: No masses. Bones: No acute bony abnormality. Soft tissues: Unremarkable. Aorta: No aneurysm. IVC: Unremarkable. IMPRESSION: CHEST- 1. Comminuted nondisplaced fracture left scapula. 2. No acute cardiopulmonary abnormality. ABDOMEN/PELVIS- 1. No acute cardiopulmonary abnormality. 2. Cirrhosis. 3. Additional findings as above. Reviewed, dictated and finalized at location R. WOOD FALLER
--- NOTE | ~2025-09-09 | XR_ITS ---
Examination: [id number] Clinical History: fall Comparison: None Technique: AP chest, 3 views left ribs Findings/impression: 1. No acute cardiopulmonary abnormality identified. 2. No displaced rib fracture identified. Reviewed, dictated and finalized at location R. LING MACHINE OPERATOR
--- NOTE | ~2025-09-09 | XR_ITS ---
Examination: XR hip BI 2V w AP pelvis, XR knee LT 3V, XR knee RT 3V, XR humerus LT Clinical History: fall, pain Comparison: None Technique: AP pelvis and 2 views bilateral hip, 2 views left humerus 4 films, 3 views right knee, 3 views left knee Findings/impression: Pelvis with bilateral hip: 1. No pelvic or hip fracture identified. 2. Mild hip joint degenerative changes. Left humerus: 1. No fracture or dislocation. Right knee: 1. No fracture, dislocation, or effusion. Left knee: 1. No fracture, dislocation, or effusion. Reviewed, dictated and finalized at location R. RTMENT MGR
--- NOTE | ~2025-09-09 | XR_ITS ---
Examination: XR elbow LT min 3V, XR shoulder LT min 2V Clinical History: LT arm pain after fall Comparison: None Technique: 4 views left shoulder, 3 views left elbow Findings/impression: Left shoulder: 1. No fracture or dislocation left shoulder. 2. Mild glenohumeral joint degenerative changes. 3. Moderate AC joint degenerative changes. Left elbow: 1. No fracture or dislocation left elbow. Reviewed, dictated and finalized at location R. SOFTWARE QA ENGINEER
--- NOTE | ~2025-09-09 | CT_ITS ---
CT HEAD NON-CONTRAST CT C-SPINE Clinical History: fall, head strike Comparison: CT brain 08/12/2025 Technique: Unenhanced axial images skull base to vertex. Coronal, sagittal reformats. Axial images thoracic inlet to skull base. Sagittal and coronal reformats. CT images acquired with automatic exposure control for dose reduction DLP: 681 mGy-cm Findings: Head: Sulci, ventricles: Unremarkable. No intracerebral hemorrhage. No evidence acute territorial infarct. No mass effect, midline shift, intra-/extra-axial fluid collection. Chronic biparietal calvarial outer table concavity. Visualized paranasal sinuses: Clear. Mastoid air cells: Clear. C-spine: No acute fracture or listhesis. Straightening of normal cervical lordosis.. Moderate degenerative changes. Disc spaces maintained. Prevertebral soft tissues within normal limits. Visualized lung apices: Clear. Visualized thyroid: Unremarkable. No enlarged cervical nodes. IMPRESSION: HEAD: 1. No acute intracranial findings. C-SPINE: 1. No acute fracture. Reviewed, dictated and finalized at location R. MANAGER IMPRESSION: HEAD: 1. No acute intracranial findings. C-SPINE: 1. No acute fracture.
--- NOTE | 2025-09-09 07:19 | ED_ITS ---
HPI - General Adult General Chief complaint: Fall Stated complaint: FALL Time Seen by Provider: 09/09/25 06:57 History of Present Illness HPI narrative: 75 Year old female presents to the emergency department complaining left-sided pain. Patient reports she was walking a walker and stumbled online on her left side. Patient is unsure if she struck her head patient does have a hematoma the center of her forehead. Patient does complain of left elbow left shoulder left- sided chest bilateral knee and hip pain. Patient reports this was a mechanical fall secondary to gait instability and tripping wall using her walker. Patient does live at home on her own, patient does have a daughter who helps but patient has typically self-sufficient. Related Data Home Medications ?Medication ?Instructions ?Recorded ?Confirmed ?Last Taken ?Type spironolactone 100 mg tablet 100 mg PO DAILY 09/09/25 09/09/25 09/08/25 History Allergies Allergy/AdvReac Type Severity Reaction Status Date / Time hydrocodone (From Vicodin) Allergy Severe Redness of Verified 09/09/25 14:54 Skin Review of Systems 2 Review of Systems: All systems reviewed & are unremarkable except as noted in HPI and below PMFSH Past Medical History Medical History GAVE (gastric antral vascular ectasia) Pancytopenia Type 2 diabetes mellitus Hypertension Mitral regurgitation Noted on echocardiogram in April 2022. Hepatitis C Anemia Anxiety Surgical History Surgical History History of colonoscopy History of bilateral cataract extraction History of tonsillectomy History of cholecystectomy History of tubal ligation Family History Family History (Updated 09/09/25 @ 14:53 by Angel John RN) Grandparent Diabetes mellitus Acute myocardial infarction Family history of coronary artery disease Hypertension Cerebrovascular accident Mother Diabetes mellitus Hypertension Social History Social History (Updated 09/09/25 @ 14:25 by SJ Bhatia) Social History: Patient currently lives in her own home. Surrogate medical decision maker: Maite Berg, daughter. Code status: Full code. Smoking packs per day: 1 Smoking cigarettes per day: 20.0 Years smoked: 10 Smoking pack-years: 10.00 Second hand tobacco smoke exposure: No Alcohol intake: never Substance use: never Substance use type: does not use Do You Feel Safe in your Home?: Yes Lack of Transportation: No Lack of Food: Never True Current Housing: I Have Housing Concerned About Future Housing: No Difficulty Paying Gas/Electric Bills: No Difficulty Paying for Meds: No Currently Unemployed: No Education: Trade/Vocational Certificate Difficulty w/ Childcare or Family Care: No Living arrangements: alone Additional living arrangements comments: Lives alone. She has 2 children. Occupation/Education: occupation Additional occupation/education comments: Works part-time at [employer] (formerly [employer]). Spiritual care concerns: No Agree to blood products: Yes Exam 2 Narrative: APPEARANCE: Well appearing, no pain, no distress, well-nourished. HEAD: normocephalic, forehead contusion. EYES: PERRLA/EOMI, conjunctivae clear. NOSE: Normal no drainage EARS:TMS clear with good light reflex. THROAT: Pharynx clear, no exudate. NECK: Supple. No adenopathy, no masses. RESPIRATORY: Airway patent, respirations nonlabored. Clear to auscultation bilaterally, no rales, rhonchi, wheezing. 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: Regular rate and rhythm without murmurs rubs or gallops. ABDOMINAL: Soft, nontender, nondistended, normal bowel sounds MUSCULOSKELETAL: Decreased range of the left shoulder due to shoulder pain NEURO: Alert. Cranial nerves II through XII intact. Good gait. Good coordination SKIN: Warm, dry. Normal Color Course Vital Signs Vital signs: Vital Signs Temperature 97.7 F 09/09/25 06:14 Pulse Rate 87 09/09/25 06:14 Respiratory Rate 16 09/09/25 06:14 Blood Pressure 131/65 09/09/25 06:14 Pulse Oximetry 95 09/09/25 06:14 Oxygen Delivery Room Air 09/09/25 06:14 Temperature 97.7 F 09/09/25 06:14 Pulse Rate 83 09/09/25 13:40 Respiratory Rate 18 09/09/25 13:40 Blood Pressure 128/74 09/09/25 13:40 Pulse Oximetry 98 09/09/25 13:40 Oxygen Delivery Room Air 09/09/25 15:05 Medical Decision Making MDM Narrative Medical decision making narrative: 75-year-old female presented emergency department for evaluation multiple areas of pain secondary to having a ground level fall. Patient did strike her head but had no loss of consciousness. Patient did have negative imaging of left humerus, hip and pelvis, bilateral knee left ribs, left elbow, cervical spine, CT brain, patient did have evidence of a left-sided comminuted scapular fracture. Patient was placed in a shoulder immobilizer. Patient did feel comfortable only shoulder immobilizer but patient does utilize a walker for ambulation. Due to impaired ambulation concerned that the patient will not be able to prefer more her activities of daily living patient was willing to stay overnight for PT OT. Patient will potentially need placement into rehab facility. Case was discussed with hospitalist patient was accepted for admission. PT OT and care coordination consult was placed. Differential Diagnosis Differential Diagnosis: Knee fracture, elbow fracture, subdural hematoma, subarachnoid hemorrhage, cervical spine fracture, UTI, COVID, RSV influenza, pneumonia Vital Signs Vital Signs: Vital Signs Temperature 97.7 F 09/09/25 06:14 Pulse Rate 87 09/09/25 06:14 Respiratory Rate 16 09/09/25 06:14 Blood Pressure 131/65 09/09/25 06:14 Pulse Oximetry 95 09/09/25 06:14 Oxygen Delivery Room Air 09/09/25 06:14 Temperature 97.7 F 09/09/25 06:14 Pulse Rate 83 09/09/25 13:40 Respiratory Rate 18 09/09/25 13:40 Blood Pressure 128/74 09/09/25 13:40 Pulse Oximetry 98 09/09/25 13:40 Oxygen Delivery Room Air 09/09/25 15:05 Lab Data Lab results reviewed: Yes I reviewed the patient's lab results. 09/09/25 08:14 09/09/25 08:14 Labs: Lab Results 09/09/25 09/09/25 09/09/25 Range/Units 08:13 08:14 09:16 WBC 4.3 L (4.5-10.0) K/mm3 RBC 3.49 L (4.2-5.4) M/mm3 Hgb 9.8 L (12.0-15.0) g/dL Hct 31.2 L (37.0-47.0) % MCV 89.4 (80-100) fl MCH 28.1 (26-34) pg MCHC 31.4 L (32-36) g/dl RDW 17.8 H (11.5-14.5) % Plt Count 63 L (150-375) k/mm3 MPV 12.4 H (7.4-10.4) fl Immature Gran % (Auto) 0.2 (0-0.5) % Neut % (Auto) 66.7 (45.5-73.1) % Lymph % (Auto) 16.8 L (18.3-44.2) % [place] % (Auto) 15.4 H (2.6-8.5) % Eos % (Auto) 0.7 (0-4.4) % Baso % (Auto) 0.2 (0.2-1.2) % Lymph # (Auto) 0.72 L (0.9-3.2) K/mm3 [place] # (Auto) 0.7 H (0.1-0.6) K/mm3 Eos # (Auto) 0.0 (0-0.3) K/mm3 Baso # (Auto) 0.0 (0.0-0.1) K/mm3 Abs Immat Gran (auto) 0.01 (0.00-0.031) K/mm3 Absolute Neuts (auto) 2.9 (1.3-6.7) K/mm3 Absolute Nucleated RBC 0.000 (0.0-0.012) K/mm3 Nucleated RBC % 0.0 (0.0-0.2) % % Immature Plt Fraction 5.8 (0.9-11.2) % PT 19.7 H (11.1-14.7) Seconds INR 1.7 APTT 36.1 (22.3-36.8) Seconds Sodium 135 L (137-145) mmol/L Potassium 3.7 (3.4-5.0) mmol/L Chloride 107 (98-107) mmol/L Carbon Dioxide 24 (22-30) mmol/L Anion Gap 4 (4-12) mmol/L BUN 15 (7-17) mg/dL Creatinine 0.41 L (0.7-1.0) mg/dL Estim Creat Clear Calc 106 ml/min Estimated GFR > 60 (59 - ) Glucose 188 H (65-110) mg/dL Calcium 9.0 (8.4-10.2) mg/dL Total Bilirubin 2.1 H (0.2-1.3) mg/dL AST 36 (14-36) U/L ALT 24 (6-35) U/L Alkaline Phosphatase 145 H (38-126) U/L Total Protein 5.9 L (6.3-8.2) g/dL Albumin 2.9 L (3.5-5.1) g/dL Urine Color Dark yellow (Yellow) Urine Appearance Clear (Clear) Urine pH 5.5 (5.0-9.0) Ur Specific [place] 1.024 (1.001-1.035) Urine Protein Negative (Negative) mg/dL Urine Glucose (UA) 2+ H (Negative) mg/dL Urine Ketones Trace H (Negative) mg/dL Ur Blood (Man) Negative (Negative) Urine Nitrate Negative (Negative) Urine Bilirubin 1+ H (Negative) Urine Urobilinogen 1.0 (<2.0) mg/dL Leukocyte Esterase Rfl Trace H (Negative) SUKUMAR/UL Urine RBC 0-2 (0-2) /hpf Urine WBC 0-5 (0-3) /hpf Ur Squamous Epith Cells None seen (Few) /hpf Urine Bacteria None seen /hpf Urine Casts 3-5 Imaging Data Radiologist's impression: Impressions Cervical Spine CT 09/09/25 07:00 IMPRESSION: HEAD: 1. No acute intracranial findings. C-SPINE: 1. No acute fracture. Head CT 09/09/25 07:00 IMPRESSION: HEAD: 1. No acute intracranial findings. C-SPINE: 1. No acute fracture. Chest/Abdomen/Pelvis CT 09/09/25 07:55 IMPRESSION: CHEST- 1. Comminuted nondisplaced fracture left scapula. 2. No acute cardiopulmonary abnormality. ABDOMEN/PELVIS- 1. No acute cardiopulmonary abnormality. 2. Cirrhosis. 3. Additional findings as above. Discharge Plan Discharge Clinical Impression: Fracture, scapula closed, Adult failure to thrive Patient Disposition: Still a Patient Condition: Stable
--- NOTE | 2025-09-09 07:30 | PC.NURSE ---
Pt attempted to provide urine sample but was unable too
--- OUTSIDE RECORDS SUMMARY | 2025-09-09 08:05 | XMS_ITS | Encounter Summary ---
Author Organization [facility] Address [address] [place] [address] Phone Care Team Providers Care Board Certified Music Therapist Name Role Phone Olive Lozano MD Primary Care Provider [phone] Svitlana De La Torre APRN, WATER PUMP ASSEMBLER Unavailable Swapnil Jhaveri MD Unavailable [phone] Reason for Visit * Reason Comments Medication Refill Encounter Details Date Type Department Care Team (Late st Contact Info) Description 03/18/2023 Refill [facility] - [facility]ology - [place] [address] [place] [id number] Estella Epperson Ester, PAC [address] [place] [address] Medication Refill Social History Tobacco Use Types [...] Sexual Orientation Straight 11/08/2023 4: 58 PM 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
--- OUTSIDE RECORDS SUMMARY | 2025-09-09 08:06 | XMS_ITS | Encounter Summary ---
Author Organization [facility] Address [address] [place] [address] Phone Care Team Providers Care Universal Worker Assisted Living Name Role Phone Olive Lozano MD Primary Care Provider [phone] Svitlana De La Torre APRN, BEET TOPPER Unavailable Swapnil Jhaveri MD Unavailable [phone] Reason for Visit * Reason Comments Medication Refill Encounter Details Date Type Department Care Team (Late st Contact Info) Description 08/29/2023 Refill [facility] - Gastroenterology - [place] [address] [place] [address] Svitlana De La Torre, REGI, BEET TOPPER [address] [place] [address] Medication Refill Social History Tobacco Use Types [...] Sexual Orientation Straight 11/08/2023 4: 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
--- OUTSIDE RECORDS SUMMARY | 2025-09-09 08:06 | XMS_ITS | Clinical Summary ---
Author Organization [facility] Address [address] [place] [address] Care Team Providers Care Psychiatry Adult Physician Name Role Phone Olive Lozano MD Primary Care Provider [phone] Source Comments [facility],non-owned Affiliates and Associated Physician Practices is amultiple site organization consisting of ambulatory clinics and hospital sitesin [place], [place], [place] and [place]. This disclosure is being madepursuant to the Care Everywhere program and may not contain all information available regarding this patient. Last updated 18.[facility] Allergies Active Allergy Reactions Criticality Noted Date [...] Department Care Team Description 07/04/2025 Refill [facility] - [place] [address], [place] [address] Ismael Fong MD Refill Request from Last 3 Months Immunizations Immunization Administration Dates Next Due Covid Audicus primary monovalent 12+ yr 0.3mL Pur ple [...] on file Legal Sex Female 6:39 PM METER READER INSPECTOR Gender Identity Not on file Sexual Orientation [...] st Contact Info) Description 10/15/2025 12:30 PM METER READER INSPECTOR Appointment [facility] [address] [place] [address] Ismael Fong MD [address] [place] [address] 2[address] DIV [place]STR[place] [address] 10/15/2025 1:30 PM METER READER INSPECTOR Office Visit [facility] - GI [address] [place] [address], [place] [address] Ismael Fong MD [address] [place] [address] 2L DIV [place] [address] Health Maintenance Due Date Last Done Comments [...] C RNA QUANTITATIVE Routine 11/08/2023 10:24 AM METER READER INSPECTOR Hepatic cirrhosis, unspecified hepatic cirrhosis type, unspecified [...] entire procedure. Procedure Code(s): --- Professional --- 10474, Esophagogastroduod enoscopy, flexible, transoral; diagnostic, including collection of specimen(s) by brushing or washing, when performed (separate procedure) Diagnosis Code(s): --- Professional --- K76.6, Portal hypertension K31.89, Other diseases of stomach and duodenum K31.819, Angiodysplasia of stomach and duodenum without bleeding K74.60, Unspecified cirrhosis of liver CPT copyright 2021 [employer]. All rights reserved. The codes documented in this report are preliminary and upon senior teradata developer review may be revised to meet current compliance requirements. Ismael Fong, 04/18/2025 3:55:43 PM Note Initiated On: 04/18/2025 2:59 PM Number of Addenda: [address] [address] [facility] 04/18/2025 2:59 PM CDT us Ismael Fong MD GI PROCEDURE ORDERABLE S Edited Result - Final [facility] * HEPATITIS C RNA QUANTITATIVE (11/08/2023 10:24 AM METER READER INSPECTOR) Hepatitis C RNA PCR, Interp Not detected Not detected 11/10/2023 9:18 AM [facility] Blood BLOOD SPECIMEN / Unknown Lab Venipuncture / Unknown 11/08/2023 10:24 AM METER READER INSPECTOR 11/08/2023 10:42 AM METER READER INSPECTOR Narrative [facility] - 11/10/2023 9:18 AM METER READER INSPECTOR The Hepatitis C viral (HCV) RNA analysis utilized a serum sample, real-time reverse campus police officer PCR, and is reported as Not Detected, [...] the isolation of HCV RNA with reverse campus police officer of genomic HCV RNA followed by real-time PCR in the presence of an unrelated RNA internal control. The internal control ensures that RNA is isolated, and that no general significant inhibitors of the RT-PCR process are present. The analysis was performed using a U.S. FDA approved test methodology. Ismael Fong MD LAB - CHEMISTRY ORDERA BLES Final Result [facility] [address] [place] [address], [facility] [phone] from Last 3 Months or Most Recently Relevant to Health Maintenance Insurance AETNA [facility] MEDICARE ADV Care Teams Psychiatry Adult Physician Relationship Specialty Start Date End Date Olive Lozano MD [address] [place] [address] PCP - General 07/10/13
--- OUTSIDE RECORDS SUMMARY | 2025-09-09 08:06 | XMS_ITS | Encounter Summary ---
Author Organization [facility] Address [address] [place] [address] Phone Care Team Providers Care Cotton Seed Culler Name Role Phone Olive Lozano MD Primary Care Provider [phone] Svitlana De La Torre APRN, RAIL LOADER Unavailable Swapnil Jhaveri MD Unavailable [phone] Encounter Details Date Type Department Care Team (Latest Contact Info) Description 06/12/2024 Transcribe Orders [facility] [address] [place] [address] Ismael Fong MD [address] [place] [address] Hepatic cirrhosis, unspecified hepatic cirrhosis type (HCC) [...] Sexual Orientation Straight 11/08/2023 4: 58 PM INVASIVE 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 Not on file Not on file No t on file documented as of this encounter Plan of Treatment Not on file documented as of this encounter Results * (ABNORMAL) CMP (COMPREHENSIVE METABOLIC PANEL) (06/14/2024 11:54 AM CDT) SODIUM 142 136 - 145 mmol/L 06/14/2024 12:39 PM CDT [facility] POTASSIUM 3.8 3.5 - 5.1 mmol/L 06/14/2024 12:39 PM CDT [facility] CHLORIDE 110(H) 98 - 107 mmol/L 06/14/2024 12:39 PM CDT [facility] CO2, VENOUS 23 22 - 30 mmol/L 06/14/2024 12:39 PM CDT [facility] ANION GAP 12.8 <18.0 mmol/L 06/14/2024 12:39 PM CDT [facility] GLUCOSE 119(H) 70 - 99 mg/dL 06/14/2024 12:39 PM CDT [facility] BUN 18 10 - 20 mg/dL 06/14/2024 12:39 PM T [facility] CREATININE, BLOOD 0.55(L) 0.60 - 1.00 mg/dL 06/14/2024 12:39 PM T [facility] BUN/CREATININE RATIO 33(H) 12 - 20 ratio 06/14/2024 12:39 PM CDT [facility] TOTAL PROTEIN 6.3 6.3 - 8.2 g/dL 06/14/2024 12:39 PM CDT [facility] ALBUMIN 3.4(L) 3.5 - 5.0 g/dL 06/14/2024 12:39 PM CDT [facility] A/G RATIO 1.2 1.0 - 2.2 06/14/2024 12:39 PM CDT [facility] CALCIUM 9.4 8.7 - 10.5 mg/dL 06/14/2024 12:39 PM CDT [facility] T BILI 2.0(H) 0.2 - 1.2 mg/dL 06/14/2024 12:39 PM CDT [facility] SGOT (AST) 25 5 - 34 U/L 06/14/2024 12:39 PM CDT [facility] SGPT (ALT) 18 0 - 55 U/L 06/14/2024 12:39 PM T [facility] ALKALINE PHOSPHATASE 87 40 - 150 U/L 06/14/2024 12:39 PM T [facility] IS THE PATIENT REQUIRED TO BE FASTING? No 06/14/2024 12:39 PM CDT [facility] GFR, ESTIMATED >60 >=60 06/14/2024 12:39 PM [facility] Comment: Creatinine Clearance is the preferred criteria for selecting drug dose adjustments in renally impaired patients. The GFR is provided as additional pertinent clinical information. GFR is reported in mL/min/1.73 sq m. Calculation based on the Chronic Kidney Disease Epidemiology Collaboration (CKD- EPI) equation refit without adjustment for race. GFR, EST. >60 >=60 024 12:39 PM CDT [facility] GFR, EST. NONAFRICAN >60 >=60 06/14/2024 12:39 PM [facility] Blood Venipuncture / Unknown 06/14/2024 11:54 AM CDT 06/14/2024 12:10 PM CDT Ismael Fong MD CHEMISTRY ORDERABLES F inal Result [facility] [address] [place] [address] * (ABNORMAL) PROTIME (PT) (PROTHROMBIN TIME) (06/14/2024 [...] HEMATOLOGY ORDERABLES Final Result Performing Organization Address [facility] Co de Phone Number [facility] [address] [place] [address] * ALPHA FETOPROTEIN, TUMOR MARKER (06/14/2024 11:54 AM CDT) ALPHA FETOPROTEIN 4.6 0.0 - 8.8 ng/mL 06/14/2024 10:[address] [facility] Blood Venipuncture / Unknown 06/14/2024 11:54 AM CDT 06/14/2024 12:10 PM CDT us Ismael Fong MD CHEMISTRY ORDERABLES F inal Result 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
--- OUTSIDE RECORDS SUMMARY | 2025-09-09 08:06 | XMS_ITS | Encounter Summary ---
Author Organization [facility] Address [address] [place] [address] Phone Care Team Providers Care Sign Maintenance Name Role Phone Olive Lozano MD Primary Care Provider [phone] Svitlana De La Torre APRN, WAREHOUSE DRIVER Unavailable Swapnil Jhaveri MD Unavailable [phone] Reason for Visit * Reason Comments Medication Refill Encounter Details Date Type Department Care Team (Late st Contact Info) Description 08/23/2023 Refill [facility] - Gastroenterology - [place] [address] [place] [address] Svitlana De La Torre, REGI, WAREHOUSE DRIVER [address] [place] [address] Medication Refill Social History Tobacco Use Types [...] Sexual Orientation Straight 11/08/2023 4: 58 PM 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
--- OUTSIDE RECORDS SUMMARY | 2025-09-09 08:06 | XMS_ITS | Clinical Summary ---
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 Occupation Industry Job Start Date Job End [...] Cologuard 1997 Immunochemical Fecal Occult Blood 1997 Respiratory Syncytial Virus (RSV) Immunization (Adult) (1 - Risk 50-74 years 1-dose series) 2002 Hepatitis B Immunization (1 of 3 - Risk 3-dose series) 2012 Zoster Immunization (2 of 3) 11/24/2012 09/29/2012 Medicare Initial AWV [id number] 10/31/2019 Influenza Immunization (#1) 07/01/202508/31, 09/12/2023, 09/07/2021, Additional history exists SARS-COV-2 Immunization ( season) 2025 10/01/2021, 01/06/2021 Colonoscopy 06/26/2027 06/26/2019 [...] topic Insurance MEDICARE C AETNA Care Teams Wax Room Supervisor Relationship Specialty Start Date End Date Olive Lozano MD [address] [place] [address] PCP - General Family Medicine 04/19/19 Svitlana De La Torre APRN, HVAC SERVICE MANAGER [address] [place] [address] Nurse Practitioner Advanced Practice Nurse 06/24/23 Swapnil Jhaveri MD [address] [place] [address] Consulting Physician Gastroenterology 02/10/23
--- OUTSIDE RECORDS SUMMARY | 2025-09-09 08:06 | XMS_ITS | Encounter Summary ---
Author Organization [facility] Address [address] [place] [address] Phone Care Team Providers Care Mash Grinder Name Role Phone Olive Lozano MD Primary Care Provider Svitlana De La Torre APRN, WILD ANIMAL CARETAKER Unavailable Swapnil Jhaveri MD Unavailable [phone] Encounter Details Date Type Department Care Team (Latest Contact Info) Description 01/22/2025 [facility] [address] [place] [id number] Olive Lozano MD [address] [place] [address] Dry mouth (Primary Dx); Type 2 diabetes mellitus without complication, unspecified whether psychiatric mental health nurse insulin use (HCC); Mixed hyperlipidemia; Other fatigue; [...] Orientation Straight 11/08/2023 4: 58 PM 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 Consider Clinical Correlation. CREATININE URINE 123.5 mg/dL 01/26/20 9:33 AM CDT [facility] Comment:No reference range h as been established. Consider Clinical Correlation. ALB/CREAT RATIO 14 0 - 30 mg/g CRE 01/25/2025 9:33 AM CDT [facility] Urine Non-Phlebotomy Collection / Unknown 01/25/2025 8:43 AM CDT 01/25/2025 9:01 AM CDT us Olive Lozano MD URINE ORDERABLES Final Result [facility] [address] [place] [address] * ERYTHROCYTE SEDIMENTATION RATE (ESR) (01/25/2025 8:43 AM CDT) ESR (SED RATE, ERYTHROCYTE SEDIMENTATION RATE) 1 <30 mm/h 01/25/2025 9:10 AM CDT [facility] Comment: Patients presenting with increased level of fibrinogen, gamma globulins, or abnormally shaped RBCs could affect the results for the erythrocyte sedimentation rate (ESR). Results should be clinically correlated. Blood Venipuncture / Unknown 01/25/2025 8:43 AM CDT 01/25/2025 9:02 AM CDT us Olive Lozano MD HEMATOLOGY ORDERABLES Final Resu lt Performing Organization Address City/[facility] Co de Phone Number [facility] [address] [place] [address] * VITAMIN B12 (01/25/2025 8:43 AM CDT) VITAMIN B12 421 213 - 816 pg/mL 01/25/2025 9:53 AM CDT [facility] Blood Venipuncture / Unknown 01/25/2025 8:43 AM CDT 01/25/2025 9:02 AM CDT us Olive Lozano MD CHEMISTRY ORDERABLES Final Resul t Performing Organization Address [facility] Co de Phone Number [facility] [address] [place] [address] * AMMONIA (01/25/2025 8:43 AM CDT) AMMONIA 68 18 - 72 umol/L 01/25/2025 9:19 AM CDT [facility] Blood Venipuncture / Unknown 01/25/2025 8:43 AM CDT 01/25/2025 9:01 AM CDT us Olive Lozano MD CHEMISTRY ORDERABLES Final Resul t Performing Organization Address City/[facility] Co de Phone Number [facility] [address] [place] [address] * VITAMIN D, 25 HYDROXY TOTAL (01/25/2025 8:43 AM CDT) VITAMIN D, 25 HYDROX 23.1 ng/mL 01/25/2025 9:53 AM CDT [facility] Blood Venipuncture / Unknown 01/25/2025 8:43 AM CDT 01/25/2025 9:02 AM CDT Narrative [facility] - 01/25/2025 9:53 AM CDT Published reference ranges for Vitamin D vary depending on time and place and method of testing, and on patient's age, sex, ethnicity and levels of other measured analytes such as parathormone, calcium and phosphorus. The result should be evaluated in conjunction with clinical findings and suspicions. [place] [employer] and Endocrine Clinical Practice Guidelines: Status Vitamin D levels (ng/mL) Deficient <=20 At risk of inadequacy 21-29 Sufficient 30-100 Centers of Disease Control and Prevention Guidelines: Status Vitamin D levels (ng/mL) Deficient <13 At risk of inadequacy 13-19 Sufficient 20-50 Possibly harmful >50 References: [place] [employer], 2010 Dietary reference intakes for calcium and vitamin D. [place]: The National Academies Press. Adrian M, Todd N, Chuy BURNS, et al., Evaluation, treatment, and prevention of Vitamin D deficiency: an Endocrinology Clinical Practice Guideline. JCEM 2011 96: 7 5551-7369. Chace A, Andrea C, Ronle D, et al., Vitamin D Status: [place], 6754-3862, [facility] data brief, no. 59, MD [place]: National Center for Health Statistics. 2011. us Olive Lozano MD CHEMISTRY ORDERABLES Final Resul t [facility] [address] [place] [address] * (ABNORMAL) COMPLETE BLOOD COUNT (CBC) WITHOUT DIFF (01/25/2025 8:43 AM CDT) WBC 2.20(L) 4.00 - 12.00 10(3)/mcL 01/25/2025 9:13 AM CDT [facility] RBC 3.72(L) 3.80 - 5.30 10(6)/mcL 01/25/2025 9:13 AM CDT [facility] HEMOGLOBIN (HGB) 7.2(L) 12.0 - 15.8 g/dL 01/25/2025 9:13 AM CDT [facility] HEMATOCRIT (HCT) 27.6(L) 36.0 - 47.0 % 01/25/2025 9:13 AM CDT [facility] MCV 74.2(L) 82.0 - 96.0 fL 01/25/2025 9:13 AM CDT [facility] MCH 19.4(L) 26.0 - 34.0 pg 01/25/2025 9:13 AM CDT [facility] MCHC 26.1(L) 31.0 - 36.0 g/dL 01/25/2025 9:13 AM CDT [facility] PLATELET COUNT 92(L) 140 - 440 10(3)/mcL 01/25/2025 9:13 AM CDT [facility] RDW 19.6(H) 11.8 - 15.5 % 01/25/2025 9:13 AM CDT [facility] MPV 01/25/2025 9:13 AM CDT [facility] Blood Venipuncture / Unknown 01/25/2025 8:43 AM CDT 01/25/2025 9:02 AM CDT us Olive Lozano MD HEMATOLOGY ORDERABLES Final Resu lt [facility] [address] [place] [address] * (ABNORMAL) LIPID PANEL (01/25/2025 8:43 AM CDT) CHOLESTEROL 102 <200 mg/dL 01/25/2025 9:32 AM CDT [facility] TRIGLYCERIDES 62 <150 mg/dL 01/25/2025 9:32 AM CDT [facility] HDL CHOLESTEROL 36(L) >40 mg/dL 9:32 AM CDT [facility] LDL 54 <130 mg/dL 01/25/2025 9:32 AM CDT [facility] VLDL 12 10 - 50 mg/dL 01/25/2025 9:32 AM CDT [facility] CHOL/HDL RATIO 2.8 0.0 - 4.4 01/25/2025 9:32 AM CDT [facility] NON-HDL CHOLESTEROL 66 <130 mg/dL 01/25/2025 9:32 AM CDT [facility] IS THE PATIENT REQUIRED TO BE FASTING? Yes 01/25/2025 9:32 AM CDT [facility] HAS THE PATIENT BEEN FASTING? Yes 01/25/2025 9:32 AM CDT [facility] Blood Venipuncture / Unknown 01/25/2025 8:43 AM CDT 01/25/2025 9:02 AM CDT us Olive Lozano MD CHEMISTRY ORDERABLES Final Resul t [facility] [address] [place] [address] * (ABNORMAL) CMP (COMPREHENSIVE METABOLIC PANEL) (01/25/2025 8:43 AM CDT) SODIUM 141 136 - 145 mmol/L 01/25/2025 9:32 AM CDT [facility] POTASSIUM 4.2 3.5 - 5.1 mmol/L 01/25/2025 9:32 AM CDT [facility] CHLORIDE 112(H) 98 - 107 mmol/L 01/25/2025 9:32 AM CDT [facility] CO2, VENOUS 23 22 - 30 mmol/L 01/25/2025 9:32 AM CDT [facility] ANION GAP 10.2 <18.0 mmol/L 01/25/2025 9:32 AM CDT [facility] GLUCOSE 139(H) 70 - 99 mg/dL 01/25/2025 9:32 AM [facility] BUN 11 10 - 20 mg/dL 01/25/2025 9:32 AM [facility] CREATININE, BLOOD 0.55(L) 0.60 - 1.00 mg/dL 01/25/2025 9:32 AM [facility] BUN/CREATININE RATIO 20 12 - 20 ratio 01/25/2025 9:32 AM [facility] TOTAL PROTEIN 6.5 6.0 - 8.0 g/dL 01/25/2025 9:32 AM [facility] ALBUMIN 3.3(L) 3.5 - 5.0 g/dL 01/25/2025 9:32 AM [facility] A/G RATIO 1.0 1.0 - 2.2 01/25/2025 9:32 AM [facility] CALCIUM 9.1 8.7 - 10.5 mg/dL 01/25/2025 9:32 AM [facility] T BILI 2.0(H) 0.2 - 1.2 mg/dL 01/25/2025 9:32 AM [facility] SGOT (AST) 31 <43 U/L 01/25/2025 9:32 AM [facility] SGPT (ALT) 18 <56 U/L 01/25/2025 9:32 AM [facility] ALKALINE PHOSPHATASE 112 40 - 150 U/L 01/25/2025 9:32 AM [facility] IS THE PATIENT REQUIRED TO BE FASTING? No 01/25/2025 9:32 AM [facility] GFR, ESTIMATED >60 >=60 01/25/2025 9:32 AM [facility] Comment: Creatinine Clearance is the preferred criteria for selecting drug dose adjustments in renally impaired patients. The GFR is provided as additional pertinent clinical information. GFR is reported in mL/min/1.73 sq m. Calculation based on the Chronic Kidney Disease Epidemiology Collaboration (CKD- EPI) equation refit without adjustment for race. GFR, EST. >60 >=60 025 9:32 AM CDT [facility] GFR, EST. NONAFRICAN >60 >=60 01/25/2025 9:32 AM CDT [facility] Blood Venipuncture / Unknown 01/25/2025 8:43 AM CDT 01/25/2025 9:02 AM CDT Olive Lozano MD CHEMISTRY ORDERABLES Final Resul t Performing Organization Address City/[facility] Co de Phone Number [facility] [address] [place] [address] * (ABNORMAL) HEMOGLOBIN A1C W/ ESTIMATED GLUCOSE (01/25/2025 8:43 AM CDT) HGB-A1C 6.6(H) 4.0 - 6.0 % 01/25/2025 9:25 AM CDT [facility] Est Average Glucose 142.7 mg/dL 01/25/2025 9:25 AM CDT [facility] Blood Venipuncture / Unknown 01/25/2025 8:43 AM CDT 01/25/2025 9:02 AM CDT Narrative [facility] - 01/25/2025 9:25 AM CDT HEMOGLOBIN A1C: DIABETIC PATIENTS: WELL-CONTROLLED: 6.2 - 7.0 INTERMEDIATE WELL-CONTROLLED: 7.0 - 9.0 POORLY-CONTROLLED: >9.0 Specimens containing greater than 5% of Hemoglobin F may result in lower than expected % HbA1C results. Olive Lozano MD CHEMISTRY ORDERABLES Final Resul t Performing Organization Address City/[facility] Co de Phone Number [facility] [address] [place] [address] documented in this encounter Visit Diagnoses Diagnosis Dry mouth- Primary Disturbance of salivary secretion Type 2 diabetes mellitus without complication, unspecified whether jail insulin use Mixed hyperlipidemia Other fatigue Vitamin D deficiency Unspecified vitamin D deficiency Liver failure without hepatic coma, unspecified chronicity documented in this encounter Care Teams Mash Grinder Relationship Specialty Start Date End Date Olive Lozano MD [address] [place] [address] PCP - General Family Medicine 04/19/19 Svitlana De La Torre APRN, WILD ANIMAL CARETAKER [address] [place] [address] Nurse Practitioner Advanced Practice Nurse 06/24/23 Swapnil Jhaveri MD [address] [place] [address] Consulting Physician Gastroenterology 02/10/23 documented as of this encounter
--- OUTSIDE RECORDS SUMMARY | 2025-09-09 08:06 | XMS_ITS | Encounter Summary ---
Author Organization [facility] Address [address] [place] [address] Phone Care Team Providers Care Special Machine Stitcher Name Role Phone Olive Lozano MD Primary Care Provider [phone] Svitlana De La Torre APRN, NBA PLAYER Unavailable Swapnil Jhaveri MD Unavailable [phone] Encounter Details Date Type Department Care Team (Latest Contact Info) Description 03/14/2025 [facility] [address] [place] [address] Ismael Fong MD [address] [place] [address] Chronic blood loss anemia (Primary Dx); Hepatic [...] Sexual Orientation Straight 11/08/2023 4: 58 PM [employer] Occupation Industry Job Start Date Job End [...] - 145 mmol/L 03/19/2025 10:21 AM CDT [facility] POTASSIUM 4.4 3.5 - 5.1 mmol/L 03/19/2025 10:21 AM CDT [facility] CHLORIDE 108(H) 98 - 107 mmol/L 03/19/2025 10:21 AM CDT [facility] CO2, VENOUS 23 22 - 30 mmol/L 03/19/2025 10:21 AM CDT [facility] ANION GAP 12.4 <18.0 mmol/L 03/19/2025 10:21 AM CDT [facility] GLUCOSE 147(H) 70 - 99 mg/dL 03/19/2025 10:21 AM CDT [facility] BUN 12 10 - 20 mg/dL 03/19/2025 10:21 AM CDT [facility] CREATININE, BLOOD 0.51(L) 0.60 - 1.00 mg/dL 03/19/2025 10:21 AM [facility] BUN/CREATININE RATIO 24(H) 12 - 20 ratio 03/19/2025 10:21 AM [facility] TOTAL PROTEIN 6.4 6.0 - 8.0 g/dL 03/19/2025 10:21 AM [facility] ALBUMIN 3.4(L) 3.5 - 5.0 g/dL 03/19/2025 10:21 AM [facility] A/G RATIO 1.1 1.0 - 2.2 03/19/2025 10:21 AM [facility] CALCIUM 8.9 8.7 - 10.5 mg/dL 03/19/2025 10:21 AM [facility] T BILI 2.2(H) 0.2 - 1.2 mg/dL 03/19/2025 10:21 AM [facility] SGOT (AST) 25 <43 U/L 03/19/2025 10:21 AM [facility] SGPT (ALT) 14 <56 U/L 03/19/2025 10:21 AM [facility] ALKALINE PHOSPHATASE 140 40 - 150 U/L 03/19/2025 10:21 AM [facility] IS THE PATIENT REQUIRED TO BE FASTING? No 03/19/2025 10:21 AM [facility] GFR, ESTIMATED >60 >=60 03/19/2025 10:21 AM [facility] Comment: Creatinine Clearance is the preferred criteria for selecting drug dose adjustments in renally impaired patients. The GFR is provided as additional pertinent clinical information. GFR is reported in mL/min/1.73 sq m. Calculation based on the Chronic Kidney Disease Epidemiology Collaboration (CKD- EPI) equation refit without adjustment for race. GFR, EST. >60 >=60 025 10:21 AM [facility] GFR, EST. NONAFRICAN >60 >=60 03/19/2025 10:21 AM CDT [facility] Blood Venipuncture / Unknown 03/19/2025 9:09 AM CDT 03/19/2025 10:08 AM CDT us Ismael Fong MD CHEMISTRY ORDERABLES F inal Result Performing Organization Address City/[facility]/ZIP Co de Phone Number [facility] [address] [place] [address] * ALPHA FETOPROTEIN, TUMOR MARKER (03/19/2025 9:09 AM CDT) ALPHA FETOPROTEIN 3.8 0.0 - 8.8 ng/mL 03/19/2025 2:38 PM CDT [facility] Venipuncture / Unknown 03/19/2025 9:09 AM CDT 03/19/2025 9:39 AM CDT us Ismael Fong MD CHEMISTRY ORDERABLES F inal Result Performing Organization Address City/[facility] Co de Phone Number [facility] [address] [place] [address], documented in this encounter Visit Diagnoses Diagnosis 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) Hepatic cirrhosis, unspecified hepatic cirrhosis type, unspecified whether ascites present Hepatic encephalopathy 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
--- OUTSIDE RECORDS SUMMARY | 2025-09-09 08:06 | XMS_ITS | Data Portability ---
Author Organization [facility], [place] Address [address] [place] [address] Care Team Providers Care Government Property Inspector Name Role Phone TIFFANI WATTS Primary Care Provider Assessment Encounter Date Assessment Date Assessment LastModified by Organization Details LastModified Time 01/08/2022 01/08/2022 Reviewed and discussed US results DIscussed thickened endometrium and need for EMB reassuring that she has not had bleeding. WWE overdue. [email or web address] Not available 01/15/2022 10:07:23 01/26/2022 01/26/2022 EMB done, will contact with results. do not suspect malignancy as minimal tissue obtained. pt reassured. WWE due, will schedule. [email or web address] Not available 01/26/2022 16:57:20 Plan of Treatment Reminders Order Date Submit Date Provider Last Modified By Organization Details Last Modified Time Details Appointments None record ed. Lab None record ed. Referral None record ed. Procedures None record ed. Surgeries None record ed. Imaging None record ed. Medication Orders None record ed. Patient TargetsNo targets recorded. Patient InstructionsNo instructions recorded. Reason for Referral None Reported. Results Created Date Observation Date Name Description Value Unit Range Abnormal Flag Note LastModifiedBy Organization Detail LastModifiedTime 01/09/20 22 01/08/2022 IMAGE GUIDE D PAP AND HPV REGAR DLESS image guided Pap, HPV regardless of Pap result SEE RESULT S BELOW CASE REPOR T: Cytol ogy Gynec ologi luis Repor t Case: [id number] Autho queenie g Provi na: Hien Doe MD Colle cted: 01/08 1201 Order ing Locat ion: [place] Patho [place] Recei jorgito: 01/09 0047 First Scree n: Ladan z, Willi am, CT Speci men: Scree marion Pap - Image d, Cervi x STATE MENT OF ADEQU ACY: Satis facto ry for evalu ation Trans forma tion zone compo nent prese nt FINAL DIAGN OSIS: Negat vicenta for Intra epith elial Amish urban or Isabel coles (NIL) . Elect miladys vazquez earl d by Ladan ayon, Anam am, CT on 2021 at 5:25 AM ----- ----- ----- ----- ----- ----- ----- ----- ----- ----- ----- ----- ----- ----- ----- ----- ----- ---- HPV RESUL TS: HPV mRNA E6/E7 : No HPV mRNA Detec concepcion NOTE: This high risk HPV mRNA assay detec ts fourt een high- risk HPV types (16, 18, 31, 33, 35, 39, 45, 51, 52, 56, 58, 59, 66, 68) witho ut diffe renti ation . COMME NT: Note: This speci men was revie wed by a Cytot echno logis t and/o r Patho logis t (as indic ated in this repor t) after evalu ation using the Thinp rep Imagi ng Syste m. CLINI LUIS INFOR MATIO N: Menst rual Statu s: LMP (if appli cable ): Clini luis Histo ry/Pr eviou s Pap: Type of Neopl freddy (if appli cable ): Signi fican t Clini luis Findi ngs: Other Histo ry: Hormo amina (if appli cable ): PAP EDUCA LUIS L NOTE: The Pap Test is a scree marion test with an inher ent false negat vicenta rate. Liqui d-bas ed sampl ing may decre ase, but will not elimi joselin, false negat vicenta resul ts. A negat vicenta resul t does not precl ude the prese nce and/o r devel opmen t of disea se, since the prese nce of abnor mal cells in the sampl e depen ds on the locat ion of the lesio n and sampl ing techn ique. Miranda nued regul ar scree marion is the best metho d of cance r preve ntion . If repor concepcion cytol ogic findi ng do not corre late with physi luis and/o r histo rical findi ngs, furth er inves tigat ion is recom kacie d, as clini devon lopez nted. Not Available [facility] (Lab) [address], [place], [address], 01/16/2022 06:28:41 01/27/20 22 01/26/2022 SURGI LUIS PATHO LOGY surgical pathology SEE RESULT S BELOW CASE REPOR T: Surgi luis Patho logy Repor t Case: [id number] Autho queenie kwan Provi na: Hien Doe MD Colle cted: 01/26 1648 Order ing Locat ion: [place] Patho log[place] Recei jorgito: 01/27 0028 Patho logis t: Yovanny Camp MD Speci men: Endom etriu m, EMB FINAL DIAGN OSIS: Endom etriu m, biops y: -Scan t super ficia l strip s of inact vicenta endom etriu m. -No evide nce of hyper plasi a or malig sharyn . -Frag ments of benig n ectoc ervic al mucos a. Nicholas dale by Yovanny Camp MD on 2021 at 5:05 PM ----- ----- ----- ----- ----- ----- ----- ----- ----- ----- ----- ----- ----- ----- ----- ----- ----- ---- CLINI LUIS INFOR MATIO N: NOT PROVI DED MICRO SCOPI C DESCR IPTIO N: A micro scopi c exami natio n was perfo rmed. GROSS DESCR IPTIO N: A. Endom etriu m. The speci men is label ed with the patie nt's name, lawrence rider and endo metri um. Recei jorgito in forma luanne is a 1.0 x 1.0 x 0.2 cm aggre gate of mucus and minut e white -fan tissu e. The entir e speci men is submi tted in one casse tte. Gross ed by Tom rahman Not Available [facility] (Lab) [address], [place], [address], 01/27/2022 18:07:47 12/18/19 22 11/11/2021 , kenton joseph No observ ation record ed. [email or web address] Not Available 2021 11:25:20 Result Notes None recorded. Procedures Surgical History Date Name Laterality Status Provider Name and Address Organization Details Recorded Time 022 Endometrial Biopsy completed Hien Plascencia MD [address], [place], [address], [facility] 01/26/2022 16:56:47 006 cholecystectomy completed Verenice Jackson [facility] 01/08/2022 11:18:44 003 Date of Last Pap Smear completed Verenice Jackson [facility] 01/08/2022 09:04:17 965 procedure on uterus completed Hien Plascencia MD [address], [place], [address], [facility] 01/26/2022 16:17:07 Imaging Results None recorded. Procedure Notes None recorded. Medical Equipment None Reported. Allergies Allergen ID Allergen Name Allergen Category Reaction Reaction Severity Criticality Documentation Date Start Date Code Code System Note Provider Name and Address Organization Details Recorded Time 48882 acetamino phen / hydrocodo ne medicatio n Not available Not available Not available 01/08/2022 68728 2 RxNorm [facility] 2 11:18:24 Medications Name Sig Start Date Stop Date Status Note LastModified by Organization Details LastModified Time magnesium 200 mg tablets 200mg TAKE 1 TABLET BY MOUTH 2 TIMES DAILY. active Not Available Not Available No t Available spironolactone 25 mg tablet TAKE 1 TABLET BY MOUTH EVERY DAY active Not Available Not Available No t Available magnesium oxide 400 mg (241.3 mg magnesium) tablet TAKE 1 TABLET BY MOUTH 4 TIMES DAILY active Not Available Not Available No t Available [employer] Ultra Test strips TEST ONCE A DAY DIRECTED active Not Available Not Available No t Available pantoprazole 40 mg tablet,delayed release TAKE 1 TABLET BY MOUTH EVERY DAY active Not Available Not Available No t Available metformin 1,000 mg tablet TAKE 1 TABLET BY MOUTH TWICE A DAY active Not Available Not Available No t Available lorazepam 1 mg tablet TAKE ONE TABLET BY MOUTH DAILY NEEDED FOR ANXIETY active Not Available Not Available No t Available losartan 100 mg tablet TAKE 1 TABLET BY MOUTH EVERY DAY active Not Available Not Available No t Available lactulose 10 gram/15 mL oral solution TAKE 15 ML BY MOUTH 4 TIMES DAILY. active Not Available Not Available No t Available Xifaxan 550 mg tablet TAKE 1 TABLET BY MOUTH TWICE A DAY active Not Available Not Available No t Available Ozempic 0.25 mg or 0.5 mg (2 mg/1.5 mL) subcutaneous pen injector INJECT 0.5MG UNDER THE SKIN ONCE WEEKLY active Not Available Not Available No t Available Vitals Date Recorded Body height Body mass index (BMI) Body weight Systolic And Diastolic Provider Name and Address Organization Details Last Updated DateTime 01/08/2022 165.1 cm 30.1 kg/m2 87805.22 g 128/76 mm[Hg] [facility] 01/08/2022 11:14:38 Date Recorded Body height Body mass index (BMI) Body weight Systolic And Diastolic Provider Name and Address Organization Details Last Updated DateTime 01/26/2022 165.1 cm 30 kg/m2 27104.63 g 125/72 mm[Hg] Verenice [facility] 01/26/2022 15:49:48 Social History Question Answer Notes LastModified by Organizat ion Details LastModified Time Tobacco Smoking Status Never Smoker Verenice Jackson [facility] 01/08/2022 09:02:51 Has Tobacco Cessation Counseling Been Provided? No Information not available 01/08/2022 Sex: Unknown Functional Status Question Answer Note LastModified by Organizat ion Details LastModified Time Do you use any illicit or recreational drugs? No Information not available 01/08/2022 Do you or have you ever used any other forms of tobacco or nicotine? No Information not available 01/08/2022 What is your level of alcohol consumption? None Information not available 01/08/2022 Mental Status None recorded. Family History Nothing Reported. Medical History Condition Response Allergies (Food, seasonal, environmental ) N Other N Breast Cancer N Drug/Latex Allergies/Reactions N Blood Transfusion N Lung Disease N Dermatologic Disorders N Defects or Inherited Disease N Breast Problem N Gestational Diabetes N Hematologic disorders N Anesthesia Complications N History of STI N Deep Vein Thrombosis N Polycystic ovary syndrome N Anxiety Disorder N Autoimmune disease N Arthritis N Polyps N Infertility N History of abnormal pap N Acid Reflux (GERD) N Cancer N Varicosities N Stroke N Neurologic/Epilepsy N Endometriosis N High Cholesterol N Fibromyalgia N Headaches N Kidney Disease N Heart Problems N Kidney or Bladder Problems N Thyroid Problems N GI Problems N Eating Disorder N Anemia N Art (IVF or FET) N Psychiatric Illness N Ovarian Cancer N Diabetes Y Pulmonary (TB, Asthma) N Hepatitis/Liver Disease Y No Past Medical History N Eczema N Urinary Tract Infection N Abuse/Domestic Violence N Asthma N Trauma/Violence N Depression/ depression N Heart Disease N Pre-Eclampsia N Hypertension N Osteoporosis N Thrombophilias N Gynecological History Statement/Question Response Age of first menstrual cycle 14 Date of Last Pap Smear 03/09/2003 Current Control Method Tubal Ligat ion Obstetrics History GPAL:G 2 P 2 0 0 2 Type Value Full Term 2 Living 2 Total 2 Past Encounters Encounter ID Performer Location Encounter Start Date Encounter Closed Date Diagnosis/Indication Diagnosis SNOMED-CT Code Diagnosis ICD10 Code Diagnosis IMO Codes Diagnosis Note [id number] Hien Plascencia MD [place] [address] [address] 01/08/2022 11:04:22 01/15/2022 14:55:56 Endometrium thickened 873619572 R93.89 [id number] Hien Plascencia MD [place] [address] [address] 01/26/2022 15:31:14 01/26/2022 17:03:28 Endometrium thickened 065489388 R93.89 Health Concerns Section Related Observation LastModified by Organization Detai ls LastModified Time None Recorded Concern Status LastModified by Organization Details LastModified Time None Recorded Advance Directives Directive None Recorded Payers Insurance Date Sequence Insurance Name Policy Number Policy Méndez Covered Member ID Méndez Member ID Guarantor Name 04/12/2022 1 [employer] [id number] Negar Alex Berg [id number] Negar Berg Notes Date Note Type Note Provider Name and Address Organization Details Recorded Time 01/08/2022 text/html Patient is a 71yo [id number] who presents for abnormal US at OSH. She is not sexually active. US on 11/11/21 showed a 1.3cm endometrium. She has not had any vaginal bleeding. She has DM2 and Hep C that she supposedly cleared. She does have liver damage from it though.Concerns:last WWE:2002 NILMDepression:denies Domestic violence:denies Hien Plascencia MD [address], [place], [address], [facility] 01/15/2022 10:07:39 01/26/2022 text/html Here for EMB for thickened endometrium. No bleeding. 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 Hien Plascencia MD [address], [place], [address], [facility] 01/26/2022 16:58:02 OBGyn Episode Ob Episode Information Episode Created Date Number of Fetuses Patient Bloodtype Patient rh Status Prepregnancy Weight lbs Domestic Partner Domestic Partner Phone Father Name Shopper Status 01/09/20 22 1 CLOSED Fetus Data First Name Last Name Admitted to NICU Weight (g) Sex Living Outcome Pediatric Complications Fetus ID Race Codes Race Delivery Type 3742.13 4 M [id number] Vaginal Delivery Bry Calculation Initial Bry Date Initial Exam Date Initial Exam Provider Initial Ultrasound Date Last Menstrual Period Date Ultra Sound Weeks Gestation 0 Eighteen To Twenty Week Bry Update Ultra Sound Date Fundal Height At Umbil Quickening Date Ultra Sound Latest Weeks Gestation Final Bry Confirmed By Final Bry Confirmed Date Final Bry Date Ultra Sound Latest Days Gestation 0 0 Menstrual History Last Menstrual Date Menses Monthly On Bcp Conception Prior Menses Frequency Hcg Plus Date Menarche Onset Age Delivery Information Delivery Date Delivery Type Labor Anesthesia Weeks Gestation Incision Type Labor Labor Length Hrs Delivered By Post Complications Tubal Sterilization Discharge Date Comments 2 Discharge Information Feeding Method Contraceptive Method Maternal HG B and HCT Levels Ob Episode Information Episode Created Date Number of Fetuses Patient Bloodtype Patient rh Status Prepregnancy Weight lbs Domestic Partner Domestic Partner Phone Father Name Shopper Status 01/09/20 22 1 CLOSED Fetus Data First Name Last Name Admitted to NICU Weight (g) Sex Living Outcome Pediatric Complications Fetus ID Race Codes Race Delivery Type 3883.65 [id number] M [id number] Vaginal Delivery Bry Calculation Initial Bry Date Initial Exam Date Initial Exam Provider Initial Ultrasound Date Last Menstrual Period Date Ultra Sound Weeks Gestation 0 Eighteen To Twenty Week Bry Update Ultra Sound Date Fundal Height At Umbil Quickening Date Ultra Sound Latest Weeks Gestation Final Bry Confirmed By Final Bry Confirmed Date Final Bry Date Ultra Sound Latest Days Gestation 0 0 Menstrual History Last Menstrual Date Menses Monthly On Bcp Conception Prior Menses Frequency Hcg Plus Date Menarche Onset Age Delivery Information Delivery Date Delivery Type Labor Anesthesia Weeks Gestation Incision Type Labor Labor Length Hrs Delivered By Post Complications Tubal Sterilization Discharge Date Comments 9 Discharge Information Feeding Method Contraceptive Method Maternal HG B and HCT Levels
--- OUTSIDE RECORDS SUMMARY | 2025-09-09 08:06 | XMS_ITS | Encounter Summary ---
Author Organization [facility] Address [address] [place] [address] Phone Care Team Providers Care Life Science Technical Officer Name Role Phone Olive Lozano MD Primary Care Provider [phone] Svitlana De La Torre APRN, TRANSPORT COMPANY MANAGER Unavailable Swapnil Jhaveri MD Unavailable [phone] Reason for Visit * Reason Comments Medication Refill Encounter Details Date Type Department Care Team (Late st Contact Info) Description 06/03/2022 Refill [facility] - Gastroenterology - [place] [address] [place] [id number] Estella Epperson Ester, PAC [address] [place] [address] Medication Refill Social History Tobacco Use Types [...] Sexual Orientation Straight 11/08/2023 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. Per Subha, patient has 90 tablets with 3 refills on file with [facility]. Patient can re-enroll as soon as August 31, 2022. Reviewed information with patient. Patient is awareand verbalizes understanding. [facility]. * Telephone Encounter - Laurel Krause RN - 06/04/2022 8:59 AM CDT Refill request for xifaxan. Last refill noted to be 12/17/2021 for 60 tabs and 11 refills. Refill request noted to be for [facility] in [place], [place]. Called patient to verify requested pharmacy. Left message for patient to call back. documented in this encounter Plan of Treatment Not on file documented as of this encounter Visit Diagnoses Not on filedocumented in this encounter Care Teams Life Science Technical Officer Relationship Specialty Start Date End Date Olive Lozano MD [address] [place] [address] PCP - General Family Medicine 04/19/19 Svitlana De La Torre APRN, TRANSPORT COMPANY MANAGER [address] [place] [address] Nurse Practitioner Advanced Practice Nurse 06/24/23 Swapnil Jhaveri MD [address] [place] [address] Consulting Physician Gastroenterology 02/10/23 documented as of this encounter
--- OUTSIDE RECORDS SUMMARY | 2025-09-09 08:06 | XMS_ITS | Encounter Summary ---
Author Organization [facility] Address [address] [place] [address] Phone Care Team Providers Care Hypertrichologist Name Role Phone Olive Lozano MD Primary Care Provider [phone] Svitlana De La Torre APRN, CAM SPECIALIST Unavailable Swapnil Jhaveri MD Unavailable [phone] Reason for Visit * Reason Comments Medication Refill Encounter Details Date Type Department Care Team (Late st Contact Info) Description 11/10/2021 Refill [facility] - Gastroenterology - [place] [address] [place] [id number] Estella Epperson Ester, PAC [address] [place] [address] Medication Refill Social History Tobacco Use Types [...] Sexual Orientation Straight 11/08/2023 4: 58 PM LINING MAKER HAND 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 No / Unsure 11/11/2021 7:58 AM LINING MAKER HAND documented as of this encounter Miscellaneous Notes * Telephone Encounter - Laurel Krause RN - 11/11/2021 9:46 AM LINING MAKER HAND Medication refilled and signed per [facility] chronic medication standing order for pediatric and adult patients. NG MAKER HAND documented in this encounter Plan of Treatment Not on file documented as of this encounter Visit Diagnoses Diagnosis Hepatic encephalopathy documented in this encounter Care Teams Hypertrichologist Relationship Specialty Start Date End Date Olive Lozano MD [address] [place] [address] PCP - General Family Medicine 04/19/19 Svitlana De La Torre APRN, CAM SPECIALIST [address] [place] [address] Nurse Practitioner Advanced Practice Nurse 06/24/23 Swapnil Jhaveri MD [address] [place] [address] Consulting Physician Gastroenterology 02/10/23 documented as of this encounter
--- OUTSIDE RECORDS SUMMARY | 2025-09-09 08:06 | XMS_ITS | Encounter Summary ---
Author Organization [facility] Address [address] [place] [address] Phone Care Team Providers Care Firmware Engineer Name Role Phone Olive Lozano MD Primary Care Provider [phone] Svitlana De La Torre APRN, TECHNICAL SALES SUPPORT MANAGER Unavailable Swapnil Jhaveri MD Unavailable [phone] Reason for Visit * Reason Comments Medication Refill Encounter Details Date Type Department Care Team (Late st Contact Info) Description 05/06/2022 Refill [facility] - Gastroenterology - [place] [address] [place] [id number] Estella Epperson Ester, PAC [address] [place] [address] Medication Refill Social History Tobacco Use Types [...] Sexual Orientation Straight 11/08/2023 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
--- OUTSIDE RECORDS SUMMARY | 2025-09-09 08:06 | XMS_ITS | Clinical Summary ---
Author Organization [facility] Facility Address [address] [place] [address] Care Team Providers Care Technical Solutions Consultant Name Role Phone Olive Lozano MD Primary Care Provider [phone] Allergies Active Allergy Reactions Criticality Noted Date [...] to complete this topic [facility] [employer] [id number] Care Teams Technical Solutions Consultant Relationship Specialty Start Date End Date Olive Lozano MD [address] [place] [address] PCP - General Family Medicine 03/23/23
[2025-09-09 08:21] LABS: Hematocrit 31.2 % (37.0-47.0); Hemoglobin 9.8 g/dL (12.0-15.0); Immature Granulocyte Percent A 0.2 % (0-0.5); Immature Platelet Fraction Pct 5.8 % (0.9-11.2); Lymphocytes Absolute Auto 0.72 K/mm3 (0.9-3.2); Mean Corpuscular HGB Conc 31.4 g/dl (32-36); Mean Corpuscular Hemoglobin 28.1 pg (26-34); Mean Corpuscular Volume 89.4 fl (80-100); Nucleated Red Blood Cells Absolute Auto 0.000 K/mm3 (0.0-0.012); Nucleated Red Blood Cells Perc 0.0 % (0.0-0.2); Platelet Count Result 63 k/mm3 (150-375); Red Blood Count 3.49 M/mm3 (4.2-5.4); White Blood Count 4.3 K/mm3 (4.5-10.0)
[2025-09-09 08:35] LABS: INR 1.7; Prothrombin Time 19.7 Seconds (11.1-14.7)
[2025-09-09 08:36] LABS: Partial Thromboplastin Time 36.1 Seconds (22.3-36.8)
[2025-09-09 08:39] LABS: Alanine Aminotransferase 24 U/L (6-35); Albumin Level 2.9 g/dL (3.5-5.1); Alkaline Phosphatase 145 U/L (38-126); Anion Gap 4 mmol/L (4-12); Aspartate Amino Transferase 36 U/L (14-36); Bilirubin,Total 2.1 mg/dL (0.2-1.3); Blood Urea Nitrogen 15 mg/dL (7-17); Calcium 9.0 mg/dL (8.4-10.2); Carbon Dioxide 24 mmol/L (22-30); Chloride 107 mmol/L (98-107); Estimated CRCL calculation 106 ml/min; Estimated Glomerular Filt Rate > 60; Glucose 188 mg/dL (65-110); Potassium 3.7 mmol/L (3.4-5.0); Sodium 135 mmol/L (137-145); Total Protein 5.9 g/dL (6.3-8.2)
[2025-09-09 09:26] LABS: Add Urine Microscopic? YES; Appearance Urine Clear (Clear); Glucose Urine UA 2+ mg/dL (Negative); Leukocyte Esterase Ur Trace LEU/UL (Negative); Nitrate Urine Negative (Negative); Specific Grav Ur 1.024 (1.001-1.035)
--- NOTE | 2025-09-09 12:52 | PC.NURSE ---
Food tray ordered for pt.
--- NOTE | 2025-09-09 13:42 | WPCEDHO ---
ED Hand Off Checklist All vitals saved: yes IV Site documented: yes All med administrations documented: yes Triage Note Triage Note Pt arrives via EMS s/p GLF at 09/09/25 06:14 2100 last night. Pt reports L arm pain, bruising noted, and side pain under the armpit, dyllan knee pain. Pt lives at home alone , A&O x 4. 4 mg morphine and 4 mg zofran given en route. 20 g RAC. Allergies hydrocodone (From Vicodin) Allergy (Severe, Verified 09/09/25 06:33) Redness of Skin Family History (Last Reviewed 06/11/25 @ 14:02 by Jaimee Leung [facility]) Grandparent Acute myocardial infarction Hypertension Diabetes mellitus Family history of coronary artery disease Cerebrovascular accident Mother Diabetes mellitus Notes 09/09/25 12:52 Nurse Note by Saundra Peres Food tray ordered for pt. Initialized on 09/09/25 12:52 - END OF NOTE 09/09/25 07:30 (created 09/09/25 09:00) Nurse Note by Qing Mosquera Pt attempted to provide urine sample but was unable too Initialized on 09/09/25 09:00 - END OF NOTE Interventions/Assessments IV Line Assessment Start: 09/09/25 06:02 Freq: Status: Active Protocol: Document 09/09/25 06:34 HNK (Rec: 09/09/25 06:34 HNK [id number]) IV Assessment Peripheral Access Right Antecubital IV Catheter Access Initiated Before Arrival IV Insertion Date 09/09/25 Catheter Gauge 20 IV Site Assessment WNL IV Care and WNL Maintenance PA: Musculoskeletal Assessment Start: 09/09/25 06:02 Freq: Status: Active Protocol: Document 09/09/25 06:14 HNK (Rec: 09/09/25 06:45 HNK [id number]) Musculoskeletal Assessment Bilateral Knee(s) Musculoskeletal Joint Pain With Movement Symptoms Limb Description Normal Range of Motion Full Range of Motion Able to Dorsiflex Yes Able to Plantar Flex Yes Left Upper Lateral Chest Musculoskeletal Muscle Pain Symptoms Limb Description Normal Range of Motion Full Range of Motion Left Upper Arm(s) Musculoskeletal Joint Pain,Muscle Pain Symptoms Limb Description Normal Range of Motion Limited Range of Motion Strength Strong PA: Neurological Assessment Start: 09/09/25 06:02 Freq: Status: Active Protocol: Document 09/09/25 06:14 HNK (Rec: 09/09/25 06:45 HNK [id number]) Neurological Assessment Level of Alert,Awake Consciousness Arousable to Verbal Orientation Oriented to Person,Oriented to Place,Oriented to Time Neurological None Symptoms Hallucination Type None Ability to Maintain Normal Balance Facial Symmetry Symmetrical Speech Pattern Clear Ability to Swallow Normal Tongue Position Midline Finger to Nose Test Normal Performance Heel to Sexton Test Normal Performance Yoandy Coma Scale Eyes Open Verbal Oriented and Alert Motor Follows Commands Yoandy Coma Total 15 Score Last Vital Signs Temperature 97.7 F 09/09/25 06:14 Pulse Rate 83 09/09/25 13:40 Respiratory Rate 18 09/09/25 13:40 Pulse Oximetry 98 09/09/25 13:40 Blood Pressure 128/74 09/09/25 13:40 Blood Pressure Mean 92 09/09/25 13:40 Blood Pressure Position Supine 09/09/25 12:05 Oxygen Delivery Room Air 09/09/25 06:14 Weight 79.1 kg 09/09/25 06:14 Last Result - Abnormals Only WBC 4.3 K/mm3 (4.5-10.0) L 09/09/25 08:14 RBC 3.49 M/mm3 (4.2-5.4) L 09/09/25 08:14 Hgb 9.8 g/dL (12.0-15.0) L 09/09/25 08:14 Hct 31.2 % (37.0-47.0) L 09/09/25 08:14 MCHC 31.4 g/dl (32-36) L 09/09/25 08:14 RDW 17.8 % (11.5-14.5) H 09/09/25 08:14 Plt Count 63 k/mm3 (150-375) L 09/09/25 08:14 MPV 12.4 fl (7.4-10.4) H 09/09/25 08:14 Lymph % (Auto) 16.8 % (18.3-44.2) L 09/09/25 08:14 Clarke % (Auto) 15.4 % (2.6-8.5) H 09/09/25 08:14 Lymph # (Auto) 0.72 K/mm3 (0.9-3.2) L 09/09/25 08:14 Clarke # (Auto) 0.7 K/mm3 (0.1-0.6) H 09/09/25 08:14 PT 19.7 Seconds (11.1-14.7) H 09/09/25 08:13 Sodium 135 mmol/L (137-145) L 09/09/25 08:14 Creatinine 0.41 mg/dL (0.7-1.0) L 09/09/25 08:14 Glucose 188 mg/dL (65-110) H 09/09/25 08:14 Total Bilirubin 2.1 mg/dL (0.2-1.3) H 09/09/25 08:14 Alkaline Phosphatase 145 U/L (38-126) H 09/09/25 08:14 Total Protein 5.9 g/dL (6.3-8.2) L 09/09/25 08:14 Albumin 2.9 g/dL (3.5-5.1) L 09/09/25 08:14 Urine Glucose (UA) 2+ mg/dL (Negative) H 09/09/25 09:16 Urine Ketones Trace mg/dL (Negative) H 09/09/25 09:16 Urine Bilirubin 1+ (Negative) H 09/09/25 09:16 Leukocyte Esterase Rfl Trace SUKUMAR/UL (Negative) H 09/09/25 09:16 Most Recent Suicide Severity Rating Suicide Severity Rating NO RISK INDICATED 09/09/25 06:14
--- NOTE | 2025-09-09 14:20 | P.HP_ITS ---
H&P: HPI History of Present Illness Date/Time: 09/09/25 14:20 Chief Complaint: Fall Narrative: Patient is a 75-year-old female with a past medical history of type 2 diabetes, pancytopenia, hypertension, hep C who presented to the ED with complaints of a fall. Patient was walking with walker when she stumbled and fell on her left side. Upon arrival to the ED she did note to have some left-sided pain. She denies hitting her head however does have a noted hematoma. Patient and she was doing when she was supposed to with her walker when the walker got away from her. She denies any chest pain, nausea vomiting, diarrhea constipation, fevers, sweats, chills. S patient is in she was having some shortness of breath however she does state that it was related to the pain. Pain medications were given. Plan of care has been updated and patient verbalizes understanding. In the ED white blood cell count was 4.3 with hemoglobin of 9.8 hematocrit of 31.2. Sodium was 135 with potassium 3.7. BUN is 15 with a creatinine of 0.41. Glucose was 188 and stable. AST ALT is 36/24. UA does not appear infectious however does have trace ketones and 2+ glucose. PT OT has been consulted for evaluation. Patient will most likely need stiff in rehab. Pain medications have been ordered. CT of the head and cervical spine with no acute fracture findings. If the pelvis x-ray shows no acute fracture identified, left humerus with fracture, right knee no fracture left knee no fracture. Left shoulder showed no fracture dislocation mild joint degenerative changes left AC joint degenerative changes, left elbow with no fracture dislocation. Chest and pelvis CT shows a commuted nondisplaced fracture of the left scapula no acute cardiopulmonary abnormality and no findings in the abdomen pelvis other than cirrhosis. Lactulose has been continued from home. [facility] Past Medical History Medical History GAVE (gastric antral vascular ectasia) Pancytopenia Type 2 diabetes mellitus Hypertension Mitral regurgitation Noted on echocardiogram in April 2022. Hepatitis C Anemia Anxiety Surgical History Surgical History History of colonoscopy History of bilateral cataract extraction History of tonsillectomy History of cholecystectomy History of tubal ligation Family History Family History Grandparent Acute myocardial infarction Hypertension Diabetes mellitus Family history of coronary artery disease Cerebrovascular accident Mother Diabetes mellitus Social History Social History (Updated 09/09/25 @ 14:25 by SJ Bhatia) Social History: Patient currently lives in her own home. Surrogate medical decision maker: Maite Berg, daughter. Code status: Full code. Smoking packs per day: 1 Smoking cigarettes per day: 20.0 Years smoked: 10 Smoking pack-years: 10.00 Second hand tobacco smoke exposure: No Alcohol intake: never Substance use: never Substance use type: does not use Do You Feel Safe in your Home?: Yes Lack of Transportation: No Lack of Food: Never True Current Housing: I Have Housing Concerned About Future Housing: No Difficulty Paying Gas/Electric Bills: No Difficulty Paying for Meds: No Currently Unemployed: No Education: Trade/Vocational Certificate Difficulty w/ Childcare or Family Care: No Living arrangements: alone Additional living arrangements comments: Lives alone. She has 2 children. Occupation/Education: occupation Additional occupation/education comments: Works part-time at [employer]. Spiritual care concerns: No Agree to blood products: Yes Meds Home Medications and Allergies Home Medications ?Medication ?Instructions ?Recorded ?Confirmed ?Type lactulose 20 gram/30 mL oral 20 g (30 mL) PO QID #180 mL 10/08/23 09/09/25 Rx solution blood sugar diagnostic (Blood #50 ea 05/29/24 09/09/25 Rx Glucose Test strips) blood-glucose meter (Blood Glucose #1 ea 05/29/2408/31 Rx Monitoring kit) lancets 32 gauge #100 ea 05/29/24 09/09/25 Rx lancing device (lancing device #1 ea 05/29/24 09/09/25 Rx with lancets) trazodone 50 mg tablet 25 mg (1/2 x 50 mg) PO QHS P RN 08/16/24 09/09/25 Rx insomnia #30 tabs metformin 1,000 mg tablet 1,000 mg PO BID #180 tabs 09/09/25 Rx pantoprazole 40 mg tablet,delayed 40 mg PO DAILY #90 t abs 01/01/25 09/09/25 Rx release spironolactone 100 mg tablet 100 mg PO DAILY 09/09/25 09/09/25 History Allergies Allergy/AdvReac Type Severity Reaction Status Date / Time hydrocodone (From Vicodin) Allergy Severe Redness of Verified 09/09/25 14:45 Skin Vital Signs Vital Signs - 24 hr 09/09/25 06:14 09/09/25 07:10 09/09/25 07:11 Temperature 97.7 F Pulse Rate 87 98 100 Respiratory Rate 16 18 12 Blood Pressure 131/65 136/91 H 136/91 H Pulse Oximetry 95 97 100 Oxygen Delivery Room Air 09/09/25 09:04 09/09/25 09:06 09/09/25 12:05 Temperature Pulse Rate 108 H 102 H 78 Respiratory Rate 15 12 20 Blood Pressure 127/60 127/60 132/58 L Pulse Oximetry 96 100 98 Oxygen Delivery 09/09/25 12:06 09/09/25 13:40 Temperature Pulse Rate 83 Respiratory Rate 18 Blood Pressure 132/58 L 128/74 Pulse Oximetry 98 98 Oxygen Delivery Exam Narrative: General: well appearing, appears stated age. HEENT: normocephalic, atraumatic. Mucous membranes moist. EOMI, PERRLA, bilateral sclera anicteric, no conjunctival injection. Neck supple without JVD, lymphadenopathy, or bruit. Respiratory: clear to auscultation bilaterally. No rales/rhonchi/wheezes. Cardiovascular: Regular rate and rhythm, normal S1-S2 upon auscultation. No murmurs, rubs, or clicks. PMI is nondisplaced, capillary refill less than 3 second. Abdomen: Soft, round, no pulsatile masses, nondistended and nontender. No rebound, no guarding. No CVA tenderness, no hepatosplenomegaly. Bowel sounds present to all four quadrants. No high pitch or tinkling sounds, resonant to percussion. Extremities: left arm is in sling Neuro: Alert and orientated x 4. PERRLA. Cranial nerves 2-12 intact without focal deficit. Skin: Warm, dry, and intact, without rash, erythema, or lesion. Psych: pleasant, cooperative, normal speech, normal affect, no hallucinations, no dysarthria H&P: Results Labs Labs: Short CBC 09/09/25 Range/Units 08:14 WBC 4.3 L (4.5-10.0) K/mm3 Hgb 9.8 L (12.0-15.0) g/dL Hct 31.2 L (37.0-47.0) % Plt Count 63 L (150-375) k/mm3 BMP 09/09/25 08:14 Sodium 135 L Potassium 3.7 Chloride 107 Carbon Dioxide 24 BUN 15 Creatinine 0.41 L Glucose 188 H Calcium 9.0 Liver Function 09/09/25 Range/Units 08:14 Total Bilirubin 2.1 H (0.2-1.3) mg/dL AST 36 (14-36) U/L ALT 24 (6-35) U/L Alkaline Phosphatase 145 H (38-126) U/L Albumin 2.9 L (3.5-5.1) g/dL Urine 09/09/25 Range/Units 09:16 Urine Color Dark yellow (Yellow) Urine Appearance Clear (Clear) Urine pH 5.5 (5.0-9.0) Ur Specific Eunice 1.024 (1.001-1.035) Urine Protein Negative (Negative) mg/dL Urine Glucose (UA) 2+ H (Negative) mg/dL Assessment and Plan Assessment and plan (1) Fall: Code(s): W19.XXXA - Unspecified fall, initial encounter Status: Acute Assessment and Plan: * Noted fall at home which were the ER * Fall precautions * PT OT * Will likely need rehab (2) Fracture, scapula closed: Code(s): S42.109A - Fracture of unspecified part of scapula, unspecified shoulder, initial encounter for closed fracture Status: Acute Assessment and Plan: * Seen on the chest CT * Pain medications ordered * PT OT ordered * Continue sling from ER * Stable (3) Pancytopenia: Code(s): D61.818 - Other pancytopenia Status: Chronic Assessment and Plan: * WBC 4.3, Hgb 9.8, hematocrit 31.2, platelets 63 * Appears to be chronic * Hold off on DVT prophylaxis for now * Trend labs * Labs in the a.m. * Stable (4) Cirrhosis: Code(s): K74.60 - Unspecified cirrhosis of liver Status: Chronic Assessment and Plan: * History if cirrhosis * AST/ALT stable * Trend labs * Continue lactulose * Stable (5) Type 2 diabetes mellitus: Code(s): E11.9 - Type 2 diabetes mellitus without complications Status: Chronic Assessment and Plan: * current glucose is 188 * Consider A1c * ISS * Accu checks AC/HS * Hold home metformin * Change therapy as indicated (6) Hypertension: Qualifiers: Hypertension type: unspecified Qualified Code(s): I10 - Essential (primary) hypertension Code(s): I10 - Essential (primary) hypertension Status: Chronic Assessment and Plan: * Current BP 128/74 * None home medications * Trend Blood pressure * Adjust therapy as indicated Quality VTE Prophylaxis VTE prophylaxis: mechanical ordered Hospitalist MIPS Advance Care Plan I have confirmed that the patient's Advanced Care Plan is present, code status is documented, or surrogate decision maker is listed in patient medical record.: Yes Medication Reconciliation I have utilized all available resources to obtain, update and review the patients current medications (includes all prescriptions, OTC, herbals, cannabis, and nutritional supplements).: Yes
[2025-09-09] MEDS: oxyCODONE HCL (*CRX) 5 MG TAB IR PO ×2 (14:33→18:32)
--- NOTE | 2025-09-09 14:57 | ADMGEN ---
This patient, Negar Berg, was admitted to [facility] Surg Room 303-01. Patient/family oriented to hospital policies and general routines including ID bracelet, bed and alarms, visiting hours, pain management, procedures, bathroom and other care routines, personal items, smoking policy, room service/diet, and visiting hours. Information on how to activate the Rapid Response Team has been discussed. Patient/Family are encouraged to report perceived risks to care and to ask questions if they do not understand what they are told or what they should do. received report from alcon.
[2025-09-09] MEDS: LACTULOSE 20 GM/30 ML UDC PO (16:58)
[2025-09-10 04:35] VITALS: BP 156/78; PULSE 84; RESP 18; TEMP 36.7; O2SAT 92
[2025-09-10] MEDS: oxyCODONE HCL (*CRX) 5 MG TAB IR PO ×2 (05:41→23:41)
[2025-09-10 06:13] LABS: Hematocrit 30.7 % (37.0-47.0); Hemoglobin 9.8 g/dL (12.0-15.0); Immature Granulocyte Percent A 0.2 % (0-0.5); Immature Platelet Fraction Pct 6.7 % (0.9-11.2); Lymphocytes Absolute Auto 1.16 K/mm3 (0.9-3.2); Mean Corpuscular HGB Conc 31.9 g/dl (32-36); Mean Corpuscular Hemoglobin 28.2 pg (26-34); Mean Corpuscular Volume 88.5 fl (80-100); Nucleated Red Blood Cells Absolute Auto 0.000 K/mm3 (0.0-0.012); Nucleated Red Blood Cells Perc 0.0 % (0.0-0.2); Platelet Count Result 65 k/mm3 (150-375); Red Blood Count 3.47 M/mm3 (4.2-5.4); White Blood Count 4.6 K/mm3 (4.5-10.0)
[2025-09-10 06:37] LABS: Alanine Aminotransferase 20 U/L (6-35); Albumin Level 2.8 g/dL (3.5-5.1); Alkaline Phosphatase 124 U/L (38-126); Anion Gap 1 mmol/L (4-12); Aspartate Amino Transferase 33 U/L (14-36); Bilirubin,Total 2.5 mg/dL (0.2-1.3); Blood Urea Nitrogen 14 mg/dL (7-17); Calcium 8.6 mg/dL (8.4-10.2); Carbon Dioxide 27 mmol/L (22-30); Chloride 107 mmol/L (98-107); Estimated CRCL calculation 112 ml/min; Estimated Glomerular Filt Rate > 60; Glucose 141 mg/dL (65-110); Potassium 3.4 mmol/L (3.4-5.0); Sodium 135 mmol/L (137-145); Total Protein 5.7 g/dL (6.3-8.2)
--- NOTE | 2025-09-10 07:35 | P.PNIM_ITS ---
Progress Note: A&P Assessment and Plan (1) Fall: Code(s): W19.XXXA - Unspecified fall, initial encounter Status: Acute Assessment and Plan: * Noted fall at home which were the ER * Fall precautions * PT OT -recommend SNF - working with cc regarding placement (2) Fracture, scapula closed: Code(s): S42.109A - Fracture of unspecified part of scapula, unspecified shoulder, initial encounter for closed fracture Status: Acute Assessment and Plan: * Seen on the chest CT * Pain medications ordered * PT OT ordered * Continue sling from ER * Stable * Ortho consult (3) Pancytopenia: Code(s): D61.818 - Other pancytopenia Status: Chronic Assessment and Plan: * WBC 4.3, Hgb 9.8, hematocrit 31.2, platelets 63 * Appears to be chronic * Hold off on DVT prophylaxis for now * Trend labs * Labs in the a.m. * Stable (4) Cirrhosis: Code(s): K74.60 - Unspecified cirrhosis of liver Status: Chronic Assessment and Plan: * History if cirrhosis * AST/ALT stable * Trend labs * Continue lactulose * Stable (5) Type 2 diabetes mellitus: Code(s): E11.9 - Type 2 diabetes mellitus without complications Status: Chronic Assessment and Plan: * current glucose is 188 * Consider A1c * ISS * Accu checks AC/HS * Hold home metformin * Change therapy as indicated (6) Hypertension: Qualifiers: Hypertension type: unspecified Qualified Code(s): I10 - Essential (primary) hypertension Code(s): I10 - Essential (primary) hypertension Status: Chronic Assessment and Plan: * Current BP 128/74 * None home medications * Trend Blood pressure * Adjust therapy as indicated Subjective Date/time seen: 09/10/25 07:35 Interval history: 75-year-old female with a past medical history of type 2 diabetes, pancytopenia, hypertension, hep C who presented to the ED with complaints of a fall. 09/10/2025 Patient sitting comfortably at bedside during examination. Endorsing left back/shoulder discomfort but otherwise feeling better. Orthopedic consult regarding nondisplaced scapular fracture. PT/OT eval as recommend SNF. Will work with care coordination regarding placement. Pain is under control and vitals/blood work remain stable. Review of Systems Review of Systems: All systems reviewed & are unremarkable except as noted in HPI and below Exam Narrative: General: well appearing, appears stated age. HEENT: normocephalic, atraumatic. Mucous membranes moist. EOMI, PERRLA, bilateral sclera anicteric, no conjunctival injection. Neck supple without JVD, lymphadenopathy, or bruit. Respiratory: clear to auscultation bilaterally. No rales/rhonchi/wheezes. Cardiovascular: Regular rate and rhythm, normal S1-S2 upon auscultation. No murmurs, rubs, or clicks. PMI is nondisplaced, capillary refill less than 3 second. Abdomen: Soft, round, no pulsatile masses, nondistended and nontender. No rebound, no guarding. No CVA tenderness, no hepatosplenomegaly. Bowel sounds present to all four quadrants. No high pitch or tinkling sounds, resonant to percussion. Extremities: left arm is in sling Neuro: Alert and orientated x 4. PERRLA. Cranial nerves 2-12 intact without focal deficit. Skin: Warm, dry, and intact, without rash, erythema, or lesion. Psych: pleasant, cooperative, normal speech, normal affect, no hallucinations, no dysarthria Objective Data Vital Signs Vital Signs: Vital Signs - 24 hr 09/09/25 09:04 09/09/25 09:06 09/09/25 12:05 Temperature Pulse Rate 108 H 102 H 78 Respiratory Rate 15 12 20 Blood Pressure 127/60 127/60 132/58 L Pulse Oximetry 96 100 98 Oxygen Delivery 09/09/25 12:06 09/09/25 13:40 09/09/25 15:05 Temperature Pulse Rate 83 Respiratory Rate 18 Blood Pressure 132/58 L 128/74 Pulse Oximetry 98 98 Oxygen Delivery Room Air 09/09/25 20:45 09/10/25 04:35 Temperature 97.9 F 98.1 F Pulse Rate 92 84 Respiratory Rate 18 18 Blood Pressure 139/63 156/78 H Pulse Oximetry 94 92 Oxygen Delivery Intake/Output Intake/Output: Intake & Output 09/07/25 09/08/25 09/09/25 09/10/25 23:59 23:59 23:59 23:59 Intake Total 240 350 Balance 240 350 Meds/Results Medications: Active Medications Generic Name Dose Route Start Last Admin Trade Name Freq PRN Reason Stop Dose Admin Lactulose 20 gm 11/10/25 17:00 09/09/25 21:02 Lactulose 20 Gm/30 Ml Udc PO Not Given QID [facility] Ondansetron HCl 4 mg 09/09/25 14:17 Ondansetron Inj 4 Mg/2 Ml Vial IV PUSH Q6H PRN Nausea And Vomiting Oxycodone HCl 5 mg 09/09/25 14:23 09/10/25 05:41 Oxycodone Hcl (*Crx) 5 Mg Tab Ir PO 5 mg Q4H PRN Administration Pain Rated 7-10 Pantoprazole Sodium 40 mg 09/10/25 09:00 Pantoprazole 40 Mg Tablet PO DAILY ZORAN Spironolactone 100 mg 09/10/25 09:00 Spironolactone 50 Mg Tablet PO DAILY ZORAN Tramadol HCl 50 mg 09/09/25 14:23 Tramadol Hcl (*Crx) 50 Mg Tablet PO Q4H PRN Pain Rated 4-6 Trazodone HCl 25 mg 09/09/25 14:17 Trazodone Hcl 25 Mg Tablet PO QHS PRN Insomnia Radiology Results: ITS Impressions Cervical Spine CT 09/09/25 07:00 IMPRESSION: HEAD: 1. No acute intracranial findings. C-SPINE: 1. No acute fracture. Head CT 09/09/25 07:00 IMPRESSION: HEAD: 1. No acute intracranial findings. C-SPINE: 1. No acute fracture. Chest/Abdomen/Pelvis CT 09/09/25 07:55 IMPRESSION: CHEST- 1. Comminuted nondisplaced fracture left scapula. 2. No acute cardiopulmonary abnormality. ABDOMEN/PELVIS- 1. No acute cardiopulmonary abnormality. 2. Cirrhosis. 3. Additional findings as above. Labs Labs: Laboratory Results - last 24 hr 09/09/25 09/09/25 09/09/25 08:13 08:14 09:16 WBC 4.3 L RBC 3.49 L Hgb 9.8 L Hct 31.2 L MCV 89.4 MCH 28.1 MCHC 31.4 L RDW 17.8 H Plt Count 63 L MPV 12.4 H Immature Gran % (Auto) 0.2 Neut % (Auto) 66.7 Lymph % (Auto) 16.8 L [place] % (Auto) 15.4 H Eos % (Auto) 0.7 Baso % (Auto) 0.2 Lymph # (Auto) 0.72 L [place] # (Auto) 0.7 H Eos # (Auto) 0.0 Baso # (Auto) 0.0 Abs Immat Gran (auto) 0.01 Absolute Neuts (auto) 2.9 Absolute Nucleated RBC 0.000 Nucleated RBC % 0.0 % Immature Plt Fraction 5.8 PT 19.7 H INR 1.7 APTT 36.1 Sodium 135 L Potassium 3.7 Chloride 107 Carbon Dioxide 24 Anion Gap 4 BUN 15 Creatinine 0.41 L Estim Creat Clear Calc 106 Estimated GFR > 60 Glucose 188 H Calcium 9.0 Total Bilirubin 2.1 H AST 36 ALT 24 Alkaline Phosphatase 145 H Total Protein 5.9 L Albumin 2.9 L Urine Color Dark yellow Urine Appearance Clear Urine pH 5.5 Ur Specific [place] 1.024 Urine Protein Negative Urine Glucose (UA) 2+ H Urine Ketones Trace H Ur Blood (Man) Negative Urine Nitrate Negative Urine Bilirubin 1+ H Urine Urobilinogen 1.0 Leukocyte Esterase Rfl Trace H Urine RBC 0-2 Urine WBC 0-5 Ur Squamous Epith Cells None seen Urine Bacteria None seen Urine Casts 3-5 09/10/25 05:34 WBC 4.6 RBC 3.47 L Hgb 9.8 L Hct 30.7 L MCV 88.5 MCH 28.2 MCHC 31.9 L RDW 17.9 H Plt Count 65 L MPV 12.3 H Immature Gran % (Auto) 0.2 Neut % (Auto) 56.3 Lymph % (Auto) 25.1 [place] % (Auto) 15.6 H Eos % (Auto) 2.6 Baso % (Auto) 0.2 Lymph # (Auto) 1.16 [place] # (Auto) 0.7 H Eos # (Auto) 0.1 Baso # (Auto) 0.0 Abs Immat Gran (auto) 0.01 Absolute Neuts (auto) 2.6 Absolute Nucleated RBC 0.000 Nucleated RBC % 0.0 % Immature Plt Fraction 6.7 PT INR APTT Sodium 135 L Potassium 3.4 Chloride 107 Carbon Dioxide 27 Anion Gap 1 L BUN 14 Creatinine 0.33 L Estim Creat Clear Calc 112 Estimated GFR > 60 Glucose 141 H Calcium 8.6 Total Bilirubin 2.5 H AST 33 ALT 20 Alkaline Phosphatase 124 Total Protein 5.7 L Albumin 2.8 L Urine Color Urine Appearance Urine pH Ur Specific [place] Urine Protein Urine Glucose (UA) Urine Ketones Ur Blood (Man) Urine Nitrate Urine Bilirubin Urine Urobilinogen Leukocyte Esterase Rfl Urine RBC Urine WBC Ur Squamous Epith Cells Urine Bacteria Urine Casts Quality VTE Prophylaxis VTE prophylaxis: mechanical ordered
[2025-09-10 08:00] VITALS: O2SAT 98
[2025-09-10] MEDS: SPIRONOLACTONE 50 MG TABLET 100 MG PO (09:34)
[2025-09-10] MEDS: LACTULOSE 20 GM/30 ML UDC PO ×3 (09:34→17:38)
[2025-09-10] MEDS: PANTOPRAZOLE 40 MG TABLET PO (09:34)
[2025-09-10 14:00] VITALS: BP 134/62; PULSE 85; RESP 18; TEMP 36.9; O2SAT 99
[2025-09-10 20:22] VITALS: BP 129/56; PULSE 94; RESP 16; TEMP 36.9; O2SAT 95
[2025-09-11 05:24] VITALS: BP 121/57; PULSE 83; RESP 16; TEMP 36.7; O2SAT 90
--- NOTE | 2025-09-11 07:29 | P.PNIM_ITS ---
Progress Note: A&P Assessment and Plan (1) Fall: Code(s): W19.XXXA - Unspecified fall, initial encounter Status: Acute Assessment and Plan: -mechanical fall -Fall precautions -PT OT -recommend SNF - working with cc regarding placement (2) Fracture, scapula closed: Code(s): S42.109A - Fracture of unspecified part of scapula, unspecified shoulder, init ial encounter for closed fracture Status: Acute Assessment and Plan: -CT chest with comminuted nondisplaced fracture of the left scapula - Pain control: scheduled Tylneol, PRN oxycodone/tramadol - decreased dosing due to drowsiness - orthopedic surgery consulted - recommended sling - PT/OT (3) Pancytopenia: Code(s): D61.818 - Other pancytopenia Status: Chronic Assessment and Plan: -WBC 4.3, Hgb 9.8, hematocrit 31.2, platelets 63 -Appears to be chronic -Hold off on DVT prophylaxis for now -Trend labs -Stable (4) Cirrhosis: Code(s): K74.60 - Unspecified cirrhosis of liver Status: Chronic Assessment and Plan: -History if cirrhosis -AST/ALT stable -Trend labs -Continue lactulose (5) Type 2 diabetes mellitus: Code(s): E11.9 - Type 2 diabetes mellitus without complications Status: Chronic Assessment and Plan: -check hemoglobin A1c -Hold home metformin - low dose SSI - monitor POCT glucose - hypoglycemia protocol (6) Hypertension: Qualifiers: Hypertension type: unspecified Qualified Code(s): I10 - Essential (primary) hypertension Code(s): I10 - Essential (primary) hypertension Status: Chronic Assessment and Plan: - BP trend stable - continue home Aldactone Subjective Date/time seen: 09/11/25 07:29 Interval history: Patient seen and examined up in chair after therapy today. States pain is well controlled, but patient does appear to be drowsy from receiving pain medicine this morning - adjustments made. Denies chest pain, shortness of breath. Review of Systems Review of Systems: All systems reviewed & are unremarkable except as noted in HPI and below Exam Narrative: General: NAD Eyes: EOMI ENT: neck supple Cardiovascular: Regular rate and rhythm Respiratory: Clear to auscultation, respirations even and unlabored on RA Gastrointestinal: Soft, non tender Genitourinary: no suprapubic tenderness Musculoskeletal: No edema, left arm in sling Skin: warm, dry Neuro: Drowsy, awakens easily. Psych: Mood appropriate Objective Data Vital Signs Vital Signs: Vital Signs - 24 hr 09/10/25 08:00 09/10/25 08:32 09/10/25 14:00 Temperature 98.5 F Pulse Rate 85 Respiratory Rate 18 Blood Pressure 134/62 Pulse Oximetry 98 99 Oxygen Delivery Nasal Cannula Room Air Oxygen Flow Rate 1 09/10/25 20:22 09/11/25 05:24 Temperature 98.4 F 98.0 F Pulse Rate 94 83 Respiratory Rate 16 16 Blood Pressure 129/56 L 121/57 L Pulse Oximetry 95 90 Oxygen Delivery Oxygen Flow Rate Intake/Output Intake/Output: Intake & Output 09/08/25 09/09/25 09/10/25 09/11/25 23:59 23:59 23:59 23:59 Intake Total 240 2110 300 Balance 240 2110 300 Meds/Results Medications: Active Medications Generic Name Dose Route Start Last Admin Trade Name Freq PRN Reason Stop Dose Admin Lactulose 20 gm 09/09/25 17:00 09/10/25 20:04 Lactulose 20 Gm/30 Ml Udc PO Not Given QID ZORAN Ondansetron HCl 4 mg 09/09/25 14:17 Ondansetron Inj 4 Mg/2 Ml Vial IV PUSH Q6H PRN Nausea And Vomiting Oxycodone HCl 5 mg 09/09/25 14:23 09/10/25 23:41 Oxycodone Hcl (*Crx) 5 Mg Tab Ir PO 5 mg Q4H PRN Administration Pain Rated 7-10 Pantoprazole Sodium 40 mg 09/10/25 09:00 09/10/25 09:34 Pantoprazole 40 Mg Tablet PO 40 mg DAILY ZORAN Administration Spironolactone 100 mg 09/10/25 09:00 09/10/25 09:34 Spironolactone 50 Mg Tablet PO 100 mg DAILY ZORAN Administration Tramadol HCl 50 mg 09/09/25 14:23 Tramadol Hcl (*Crx) 50 Mg Tablet PO Q4H PRN Pain Rated 4-6 Trazodone HCl 25 mg 09/09/25 14:17 Trazodone Hcl 25 Mg Tablet PO QHS PRN Insomnia Radiology Results: ITS Impressions Cervical Spine CT 09/09/25 07:00 IMPRESSION: HEAD: 1. No acute intracranial findings. C-SPINE: 1. No acute fracture. Head CT 09/09/25 07:00 IMPRESSION: HEAD: 1. No acute intracranial findings. C-SPINE: 1. No acute fracture. Chest/Abdomen/Pelvis CT 09/09/25 07:55 IMPRESSION: CHEST- 1. Comminuted nondisplaced fracture left scapula. 2. No acute cardiopulmonary abnormality. ABDOMEN/PELVIS- 1. No acute cardiopulmonary abnormality. 2. Cirrhosis. 3. Additional findings as above. Quality VTE Prophylaxis VTE prophylaxis: mechanical ordered
[2025-09-11] MEDS: PANTOPRAZOLE 40 MG TABLET PO (09:07)
[2025-09-11] MEDS: oxyCODONE HCL (*CRX) 5 MG TAB IR PO (09:07)
[2025-09-11] MEDS: SPIRONOLACTONE 50 MG TABLET 100 MG PO (09:07)
[2025-09-11] MEDS: LACTULOSE 20 GM/30 ML UDC PO ×4 (09:09→20:42)
[2025-09-11] MEDS: traMADol HCL (*CRX) 50 MG TABLET PO ×2 (13:33→20:46)
[2025-09-11 14:00] VITALS: BP 129/49; PULSE 81; RESP 16; TEMP 36.8; O2SAT 95
[2025-09-11] MEDS: INSULIN ASPART (*BKC) 100 UNITS/ML SUB-Q (17:19)
[2025-09-11 18:18] VITALS: O2SAT 92
[2025-09-11 21:21] VITALS: BP 130/54; PULSE 82; RESP 18; TEMP 36.7; O2SAT 95
[2025-09-12 05:17] VITALS: BP 126/59; PULSE 76; RESP 18; TEMP 36.6; O2SAT 93
[2025-09-12 05:53] LABS: Hematocrit 29.4 % (37.0-47.0); Hemoglobin 9.2 g/dL (12.0-15.0); Immature Granulocyte Percent A 0.5 % (0-0.5); Immature Platelet Fraction Pct 7.0 % (0.9-11.2); Lymphocytes Absolute Auto 1.29 K/mm3 (0.9-3.2); Mean Corpuscular HGB Conc 31.3 g/dl (32-36); Mean Corpuscular Hemoglobin 28.2 pg (26-34); Mean Corpuscular Volume 90.2 fl (80-100); Nucleated Red Blood Cells Absolute Auto 0.000 K/mm3 (0.0-0.012); Nucleated Red Blood Cells Perc 0.0 % (0.0-0.2); Red Blood Count 3.26 M/mm3 (4.2-5.4); White Blood Count 4.0 K/mm3 (4.5-10.0)
[2025-09-12 06:09] LABS: Alanine Aminotransferase 19 U/L (6-35); Albumin Level 2.5 g/dL (3.5-5.1); Alkaline Phosphatase 104 U/L (38-126); Anion Gap 5 mmol/L (4-12); Aspartate Amino Transferase 28 U/L (14-36); Bilirubin,Total 2.5 mg/dL (0.2-1.3); Blood Urea Nitrogen 13 mg/dL (7-17); Calcium 8.6 mg/dL (8.4-10.2); Carbon Dioxide 25 mmol/L (22-30); Chloride 105 mmol/L (98-107); Estimated CRCL calculation 107 ml/min; Estimated Glomerular Filt Rate > 60; Glucose 111 mg/dL (65-110); Potassium 3.5 mmol/L (3.4-5.0); Sodium 135 mmol/L (137-145); Total Protein 5.2 g/dL (6.3-8.2)
[2025-09-12 06:34] LABS: Hemoglobin A1C 5.8 % (<5.7)
[2025-09-12 06:53] LABS: Platelet Count Result 62 k/mm3 (150-375)
--- NOTE | 2025-09-12 07:42 | P.PNIM_ITS ---
Progress Note: A&P Assessment and Plan (1) Fall: Code(s): W19.XXXA - Unspecified fall, initial encounter Status: Acute Assessment and Plan: -mechanical fall -Fall precautions -PT OT -recommend SNF - working with cc regarding placement (2) Fracture, scapula closed: Code(s): S42.109A - Fracture of unspecified part of scapula, unspecified shoulder, init ial encounter for closed fracture Status: Acute Assessment and Plan: -CT chest with comminuted nondisplaced fracture of the left scapula - Pain control: scheduled Tylneol, PRN oxycodone/tramadol - decreased dosing due to drowsiness - orthopedic surgery evaluated per nursing and recommended sling - no notes to review - PT/OT (3) Pancytopenia: Code(s): D61.818 - Other pancytopenia Status: Chronic Assessment and Plan: -WBC 4.3, Hgb 9.8, hematocrit 31.2, platelets 63 -Appears to be chronic -Hold off on DVT prophylaxis for now -Trend labs -Stable (4) Cirrhosis: Code(s): K74.60 - Unspecified cirrhosis of liver Status: Chronic Assessment and Plan: -History if cirrhosis -AST/ALT stable -Trend labs -Continue lactulose (5) Type 2 diabetes mellitus: Code(s): E11.9 - Type 2 diabetes mellitus without complications Status: Chronic Assessment and Plan: - hemoglobin A1c 5.8 -Hold home metformin - low dose SSI - monitor POCT glucose - hypoglycemia protocol (6) Hypertension: Qualifiers: Hypertension type: unspecified Qualified Code(s): I10 - Essential (primary) hypertension Code(s): I10 - Essential (primary) hypertension Status: Chronic Assessment and Plan: - BP trend stable - continue home Aldactone Subjective Date/time seen: 09/12/25 07:42 Interval history: Patient seen and examined at bedside, Review of Systems Review of Systems: All systems reviewed & are unremarkable except as noted in HPI and below Exam Narrative: General: NAD Eyes: EOMI ENT: neck supple Cardiovascular: Regular rate and rhythm Respiratory: Clear to auscultation, respirations even and unlabored on RA Gastrointestinal: Soft, non tender Genitourinary: no suprapubic tenderness Musculoskeletal: No edema, left arm in sling Skin: warm, dry Neuro: Drowsy, awakens easily. Psych: Mood appropriate Objective Data Vital Signs Vital Signs: Vital Signs - 24 hr 09/11/25 14:00 09/11/25 18:18 09/11/25 21:21 Temperature 98.2 F 98.1 F Pulse Rate 81 82 Respiratory Rate 16 18 Blood Pressure 129/49 L 130/54 L Pulse Oximetry 95 92 95 Oxygen Delivery Room Air 09/12/25 05:17 Temperature 97.9 F Pulse Rate 76 Respiratory Rate 18 Blood Pressure 126/59 L Pulse Oximetry 93 Oxygen Delivery Intake/Output Intake/Output: Intake & Output 09/09/25 09/10/25 09/11/25 09/12/25 23:59 23:59 23:59 23:59 Intake Total 240 2110 760 Balance 240 2110 760 Meds/Results Medications: Active Medications Generic Name Dose Route Start Last Admin Trade Name Freq PRN Reason Stop Dose Admin Dextrose 12.5 gm 09/11/25 12:19 Dextrose 50% 25 Gm/50 Ml Syringe IV PUSH PRN PRN Hypoglycemia Protocol Glucagon 1 mg 09/11/25 12:19 Glucagon For Inj 1 Mg Vial IM PRN PRN Hypoglycemia Protocol Glucose 15 gm 09/11/25 12:19 Glucose Oral Gel 15 Gm Of Glucse In 37.5 Gm Tube PO PRN PRN Hypoglycemia Protocol Dextrose 1,000 mls @ 100 mls/hr 09/11/25 12:19 Dextrose 5% 1,000 Ml IVPB PRN PRN Hypoglycemia Protocol Insulin Aspart 2 - 5 units 09/11/25 17:00 09/11/25 17:19 Insulin Aspart (*Bkc) 100 Units/Ml SUB-Q 2 units TIDWM ZORAN Administration Protocol Lactulose 20 gm 09/09/25 17:00 09/11/25 20:42 Lactulose 20 Gm/30 Ml Udc PO 20 gm QID ZORAN Administration Ondansetron HCl 4 mg 09/09/25 14:17 Ondansetron Inj 4 Mg/2 Ml Vial IV PUSH Q6H PRN Nausea And Vomiting Oxycodone HCl 2.5 mg 09/11/25 12:15 Oxycodone Hcl (*Crx) 2.5 Mg Tab Ir PO Q6H PRN Pain Rated 7-10 Pantoprazole Sodium 40 mg 09/10/25 09:00 09/11/25 09:07 Pantoprazole 40 Mg Tablet PO 40 mg DAILY ZORAN Administration Spironolactone 100 mg 09/10/25 09:00 09/11/25 09:07 Spironolactone 50 Mg Tablet PO 100 mg DAILY ZORAN Administration Tramadol HCl 50 mg 09/11/25 12:15 09/11/25 20:46 Tramadol Hcl (*Crx) 50 Mg Tablet PO 50 mg Q6H PRN Administration Pain Rated 4-6 Trazodone HCl 25 mg 09/09/25 14:17 Trazodone Hcl 25 Mg Tablet PO QHS PRN Insomnia Radiology Results: ITS Impressions Cervical Spine CT 09/09/25 07:00 IMPRESSION: HEAD: 1. No acute intracranial findings. C-SPINE: 1. No acute fracture. Head CT 09/09/25 07:00 IMPRESSION: HEAD: 1. No acute intracranial findings. C-SPINE: 1. No acute fracture. Chest/Abdomen/Pelvis CT 09/09/25 07:55 IMPRESSION: CHEST- 1. Comminuted nondisplaced fracture left scapula. 2. No acute cardiopulmonary abnormality. ABDOMEN/PELVIS- 1. No acute cardiopulmonary abnormality. 2. Cirrhosis. 3. Additional findings as above. Labs Labs: Laboratory Results - last 24 hr 09/11/25 09/11/25 09/12/25 16:20 19:37 04:57 WBC 4.0 L RBC 3.26 L Hgb 9.2 L Hct 29.4 L MCV 90.2 MCH 28.2 MCHC 31.3 L RDW 17.5 H Plt Count 62 L MPV 12.2 H Immature Gran % (Auto) 0.5 Neut % (Auto) 45.9 Lymph % (Auto) 32.5 [place] % (Auto) 16.6 H Eos % (Auto) 3.5 Baso % (Auto) 1.0 Lymph # (Auto) 1.29 [place] # (Auto) 0.7 H Eos # (Auto) 0.1 Baso # (Auto) 0.0 Abs Immat Gran (auto) 0.02 Absolute Neuts (auto) 1.8 Absolute Nucleated RBC 0.000 Nucleated RBC % 0.0 % Immature Plt Fraction 7.0 Sodium 135 L Potassium 3.5 Chloride 105 Carbon Dioxide 25 Anion Gap 5 BUN 13 Creatinine 0.35 L Estim Creat Clear Calc 107 Estimated GFR > 60 Glucose 111 H POC Capillary Glucose 223 H 166 H Hemoglobin A1c 5.8 H Calcium 8.6 Total Bilirubin 2.5 H AST 28 ALT 19 Alkaline Phosphatase 104 Total Protein 5.2 L Albumin 2.5 L 09/12/25 07:22 WBC RBC Hgb Hct MCV MCH MCHC RDW Plt Count MPV Immature Gran % (Auto) Neut % (Auto) Lymph % (Auto) [place] % (Auto) Eos % (Auto) Baso % (Auto) Lymph # (Auto) [place] # (Auto) Eos # (Auto) Baso # (Auto) Abs Immat Gran (auto) Absolute Neuts (auto) Absolute Nucleated RBC Nucleated RBC % % Immature Plt Fraction Sodium Potassium Chloride Carbon Dioxide Anion Gap BUN Creatinine Estim Creat Clear Calc Estimated GFR Glucose POC Capillary Glucose 128 H Hemoglobin A1c Calcium Total Bilirubin AST ALT Alkaline Phosphatase Total Protein Albumin Quality VTE Prophylaxis VTE prophylaxis: mechanical ordered
[2025-09-12] MEDS: LACTULOSE 20 GM/30 ML UDC PO ×2 (08:36→12:21)
[2025-09-12] MEDS: traMADol HCL (*CRX) 50 MG TABLET PO (08:37)
[2025-09-12] MEDS: SPIRONOLACTONE 50 MG TABLET 100 MG PO (08:38)
[2025-09-12] MEDS: PANTOPRAZOLE 40 MG TABLET PO (08:38)
[2025-09-12] MEDS: oxyCODONE HCL (*CRX) 2.5 MG TAB IR PO (13:13)
--- NOTE | 2025-09-12 13:17 | PM.CNOR ---
Assessment and Plan Assessment and plan (1) Left scapula fracture: Code(s): S42.102A - Fracture of unspecified part of scapula, left shoulder, initial encounter for closed fracture Status: Acute Assessment and Plan: The patient is a 75-year-old female presented with left shoulder pain. She lives at home. She presented to the emergency room with left shoulder pain. At which time the CT scan showed evidence of a scapular fracture minimally displaced in the scaphoid body. She stated that the walker got out from underneath her. Which time she fell and landed on to her left shoulder. She reports pain nowhere else except for the left shoulder. The patient can be weight-bearing as tolerated with regards to her left upper extremity. This is a very stable injury. I would recommend a standard sling, not a shoulder immobilizer. I would also recommend active and passive range of motion of the hand, wrist, and left elbow to prevent stiffness. I'll see her back in my office in about a week after discharge for follow-up x-rays. History of Present Illness HPI Consult date: 09/12/25 Chief complaint: left scapular fracture Narrative: The patient is a 75-year-old female presented with left shoulder pain. She lives at home. She presented to the emergency room with left shoulder pain. At which time the CT scan showed evidence of a scapular fracture minimally displaced in the scaphoid body. She stated that the walker got out from underneath her. Which time she fell and landed on to her left shoulder. She reports pain nowhere else except for the left shoulder. [facility] Past Medical History Medical History GAVE (gastric antral vascular ectasia) Pancytopenia Type 2 diabetes mellitus Hypertension Mitral regurgitation Noted on echocardiogram in April 2022. Hepatitis C Anemia Anxiety Surgical History Surgical History History of colonoscopy History of bilateral cataract extraction History of tonsillectomy History of cholecystectomy History of tubal ligation Family History Family History (Updated 09/09/25 @ 14:53 by Angel John RN) Grandparent Diabetes mellitus Acute myocardial infarction Family history of coronary artery disease Hypertension Cerebrovascular accident Mother Diabetes mellitus Hypertension Social History Social History (Updated 09/09/25 @ 14:25 by SJ Bhatia) Social History: Patient currently lives in her own home. Surrogate medical decision maker: Maite Berg, daughter. Code status: Full code. Smoking packs per day: 1 Smoking cigarettes per day: 20.0 Years smoked: 10 Smoking pack-years: 10.00 Smoking status: Never smoker Second hand tobacco smoke exposure: No Alcohol intake: never Substance use: never Substance use type: does not use Do You Feel Safe in your Home?: Yes Lack of Transportation: No Lack of Food: Never True Current Housing: I Have Housing Concerned About Future Housing: No Difficulty Paying Gas/Electric Bills: No Difficulty Paying for Meds: No Currently Unemployed: No Education: Trade/Vocational Certificate Difficulty w/ Childcare or Family Care: No Living arrangements: alone Additional living arrangements comments: Lives alone. She has 2 children. Occupation/Education: occupation Additional occupation/education comments: Works part-time at [employer]. Spiritual care concerns: No Agree to blood products: Yes Meds Home Medications and Allergies Home Medications ?Medication ?Instructions ?Recorded ?Confirmed ?Type lactulose 20 gram/30 mL oral 20 g (30 mL) PO QID #180 mL 10/08/23 09/09/25 Rx solution blood sugar diagnostic (Blood #50 ea 05/29/24 09/09/25 Rx Glucose Test strips) blood-glucose meter (Blood Glucose #1 05/29/24 09/09/25 Rx Monitoring kit) lancets 32 gauge #100 05/29/24 09/09/25 Rx lancing device (lancing device #1 05/29/24 09/09/25 Rx with lancets) trazodone 50 mg tablet 25 mg (1/2 x 50 mg) PO QHS PRN 08/16/24 09/09/25 Rx insomnia #30 tabs metformin 1,000 mg tablet 1,000 mg PO BID #180 tabs 10/29/24 09/09/25 Rx pantoprazole 40 mg tablet,delayed 40 mg PO DAILY #90 tabs 01/01/25 09/09/25 Rx release spironolactone 100 mg tablet 100 mg PO DAILY 09/09/25 09/09/25 History Allergies Allergy/AdvReac Type Severity Reaction Status Date / Time hydrocodone (From Vicodin) Allergy Severe Redness of Verified 09/09/25 14:54 Skin Vital Signs Vital Signs - 24 hr 09/11/25 14:00 09/11/25 18:18 09/11/25 21:21 Temperature 36.8 C 36.7 C Pulse Rate 81 82 Respiratory Rate 16 18 Blood Pressure 129/49 L 130/54 L Pulse Oximetry 95 92 95 Oxygen Delivery Room Air 09/12/25 05:17 Temperature 36.6 C Pulse Rate 76 Respiratory Rate 18 Blood Pressure 126/59 L Pulse Oximetry 93 Oxygen Delivery Exam Narrative: On exam with patient on the bedside, she was in a shoulder immobilizer. She had minimal swelling at the hand, however she did have her ring on her hand which was subsequently removed to prevent risk of ischemia to her ring finger. She had no swelling, tenderness, or deformity over the wrist, hand, or over the elbow. Moderate tenderness to palpation over the body of the scapula. On palpation, she had a good radial pulse and good sensation in this section. Extremity (right upper extremity) was remarkable bilateral, showing no swelling, tenderness, or deformity. Const: General: cooperative, no acute distress, alert and awake Nutritional Appearance: overweight Orientation/consciousness: oriented to person and oriented to place Results Labs 09/12/25 04:57 09/12/25 04:57 Labs: Abnormal lab results 09/11/25 09/11/25 09/12/25 Range/Units 16:20 19:37 04:57 WBC 4.0 L (4.5-10.0) K/mm3 RBC 3.26 L (4.2-5.4) M/mm3 Hgb 9.2 L (12.0-15.0) g/dL Hct 29.4 L (37.0-47.0) % MCHC 31.3 L (32-36) g/dl RDW 17.5 H (11.5-14.5) % Plt Count 62 L (150-375) k/mm3 MPV 12.2 H (7.4-10.4) fl [place] % (Auto) 16.6 H (2.6-8.5) % [place] # (Auto) 0.7 H (0.1-0.6) K/mm3 Sodium 135 L (137-145) mmol/L Creatinine 0.35 L (0.7-1.0) mg/dL Glucose 111 H (65-110) mg/dL POC Capillary Glucose 223 H 166 H (65-105) mg/dl Hemoglobin A1c 5.8 H (<5.7) % Total Bilirubin 2.5 H (0.2-1.3) mg/dL Total Protein 5.2 L (6.3-8.2) g/dL Albumin 2.5 L (3.5-5.1) g/dL 09/12/25 09/12/25 Range/Units 07:22 12:05 WBC (4.5-10.0) K/mm3 RBC (4.2-5.4) M/mm3 Hgb (12.0-15.0) g/dL Hct (37.0-47.0) % MCHC (32-36) g/dl RDW (11.5-14.5) % Plt Count (150-375) k/mm3 MPV (7.4-10.4) fl [place] % (Auto) (2.6-8.5) % [place] # (Auto) (0.1-0.6) K/mm3 Sodium (137-145) mmol/L Creatinine (0.7-1.0) mg/dL Glucose (65-110) mg/dL POC Capillary Glucose 128 H 184 H (65-105) mg/dl Hemoglobin A1c (<5.7) % Total Bilirubin (0.2-1.3) mg/dL Total Protein (6.3-8.2) g/dL Albumin (3.5-5.1) g/dL H & H 09/09/25 09/10/25 09/12/25 Range/Units 08:14 05:34 04:57 Hgb 9.8 L 9.8 L 9.2 L (12.0-15.0) g/dL Hct 31.2 L 30.7 L 29.4 L (37.0-47.0) % Coagulation 09/09/25 Range/Units 08:13 INR 1.7 All other labs normal.
--- NOTE | 2025-09-12 13:48 | P.DS_ITS ---
DS: Admitting Diagnosis Discharge Date 09/12/25 Admitting Diagnosis - fall - scapula fracture - pancytopenia - cirrhosis - T2DM DS: Discharge Diagnosis Discharge Diagnosis (1) Fall: Code(s): W19.XXXA - Unspecified fall, initial encounter Status: Acute (2) Fracture, scapula closed: Code(s): S42.109A - Fracture of unspecified part of scapula, unspecified shoulder, initial encounter for closed fracture Status: Acute (3) Pancytopenia: Code(s): D61.818 - Other pancytopenia Status: Chronic (4) Cirrhosis: Code(s): K74.60 - Unspecified cirrhosis of liver Status: Chronic (5) Type 2 diabetes mellitus: Code(s): E11.9 - Type 2 diabetes mellitus without complications Status: Chronic (6) Hypertension: Qualifiers: Hypertension type: unspecified Qualified Code(s): I10 - Essential (primary) hypertension Code(s): I10 - Essential (primary) hypertension Status: Chronic DS: Summary Hospital Course Reason for hospitalization: - fall - scapula fracture - pancytopenia - cirrhosis - T2DM Hospital Course: Patient is a 75-year-old female with a history of type 2 diabetes, cirrhosis, pancytopenia, hypertension, and GAVE, was admitted following a mechanical fall at home resulting in a comminuted, nondisplaced fracture of the left scapula. On admission, she was evaluated by orthopedic surgery, who recommended conservative management with a standard sling and early range of motion exercises for the hand, wrist, and elbow. Patient was made WBAT and instructed to follow-up with Dr. Pa in 1 week. Her pain was managed with scheduled acetaminophen and as- needed tramadol or oxycodone, with adjustments made due to drowsiness. She was started on a bowel regimen for constipation. Physical and occupational therapy were consulted, and the patient participated in therapy sessions during her stay. Her chronic pancytopenia remained stable throughout the admission, with no evidence of acute bleeding or infection; DVT prophylaxis was held due to thrombocytopenia. Her cirrhosis was managed with continuation of home lactulose, and her diabetes was managed with blood glucose monitoring and a brief hold on metformin. Blood pressures remained stable on home spironolactone. She remained hemodynamically stable, with no new acute issues during her hospitalization. Upon discharge, she was transferred to [facility] for swing bed rehabilitation to optimize her functional recovery and ensure safe return to her home environment. She was discharged in stable condition. Time Spent with Patient Time attestation: Total time spent providing and/or coordinating discharge services: Time spent: Greater than 30 minutes Exam Narrative: General: NAD Eyes: EOMI ENT: neck supple Cardiovascular: Regular rate and rhythm Respiratory: Clear to auscultation, respirations even and unlabored on RA Gastrointestinal: Soft, non tender Genitourinary: no suprapubic tenderness Musculoskeletal: No edema, left arm in sling Skin: warm, dry Neuro: Drowsy, awakens easily. Psych: Mood appropriate DS: Data Data Completed and Pending Completed studies during hospitalization: ITS Impressions Cervical Spine CT 09/09/25 07:00 IMPRESSION: HEAD: 1. No acute intracranial findings. C-SPINE: 1. No acute fracture. Head CT 09/09/25 07:00 IMPRESSION: HEAD: 1. No acute intracranial findings. C-SPINE: 1. No acute fracture. Chest/Abdomen/Pelvis CT 09/09/25 07:55 IMPRESSION: CHEST- 1. Comminuted nondisplaced fracture left scapula. 2. No acute cardiopulmonary abnormality. ABDOMEN/PELVIS- 1. No acute cardiopulmonary abnormality. 2. Cirrhosis. 3. Additional findings as above. Labs on day of discharge: Labs from last 24 hours 09/12/25 09/12/25 09/12/25 12:05 07:22 04:57 WBC 4.0 L RBC 3.26 L Hgb 9.2 L Hct 29.4 L MCV 90.2 MCH 28.2 MCHC 31.3 L RDW 17.5 H Plt Count 62 L MPV 12.2 H Immature Gran % (Auto) 0.5 Neut % (Auto) 45.9 Lymph % (Auto) 32.5 [place] % (Auto) 16.6 H Eos % (Auto) 3.5 Baso % (Auto) 1.0 Lymph # (Auto) 1.29 [place] # (Auto) 0.7 H Eos # (Auto) 0.1 Baso # (Auto) 0.0 Abs Immat Gran (auto) 0.02 Absolute Neuts (auto) 1.8 Absolute Nucleated RBC 0.000 Nucleated RBC % 0.0 % Immature Plt Fraction 7.0 Sodium 135 L Potassium 3.5 Chloride 105 Carbon Dioxide 25 Anion Gap 5 BUN 13 Creatinine 0.35 L Estim Creat Clear Calc 107 Estimated GFR > 60 Glucose 111 H POC Capillary Glucose 184 H 128 H Hemoglobin A1c 5.8 H Calcium 8.6 Total Bilirubin 2.5 H AST 28 ALT 19 Alkaline Phosphatase 104 Total Protein 5.2 L Albumin 2.5 L 09/11/25 09/11/25 19:37 16:20 WBC RBC Hgb Hct MCV MCH MCHC RDW Plt Count MPV Immature Gran % (Auto) Neut % (Auto) Lymph % (Auto) [place] % (Auto) Eos % (Auto) Baso % (Auto) Lymph # (Auto) [place] # (Auto) Eos # (Auto) Baso # (Auto) Abs Immat Gran (auto) Absolute Neuts (auto) Absolute Nucleated RBC Nucleated RBC % % Immature Plt Fraction Sodium Potassium Chloride Carbon Dioxide Anion Gap BUN Creatinine Estim Creat Clear Calc Estimated GFR Glucose POC Capillary Glucose 166 H 223 H Hemoglobin A1c Calcium Total Bilirubin AST ALT Alkaline Phosphatase Total Protein Albumin Discharge Plan Discharge Attending physician on discharge: Matthew Sánchez Consulting providers: Kai Dumont; Valdez Pa; Montserrat Rivas Discharging Clinician: Montserrat Rivas Anticipated Discharge Date/Time: 09/12/25 13:49 Patient Disposition: Hospital Swing Bed Activity: unlimited Diet: regular Discharge Instructions: Per Dr. Pa - The patient can be weight-bearing as tolerated with regards to her left upper extremity. This is a very stable injury. Would recommend a standard sling, not a shoulder immobilizer. Would also recommend active and passive range of motion of the hand, wrist, and left elbow to prevent stiffness. I'll see her back in my office in about a week after discharge for follow-up x- rays. Continue bowel regimen for constipation. Patient Instructions: Antibiotic Form Patient Language: Romansh Stand Alone Forms: General Discharge Information Discharge Medications: New oxycodone 5 mg tablet 2.5 mg PO Q6H PRN (Reason: pain (scale score 7-10)) Qty: 10 0RF tramadol 50 mg tablet 50 mg PO Q6H PRN (Reason: pain (scale score 4-6)) Qty: 10 0RF polyethylene glycol 3350 17 gram/dose powder 17 g PO DAILY Qty: 238 0RF Continued (DME) blood-glucose meter [Blood Glucose Monitoring] Kit See Rx Instructions .Route Qty: 1 0RF Rx Instructions: As directed daily (DME) Blood Glucose Test Strip See Rx Instructions .Route Qty: 50 12RF Rx Instructions: As directed daily (DME) lancing device [lancing device with lancets] Misc See Rx Instructions .Route Qty: 1 0RF Rx Instructions: As directed daily (DME) lancets 32 gauge misc See Rx Instructions .Route Qty: 100 12RF Rx Instructions: As directed daily spironolactone 100 mg tablet 100 mg PO DAILY lactulose 20 gram/30 mL Solution 20 g PO QID Qty: 180 2RF trazodone 50 mg tablet 25 mg PO QHS PRN (Reason: insomnia) Qty: 30 3RF metformin 1,000 mg tablet 1,000 mg PO BID Qty: 180 3RF pantoprazole 40 mg tablet,delayed release (DR/EC) 40 mg PO DAILY Qty: 90 3RF Date of admission: 09/09/25 12:32 Primary Care Provider: John Paul Cadet Admitting Provider: Maddie Ferro Attending physician on admission: Maddie Ferro Condition: Stable
[2025-09-12 14:00] VITALS: BP 124/55; PULSE 75; RESP 16; TEMP 36.8; O2SAT 97
== END 2025-09-12 16:05 | disposition swing bed (61) ==
LOC: ANHED 08:00 → ANH3MEDSUR 18:01
PROVIDERS: Nurse Practitioner; Physician Assistant; Admitting Provider General Practice; Emergency Provider Emergency Medicine; PCP Family Medicine; Visit Provider Family Medicine
DX: S42.102A Fracture of unspecified part of scapula, left shoulder, initial encounter for closed fracture (principal); W18.30XA Fall on same level, unspecified, initial encounter; D61.818 Other pancytopenia; K74.60 Unspecified cirrhosis of liver; E11.9 Type 2 diabetes mellitus without complications; Z79.84 Long term (current) use of oral hypoglycemic drugs; I10 Essential (primary) hypertension; I34.0 Nonrheumatic mitral (valve) insufficiency; B19.20 Unspecified viral hepatitis C without hepatic coma; Z74.09 Other reduced mobility; Z90.49 Acquired absence of other specified parts of digestive tract; Z83.3 Family history of diabetes mellitus; Z82.49 Family history of ischemic heart disease and other diseases of the circulatory system; Z82.3 Family history of stroke; Z87.19 Personal history of other diseases of the digestive system
CPT/HCPCS: 36415; 70450; 71101; 71250; 72125; 73030; 73060; 73080; 73521; 73562; 74176; 80053; 81001; 82948; 83036; 85025; 85055; 85610; 85730; 97110; 97162; 97165; 97530; 97535; 99285; A4565; A9270; G0378; J1815

== ENCOUNTER 2025-09-12 17:00 | Inpatient (IN) | payer MEDICARE, SELFPAY ==
--- OUTSIDE RECORDS SUMMARY | 2025-09-12 17:04 | XMS_ITS | Encounter Summary ---
Author Organization [facility] Address [address] [place] [address] Phone Care Team Providers Care Manager Center Name Role Phone Olive Lozano MD Primary Care Provider Svitlana De La Torre APRN, DIRECTOR RELIGIOUS EDUCATION Unavailable Swapnil Jhaveri MD Unavailable [phone] Reason for Visit * Reason Comments Medication Refill Encounter Details Date Type Department Care Team (Late st Contact Info) Description 08/29/2023 Refill [facility] - Gastroenterology - [place] [address] [place] [address] Svitlana De La Torre, REGI, DIRECTOR RELIGIOUS EDUCATION [address] [place] [address] Medication Refill Social History Tobacco Use Types [...] Sexual Orientation Straight 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
--- OUTSIDE RECORDS SUMMARY | 2025-09-12 17:04 | XMS_ITS | Encounter Summary ---
Author Organization [facility] Address [address] [place] [address] Phone Care Team Providers Care Two Needle Machine Operator Name Role Phone Olive Lozano MD Primary Care Provider [phone] Svitlana De La Torre APRN, COORDINATE MEASURING EQUIPMENT OPERATOR Unavailable Swapnil Jhaveri MD Unavailable [phone] Encounter Details Date Type Department Care Team (Latest Contact Info) Description 06/12/2024 Transcribe Orders [facility] [address] [place] [address] Ismael Fong MD [address] [place] [address] Hepatic cirrhosis, unspecified hepatic cirrhosis type (HCC) [...] 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 Not on file Not on file No t on file documented as of this encounter Plan of Treatment Not on file documented as of this encounter Results * (ABNORMAL) CMP (COMPREHENSIVE METABOLIC PANEL) (06/14/2024 11:54 AM CDT) SODIUM 142 136 - 145 mmol/L 06/14/2024 12:39 PM CDT [facility] POTASSIUM 3.8 3.5 - 5.1 mmol/L 06/14/2024 12:39 PM CDT [facility] CHLORIDE 110(H) 98 - 107 mmol/L 06/14/2024 12:39 PM CDT [facility] CO2, VENOUS 23 22 - 30 mmol/L 06/14/2024 12:39 PM CDT [facility] ANION GAP 12.8 <18.0 mmol/L 06/14/2024 12:39 PM CDT [facility] GLUCOSE 119(H) 70 - 99 mg/dL 06/14/2024 12:39 PM CDT [facility] BUN 18 10 - 20 mg/dL 06/14/2024 12:39 PM T [facility] CREATININE, BLOOD 0.55(L) 0.60 - 1.00 mg/dL 06/14/2024 12:39 PM T [facility] BUN/CREATININE RATIO 33(H) 12 - 20 ratio 06/14/2024 12:39 PM CDT [facility] TOTAL PROTEIN 6.3 6.3 - 8.2 g/dL 06/14/2024 12:39 PM CDT [facility] ALBUMIN 3.4(L) 3.5 - 5.0 g/dL 06/14/2024 12:39 PM CDT [facility] A/G RATIO 1.2 1.0 - 2.2 06/14/2024 12:39 PM CDT [facility] CALCIUM 9.4 8.7 - 10.5 mg/dL 06/14/2024 12:39 PM CDT [facility] T BILI 2.0(H) 0.2 - 1.2 mg/dL 06/14/2024 12:39 PM CDT [facility] SGOT (AST) 25 5 - 34 U/L 06/14/2024 12:39 PM CDT [facility] SGPT (ALT) 18 0 - 55 U/L 06/14/2024 12:39 PM T [facility] ALKALINE PHOSPHATASE 87 40 - 150 U/L 06/14/2024 12:39 PM T [facility] IS THE PATIENT REQUIRED TO BE FASTING? No 06/14/2024 12:39 PM CDT [facility] GFR, ESTIMATED >60 >=60 06/14/2024 12:39 PM [facility] Comment: Creatinine Clearance is the preferred criteria for selecting drug dose adjustments in renally impaired patients. The GFR is provided as additional pertinent clinical information. GFR is reported in mL/min/1.73 sq m. Calculation based on the Chronic Kidney Disease Epidemiology Collaboration (CKD- EPI) equation refit without adjustment for race. GFR, EST. >60 >=60 024 12:39 PM CDT [facility] GFR, EST. NONAFRICAN >60 >=60 06/14/2024 12:39 PM [facility] Blood Venipuncture / Unknown 06/14/2024 11:54 AM CDT 06/14/2024 12:10 PM CDT Ismael Fong MD CHEMISTRY ORDERABLES F inal Result [facility] [address] [place] [address] * (ABNORMAL) PROTIME (PT) (PROTHROMBIN TIME) (06/14/2024 11:54 AM CDT) PROTIME-PATIENT 17.3(H) 11.6 - 14.8 sec 06/14/2024 12:33 PM CDT [facility] INR 1.4(H) 0.9 - 1.2 06/14/2024 12:33 PM CDT [facility] Comment: Therapeutic Ranges INR = 2.0-3.0: Venous thromb, atrial fib, pul embolism, tissue heart valve, ami. INR = 2.5-3.5: Mechanical heart valve Critical value for INR is >/= 4.5 Blood Venipuncture / Unknown 06/14/2024 11:54 AM CDT 06/14/2024 12:15 PM CDT us Ismael Fong MD HEMATOLOGY ORDERABLES Final Result Performing Organization Address [facility] Co de Phone Number [facility] [address] [place] [address] * ALPHA FETOPROTEIN, TUMOR MARKER (06/14/2024 11:54 AM CDT) ALPHA FETOPROTEIN 4.6 0.0 - 8.8 ng/mL 06/14/2024 10:14 PM CDT [facility] Blood Venipuncture / Unknown 06/14/2024 11:54 AM CDT 06/14/2024 12:10 PM CDT us Ismael Fong MD CHEMISTRY ORDERABLES F inal Result [facility] [address] [place] [address], [place] documented in this encounter Visit Diagnoses Diagnosis Hepatic cirrhosis, unspecified hepatic cirrhosis type- Primary Hepatic encephalopathy 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
--- OUTSIDE RECORDS SUMMARY | 2025-09-12 17:04 | XMS_ITS | Encounter Summary ---
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 Occupation Industry Job Start Date Job End [...] 145 mmol/L 03/19/2025 10:21 AM CDT [facility] POTASSIUM 4.4 3.5 - 5.1 mmol/L 03/19/2025 10:21 AM CDT [facility] CHLORIDE 108(H) 98 - 107 mmol/L 03/19/2025 10:21 AM CDT [facility] CO2, VENOUS 23 22 - 30 mmol/L 03/19/2025 10:21 AM CDT [facility] ANION GAP 12.4 <18.0 mmol/L 03/19/2025 10:21 AM CDT [facility] GLUCOSE 147(H) 70 - 99 mg/dL 03/19/2025 10:21 AM CDT [facility] BUN 12 10 - 20 mg/dL 03/19/2025 10:21 AM CDT [facility] CREATININE, BLOOD 0.51(L) 0.60 - 1.00 mg/dL 03/19/2025 10:21 AM [facility] BUN/CREATININE RATIO 24(H) 12 - 20 ratio 03/19/2025 10:21 AM [facility] TOTAL PROTEIN 6.4 6.0 - 8.0 g/dL 03/19/2025 10:21 AM [facility] ALBUMIN 3.4(L) 3.5 - 5.0 g/dL 03/19/2025 10:21 AM [facility] A/G RATIO 1.1 1.0 - 2.2 03/19/2025 10:21 AM [facility] CALCIUM 8.9 8.7 - 10.5 mg/dL 03/19/2025 10:21 AM [facility] T BILI 2.2(H) 0.2 - 1.2 mg/dL 03/19/2025 10:21 AM [facility] SGOT (AST) 25 <43 U/L 03/19/2025 10:21 AM [facility] SGPT (ALT) 14 <56 U/L 03/19/2025 10:21 AM [facility] ALKALINE PHOSPHATASE 140 40 - 150 U/L 03/19/2025 10:21 AM [facility] IS THE PATIENT REQUIRED TO BE FASTING? No 03/19/2025 10:21 AM [facility] GFR, ESTIMATED >60 >=60 03/19/2025 10:21 AM [facility] Comment: Creatinine Clearance is the preferred criteria for selecting drug dose adjustments in renally impaired patients. The GFR is provided as additional pertinent clinical information. GFR is reported in mL/min/1.73 sq m. Calculation based on the Chronic Kidney Disease Epidemiology Collaboration (CKD- EPI) equation refit without adjustment for race. GFR, EST. >60 >=60 025 10:21 AM [facility] GFR, EST. NONAFRICAN >60 >=60 03/19/2025 10:21 AM CDT [facility] Blood Venipuncture / Unknown 03/19/2025 9:09 AM CDT 03/19/2025 10:08 AM CDT us Ismael Fong MD CHEMISTRY ORDERABLES F inal Result Performing Organization Address City/[facility]/ZIP Co de Phone Number [facility] [address] [place] [address] * ALPHA FETOPROTEIN, TUMOR MARKER (03/19/2025 9:09 AM CDT) ALPHA FETOPROTEIN 3.8 0.0 - 8.8 ng/mL 03/19/2025 2:38 PM CDT [facility] Blood Venipuncture / Unknown 03/19/2025 9:09 AM CDT 03/19/2025 9:39 AM CDT us Ismael Fong MD CHEMISTRY ORDERABLES F inal Result Performing Organization Address City/[facility] [[email or web address]] Co de Phone Number [facility] [address] [place] [address], documented in this encounter Visit Diagnoses Diagnosis 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) Hepatic cirrhosis, unspecified hepatic cirrhosis type, unspecified whether ascites present Hepatic encephalopathy 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
--- OUTSIDE RECORDS SUMMARY | 2025-09-12 17:04 | XMS_ITS | Encounter Summary ---
Author Organization [facility] Address [address] [place] [address] Phone Care Team Providers Care High [employer] Foreign Language Teacher Name Role Phone Olive Lozano MD Primary Care Provider [phone] Svitlana De La Torre APRN, ADVERTISING ACCOUNT REPRESENTATIVE Unavailable Swapnil Jhaveri MD Unavailable Reason for Visit * Reason Comments Medication Refill Encounter Details Date Type Department Care Team (Late st Contact Info) Description 08/23/2023 Refill [facility] - Gastroenterology - [place] [address] [place] [address] Svitlana De La Torre, REGI, ADVERTISING ACCOUNT REPRESENTATIVE [address] [place] [address] Medication Refill Social History Tobacco Use Types [...] Sexual Orientation Straight 11/08/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
--- OUTSIDE RECORDS SUMMARY | 2025-09-12 17:04 | XMS_ITS | Clinical Summary ---
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
--- OUTSIDE RECORDS SUMMARY | 2025-09-12 17:04 | XMS_ITS | Clinical Summary ---
Author Organization [facility] Address [address] [place] [address] Care Team Providers Care Young Adult Librarian Name Role Phone Olive Lozano MD Primary Care Provider [phone] Allergies Active Allergy Reactions Criticality Noted Date [...] Years Used Date Smoking Tobacco: Former Cigarettes 15 0 06/26/1964 - 06/26/1979 Tobacco Cessation:Counseling Given: [...] age to complete this topic [id number] Care Teams Young Adult Librarian Relationship Specialty Start Date End Date Olive Lozano MD [address] [place] [address] PCP - General Family Medicine 03/23/23
--- OUTSIDE RECORDS SUMMARY | 2025-09-12 17:04 | XMS_ITS | Encounter Summary ---
Author Organization [facility] Address [address] [place] [address] Phone Care Team Providers Care Superintendent House Name Role Phone Olive Lozano MD Primary Care Provider Svitlana De La Torre APRN, PLODDER OPERATOR Unavailable Swapnil Jhaveri MD Unavailable [phone] Encounter Details Date Type Department Care Team (Latest Contact Info) Description 01/22/2025 [facility] [address] [place] [address] Olive Lozano MD [address] [place] [address] Dry mouth (Primary Dx); Type 2 diabetes mellitus without complication, unspecified whether oil pipeline dispatcher insulin use (HCC); Mixed hyperlipidemia; Other fatigue; [...] Sexual Orientation Straight 11/08/2023 4: 58 PM 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 Consider Clinical Correlation. CREATININE URINE 123.5 mg/dL 01/26/20 9:33 AM CDT [facility] Comment:No reference range h as been established. Consider Clinical Correlation. ALB/CREAT RATIO 14 0 - 30 mg/g CRE 01/25/2025 9:33 AM CDT [facility] Urine Non-Phlebotomy Collection / Unknown 01/25/2025 8:43 AM CDT 01/25/2025 9:01 AM CDT us Olive Lozano MD URINE ORDERABLES Final Result [facility] [address] [place] [address] * ERYTHROCYTE SEDIMENTATION RATE (ESR) (01/25/2025 8:43 AM CDT) ESR (SED RATE, ERYTHROCYTE SEDIMENTATION RATE) 1 <30 mm/h 01/25/2025 9:10 AM CDT [facility] Comment: Patients presenting with increased level of fibrinogen, gamma globulins, or abnormally shaped RBCs could affect the results for the erythrocyte sedimentation rate (ESR). Results should be clinically correlated. Blood Venipuncture / Unknown 01/25/2025 8:43 AM CDT 01/25/2025 9:02 AM CDT us Olive Lozano MD HEMATOLOGY ORDERABLES Final Resu lt Performing Organization Address City/[facility] [[email or web address]] Co de Phone Number [facility] [address] [place] [address] * VITAMIN B12 (01/25/2025 8:43 AM CDT) VITAMIN B12 421 213 - 816 pg/mL 01/25/2025 9:53 AM CDT [facility] Blood Venipuncture / Unknown 01/25/2025 8:43 AM CDT 01/25/2025 9:02 AM CDT us Olive Lozano MD CHEMISTRY ORDERABLES Final Resul t Performing Organization Address [facility] [[email or web address]] Co de Phone Number [facility] [address] [place] [address] * AMMONIA (01/25/2025 8:43 AM CDT) AMMONIA 68 18 - 72 umol/L 01/25/2025 9:19 AM CDT [facility] Blood Venipuncture / Unknown 01/25/2025 8:43 AM CDT 01/25/2025 9:01 AM CDT us Olive Lozano MD CHEMISTRY ORDERABLES Final Resul t Performing Organization Address City/[facility] [[email or web address]] Co de Phone Number [facility] [address] [place] [address] * VITAMIN D, 25 HYDROXY TOTAL (01/25/2025 8:43 AM CDT) VITAMIN D, 25 HYDROX 23.1 ng/mL 01/25/2025 9:53 AM CDT [facility] Blood Venipuncture / Unknown 01/25/2025 8:43 AM CDT 01/25/2025 9:02 AM CDT Narrative [facility] - 01/25/2025 9:53 AM CDT Published reference ranges for Vitamin D vary depending on time and place and method of testing, and on patient's age, sex, ethnicity and levels of other measured analytes such as parathormone, calcium and phosphorus. The result should be evaluated in conjunction with clinical findings and suspicions. [place] [employer] and [employer]ocrine Clinical Practice Guidelines: Status Vitamin D levels (ng/mL) Deficient <=20 At risk of inadequacy 21-29 Sufficient 30-100 Centers of Disease Control and Prevention Guidelines: Status Vitamin D levels (ng/mL) Deficient <13 At risk of inadequacy 13-19 Sufficient 20-50 Possibly harmful >50 References: [place] [employer], 2010 Dietary reference intakes for calcium and vitamin D. [place]: The National Academies Press. Adrian M, Todd N, Chuy BURNS, et al., Evaluation, treatment, and prevention of Vitamin D deficiency: an Endocrinology Clinical Practice Guideline. JCEM 2011 96: 7 7633-5468. Chace A, Andrea C, Ronel D, et al., Vitamin D Status: [place], 7224-2228, [facility] data brief, no. 59, MD [place]: National Center for Health Statistics. 2011. us Olive Lozano MD CHEMISTRY ORDERABLES Final Resul t [facility] [address] [place] [address] * (ABNORMAL) COMPLETE BLOOD COUNT (CBC) WITHOUT DIFF (01/25/2025 8:43 AM CDT) WBC 2.20(L) 4.00 - 12.00 10(3)/mcL 01/25/2025 9:13 AM CDT [facility] RBC 3.72(L) 3.80 - 5.30 10(6)/mcL 01/25/2025 9:13 AM CDT [facility] HEMOGLOBIN (HGB) 7.2(L) 12.0 - 15.8 g/dL 01/25/2025 9:13 AM CDT [facility] HEMATOCRIT (HCT) 27.6(L) 36.0 - 47.0 % 01/25/2025 9:13 AM CDT [facility] MCV 74.2(L) 82.0 - 96.0 fL 01/25/2025 9:13 AM CDT [facility] MCH 19.4(L) 26.0 - 34.0 pg 01/25/2025 9:13 AM CDT [facility] MCHC 26.1(L) 31.0 - 36.0 g/dL 01/25/2025 9:13 AM CDT [facility] PLATELET COUNT 92(L) 140 - 440 10(3)/mcL 01/25/2025 9:13 AM CDT [facility] RDW 19.6(H) 11.8 - 15.5 % 01/25/2025 9:13 AM CDT [facility] MPV 01/25/2025 9:13 AM CDT [facility] Blood Venipuncture / Unknown 01/25/2025 8:43 AM CDT 01/25/2025 9:02 AM CDT us Olive Lozano MD HEMATOLOGY ORDERABLES Final Resu lt [facility] [address] [place] [address] * (ABNORMAL) LIPID PANEL (01/25/2025 8:43 AM CDT) CHOLESTEROL 102 <200 mg/dL 01/25/2025 9:32 AM CDT [facility] TRIGLYCERIDES 62 <150 mg/dL 01/25/2025 9:32 AM CDT [facility] HDL CHOLESTEROL 36(L) >40 mg/dL 9:32 AM CDT [facility] LDL 54 <130 mg/dL 01/25/2025 9:32 AM CDT [facility] VLDL 12 10 - 50 mg/dL 01/25/2025 9:32 AM CDT [facility] CHOL/HDL RATIO 2.8 0.0 - 4.4 01/25/2025 9:32 AM CDT [facility] NON-HDL CHOLESTEROL 66 <130 mg/dL 01/25/2025 9:32 AM CDT [facility] IS THE PATIENT REQUIRED TO BE FASTING? Yes 01/25/2025 9:32 AM CDT [facility] HAS THE PATIENT BEEN FASTING? Yes 01/25/2025 9:32 AM CDT [facility] Blood Venipuncture / Unknown 01/25/2025 8:43 AM CDT 01/25/2025 9:02 AM CDT us Olive Lozano MD CHEMISTRY ORDERABLES Final Resul t [facility] [address] [place] [address] * (ABNORMAL) CMP (COMPREHENSIVE METABOLIC PANEL) (01/25/2025 8:43 AM CDT) SODIUM 141 136 - 145 mmol/L 01/25/2025 9:32 AM CDT [facility] POTASSIUM 4.2 3.5 - 5.1 mmol/L 01/25/2025 9:32 AM CDT [facility] CHLORIDE 112(H) 98 - 107 mmol/L 01/25/2025 9:32 AM CDT [facility] CO2, VENOUS 23 22 - 30 mmol/L 01/25/2025 9:32 AM CDT [facility] ANION GAP 10.2 <18.0 mmol/L 01/25/2025 9:32 AM CDT [facility] GLUCOSE 139(H) 70 - 99 mg/dL 01/25/2025 9:32 AM [facility] BUN 11 10 - 20 mg/dL 01/25/2025 9:32 AM [facility] CREATININE, BLOOD 0.55(L) 0.60 - 1.00 mg/dL 01/25/2025 9:32 AM [facility] BUN/CREATININE RATIO 20 12 - 20 ratio 01/25/2025 9:32 AM [facility] TOTAL PROTEIN 6.5 6.0 - 8.0 g/dL 01/25/2025 9:32 AM [facility] ALBUMIN 3.3(L) 3.5 - 5.0 g/dL 01/25/2025 9:32 AM [facility] A/G RATIO 1.0 1.0 - 2.2 01/25/2025 9:32 AM [facility] CALCIUM 9.1 8.7 - 10.5 mg/dL 01/25/2025 9:32 AM [facility] T BILI 2.0(H) 0.2 - 1.2 mg/dL 01/25/2025 9:32 AM [facility] SGOT (AST) 31 <43 U/L 01/25/2025 9:32 AM [facility] SGPT (ALT) 18 <56 U/L 01/25/2025 9:32 AM [facility] ALKALINE PHOSPHATASE 112 40 - 150 U/L 01/25/2025 9:32 AM [facility] IS THE PATIENT REQUIRED TO BE FASTING? No 01/25/2025 9:32 AM [facility] GFR, ESTIMATED >60 >=60 01/25/2025 9:32 AM [facility] Comment: Creatinine Clearance is the preferred criteria for selecting drug dose adjustments in renally impaired patients. The GFR is provided as additional pertinent clinical information. GFR is reported in mL/min/1.73 sq m. Calculation based on the Chronic Kidney Disease Epidemiology Collaboration (CKD- EPI) equation refit without adjustment for race. GFR, EST. >60 >=60 025 9:32 AM CDT [facility] GFR, EST. NONAFRICAN >60 >=60 01/25/2025 9:32 AM CDT [facility] Blood Venipuncture / Unknown 01/25/2025 8:43 AM CDT 01/25/2025 9:02 AM CDT Olive Lozano MD CHEMISTRY ORDERABLES Final Resul t Performing Organization Address City/[facility] [[email or web address]] Co de Phone Number [facility] [address] [place] [address] * (ABNORMAL) HEMOGLOBIN A1C W/ ESTIMATED GLUCOSE (01/25/2025 8:43 AM CDT) HGB-A1C 6.6(H) 4.0 - 6.0 % 01/25/2025 9:25 AM CDT [facility] Est Average Glucose 142.7 mg/dL 01/25/2025 9:25 AM CDT [facility] Blood Venipuncture / Unknown 01/25/2025 8:43 AM CDT 01/25/2025 9:02 AM CDT Narrative [facility] - 01/25/2025 9:25 AM CDT HEMOGLOBIN A1C: DIABETIC PATIENTS: WELL-CONTROLLED: 6.2 - 7.0 INTERMEDIATE WELL-CONTROLLED: 7.0 - 9.0 POORLY-CONTROLLED: >9.0 Specimens containing greater than 5% of Hemoglobin F may result in lower than expected % HbA1C results. Olive Lozano MD CHEMISTRY ORDERABLES Final Resul t Performing Organization Address City/[facility] [[email or web address]] Co de Phone Number [facility] [address] [place] [address] documented in this encounter Visit Diagnoses Diagnosis Dry mouth- Primary Disturbance of salivary secretion Type 2 diabetes mellitus without complication, unspecified whether residential insulin use Mixed hyperlipidemia Other fatigue Vitamin D deficiency Unspecified vitamin D deficiency Liver failure without hepatic coma, unspecified chronicity documented in this encounter Care Teams Superintendent House Relationship Specialty Start Date End Date Olive Lozano MD [address] [place] [address] PCP - General Family Medicine 04/19/19 Svitlana De La Torre APRN, PLODDER OPERATOR [address] [place] [address] Nurse Practitioner Advanced Practice Nurse 06/24/23 Swapnil Jhaveri MD [address] [place] [address] Consulting Physician Gastroenterology 02/10/23 documented as of this encounter
--- OUTSIDE RECORDS SUMMARY | 2025-09-12 17:04 | XMS_ITS | Clinical Summary ---
Author Organization [facility] Address [address] [place] [address] Care Team Providers Care Physical Trainer Name Role Phone Olive Lozano MD Primary Care Provider [phone] Source Comments [facility],non-owned Affiliates and Associated Physician Practices is amultiple site organization consisting of ambulatory clinics and hospital sitesin [place], [place], [place] and [place]. This disclosure is being madepursuant to the Care Everywhere program and may not contain all information available regarding this patient. Last updated 18.[facility] Allergies Active Allergy Reactions Criticality Noted Date [...] Type Department Care Team Description 07/04/2025 Refill [facility] - [place] [address] [facility], [place] [address] Ismael Fong MD Refill Request from Last 3 Months Immunizations Immunization Administration Dates Next Due Covid [employer] primary monovalent 12+ yr 0.3mL Pur ple [...] on file Legal Sex Female 6:39 PM RELIABILITY ENGINEER Gender Identity Not on file Sexual Orientation [...] st Contact Info) Description 10/15/2025 12:30 PM RELIABILITY ENGINEER Appointment [facility] [address] [place] [address] Ismael Fong MD [address] [place] [address] [address] DIV [place]STR[place] [address] 10/15/2025 1:30 PM RELIABILITY ENGINEER Office Visit [facility] - [place] [address] [place] [address], [place] [address] Ismael Fong MD [address] [place] [address] [address] DIV [place] GASTROENTER[place] [address] Health Maintenance Due Date Last Done Comments BONE DENSITY TESTING 1950 COLOGUARD (AGES 45-75) - COLON CA SCREENING 1952 CT COLONOGRAPHY - COLON CA SCREENING 1950 FIT - COLON CA SCREENING 1950 FLEX SIG - COLON CA SCREENING 1950 MAMMOGRAM 1952 DTAP/TDAP/TD VACCINES (1 - Tdap) 1971 PNEUMOCOCCAL VACCINE 50+ (1 of 2 - PCV) 1971 Respiratory Syncytial Virus (RSV) Vaccine Pt: or over 60 yrs (1 - Risk 50-74 years 1-dose series) 2002 HEPATITIS B VACCINE (1 of 3 - Risk 3-dose series) 2012 ZOSTER VACCINE (2 of 3) [...] C RNA QUANTITATIVE Routine 11/08/2023 10:24 AM RELIABILITY ENGINEER Hepatic cirrhosis, unspecified hepatic cirrhosis type, unspecified [...] entire procedure. Procedure Code(s): --- Professional --- 47278, Esophagogastroduod enoscopy, flexible, transoral; diagnostic, including collection of specimen(s) by brushing or washing, when performed (separate procedure) Diagnosis Code(s): --- Professional --- K76.6, Portal hypertension K31.89, Other diseases of stomach and duodenum K31.819, Angiodysplasia of stomach and duodenum without bleeding K74.60, Unspecified cirrhosis of liver CPT copyright 2021 [employer]. All rights reserved. The codes documented in this report are preliminary and upon project management analyst review may be revised to meet current compliance requirements. Ismael Fong, 04/18/2025 3:55:43 PM Note Initiated On: 04/18/2025 2:59 PM Number of Addenda: [address] [address] [facility] 04/18/2025 2:59 PM CDT us Ismael Fong MD GI PROCEDURE ORDERABLE S Edited Result - Final [facility] * HEPATITIS C RNA QUANTITATIVE (11/08/2023 10:24 AM RELIABILITY ENGINEER) Hepatitis C RNA PCR, Interp Not detected Not detected 11/10/2023 9:18 AM [facility] Blood BLOOD SPECIMEN / Unknown Lab Venipuncture / Unknown 11/08/2023 10:24 AM RELIABILITY ENGINEER 11/08/2023 10:42 AM RELIABILITY ENGINEER Narrative [facility] - 11/10/2023 9:18 AM RELIABILITY ENGINEER The Hepatitis C viral (HCV) RNA analysis utilized a serum sample, real-time reverse nurse intern PCR, and is reported as Not Detected, [...] the isolation of HCV RNA with reverse nurse intern of genomic HCV RNA followed by real-time PCR in the presence of an unrelated RNA internal control. The internal control ensures that RNA is isolated, and that no general significant inhibitors of the RT-PCR process are present. The analysis was performed using a U.S. FDA approved test methodology. Ismael Fong MD LAB - CHEMISTRY ORDERA BLES Final Result [facility] [address] [place] [address], [facility] [phone] from Last 3 Months or Most Recently Relevant to Health Maintenance Insurance [employer] [facility], [facility] MEDICARE ADV Care Teams Physical Trainer Relationship Specialty Start Date End Date Olive Lozano MD [address] [place] [address] PCP - General 07/10/13
--- OUTSIDE RECORDS SUMMARY | 2025-09-12 17:04 | XMS_ITS | Encounter Summary ---
Author Organization [facility] Address [address] [place] [address] Phone Care Team Providers Care Neighborhood Service Center Director Name Role Phone Olive Lozano MD Primary Care Provider [phone] Svitlana De La Torre APRN, [employer]REATH [employer] GARLAND MAKER HAND Unavailable Swapnil Jhaveri MD Unavailable [phone] Reason for Visit * Reason Comments Medication Refill Encounter Details Date Type Department Care Team (Late st Contact Info) Description 05/06/2022 Refill [facility] - Gastroenterology - [place] [address] [place] [id number] Estella Epperson Ester, PAC [address] [place] [address] Medication Refill Social History Tobacco Use Types [...] Sexual Orientation Straight 11/08/2023 4: 58 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
--- OUTSIDE RECORDS SUMMARY | 2025-09-12 17:04 | XMS_ITS | Encounter Summary ---
Author Organization [facility] Address [address] [place] [address] Phone Care Team Providers Care Boating Safety Officer Name Role Phone Olive Lozano MD Primary Care Provider [phone] Svitlana De La Torre APRN, RUBBER DOWN Unavailable Swapnil Jhaveri MD Unavailable [phone] Reason for Visit * Reason Comments Medication Refill Encounter Details Date Type Department Care Team (Late st Contact Info) Description 06/03/2022 Refill [facility] - Gastroenterology - [place] [address] [place] [id number] Estella Epperson Ester, PAC [address] [place] [address] Medication Refill Social History Tobacco Use Types [...] Sexual Orientation Straight 11/08/2023 4: 58 PM 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 Spokewith Subha with [facility]. Per Subha, patient has 90 tablets with 3 refills on file with [facility]. Patient can re-enroll as soon as August 31, 2022. Reviewed information with patient. Patient is awareand verbalizes understanding. Per Subha [facility]. * Telephone Encounter - Laurel Krause RN - 06/04/2022 8:59 AM CDT Refill request for xifaxan. Last refill noted to be 12/17/2021 for 60 tabs and 11 refills. Refill request noted to be for [facility] in [place], [place]. Called patient to verify requested pharmacy. Left message for patient to call back. documented in this encounter Plan of Treatment Not on file documented as of this encounter Visit Diagnoses Not on filedocumented in this encounter Care Teams Boating Safety Officer Relationship Specialty Start Date End Date Olive Lozano MD [address] [place] [address] PCP - General Family Medicine 04/19/19 Svitlana De La Torre APRN, RUBBER DOWN [address] [place] [address] Nurse Practitioner Advanced Practice Nurse 06/24/23 Swapnil Jhaveri MD [address] [place] [address] Consulting Physician Gastroenterology 02/10/23 documented as of this encounter
--- OUTSIDE RECORDS SUMMARY | 2025-09-12 17:04 | XMS_ITS | Data Portability ---
Author Organization [facility] [place] Address [address] [place] [address] Care Team Providers Care Exercise Scientist Name Role Phone TIFFANI WATTS Primary Care Provider Assessment Encounter Date Assessment Date Assessment LastModified by Organization Details LastModified Time 01/08/2022 01/08/2022 Reviewed and discussed US results DIscussed thickened endometrium and need for EMB reassuring that she has not had bleeding. WWE overdue. [email or web address] Not available 01/15/2022 10:07:23 01/26/2022 01/26/2022 EMB done, will contact with results. do not suspect malignancy as minimal tissue obtained. pt reassured. WWE due, will schedule. [email or web address] Not available 01/26/2022 16:57:20 Plan of Treatment [...] as clini devon lopez nted. Not Available [facility] (Lab) [address], [place], [address], 01/16/2022 06:28:41 01/27/20 22 01/26/2022 SURGI LUIS [...] Gross ed by Tom rahman Not Available [facility] (Lab) [address], [place], [address], 01/27/2022 18:07:47 12/18/19 22 11/11/2021 , kenton joseph No observ ation record ed. [email or web address] Not Available 2021 11:25:20 Result Notes None recorded. Procedures Surgical History Date Name Laterality Status Provider Name and Address Organization Details Recorded Time 022 Endometrial Biopsy completed Hien Plascencia MD [address], [place], [address], [facility] 01/26/2022 16:56:47 006 cholecystectomy completed Verenice Jackson [facility] 01/08/2022 11:18:44 003 Date of Last Pap Smear completed Verenice Jackson [facility] 01/08/2022 09:04:17 965 procedure on uterus completed Hien Plascencia MD [address], [place], [address], [facility] 01/26/2022 16:17:07 Imaging Results None recorded. Procedure Notes None recorded. Medical Equipment None Reported. Allergies Allergen ID Allergen Name Allergen Category Reaction Reaction Severity Criticality Documentation Date Start Date Code Code System Note Provider Name and Address Organization Details Recorded Time 91435 acetamino phen / hydrocodo ne medicatio n Not available Not available Not available 01/08/2022 41292 2 RxNorm [facility] 2 11:18:24 Medications Name Sig Start [...] Not Available Not Available No t Available [facility] Ultra Test strips TEST ONCE A DAY [...] Updated DateTime 01/08/2022 165.1 cm 30.1 kg/m2 24134.22 g 128/76 mm[Hg] [facility] 01/08/2022 11:14:38 Date Recorded Body height Body mass index (BMI) Body weight Systolic And Diastolic Provider Name and Address Organization Details Last Updated DateTime 01/26/2022 165.1 cm 30 kg/m2 32176.63 g 125/72 mm[Hg] [facility] 01/26/2022 15:49:48 Social History Question Answer Notes LastModified by Organizat ion Details LastModified Time Tobacco Smoking Status Never Smoker Verenice Jackson [facility] 01/08/2022 09:02:51 Has Tobacco Cessation Counseling [...] N Drug/Latex Allergies/Reactions N Blood Transfusion N Dermatologic Disorders N Lung Disease N Defects or Inherited Disease N Breast Problem N Gestational Diabetes N Hematologic disorders N Anesthesia Complications N History of STI N Deep Vein Thrombosis N Polycystic ovary syndrome N Anxiety Disorder N Autoimmune disease N Arthritis N Infertility N Polyps N Acid Reflux (GERD) N History of abnormal pap N Cancer N Stroke N Varicosities N Neurologic/Epilepsy N Endometriosis N High Cholesterol N Headaches N Fibromyalgia N Kidney Disease N Heart Problems N [...] ICD10 Code Diagnosis IMO Codes Diagnosis Note [id number] Hien Plascencia MD [place] [address] [address] 01/08/2022 11:04:22 01/15/2022 14:55:56 Endometrium thickened 741720778 R93.89 86961 Hien Plascencia MD [place] [address] [address] 01/26/2022 15:31:14 01/26/2022 17:03:28 Endometrium thickened 332056103 R93.89 Health Concerns Section Related Observation LastModified by Organization Detai ls LastModified Time None Recorded Concern Status LastModified by Organization Details LastModified Time None Recorded Advance Directives Directive None Recorded Payers Insurance Date Sequence Insurance Name Policy Number Policy Méndez Covered Member ID Méndez Member ID Guarantor Name 04/12/2022 1 [employer] [id number] Negar Alex Berg [id number] Negar Berg Notes Date Note Type Note Provider Name and Address Organization Details Recorded Time 01/08/2022 text/html Patient is a 71yo [id number] who presents for abnormal US at OSH. She is not sexually active. US on 11/11/21 showed a 1.3cm endometrium. She has not had any vaginal bleeding. She has DM2 and Hep C that she supposedly cleared. She does have liver damage from it though.Concerns:last WWE:2002 NILMDepression:denies Domestic violence:denies Hien Plascencia MD [address], [place], [address], [facility] 01/15/2022 10:07:39 01/26/2022 text/html Here for EMB for thickened endometrium. No bleeding. 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 Hien Plascencia MD [address], [place], [address], [facility] 01/26/2022 16:58:02 OBGyn Episode Ob Episode Information Episode Created Date Number of Fetuses Patient Bloodtype Patient rh Status Prepregnancy Weight lbs Domestic Partner Domestic Partner Phone Father Name Stitchdown Toe Former Status 01/09/20 22 1 CLOSED Fetus Data First Name Last Name Admitted to NICU Weight (g) Sex Living Outcome Pediatric Complications Fetus ID Race Codes Race Delivery Type 3742.13 4 M [id number] Vaginal Delivery Bry Calculation Initial Bry Date [...] Domestic Partner Domestic Partner Phone Father Name Stitchdown Toe Former Status 01/09/20 22 1 CLOSED Fetus Data First Name Last Name Admitted to NICU Weight (g) Sex Living Outcome Pediatric Complications Fetus ID Race Codes Race Delivery Type 3883.65 4704 M [id number] Vaginal Delivery Bry Calculation Initial Bry Date [...]
--- OUTSIDE RECORDS SUMMARY | 2025-09-12 17:04 | XMS_ITS | Encounter Summary ---
Author Organization [facility] Address [address] [place] [address] Phone Care Team Providers Care Senior Electronics Technician Name Role Phone Olive Lozano MD Primary Care Provider [phone] Svitlana De La Torre APRN, CAREGIVER SERVICES HOME Unavailable Swapnil Jhaveri MD Unavailable [phone] Reason for Visit * Reason Comments Medication Refill Encounter Details Date Type Department Care Team (Late st Contact Info) Description 11/10/2021 Refill [facility] - Gastroenterology - [place] [address] [place] [address] Estella Epperson Ester, PAC [address] [place] [address] Medication Refill Social History Tobacco Use Types [...] Sexual Orientation Straight 11/08/2023 4: 58 PM TEACHERS ASSISTANT 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 No / Unsure 11/11/2021 7:58 AM TEACHERS ASSISTANT documented as of this encounter Miscellaneous Notes * Telephone Encounter - Laurel Krause RN - 11/11/2021 9:46 AM TEACHERS ASSISTANT Medication refilled and signed per [facility] chronic medication standing order for pediatric and adult patients. HERS ASSISTANT documented in this encounter Plan of Treatment Not on file documented as of this encounter Visit Diagnoses Diagnosis Hepatic encephalopathy documented in this encounter Care Teams Senior Electronics Technician Relationship Specialty Start Date End Date Olive Lozano MD [address] [place] [address] PCP - General Family Medicine 04/19/19 Svitlana De La Torre APRN, CAREGIVER SERVICES HOME [address] [place] [address] Nurse Practitioner Advanced Practice Nurse 06/24/23 Swapnil Jhaveri MD [address] [place] [address] Consulting Physician Gastroenterology 02/10/23 documented as of this encounter
[2025-09-12 17:35] VITALS: BMI 27.4
--- NOTE | 2025-09-12 18:23 | ADMGEN ---
This patient, Negar Berg, was admitted to 2nd Floor Room 203-1. Patient/family oriented to hospital policies and general routines including ID bracelet, bed and alarms, visiting hours, pain management, procedures, bathroom and other care routines, personal items, smoking policy, room service/diet, and visiting hours. Information on how to activate the Rapid Response Team has been discussed. Patient/Family are encouraged to report perceived risks to care and to ask questions if they do not understand what they are told or what they should do.
--- NOTE | 2025-09-12 18:40 | PC.NURSE ---
ASSUMED CARE. REPORT RECEIVED FROM DANILO RAINES. PATIENT IS CURRENTLY RESTING ON BED. SLING TO LEFT ARM. TABLE REPOSITIONED FOR PATIENT. CALL LIGHT IN REACH
[2025-09-12] MEDS: traMADol HCL (*CRX) 50 MG TABLET PO (19:46)
[2025-09-12] MEDS: LACTULOSE 20 GM/30 ML UDC PO (20:06)
[2025-09-12] MEDS: oxyCODONE HCL (*CRX) 2.5 MG TAB IR PO (23:08)
--- NOTE | 2025-09-12 23:16 | PC.NURSE ---
ASSISTED PATIENT UP TO BEDSIDE COMMODE. CONTINUED TO REPORT PAIN TO LEFT SCAPULA. MEDICATED PER DEC. RETURNED BACK TO BED. CALL LIGHT IN REACH
[2025-09-13] VITALS: BP 116/62; PULSE 76; RESP 16; TEMP 36.4; O2SAT 96
[2025-09-13] MEDS: traMADol HCL (*CRX) 50 MG TABLET PO ×3 (04:20→23:54)
--- NOTE | 2025-09-13 04:35 | PC.NURSE ---
ASSIST X 1 UP TO BEDSIDE COMMODE AND BACK TO BED. REPORTED PAIN TO LEFT SCAPULA. MEDICATED FOR PAIN PER DEC. SLING TO LEFT ARM IN PLACE. CALL LIGHT IN REACH
[2025-09-13 08:00] VITALS: BP 107/54; PULSE 76; RESP 18; TEMP 36.6; O2SAT 92
--- NOTE | 2025-09-13 09:19 | PM.IMHP ---
H&P: HPI History of Present Illness Date/Time: 09/13/25 09:19 Chief Complaint: left scapula fracture Narrative: Patient is a 75 year old female with PMH of DM type 2, pancytopenia, HTN, hepatitis C and liver cirrhosis. Patient was admitted at [facility] from 09/09/2025 to 09/12/2025 after she had a mechanical fall at home. Imaging showed a commuted non-displaced fracture of the left scapula. Patient was evaluated by orthopedic surgery who recommended conservative management with a standard sling and early range of motion exercises for the nand, wrist and elbow. Patient was made WBAT to her left upper extremity and instructed to follow up with ortho in 1 week. Patient was seen by PT and OT and it was recommended that she discharge to a rehab facility prior to returning home. Patient was admitted to a swing bed for further rehabilitation at [facility]. Review of Systems Review of Systems: All systems reviewed & are unremarkable except as noted in HPI and below PMFSH Past Medical History Medical History GAVE (gastric antral vascular ectasia) Pancytopenia Type 2 diabetes mellitus Hypertension Mitral regurgitation Noted on echocardiogram in April 2022. Hepatitis C Anemia Anxiety Surgical History Surgical History History of colonoscopy History of bilateral cataract extraction History of tonsillectomy History of cholecystectomy History of tubal ligation Family History Family History (Updated 09/09/25 @ 14:53 by Angel John RN) Grandparent Diabetes mellitus Acute myocardial infarction Family history of coronary artery disease Hypertension Cerebrovascular accident Mother Diabetes mellitus Hypertension Social History Social History Social History: Patient currently lives in her own home. Surrogate medical decision maker: Maite Berg, daughter. Code status: Full code. Smoking packs per day: 1 Smoking cigarettes per day: 20.0 Years smoked: 10 Smoking pack-years: 10.00 Smoking status: Former smoker Tobacco type: cigarettes Second hand tobacco smoke exposure: No Alcohol intake: never Substance use: never Substance use type: does not use Do You Feel Safe in your Home?: Yes Lack of Transportation: No Lack of Food: Never True Current Housing: I Have Housing Concerned About Future Housing: No Difficulty Paying Gas/Electric Bills: No Difficulty Paying for Meds: No Currently Unemployed: YES Education: High School Diploma/GED Difficulty w/ Childcare or Family Care: No Living arrangements: alone Additional living arrangements comments: Lives alone. She has 2 children. Occupation/Education: occupation Additional occupation/education comments: Works part-time at [employer]. Spiritual care concerns: No Agree to blood products: Yes Meds Home Medications and Allergies Home Medications ?Medication ?Instructions ?Recorded ?Confirmed ?Type lactulose 20 gram/30 mL oral 20 g (30 mL) PO QID #180 mL 10/08/23 09/12/25 Rx solution blood sugar diagnostic (Blood #50 ea 05/29/24 09/12/25 Rx Glucose Test strips) blood-glucose meter (Blood Glucose #1 ea 05/29/24 09/12/25 Rx Monitoring kit) lancets 32 gauge #100 ea 05/29/24 09/12/25 Rx lancing device (lancing device #1 05/29/24 09/12/25 Rx with lancets) trazodone 50 mg tablet 25 mg (1/2 x 50 mg) PO QHS PRN 08/16/24 09/12/25 Rx insomnia #30 tabs metformin 1,000 mg tablet 1,000 mg PO BID #180 tabs 10/29/24 09/12/25 Rx pantoprazole 40 mg tablet,delayed 40 mg PO DAILY #90 tabs 01/01/25 09/12/25 Rx release spironolactone 100 mg tablet 100 mg PO DAILY 09/09/25 09/12/25 History oxycodone 5 mg tablet 2.5 mg (1/2 x 5 mg) PO Q6H PRN 09/12/25 09/12/25 Rx pain (scale score 7-10) #10 tabs polyethylene glycol 3350 17 17 g PO DAILY #238 grams 09/12/25 09/12/25 Rx gram/dose oral powder tramadol 50 mg tablet 50 mg PO Q6H PRN pain (scale score 09/12/25 09/12/25 Rx 4-6) #10 tabs Allergies Allergy/AdvReac Type Severity Reaction Status Date / Time hydrocodone (From Vicodin) Allergy Severe Redness of Verified 09/12/25 17:43 Skin Vital Signs Vital Signs - 24 hr 09/12/25 20:00 09/13/25 00:00 Temperature 97.5 F L Pulse Rate 76 Respiratory Rate 16 Blood Pressure 116/62 Pulse Oximetry 96 Oxygen Delivery Room Air Room Air Exam Const: General: comfortable and no acute distress HENMT: Face/Nose/Sinus: Normal nares present Mouth: Yes moist mucous membranes Eyes: General: appearance normal, both eyes and all related structures Sclera: sclerae normal Neck: Neck: supple Resp: Effort & Inspection: normal respiratory effort Auscultation: clear to auscultation bilaterally Cardio: Rate: regular rate Rhythm: regular rhythm GI: GI Palp: Yes Soft to palpation Auscultation: normal bowel sounds Skin: General skin exam: normal color and no rashes or lesions noted Neuro: Speech: normal speech Motor exam (neuro): 5/5 motor strength present throughout Sensory Exam: normal sensation Extrem: General: normal to inspection Psych: Mental Status: mental status grossly normal Affect: normal affect Assessment and Plan Assessment and plan (1) Left scapula fracture: Code(s): S42.102A - Fracture of unspecified part of scapula, left shoulder, initial encounter for closed fracture Status: Acute Assessment and Plan: patient was evaluated by orthopedic surgery during hospitalization recommendations included conservative treatment, standard sling to LUE, early range of motion exercises for the hand, wrist and elbow WBAT to LUE follow up outpatient with Dr. Pa in 1 week pain control PT/OT eval and treat (2) Fall: Code(s): W19.XXXA - Unspecified fall, initial encounter Status: Acute Assessment and Plan: patient admitted to swing bed for rehabilitation fall precautions PT/OT eval and treat (3) Pancytopenia: Code(s): D61.818 - Other pancytopenia Status: Acute Assessment and Plan: patient's labs were stable during admission to the hospital on discharge wbc 4.0, Hgb 9.2 and platelet 62 monitor (4) Type 2 diabetes mellitus: Code(s): E11.9 - Type 2 diabetes mellitus without complications Status: Chronic Assessment and Plan: accu checks avoid hypoglycemia continue metformin low dose SSI with meals (5) Hypertension: Code(s): I10 - Essential (primary) hypertension Status: Acute Assessment and Plan: continue spironolactone monitor blood pressures and adjust medications as indicated (6) Cirrhosis: Code(s): K74.60 - Unspecified cirrhosis of liver Status: Chronic Assessment and Plan: due to history of hepatitis C continue Lactulose 20 grams PO QID monitor LFT's, mental status
[2025-09-13] MEDS: LACTULOSE 20 GM/30 ML UDC PO ×3 (10:07→21:05)
[2025-09-13] MEDS: SPIRONOLACTONE 25 MG TABLET 100 MG PO (10:09)
[2025-09-13] MEDS: PANTOPRAZOLE 40 MG TABLET PO (10:09)
[2025-09-13 16:00] VITALS: BP 110/53; PULSE 75; RESP 15; TEMP 37.2; O2SAT 93
[2025-09-13] MEDS: oxyCODONE HCL (*CRX) 2.5 MG TAB IR PO (21:05)
[2025-09-14] VITALS: BP 120/59; PULSE 66; RESP 20; TEMP 37.1
--- NOTE | 2025-09-14 00:05 | PC.NURSE ---
Pt resting quietly in bed and doesnt voice any c/o discomfort.
--- NOTE | 2025-09-14 02:15 | PC.NURSE ---
Pt asleep and no signs of discomfort noted.
--- NOTE | 2025-09-14 04:10 | PC.NURSE ---
Pt up to the commode with the abdirashid steady and assist of one. Pt voide 100 ml of med. melva urine and was returned to bed with the abdirashid steady and gait belt. Pt tolerated activity well.
[2025-09-14] MEDS: oxyCODONE HCL (*CRX) 2.5 MG TAB IR PO ×2 (05:19→18:41)
--- NOTE | 2025-09-14 05:25 | PC.NURSE ---
Pt c/o left shoulder pain and requested pain medication. Pt was given Roxicodone 2.5 mg PO to relieve left shoulder pain.
[2025-09-14 08:00] VITALS: BP 107/51; PULSE 75; RESP 16; TEMP 36.7; O2SAT 94
[2025-09-14] MEDS: LACTULOSE 20 GM/30 ML UDC PO ×4 (08:18→21:45)
[2025-09-14] MEDS: PANTOPRAZOLE 40 MG TABLET PO (08:18)
[2025-09-14] MEDS: ACETAMINOPHEN 500 MG TABLET 1000 MG PO (08:18)
[2025-09-14] MEDS: SPIRONOLACTONE 25 MG TABLET 100 MG PO (08:19)
[2025-09-14 16:00] VITALS: BP 120/62; PULSE 68; RESP 18; TEMP 36.6; O2SAT 96
[2025-09-14] MEDS: traMADol HCL (*CRX) 50 MG TABLET PO (21:46)
[2025-09-14 23:20] VITALS: BP 128/58; PULSE 84; RESP 13; TEMP 36.3; O2SAT 97
[2025-09-15] MEDS: oxyCODONE HCL (*CRX) 2.5 MG TAB IR PO ×3 (05:27→20:59)
[2025-09-15 08:00] VITALS: BP 128/52; PULSE 80; RESP 18; TEMP 36.3; O2SAT 96
[2025-09-15] MEDS: LACTULOSE 20 GM/30 ML UDC PO ×4 (09:22→20:59)
[2025-09-15] MEDS: PANTOPRAZOLE 40 MG TABLET PO (09:22)
[2025-09-15] MEDS: SPIRONOLACTONE 25 MG TABLET 100 MG PO (09:22)
[2025-09-15 16:00] VITALS: BP 138/54; PULSE 85; RESP 20; TEMP 37.1; O2SAT 96
[2025-09-15] MEDS: traMADol HCL (*CRX) 50 MG TABLET PO (16:48)
[2025-09-16] VITALS: BP 131/60; PULSE 81; RESP 15; TEMP 36.6; O2SAT 95
[2025-09-16] MEDS: oxyCODONE HCL (*CRX) 2.5 MG TAB IR PO (07:57)
[2025-09-16] MEDS: PANTOPRAZOLE 40 MG TABLET PO (07:59)
[2025-09-16] MEDS: LACTULOSE 20 GM/30 ML UDC PO ×4 (07:59→21:52)
[2025-09-16] MEDS: SPIRONOLACTONE 25 MG TABLET 100 MG PO (07:59)
[2025-09-16 08:00] VITALS: BP 109/49; PULSE 76; RESP 16; TEMP 36.9; O2SAT 95
[2025-09-16] MEDS: traMADol HCL (*CRX) 50 MG TABLET PO ×2 (14:29→21:52)
[2025-09-16 16:00] VITALS: BP 102/46; PULSE 86; RESP 16; TEMP 36.8; O2SAT 96
[2025-09-16] MEDS: ACETAMINOPHEN 500 MG TABLET 1000 MG PO (16:54)
[2025-09-16 20:00] VITALS: PULSE 86; RESP 16; O2SAT 96
[2025-09-17] VITALS: BP 112/57; PULSE 87; RESP 18; TEMP 37; O2SAT 96
[2025-09-17] MEDS: traMADol HCL (*CRX) 50 MG TABLET PO ×2 (05:57→11:56)
[2025-09-17 08:00] VITALS: BP 117/54; PULSE 77; RESP 18; TEMP 36.8; O2SAT 93
[2025-09-17] MEDS: SPIRONOLACTONE 25 MG TABLET 100 MG PO (09:21)
[2025-09-17] MEDS: LACTULOSE 20 GM/30 ML UDC PO ×4 (09:21→19:59)
[2025-09-17] MEDS: PANTOPRAZOLE 40 MG TABLET PO (09:22)
--- NOTE | 2025-09-17 11:37 | P.PNIM_ITS ---
Progress Note: A&P Assessment and Plan (1) Left scapula fracture: Code(s): S42.102A - Fracture of unspecified part of scapula, left shoulder, initial encounter for closed fracture Status: Acute Assessment and Plan: patient was evaluated by orthopedic surgery during hospitalization recommendations included conservative treatment, standard sling to LUE, early range of motion exercises for the hand, wrist and elbow WBAT to LUE follow up outpatient with Dr. Pa in 1 week pain control PT/OT eval and treat (2) Fall: Code(s): W19.XXXA - Unspecified fall, initial encounter Status: Acute Assessment and Plan: patient admitted to swing bed for rehabilitation fall precautions PT/OT eval and treat (3) Pancytopenia: Code(s): D61.818 - Other pancytopenia Status: Acute Assessment and Plan: patient's labs were stable during admission to the hospital on discharge wbc 4.0, Hgb 9.2 and platelet 62 monitor (4) Type 2 diabetes mellitus: Code(s): E11.9 - Type 2 diabetes mellitus without complications Status: Chronic Assessment and Plan: accu checks avoid hypoglycemia continue metformin low dose SSI with meals (5) Hypertension: Code(s): I10 - Essential (primary) hypertension Status: Acute Assessment and Plan: continue spironolactone monitor blood pressures and adjust medications as indicated (6) Cirrhosis: Code(s): K74.60 - Unspecified cirrhosis of liver Status: Chronic Assessment and Plan: due to history of hepatitis C continue Lactulose 20 grams PO QID monitor LFT's, mental status, bowel movements Subjective Date/time seen: 09/17/25 11:37 Interval history: Patient seen for a follow up visit. Patient sitting up in chair, in no acute distress. Patient denies acute pain. Patient is working with therapy and making some progress. Patient's last labs done on 09/12, order placed for labs on 09/19. Patient's vital signs reviewed and appear stable. Review of Systems Review of Systems: All systems reviewed & are unremarkable except as noted in HPI and below Exam Const: General: comfortable and no acute distress HENMT: Face/Nose/Sinus: Normal nares present Mouth: Yes moist mucous membranes Eyes: General: appearance normal, both eyes and all related structures Sclera: sclerae normal Neck: Neck: supple Resp: Effort & Inspection: normal respiratory effort Auscultation: clear to auscultation bilaterally Cardio: Rate: regular rate Rhythm: regular rhythm GI: Auscultation: normal bowel sounds Skin: General skin exam: normal color and no rashes or lesions noted Neuro: Speech: normal speech Motor exam (neuro): 5/5 motor strength present throughout Sensory Exam: normal sensation Extrem: General: normal to inspection Psych: Mental Status: mental status grossly normal Affect: normal affect Objective Data Vital Signs Vital Signs: Vital Signs - 24 hr 09/16/25 16:00 09/16/25 20:00 09/17/25 00:00 Temperature 98.3 F 98.6 F Pulse Rate 86 86 87 Respiratory Rate 16 16 18 Blood Pressure 102/46 L 112/57 L Pulse Oximetry 96 96 96 Oxygen Delivery Room Air Room Air Room Air 09/17/25 08:00 Temperature 98.3 F Pulse Rate 77 Respiratory Rate 18 Blood Pressure 117/54 L Pulse Oximetry 93 Oxygen Delivery Room Air Intake/Output Intake/Output: Intake & Output 09/14/25 09/15/25 09/16/25 09/17/25 23:59 23:59 23:59 23:59 Intake Total 1700 1140 1180 560 Output Total 100 0 0 Balance 1600 1140 1180 560 Meds/Results Medications: Active Medications Generic Name Dose Route Start Last Admin Trade Name Freq PRN Reason Stop Dose Admin Acetaminophen 1,000 mg 09/12/25 19:26 09/16/25 16:54 Acetaminophen 500 Mg Tablet PO 1,000 mg Q6H PRN Administration Mild Pain (1-3) or Fever Dextrose 12.5 gm 09/12/25 19:28 Dextrose 50% 25 Gm/50 Ml Syringe IV PUSH PRN PRN Hypoglycemia Protocol Glucagon 1 mg 09/12/25 19:28 Glucagon For Inj 1 Mg Vial IM PRN PRN Hypoglycemia Protocol Glucose 15 gm 09/12/25 19:28 Glucose Oral Gel 15 Gm Of Glucse In 37.5 Gm Tube PO PRN PRN Hypoglycemia Protocol Dextrose 1,000 mls @ 100 mls/hr 09/12/25 19:28 Dextrose 5% 1,000 Ml IVPB PRN PRN Hypoglycemia Protocol Insulin Human Lispro 2 - 5 units 09/13/25 08:00 09/17/25 08:46 Insulin Human Lispro (*Bkc) 1,000 Units/10 Ml Vial SUB-Q Not Given [facility] Protocol Lactulose 20 gm 09/12/25 21:00 09/17/25 09:21 Lactulose 20 Gm/30 Ml Udc PO 20 gm QID ZORAN Administration Metformin HCl 1,000 mg 09/13/25 09:00 09/17/25 09:21 Metformin Hcl 500 Mg Tablet PO 1,000 mg BID ZORAN Administration Oxycodone HCl 2.5 mg 09/12/25 19:24 09/16/25 07:57 Oxycodone Hcl (*Crx) 2.5 Mg Tab Ir PO 2.5 mg Q6H PRN Administration pain (scale score 7-10) Pantoprazole Sodium 40 mg 09/13/25 09:00 09/17/25 09:22 Pantoprazole 40 Mg Tablet PO 40 mg DAILY ZORAN Administration Polyethylene Glycol 17 gm 09/16/25 14:22 Polyethylene Glycol 3350 17 Gm Powd.Pack PO DAILY PRN constipation Senna/Docusate Sodium 1 tab 09/12/25 19:26 Senna/Docusate Sodium Tablet PO HS PRN Constipation Spironolactone 100 mg 09/13/25 09:00 09/17/25 09:21 Spironolactone 25 Mg Tablet PO 100 mg DAILY ZORAN Administration Tramadol HCl 50 mg 09/12/25 19:24 09/17/25 05:57 Tramadol Hcl (*Crx) 50 Mg Tablet PO 50 mg Q6H PRN Administration pain (scale score 4-6) Trazodone HCl 25 mg 09/12/25 19:24 09/16/25 21:52 Trazodone Hcl 25 Mg Tablet PO 25 mg QHS PRN Administration Insomnia Labs Labs: Laboratory Results - last 24 hr 09/16/25 09/16/25 09/17/25 16:22 22:23 07:55 POC Capillary Glucose 170 H 131 H 122 H 09/17/25 11:26 POC Capillary Glucose 189 H
[2025-09-17 16:00] VITALS: BP 102/51; PULSE 71; RESP 17; TEMP 36.6; O2SAT 96
[2025-09-17] MEDS: ACETAMINOPHEN 500 MG TABLET 1000 MG PO (16:11)
[2025-09-17] MEDS: oxyCODONE HCL (*CRX) 2.5 MG TAB IR PO (19:59)
[2025-09-17 20:00] VITALS: PULSE 71; RESP 17; O2SAT 96
[2025-09-18] VITALS: BP 95/44; PULSE 73; RESP 16; TEMP 36.7; O2SAT 95
--- NOTE | 2025-09-18 00:10 | PC.NURSE ---
Pt up to the bathroom with the walker, gait belt and standby assist of one. Pt voided and returned to bed with the walker, gait belt and standby assist of one. Gait was slow but steady and pt tolerated activity well.
--- NOTE | 2025-09-18 02:00 | PC.NURSE ---
Pt asleep and no signs of discomfort noted.
--- NOTE | 2025-09-18 03:10 | PC.NURSE ---
Pt up to the bathroom with the walker, gait belt and assist of one. Pt voided and returned to bed with the walker, gait belt and assist of one.
--- NOTE | 2025-09-18 04:20 | PC.NURSE ---
Pt up to the bathroom with the walker, gait belt and standby assist of one. Pt voided and returned to bed with the walker, gait belt and standby assist of one.
--- NOTE | 2025-09-18 06:10 | PC.NURSE ---
Pt up to the bathroom with the walker, gait belt and assist of one. Pt voided and returned to the recliner with the walker, gait belt and assist of one.
[2025-09-18 08:00] VITALS: BP 112/44; PULSE 80; RESP 20; TEMP 36.5; O2SAT 96
[2025-09-18] MEDS: traMADol HCL (*CRX) 50 MG TABLET PO ×2 (09:06→20:28)
[2025-09-18] MEDS: LACTULOSE 20 GM/30 ML UDC PO ×3 (09:06→16:55)
[2025-09-18] MEDS: PANTOPRAZOLE 40 MG TABLET PO (09:06)
[2025-09-18] MEDS: SPIRONOLACTONE 25 MG TABLET 100 MG PO (09:06)
[2025-09-18] MEDS: oxyCODONE HCL (*CRX) 2.5 MG TAB IR PO (11:09)
[2025-09-18 16:00] VITALS: BP 114/56; PULSE 73; RESP 18; TEMP 37.1; O2SAT 97
[2025-09-18 20:00] VITALS: PULSE 67; RESP 18; O2SAT 98
[2025-09-19] VITALS: BP 146/56; PULSE 89; RESP 16; TEMP 36.8; O2SAT 98
[2025-09-19] MEDS: oxyCODONE HCL (*CRX) 2.5 MG TAB IR PO ×2 (05:20→21:13)
[2025-09-19 08:00] VITALS: BP 108/46; PULSE 79; RESP 18; TEMP 36.3; O2SAT 92
[2025-09-19] MEDS: LACTULOSE 20 GM/30 ML UDC PO ×2 (08:11→12:01)
[2025-09-19] MEDS: PANTOPRAZOLE 40 MG TABLET PO (08:11)
[2025-09-19] MEDS: INSULIN HUMAN LISPRO (*BKC) 1,000 UNITS/10 ML VIAL SUB-Q (12:01)
[2025-09-19 16:00] VITALS: BP 104/47; PULSE 70; RESP 16; TEMP 36.7; O2SAT 99
[2025-09-19 20:00] VITALS: PULSE 83; RESP 16; O2SAT 95
[2025-09-20] VITALS: BP 126/54; PULSE 83; RESP 16; TEMP 36.4; O2SAT 95
[2025-09-20] MEDS: traMADol HCL (*CRX) 50 MG TABLET PO ×2 (01:59→16:16)
[2025-09-20 08:00] VITALS: BP 105/50; PULSE 75; RESP 16; TEMP 36.9; O2SAT 95
[2025-09-20] MEDS: oxyCODONE HCL (*CRX) 2.5 MG TAB IR PO ×2 (08:07→21:07)
[2025-09-20] MEDS: PANTOPRAZOLE 40 MG TABLET PO (08:07)
[2025-09-20] MEDS: LACTULOSE 20 GM/30 ML UDC PO ×4 (08:07→21:07)
[2025-09-20] MEDS: SPIRONOLACTONE 25 MG TABLET 100 MG PO (08:07)
[2025-09-20] MEDS: INSULIN HUMAN LISPRO (*BKC) 1,000 UNITS/10 ML VIAL SUB-Q (11:58)
[2025-09-20 16:00] VITALS: BP 97/47; PULSE 76; RESP 16; TEMP 37; O2SAT 96
[2025-09-21] VITALS: BP 117/63; PULSE 80; RESP 16; TEMP 36.8; O2SAT 94
[2025-09-21 08:00] VITALS: BP 106/42; PULSE 77; RESP 16; TEMP 36.8; O2SAT 95
[2025-09-21] MEDS: LACTULOSE 20 GM/30 ML UDC PO ×4 (08:06→21:33)
[2025-09-21] MEDS: oxyCODONE HCL (*CRX) 2.5 MG TAB IR PO ×2 (08:07→19:44)
[2025-09-21] MEDS: SPIRONOLACTONE 25 MG TABLET 100 MG PO (08:07)
[2025-09-21] MEDS: PANTOPRAZOLE 40 MG TABLET PO (08:07)
--- NOTE | 2025-09-21 13:00 | PC.NURSE ---
Daughter brought in patient personal walker.
[2025-09-21 16:00] VITALS: BP 113/49; PULSE 70; RESP 17; TEMP 36.7; O2SAT 96
[2025-09-21] MEDS: traMADol HCL (*CRX) 50 MG TABLET PO (16:13)
[2025-09-21 20:00] VITALS: PULSE 70; RESP 17; O2SAT 96
[2025-09-22] VITALS: BP 114/50; PULSE 81; RESP 16; TEMP 37.4; O2SAT 97
[2025-09-22] MEDS: traMADol HCL (*CRX) 50 MG TABLET PO ×2 (01:01→16:13)
[2025-09-22 08:00] VITALS: BP 122/56; PULSE 80; RESP 16; TEMP 36.5; O2SAT 95
[2025-09-22] MEDS: LACTULOSE 20 GM/30 ML UDC PO ×4 (08:14→20:35)
[2025-09-22] MEDS: SPIRONOLACTONE 25 MG TABLET 100 MG PO (08:14)
[2025-09-22] MEDS: oxyCODONE HCL (*CRX) 2.5 MG TAB IR PO ×2 (08:15→20:34)
[2025-09-22] MEDS: PANTOPRAZOLE 40 MG TABLET PO (08:15)
[2025-09-22 16:00] VITALS: BP 101/40; PULSE 70; RESP 17; TEMP 36.7; O2SAT 96
[2025-09-23 08:00] VITALS: BP 106/56; PULSE 74; RESP 18; TEMP 36.6; O2SAT 98
[2025-09-23] MEDS: LACTULOSE 20 GM/30 ML UDC PO ×4 (08:59→21:32)
[2025-09-23] MEDS: SPIRONOLACTONE 25 MG TABLET 100 MG PO (09:00)
[2025-09-23] MEDS: PANTOPRAZOLE 40 MG TABLET PO (09:01)
[2025-09-23 16:00] VITALS: BP 112/50; PULSE 70; RESP 18; TEMP 37.1; O2SAT 98
[2025-09-23] MEDS: traMADol HCL (*CRX) 50 MG TABLET PO (18:05)
--- NOTE | 2025-09-23 20:15 | PC.NURSE ---
Patient's on the phone talking. Alert and able to make needs known. Amb with gait belt , walker, and SBA. Call light and belongings within reach.
[2025-09-23] MEDS: oxyCODONE HCL (*CRX) 2.5 MG TAB IR PO (21:08)
--- NOTE | 2025-09-23 21:35 | PC.NURSE ---
Trazadone and Lactulose did not scan. I rescanned the patient's bracelet and documented on the DEC.
[2025-09-24] VITALS: BP 117/56; PULSE 83; RESP 18; TEMP 36.9; O2SAT 95
[2025-09-24] MEDS: oxyCODONE HCL (*CRX) 2.5 MG TAB IR PO ×2 (06:46→20:09)
[2025-09-24 07:21] LABS: Hematocrit 31.2 % (35.0-42.0); Hemoglobin 9.8 g/dL (11.7-13.8); Immature Platelet Fraction Pct 4.6 % (1.0-7.0); Mean Corpuscular HGB Conc 31.4 g/dL (32-36); Mean Corpuscular Hemoglobin 28.1 pg (27.0-31.0); Mean Corpuscular Volume 89.4 fL (78.0-102.0); Platelet Count Result 85 K/mm3 (150-420); Red Blood Count 3.49 M/mm3 (4.20-5.40); White Blood Count 3.4 K/mm3 (4.8-10.8)
[2025-09-24 07:32] LABS: Alanine Aminotransferase 23 U/L (6-35); Albumin Level 3.1 g/dL (3.5-5.1); Alkaline Phosphatase 173 U/L (38-126); Anion Gap 8 mmol/L (4-12); Aspartate Amino Transferase 37 U/L (14-36); Bilirubin,Total 2.0 mg/dL (0.2-1.3); Blood Urea Nitrogen 12 mg/dL (7-17); Calcium 9.8 mg/dL (8.4-10.2); Carbon Dioxide 25 mmol/L (22-30); Chloride 108 mmol/L (98-107); Estimated CRCL calculation 102 ml/min; Estimated Glomerular Filt Rate > 60; Glucose 116 mg/dL (65-110); Osmolality Calculated 292 mOsm/kg (285-295); Potassium 4.1 mmol/L (3.4-5.0); Sodium 141 mmol/L (137-145); Total Protein 6.0 g/dL (6.3-8.2)
[2025-09-24 07:49] VITALS: BP 102/47; PULSE 72; RESP 17; TEMP 37.2; O2SAT 95
[2025-09-24] MEDS: PANTOPRAZOLE 40 MG TABLET PO (08:12)
[2025-09-24] MEDS: SPIRONOLACTONE 25 MG TABLET 100 MG PO (08:13)
[2025-09-24] MEDS: LACTULOSE 20 GM/30 ML UDC PO ×4 (08:13→20:09)
--- NOTE | 2025-09-24 13:07 | P.PNIM_ITS ---
Progress Note: A&P Assessment and Plan (1) Left scapula fracture: Code(s): S42.102A - Fracture of unspecified part of scapula, left shoulder, initial encounter for closed fracture Status: Acute Assessment and Plan: patient was evaluated by orthopedic surgery during hospitalization recommendations included conservative treatment, standard sling to LUE, early range of motion exercises for the hand, wrist and elbow * WBAT to LUE * follow up outpatient with Dr. Pa * pain control * PT/OT eval Swing bed (2) Fall: Code(s): W19.XXXA - Unspecified fall, initial encounter Status: Acute Assessment and Plan: patient admitted to swing bed for rehabilitation * fall precautions * PT/OT eval and treat (3) Pancytopenia: Code(s): D61.818 - Other pancytopenia Status: Acute Assessment and Plan: patient's labs were stable during admission to the hospital * repeat labs unchanged * follow up with Hematology outpatient (4) Type 2 diabetes mellitus: Code(s): E11.9 - Type 2 diabetes mellitus without complications Status: Chronic Assessment and Plan: * continue patient's metformin * Accu-Cheks a.c. HS * low-dose sliding scale * hypoglycemic protocol * diabetic diet (5) Cirrhosis: Code(s): K74.60 - Unspecified cirrhosis of liver Status: Chronic Assessment and Plan: due to history of hepatitis C * continue Lactulose 20 grams PO QID and spironolactone * monitor LFT's, mental status, bowel movements Plan Code status: Full code per patient DVT prophylaxis: SCD Stress ulcer prophylaxis: NA PT/OT notes: Swing bed Disposition: patient continues admission for swing bed to continue rehab after fall at home resulting in fractured scapula left. patient progressing well with physical and occupational therapy plan is to discharge home Tuesday or . Time Spent With Patient Time with patient: 15 - 25 minutes Subjective Date/time seen: 09/24/25 13:07 Interval history: Patient is a 75 year old female with PMH of DM type 2, pancytopenia, HTN, hepatitis C and liver cirrhosis. Patient was admitted at [facility] from 09/09/2025 to 09/12/2025 after she had a mechanical fall at home. Imaging showed a commuted non-displaced fracture of the left scapula she was admitted to [place] [facility] for continued rehabilitation need. 09/24/2025: patient up in chair due acute complaints does still have some mild pain and soreness to left showing your otherwise patient is doing well ready to discharged home scheduled for Tuesday or . Labs reviewed unchanged and vitals stable. Review of Systems Review of Systems: All systems reviewed & are unremarkable except as noted in HPI and below Exam Const: General: comfortable and no acute distress HENMT: Face/Nose/Sinus: Normal nares present Mouth: Yes moist mucous membranes Eyes: General: appearance normal, both eyes and all related structures Sclera: sclerae normal Neck: Neck: supple Resp: Effort & Inspection: normal respiratory effort Auscultation: clear to auscultation bilaterally Cardio: Rate: regular rate Rhythm: regular rhythm GI: Auscultation: normal bowel sounds Skin: General skin exam: normal color and no rashes or lesions noted Neuro: Speech: normal speech Motor exam (neuro): 5/5 motor strength present throughout Sensory Exam: normal sensation Extrem: General: normal to inspection Psych: Mental Status: mental status grossly normal Affect: normal affect Objective Data Vital Signs Vital Signs: Vital Signs - 24 hr 09/23/25 16:00 09/24/25 00:00 09/24/25 07:49 Temperature 98.7 F 98.4 F 98.9 F Pulse Rate 70 83 72 Respiratory Rate 18 18 17 Blood Pressure 112/50 L 117/56 L 102/47 L Pulse Oximetry 98 95 95 Oxygen Delivery Room Air Room Air Room Air Intake/Output Intake/Output: Intake & Output 09/21/25 09/22/25 09/23/25 09/24/25 23:59 23:59 23:59 23:59 Intake Total 1810 1620 1690 680 Output Total 0 0 1 Balance 1810 1620 1689 680 Meds/Results Medications: Active Medications Generic Name Dose Route Start Last Admin Trade Name Freq PRN Reason Stop Dose Admin Acetaminophen 1,000 mg 09/12/25 19:26 09/17/25 16:11 Acetaminophen 500 Mg Tablet PO 1,000 mg Q6H PRN Administration Mild Pain (1-3) or Fever Dextrose 12.5 gm 09/12/25 19:28 Dextrose 50% 25 Gm/50 Ml Syringe IV PUSH PRN PRN Hypoglycemia Protocol Glucagon 1 mg 09/12/25 19:28 Glucagon For Inj 1 Mg Vial IM PRN PRN Hypoglycemia Protocol Glucose 15 gm 09/12/25 19:28 Glucose Oral Gel 15 Gm Of Glucse In 37.5 Gm Tube PO PRN PRN Hypoglycemia Protocol Dextrose 1,000 mls @ 100 mls/hr 09/12/25 19:28 Dextrose 5% 1,000 Ml IVPB PRN PRN Hypoglycemia Protocol Insulin Human Lispro 2 - 5 units 09/13/25 08:00 09/24/25 12:35 Insulin Human Lispro (*Bkc) 1,000 Units/10 Ml Vial SUB-Q Not Given [facility] Protocol Lactulose 20 gm 09/12/25 21:00 09/24/25 08:13 Lactulose 20 Gm/30 Ml Udc PO 20 gm QID ZORAN Administration Metformin HCl 1,000 mg 09/13/25 09:00 09/24/25 08:13 Metformin Hcl 500 Mg Tablet PO 1,000 mg BID ZORAN Administration Oxycodone HCl 2.5 mg 09/12/25 19:24 09/24/25 06:46 Oxycodone Hcl (*Crx) 2.5 Mg Tab Ir PO 2.5 mg Q6H PRN Administration pain (scale score 7-10) Pantoprazole Sodium 40 mg 09/13/25 09:00 09/24/25 08:12 Pantoprazole 40 Mg Tablet PO 40 mg DAILY ZORAN Administration Phenyleph/Shark Oil/Min Oil/Petrol 1 applic 09/22/25 10:03 Phenyleph/Shark Oil/Mo/Petrol Cream 26 Gm RECTAL DAILY PRN Hemorrhoids Polyethylene Glycol 17 gm 09/16/25 14:22 Polyethylene Glycol 3350 17 Gm Powd.Pack PO DAILY PRN constipation Senna/Docusate Sodium 1 tab 09/12/25 19:26 Senna/Docusate Sodium Tablet PO HS PRN Constipation Spironolactone 100 mg 09/13/25 09:00 09/24/25 08:13 Spironolactone 25 Mg Tablet PO 100 mg DAILY ZORAN Administration Tramadol HCl 50 mg 09/12/25 19:24 09/23/25 18:05 Tramadol Hcl (*Crx) 50 Mg Tablet PO 50 mg Q6H PRN Administration pain (scale score 4-6) Trazodone HCl 25 mg 09/12/25 19:24 09/23/25 21:32 Trazodone Hcl 25 Mg Tablet PO 25 mg QHS PRN Administration Insomnia Labs Labs: Laboratory Results - last 24 hr 09/23/25 09/23/25 09/24/25 16:43 20:54 07:12 WBC 3.4 L RBC 3.49 L Hgb 9.8 L Hct 31.2 L MCV 89.4 MCH 28.1 MCHC 31.4 L RDW 17.3 H Plt Count 85 L MPV 12.0 H % Immature Plt Fraction 4.6 Sodium 141 Potassium 4.1 Chloride 108 H Carbon Dioxide 25 Anion Gap 8 BUN 12 Creatinine 0.37 L Estim Creat Clear Calc 102 Estimated GFR > 60 Glucose 116 H POC Capillary Glucose 149 H 144 H Calculated Osmolality 292 Calcium 9.8 Total Bilirubin 2.0 H AST 37 H ALT 23 Alkaline Phosphatase 173 H Total Protein 6.0 L Albumin 3.1 L 09/24/25 09/24/25 07:16 11:49 WBC RBC Hgb Hct MCV MCH MCHC RDW Plt Count MPV % Immature Plt Fraction Sodium Potassium Chloride Carbon Dioxide Anion Gap BUN Creatinine Estim Creat Clear Calc Estimated GFR Glucose POC Capillary Glucose 117 H 176 H Calculated Osmolality Calcium Total Bilirubin AST ALT Alkaline Phosphatase Total Protein Albumin Quality VTE Prophylaxis VTE prophylaxis: mechanical ordered -Patient's previous records reviewed on admission -ER notes reviewed in detail on admission -discussed all findings and current treatment plan with patient/Family/POA -Consultations reviewed for recommendations -Patient's disposition for safe discharge discussed with human services case manager -radiology imaging, EKG and test results I have personally reviewed and interpreted unless otherwise specified Dictation performed by [employer] direct speech recognition software, therefore pocket creaser variants and typographical errors may occur. Hospitalist MIPS Advance Care Plan I have confirmed that the patient's Advanced Care Plan is present, code status is documented, or surrogate decision maker is listed in patient medical record.: Yes Medication Reconciliation I have utilized all available resources to obtain, update and review the patients current medications (includes all prescriptions, OTC, herbals, cannabis, and nutritional supplements).: Yes The patient is not eligible for med reconciliation; the patient is in a emergent medical situation where delaying treatment would jeopardize the patients health.: No
[2025-09-24 16:00] VITALS: BP 112/52; PULSE 78; RESP 16; TEMP 37; O2SAT 97
[2025-09-25] VITALS: BP 121/65; PULSE 78; RESP 16; TEMP 36.6; O2SAT 95
[2025-09-25 08:00] VITALS: BP 117/56; PULSE 87; RESP 17; TEMP 37.1; O2SAT 96
[2025-09-25] MEDS: SPIRONOLACTONE 25 MG TABLET 100 MG PO (08:17)
[2025-09-25] MEDS: PANTOPRAZOLE 40 MG TABLET PO (08:17)
--- NOTE | 2025-09-25 10:46 | P.DS_ITS ---
DS: Admitting Diagnosis Discharge Date 09/25/2025 Admitting Diagnosis left scapula fracture Fall Pancytopenia Type 2 diabetes mellitus Hypertension Cirrhosis DS: Discharge Diagnosis Discharge Diagnosis (1) Left scapula fracture: Code(s): S42.102A - Fracture of unspecified part of scapula, left shoulder, initial encounter for closed fracture Status: Acute (2) Fall: Code(s): W19.XXXA - Unspecified fall, initial encounter Status: Acute (3) Pancytopenia: Code(s): D61.818 - Other pancytopenia Status: Acute (4) Type 2 diabetes mellitus: Code(s): E11.9 - Type 2 diabetes mellitus without complications Status: Chronic (5) Cirrhosis: Code(s): K74.60 - Unspecified cirrhosis of liver Status: Chronic DS: Summary Hospital Course Reason for hospitalization: rehab Hospital Course: left scapula fracture -patient was evaluated by orthopedic surgery during hospitalization -recommendations included conservative treatment, standard sling to LUE, early range of motion exercises for the hand, wrist and elbow -WBAT to LUE -follow up outpatient with Dr. Pa in 1 week -pain control -PT/OT, rehabilitation -patient discharging home today with [facility] Fall -patient admitted to swing bed for rehabilitation -fall precautions -PT/OT, rehab -patient discharging home today with [facility] Pancytopenia -patient's labs were stable during admission to the hospital -on discharge from hospital wbc 4.0, Hgb 9.2 and platelet 62 -monitored and remained stable while admitted to swing bed Type 2 diabetes mellitus -accu checks -avoid hypoglycemia -continue metformin -low dose SSI with meals while inpatient Hypertension -continue spironolactone Cirrhosis -due to history of hepatitis C -continue Lactulose 20 grams PO QID -monitor LFT's, mental status Time Spent with Patient Time attestation: Total time spent providing and/or coordinating discharge services: 35 Minutes Exam Const: General: comfortable and no acute distress HENMT: Face/Nose/Sinus: Normal nares present Mouth: Yes moist mucous membranes Eyes: General: appearance normal, both eyes and all related structures Sclera: sclerae normal Neck: Neck: supple Resp: Effort & Inspection: normal respiratory effort Auscultation: clear to auscultation bilaterally Cardio: Rate: regular rate Rhythm: regular rhythm GI: Auscultation: normal bowel sounds Skin: General skin exam: normal color and no rashes or lesions noted Neuro: Speech: normal speech Motor exam (neuro): 5/5 motor strength present throughout Sensory Exam: normal sensation Extrem: General: normal to inspection Psych: Mental Status: mental status grossly normal Affect: normal affect DS: Data Data Completed and Pending Labs on day of discharge: Labs from last 24 hours 09/25/25 09/24/25 09/24/25 07:10 20:17 16:40 POC Capillary Glucose 115 H 136 H 163 H 09/24/25 11:49 POC Capillary Glucose 176 H Discharge Plan Discharge Attending physician on discharge: Harsha Whiting Consulting providers: Laurel Galindo Discharging Clinician: Isamar Colmenares Patient Disposition: Home with Home Health Service Activity: as tolerated Diet: as tolerated Discharge Instructions: Per Care Coordination: [facility] will follow you at discharge for alf, physical therapy, and occupational therapy. They will plan to see you on Tuesday or Tuesday next week.They will call you to schedule a date and time. Patient Instructions: Antibiotic Form, Trazodone (By mouth), Oxycodone, Rapid Release (By mouth), Tramadol (By mouth), Scapular Fracture (DC), Narcotic Safety (ED), Fall Prevention for Older Adults (DC) Patient Language: Prydeinig Stand Alone Forms: General Discharge Information Follow-up/Referrals: Valdez Pa MD [Physician, Orthopedics] Referral Note: call for a follow up appointment and any imaging that Dr. Pa recommends. Ute Winter APRN [Primary Care Provider, [facility]] Referral Note: call for an appointment to be seen within 1-2 weeks of discharge Discharge Medications: New sennosides-docusate sodium [Senokot-S] 8.6-50 mg Tablet 1 tab PO HS PRN (Reason: Constipation) Qty: 30 0RF acetaminophen 500 mg Tablet 1,000 mg PO Q6H PRN (Reason: Mild Pain (1-3) Or Fever) Qty: 30 0RF oxycodone 5 mg tablet 2.5 mg PO Q6H PRN (Reason: pain (scale score 7-10)) Qty: 14 0RF tramadol 50 mg Tablet 50 mg PO Q6H PRN (Reason: pain (scale score 4-6)) Qty: 14 0RF trazodone 50 mg tablet 25 mg PO HS PRN (Reason: Insomnia) Qty: 14 0RF Continued (DME) blood-glucose meter [Blood Glucose Monitoring] Kit See Rx Instructions .Route Qty: 1 0RF Rx Instructions: As directed daily (DME) Blood Glucose Test Strip See Rx Instructions .Route Qty: 50 12RF Rx Instructions: As directed daily (DME) lancing device [lancing device with lancets] Misc See Rx Instructions .Route Qty: 1 0RF Rx Instructions: As directed daily (DME) lancets 32 gauge misc See Rx Instructions .Route Qty: 100 12RF Rx Instructions: As directed daily spironolactone 100 mg tablet 100 mg PO DAILY polyethylene glycol 3350 17 gram/dose powder 17 g PO DAILY Qty: 238 0RF lactulose 20 gram/30 mL Solution 20 g PO QID Qty: 180 2RF metformin 1,000 mg tablet 1,000 mg PO BID Qty: 180 3RF pantoprazole 40 mg tablet,delayed release (DR/EC) 40 mg PO DAILY Qty: 90 3RF Discontinued oxycodone 5 mg tablet 2.5 mg PO Q6H PRN (Reason: pain (scale score 7-10)) Qty: 10 0RF tramadol 50 mg tablet 50 mg PO Q6H PRN (Reason: pain (scale score 4-6)) Qty: 10 0RF trazodone 50 mg tablet 25 mg PO QHS PRN (Reason: insomnia) Qty: 30 3RF Date of admission: 09/12/25 17:00 Primary Care Provider: Ute Winter Admitting Provider: Harsha Whiting Attending physician on admission: Harsha Whiting Condition: Stable Quality VTE Prophylaxis VTE prophylaxis: mechanical ordered
[2025-09-25] MEDS: INFLUENZA VACCINE HIGH DOSE (>64) 180 MCG/0.5 ML SYRINGE IM (12:26)
--- NOTE | 2025-09-25 13:35 | PC.NURSE ---
Discharge instructions went over with patient and daughter, both state understanding. Transported out of facility in wheelchair by tag writer, to personal vehicle. Left in stable condition.
--- NOTE | 2025-09-30 10:01 | PC.NURSE ---
Discharge call back completed, doing well, no questions about dc instructions or medications.
== END 2025-09-25 13:35 | disposition home health service (06) | DRG 560 ==
PROVIDERS: Nurse Practitioner Family; Admitting Provider Internal Medicine; PCP Nurse Practitioner Family; Visit Provider Internal Medicine
DX: S42.102D Fracture of unspecified part of scapula, left shoulder, subsequent encounter for fracture with routine healing (principal); D61.818 Other pancytopenia; W19.XXXD Unspecified fall, subsequent encounter; D64.9 Anemia, unspecified; E11.9 Type 2 diabetes mellitus without complications; I10 Essential (primary) hypertension; K74.60 Unspecified cirrhosis of liver; Z86.19 Personal history of other infectious and parasitic diseases; Z87.891 Personal history of nicotine dependence; Z23 Encounter for immunization
CPT/HCPCS: 36415; 80053; 82948; 85027; 85055; 90471; 90662; 97110; 97161; 97166; 97530; 97535; A9270; G0008; J1815